=== PATIENT | male | born 1955 | race Caucasian/White ===

== ENCOUNTER → 2016-12-24 | Outpatient (CLI) | payer BC ==
[~2016-12-24] MED LIST: SODIUM CHLORIDE 0.9% 250 ML in EMPTY BAG 1 BAG IV PRN; SODIUM CHLORIDE 0.9% 500 ML in EMPTY BAG 1 BAG IV PRN
[2016-12-24 09:27] VITALS: RESP 16; TEMP 97.6
[2016-12-24 10:46] VITALS: PULSE 66
[2016-12-24 11:06] VITALS: BP 136/81
== END | disposition home or self-care (01) ==
LOC: PROCWHC3 09:15
PROVIDERS: ATTEND Internal Medicine Gastroenterology
DX: K50.012 Crohn's disease of small intestine with intestinal obstruction (principal)
CPT/HCPCS: 96361; 96413; 96415; J1745

== ENCOUNTER 2017-02-04 09:22 | Outpatient (CLI) | payer BC ==
[2017-02-04 09:34] VITALS: RESP 16; TEMP 97.1
[2017-02-04 11:23] VITALS: BP 143/83; PULSE 61
== END 2017-02-04 16:14 | disposition home or self-care (01) ==
LOC: PROCWHC3 09:22
PROVIDERS: ATTEND Internal Medicine Gastroenterology
DX: K50.012 Crohn's disease of small intestine with intestinal obstruction (principal)
CPT/HCPCS: 96361; 96413; 96415; J1745

== ENCOUNTER → 2017-02-14 | Outpatient (CLI) | payer BC ==
[2017-02-14 08:07] LABS: CH 29.5; CHCM 33.8; HCT 38.4 % (39.0-53.0); HDW 3.04; HGB 12.6 gm/dL (13.0-17.5); MCH 28.7 pg (25.0-35.0); MCHC 32.9 g/dL (31.0-37.0); MCV 87.3 fL (80.0-100.0); Mean Platelet Volume 7.8; RDW 13.4 % (11.5-15.5); WBC 7.4 k/uL (3.8-10.6)
[2017-02-14 10:02] LABS: ALT 48 U/L (21-72); AST 37 U/L (17-59); Alkaline Phosphatase 82 U/L (38-126); Anion Gap 13 mmol/L; Blood Urea Nitrogen 10 mg/dL (9-20); Calcium 9.1 mg/dL (8.4-10.2); Carbon Dioxide 24 mmol/L (22-30); Chloride 107 mmol/L (98-107); Cholesterol 121 mg/dL (<200); Glucose 102 mg/dL (74-99); HDL Cholesterol 42 mg/dL (40-60); Non-African American GFR(MDRD) >60 (>60 ml/min/1.73 sqM); Potassium 4.1 mmol/L (3.5-5.1); Sodium 144 mmol/L (137-145); Total Bilirubin 1.9 mg/dL (0.2-1.3); Total Protein 7.5 g/dL (6.3-8.2); Triglycerides 75 mg/dL (<150)
== END | disposition home or self-care (01) ==
LOC: LABWHC1 06:55
PROVIDERS: ATTEND Internal Medicine
DX: E29.1 Testicular hypofunction (principal); E03.9 Hypothyroidism, unspecified; K50.90 Crohn's disease, unspecified, without complications
CPT/HCPCS: 36415; 80053; 80061; 84402; 84403; 84443; 85027

== ENCOUNTER → 2017-03-14 | Outpatient (CLI) | payer BC | END | disposition home or self-care (01) | LOC: PROCWHC3 14:04 | PROVIDERS: ATTEND Internal Medicine Gastroenterology | DX: Z53.9 Procedure and treatment not carried out, unspecified reason (principal) ==

== ENCOUNTER → 2017-03-18 | Outpatient (CLI) | payer BC ==
[2017-03-18 09:39] VITALS: RESP 18; TEMP 98.6
[2017-03-18 11:32] VITALS: BP 143/82; PULSE 59
== END | disposition home or self-care (01) ==
LOC: PROCWHC3 09:14
PROVIDERS: ATTEND Internal Medicine Gastroenterology
DX: K50.012 Crohn's disease of small intestine with intestinal obstruction (principal)
CPT/HCPCS: 96413; 96415; J1745

== ENCOUNTER → 2017-04-25 | Outpatient (CLI) | payer BC ==
[2017-04-25 09:35] VITALS: RESP 18; TEMP 97.9
[2017-04-25 11:05] VITALS: BP 157/81; PULSE 64
== END | disposition home or self-care (01) ==
LOC: PROCWHC3 09:07
PROVIDERS: ATTEND Internal Medicine Gastroenterology
DX: K50.90 Crohn's disease, unspecified, without complications (principal)
CPT/HCPCS: 96413; 96415; J1745

== ENCOUNTER → 2017-05-17 | Outpatient (CLI) | payer BC ==
[2017-05-17 07:26] LABS: CH 31.6; CHCM 35.5; HCT 35.3 % (39.0-53.0); HDW 2.97; HGB 12.3 gm/dL (13.0-17.5); MCH 31.1 pg (25.0-35.0); MCHC 34.8 g/dL (31.0-37.0); MCV 89.3 fL (80.0-100.0); Mean Platelet Volume 7.5; RBC 3.95 m/uL (4.30-5.90); WBC 5.3 k/uL (3.8-10.6)
[2017-05-17 11:11] LABS: ALT 41 U/L (21-72); AST 29 U/L (17-59); Alkaline Phosphatase 84 U/L (38-126); Anion Gap 11 mmol/L; Blood Urea Nitrogen 14 mg/dL (9-20); Carbon Dioxide 22 mmol/L (22-30); Chloride 110 mmol/L (98-107); Cholesterol 103 mg/dL (<200); Glucose 108 mg/dL (74-99); HDL Cholesterol 31 mg/dL (40-60); Non-African American GFR(MDRD) >60 (>60 ml/min/1.73 sqM); Sodium 143 mmol/L (137-145); Total Bilirubin 1.4 mg/dL (0.2-1.3); Total Protein 7.1 g/dL (6.3-8.2); Triglycerides 195 mg/dL (<150)
== END | disposition home or self-care (01) ==
LOC: LABWHC1 07:06
PROVIDERS: ATTEND Internal Medicine
DX: K50.90 Crohn's disease, unspecified, without complications (principal); I10 Essential (primary) hypertension; E29.1 Testicular hypofunction
CPT/HCPCS: 36415; 80053; 80061; 84402; 84403; 84443; 85027

== ENCOUNTER → 2017-06-06 | Outpatient (CLI) | payer BC ==
[~2017-06-06] MED LIST changes: +ACETAMINOPHEN TAB 500 MG TAB PO ONE; +LORATADINE 10 MG TAB PO ONE
[2017-06-06 09:45] VITALS: RESP 18; TEMP 98.3
[2017-06-06 11:12] VITALS: BP 156/87; PULSE 69
== END | disposition home or self-care (01) ==
LOC: PROCWHC3 09:16
PROVIDERS: ATTEND Internal Medicine Gastroenterology
DX: K50.012 Crohn's disease of small intestine with intestinal obstruction (principal)
CPT/HCPCS: 96413; 96415; J1745

== ENCOUNTER → 2017-07-18 | Outpatient (CLI) | payer BC ==
[~2017-07-18] MED LIST changes: -SODIUM CHLORIDE 0.9% 250 ML in EMPTY BAG 1 BAG IV PRN
[2017-07-18 09:49] VITALS: TEMP 98.2
[2017-07-18 11:19] VITALS: BP 158/84; PULSE 56; RESP 18
== END | disposition home or self-care (01) ==
LOC: PROCWHC3 09:21
PROVIDERS: ATTEND Internal Medicine Gastroenterology
DX: K50.012 Crohn's disease of small intestine with intestinal obstruction (principal)
CPT/HCPCS: 96413; 96415; J1745

== ENCOUNTER 2017-08-04 19:36 | Inpatient (IN) | payer BC ==
[2017-08-04] MEDS ORDERED: SODIUM CHLORIDE 0.9% 1,000 ML IV STA ×2 (20:04)
[2017-08-04] MEDS ORDERED: ONDANSETRON 4 MG/2 ML VIAL IVP STA (20:04)
[2017-08-04] MEDS ORDERED: PANTOPRAZOLE 40 MG/10 ML VIAL IVP STA (20:04)
[2017-08-04] MEDS ORDERED: HYDROmorphone 1 MG/ML 1 ML SYRINGE IVP STA (20:04)
--- NOTE | 2017-08-04 20:10 | ED ---
General Adult HPI - General Chief complaint: Nausea/Vomiting/Diarrhea Stated complaint: chron's flare up Time Seen by Provider: 08/04/17 19:51 Source: patient, RN notes reviewed, old records reviewed Mode of arrival: ambulatory Limitations: no limitations - History of Present Illness Initial comments: Complaint history of present illness 61-year-old male here with a history of Crohn's. He's having abdominal cramping and pain for one week. His stools have been somewhat formed and they float. Not noticed any blood. - Related Data Home Medications Medication Instructions Recorded Confirmed ALPRAZolam [Xanax] 0.25 mg PO BID 05/06/14 08/04/17 Famotidine [Pepcid] 20 mg PO BID 05/06/14 08/04/17 Gemfibrozil 600 mg PO HS 05/06/14 08/04/17 Mesalamine [Pentasa] 1,000 mg PO QID 05/06/14 08/04/17 Multivitamin [Men's Multi-Vitamin] 1 tab PO DAILY 05/06/14 08/04/17 Pantoprazole Sodium [Protonix] 40 mg PO DAILY 05/06/14 08/04/17 inFLIXimab [Remicade] 800 mg IVPB Q42D 06/08/14 08/04/17 Levothyroxine Sodium [Synthroid] 25 mcg PO HS 06/01/15 08/04/17 Testosterone Cypionate 100 mg IM Q28D 12/12/15 08/04/17 [Depo-Testosterone] Cholecalciferol (Vitamin D3) 50,000 unit PO SA 03/05/16 08/04/17 [Vitamin D3] Phenyleph/Pramoxin/Glycr/W.pet 1 applic RECTAL DAILY PRN 03/06/16 08/04/17 [Preparation H Cream] Allergies Allergy/AdvReac Type Severity Reaction Status Date / Time codeine AdvReac Nausea Verified 08/04/17 19:45 Review of Systems ROS Statement: Those systems with pertinent positive or pertinent negative responses have been documented in the HPI. You have systems no visual acuity changes no headache no chest pain no shortness of breath. Mild low back pain. Been feeling bloated for one week. Bowel movements have continued even up until today but no gas today. No numbness no tingling. All systems are reviewed. Past medical problems significant for hypothyroidism, hypercholesterolemia, Crohn's disease. Surgeries include cholecystectomy, surgery for Meckel's diverticula, hernia repair prostate surgery total prostatectomy for prostate cancer. The patient's family history father had lung cancer. Patient has ALLERGIES to codeine. He quit smoking 15 years ago. drinks Alcohol socially. ROS Other: All systems not noted in ROS Statement are negative. Past Medical History Past Medical History: Cancer, GERD/Reflux, Hyperlipidemia, Skin Disorder, Thyroid Disorder Additional Past Medical History / Comment(s): chron's firt diagnosed in 2006, prostate cancer with removal, hypothyroidism, hiatal hernia, eczema when youner. History of Any Multi-Drug Resistant Organisms: None Reported Past Surgical History: Cholecystectomy, Hernia Repair, Prostate Surgery Additional Past Surgical History / Comment(s): exploratory lap x 2, umbilcal hernia repair, merkels diverticulum removal, prostatectomy. Past Anesthesia/Blood Transfusion Reactions: No Reported Reaction Past Psychological History: Anxiety Smoking Status: Former smoker Past Alcohol Use History: None Reported Past Drug Use History: None Reported - Past Family History Father Family Medical History: Coronary Artery Disease (CAD), Hyperlipidemia, Myocardial Infarction ([place]), Prostate Disorder Additional Family Medical History / Comment(s): Father is 83 yrs old. Mother Family Medical History: Hyperlipidemia, Myocardial Infarction ([place]) Additional Family Medical History / Comment(s): Mother is 80 yrs old. She has ? CROHNS OR COLITIS, HEART DISEASE General Exam - General Exam Comments Initial Comments: General: The patient is awake and alert, lying of abdominal pain. History of Crohn's. Vital signs temperature 98.2 pulse 79 respiratory rate 18 pulse ox 99% room air blood pressure 154/88 Eye: Pupils are equal, round and reactive to light, extra-ocular movements are intact ; there is normal conjunctiva bilaterally. No signs of icterus. Ears, nose, mouth and throat: There are moist mucous membranes and no oral lesions. Neck: The neck is supple, there is no tenderness. Cardiovascular: There is a regular rate and rhythm. No murmur, rub or gallop is appreciated. Respiratory: Lungs are clear to auscultation, respirations are non-labored, breath sounds are equal. No wheezes, stridor, rales, or rhonchi. Gastrointestinal: Mildly distended. Active bowel sounds. Tender to deep palpation no organomegaly. Back: There is no tenderness to palpation in the midline. Musculoskeletal: Normal ROM, no tenderness, There is no pedal edema. There is no calf tenderness or swelling. Sensation intact. Pulses equal bilaterally 2+. Neurological: No neuro deficits. Skin: Skin is warm and dry and no rashes or lesions are noted. Limitations: no limitations Course Vital Signs 08/04/17 19:42 Temperature 98.2 F Pulse Rate 79 Respiratory 18 Rate Blood Pressure 154/88 O2 Sat by Pulse 99 Oximetry Medical Decision Making - Medical Decision Making Medical decision making; white count 14.4 hemoglobin 13 hematocrit 39, potassium 4.1 with a BUN 17 creatinine 1.1 and GFR greater than 60. Glucose 113. Total bilirubin mildly elevated at 1.9. Amylase lipase within normal limits. Trays of the abdomen were done and reviewed by radiologist his findings are her multiple loops of dilated small bowel with air-fluid levels. These dilated loops measuring up to 4.5 cm. There is also several air-fluid levels noted in the colon which could be normal. There are surgical clips identified in the gallbladder fossa. No definite free intraperitoneal air is identified. There are multiple surgical zeina noted in the pelvis. Impression; multiple dilated loops of small bowel with air-fluid levels. Findings are concerning for partial or early complete small bowel obstruction. As read by Dr. Bush She has had Gen. surgery performed by Dr. Madan Raymond, he will be notified. The patient will have a nasogastric tube placed to low suction. And discussed with Dr. mcgowan, covering for Dr. Leyva. Patient be admitted to Dr. Leyva with a cold consultation from Dr. batista . Dr. Bacon has ordered Solu-Medrol 40 mg, 3 times a day for his Crohns flare. - Lab Data Result diagrams: 08/04/17 20:10 08/04/17 20:10 Lab Results 08/04/17 08/04/17 08/04/17 Range/Units 20:10 20:10 20:10 WBC 14.4 H (3.8-10.6) k/uL RBC 4.44 (4.30-5.90) m/uL Hgb 13.9 (13.0-17.5) gm/dL Hct 39.5 (39.0-53.0) % MCV 88.9 (80.0-100.0) fL MCH 31.2 (25.0-35.0) pg MCHC 35.1 (31.0-37.0) g/dL RDW 14.8 (11.5-15.5) % Plt Count 287 (150-450) k/uL Neutrophils % 84 % Lymphocytes % 9 % Monocytes % 4 % Eosinophils % 1 % Basophils % 1 % Neutrophils # 12.0 H (1.3-7.7) k/uL Lymphocytes # 1.4 (1.0-4.8) k/uL Monocytes # 0.6 (0-1.0) k/uL Eosinophils # 0.2 (0-0.7) k/uL Basophils # 0.1 (0-0.2) k/uL Sodium 143 (137-145) mmol/L Potassium 4.1 (3.5-5.1) mmol/L Chloride 109 H (98-107) mmol/L Carbon Dioxide 20 L (22-30) mmol/L Anion Gap 14 mmol/L BUN 17 (9-20) mg/dL Creatinine 1.10 (0.66-1.25) mg/dL Est GFR (MDRD) Af Amer >60 (>60 ml/min/1.73 sqM) Est GFR (MDRD) Non-Af >60 (>60 ml/min/1.73 sqM) Glucose 113 H (74-99) mg/dL Plasma Lactic Acid Alex 1.2 (0.7-2.0) mmol/L Calcium 9.4 (8.4-10.2) mg/dL Total Bilirubin 1.9 H (0.2-1.3) mg/dL AST 41 (17-59) U/L ALT 47 (21-72) U/L Alkaline Phosphatase 91 (38-126) U/L Total Protein 7.9 (6.3-8.2) g/dL Albumin 4.5 (3.5-5.0) g/dL Amylase 55 (30-110) U/L Lipase 24 (23-300) U/L Urine Color Urine Appearance (Clear) Urine pH (5.0-8.0) Ur Specific [place] (1.001-1.035) Urine Protein (Negative) Urine Glucose (UA) (Negative) Urine Ketones (Negative) Urine Blood (Negative) Urine Nitrite (Negative) Urine Bilirubin (Negative) Urine Urobilinogen (<2.0) mg/dL Ur Leukocyte Esterase (Negative) Urine WBC (0-5) /hpf Urine Mucus (None) /hpf 08/04/17 Range/Units 20:50 WBC (3.8-10.6) k/uL RBC (4.30-5.90) m/uL Hgb (13.0-17.5) gm/dL Hct (39.0-53.0) % MCV (80.0-100.0) fL MCH (25.0-35.0) pg MCHC (31.0-37.0) g/dL RDW (11.5-15.5) % Plt Count (150-450) k/uL Neutrophils % % Lymphocytes % % Monocytes % % Eosinophils % % Basophils % % Neutrophils # (1.3-7.7) k/uL Lymphocytes # (1.0-4.8) k/uL Monocytes # (0-1.0) k/uL Eosinophils # (0-0.7) k/uL Basophils # (0-0.2) k/uL Sodium (137-145) mmol/L Potassium (3.5-5.1) mmol/L Chloride (98-107) mmol/L Carbon Dioxide (22-30) mmol/L Anion Gap mmol/L BUN (9-20) mg/dL Creatinine (0.66-1.25) mg/dL Est GFR (MDRD) Af Amer (>60 ml/min/1.73 sqM) Est GFR (MDRD) Non-Af (>60 ml/min/1.73 sqM) Glucose (74-99) mg/dL Plasma Lactic Acid Alex (0.7-2.0) mmol/L Calcium (8.4-10.2) mg/dL Total Bilirubin (0.2-1.3) mg/dL AST (17-59) U/L ALT (21-72) U/L Alkaline Phosphatase (38-126) U/L Total Protein (6.3-8.2) g/dL Albumin (3.5-5.0) g/dL Amylase (30-110) U/L Lipase (23-300) U/L Urine Color Yellow Urine Appearance Clear (Clear) Urine pH 5.5 (5.0-8.0) Ur Specific [place] 1.019 (1.001-1.035) Urine Protein 1+ H (Negative) Urine Glucose (UA) Negative (Negative) Urine Ketones Negative (Negative) Urine Blood Negative (Negative) Urine Nitrite Negative (Negative) Urine Bilirubin Negative (Negative) Urine Urobilinogen <2.0 (<2.0) mg/dL Ur Leukocyte Esterase Negative (Negative) Urine WBC 1 (0-5) /hpf Urine Mucus Rare H (None) /hpf Disposition Clinical Impression: Partial obstruction of small intestine, History of Crohn's disease Disposition: ADMITTED IP TO THIS HOSP Condition: Serious Referrals: Olman Vance MD [Primary Care Provider] - 1-2 days
[2017-08-04 20:27] LABS: Basophils # (A) 0.1 k/uL (0-0.2); Basophils % (A) 1 %; CH 32.5; CHCM 36.8; Eosinophils # (A) 0.2 k/uL (0-0.7); Eosinophils % (A) 1 %; HCT 39.5 % (39.0-53.0); HDW 3.08; HGB 13.9 gm/dL (13.0-17.5); Luc # (Auto) 0.17; Luc % (Auto) 1; Lymphocytes # (A) 1.4 k/uL (1.0-4.8); Lymphocytes % (A) 9 %; MCH 31.2 pg (25.0-35.0); MCHC 35.1 g/dL (31.0-37.0); MCV 88.9 fL (80.0-100.0); Mean Platelet Volume 8.5; Monocytes # (A) 0.6 k/uL (0-1.0); Monocytes % (A) 4 %; Neutrophils % (A) 84 %; RBC 4.44 m/uL (4.30-5.90); RDW 14.8 % (11.5-15.5); WBC 14.4 k/uL (3.8-10.6); WBC (Perox) 14.19
[2017-08-04 20:36] LABS: ALT 47 U/L (21-72); AST 41 U/L (17-59); Alkaline Phosphatase 91 U/L (38-126); Amylase 55 U/L (30-110); Anion Gap 14 mmol/L; Blood Urea Nitrogen 17 mg/dL (9-20); Calcium 9.4 mg/dL (8.4-10.2); Carbon Dioxide 20 mmol/L (22-30); Chloride 109 mmol/L (98-107); Glucose 113 mg/dL (74-99); Non-African American GFR(MDRD) >60 (>60 ml/min/1.73 sqM); Potassium 4.1 mmol/L (3.5-5.1); Sodium 143 mmol/L (137-145); Total Bilirubin 1.9 mg/dL (0.2-1.3); Total Protein 7.9 g/dL (6.3-8.2)
--- NOTE | 2017-08-04 20:56 | XR ---
Exam: X-ray abdomen 2 view TECHNIQUE: Single upright and 2 supine views of the abdomen were obtained and compared to previous st y from April 02, 2016. HISTORY: Abdominal pain nausea vomiting history of Crohn's disease. FINDINGS: There are multiple loops of dilated small bowel with air-fluid levels. These dilated loops measure up to 4.5 cm. There is also several air-fluid levels noted in the colon which could be normal. There ar e surgical clips identified in the gallbladder fossa. No definite free intraperitoneal air is identif ied. There are multiple surgical zeina noted in the pelvis. IMPRESSION: Multiple dilated loops of small bowel with air-fluid levels. Findings are concerning for partial or e adriana complete small bowel obstruction.
[2017-08-04 21:06] LABS: Appearance,Urine Clear (Clear); Bilirubin,Urine Negative (Negative); Glucose,Urine (UA) Negative (Negative); Ketones,Urine Negative (Negative); Leukocyte Esterase,Urine Negative (Negative); Mucus,Urine Rare /hpf; Nitrite,Urine Negative (Negative); PH, Urine 5.5 (5.0-8.0); Particle Count 2647; Protein,Urine 1+ (Negative); Specific Gravity,Urine 1.019 (1.001-1.035); UA Billing (MACRO vs. MICRO) MICRO; Urobilinogen,Urine <2.0 mg/dL (<2.0); WBC,Urine 1 /hpf (0-5)
[2017-08-04] MEDS ORDERED: methylPREDNISolone SOD SUCCI 125 MG/2 ML VIAL IM STA (21:18)
[2017-08-04] MEDS ORDERED: NALOXONE 0.4 MG/ML 1 ML VIAL IV PRN (21:22)
[2017-08-04] MEDS ORDERED: methylPREDNISolone SOD SUCCI 40 MG/ML 1 ML VIAL IV STA (21:56)
[2017-08-04 23:34] VITALS: BMI 25.7
[2017-08-04] MEDS: HYDROmorphone 1 MG/ML 1 ML SYRINGE IV PRN (23:38)
[2017-08-04] MEDS: SODIUM CHLORIDE 0.9% 1,000 ML IV SCH (23:41)
[2017-08-04] MEDS: methylPREDNISolone SOD SUCCI 40 MG/ML 1 ML VIAL IV SCH (23:42)
[2017-08-05] MEDS: ONDANSETRON 4 MG/2 ML VIAL IVP PRN ×2 (02:30→14:24)
[2017-08-05] MEDS: SODIUM CHLORIDE 0.9% 1,000 ML IV SCH ×3 (07:11→22:05)
[2017-08-05 07:35] LABS: ALT 42 U/L (21-72); AST 35 U/L (17-59); Alkaline Phosphatase 78 U/L (38-126); Anion Gap 11 mmol/L; Blood Urea Nitrogen 16 mg/dL (9-20); Calcium 8.7 mg/dL (8.4-10.2); Carbon Dioxide 20 mmol/L (22-30); Chloride 112 mmol/L (98-107); Glucose 134 mg/dL (74-99); Non-African American GFR(MDRD) >60 (>60 ml/min/1.73 sqM); Potassium 4.3 mmol/L (3.5-5.1); Sodium 143 mmol/L (137-145); Total Bilirubin 1.9 mg/dL (0.2-1.3); Total Protein 7.1 g/dL (6.3-8.2)
[2017-08-05 08:05] LABS: Basophils % (A) 0 %; CH 30.9; CHCM 34.1; Eosinophils % (A) 0 %; HCT 38.1 % (39.0-53.0); HDW 3.01; HGB 13.2 gm/dL (13.0-17.5); Luc # (Auto) 0.06; Luc % (Auto) 1; Lymphocytes % (A) 12 %; MCH 31.6 pg (25.0-35.0); MCHC 34.8 g/dL (31.0-37.0); Mean Platelet Volume 7.7; Monocytes # (A) 0.1 k/uL (0-1.0); Monocytes % (A) 1 %; Neutrophils # (A) 7.5 k/uL (1.3-7.7); Neutrophils % (A) 86 %; RBC 4.18 m/uL (4.30-5.90); RDW 14.2 % (11.5-15.5); WBC 8.7 k/uL (3.8-10.6); WBC (Perox) 8.83
[2017-08-05] MEDS: methylPREDNISolone SOD SUCCI 40 MG/ML 1 ML VIAL IV SCH ×3 (08:27→22:03)
[2017-08-05] MEDS: PANTOPRAZOLE 40 MG/10 ML VIAL IV SCH (08:28)
--- NOTE | 2017-08-05 12:08 | P.GSHP ---
History of Present Illness H&P Date: 08/05/17 Chief Complaint: Small bowel obstruction Patient is well-known to our service. He has a history of Crohn's disease. He is maintained on Pentasa and Remicade. He is known to Dr. Loo. He came to the hospital with a several day progressive abdominal discomfort. Also had abdominal bloating. Bowel habits slightly diminished. Some nausea but no vomiting. No fevers. Small bowel series revealed findings consistent with early SBO. Denies rectal bleeding or melena. He typically responds to steroid therapy for is exacerbation of Crohn's. He had an episode similar to this in March of last year. IV steroids were started on admission. Nasogastric tube was also placed on arrival with bilious output. - Review of Systems Comment: The patient denies any acute changes in vision or hearing, no dysphagia or odynophagia, no chest pain or shortness of breath, no dysuria or hematuria, no headache, no runny nose, no rectal bleeding or melena, no unexplained weight loss Past Medical History Past Medical History: Cancer, GERD/Reflux, Hyperlipidemia, Skin Disorder, Thyroid Disorder Additional Past Medical History / Comment(s): chron's first diagnosed in 2006, prostate cancer with removal, hypothyroidism, hiatal hernia, eczema when younger. History of Any Multi-Drug Resistant Organisms: None Reported Past Surgical History: Cholecystectomy, Hernia Repair, Prostate Surgery, Tonsillectomy Additional Past Surgical History / Comment(s): exploratory lap x 2, umbilcal hernia repair, merkels diverticulum removal, prostatectomy. Past Anesthesia/Blood Transfusion Reactions: No Reported Reaction Past Psychological History: Anxiety Additional Psychological History / Comment(s): Pt lives with spouse and adult grandson. He is independent. He uses no assistive device. He drives. Smoking Status: Former smoker Past Alcohol Use History: None Reported Additional Past Alcohol Use History / Comment(s): Pt states he first smoked at age 12 yrs. He QUIT SMOKING 13 YEARS AGO-2001. Had SMOKED OFF AND ON over the yrs -/2-3/ PPD Past Drug Use History: Cocaine, Marijuana Additional Drug Use History / Comment(s): IN HIS 20'S pt used cocaine and marijuana- none since that time. - Past Family History Father Family Medical History: Cancer, Coronary Artery Disease (CAD), Hyperlipidemia, Myocardial Infarction ([place]), Prostate Disorder Additional Family Medical History / Comment(s): Father is in Hospice with bone cancer Mother Family Medical History: Coronary Artery Disease (CAD), CVA/TIA, Hyperlipidemia, Myocardial Infarction ([place]) Additional Family Medical History / Comment(s): Mother is 80 yrs old. She has ? CROHNS OR COLITIS, HEART DISEASE Medications and Allergies Home Medications Medication Instructions Recorded Confirmed Type ALPRAZolam [Xanax] 0.25 mg PO BID 05/06/14 08/04/17 History Famotidine [Pepcid] 20 mg PO BID 05/06/14 08/04/17 History Gemfibrozil 600 mg PO HS 05/06/14 08/04/17 History Mesalamine [Pentasa] 1,000 mg PO QID 05/06/14 08/04/17 History Multivitamin [Men's Multi-Vitamin] 1 tab PO DAILY 05/06/14 08/04/17 History Pantoprazole Sodium [Protonix] 40 mg PO DAILY 05/06/14 08/04/17 History inFLIXimab [Remicade] 800 mg IVPB Q42D 06/08/14 08/04/17 History Levothyroxine Sodium [Synthroid] 25 mcg PO DAILY 06/01/15 08/04/17 History Ergocalciferol [Vitamin D2] 50,000 unit PO WE 08/04/17 08/04/17 History Allergies Allergy/AdvReac Type Severity Reaction Status Date / Time codeine AdvReac Nausea Verified 08/04/17 21:23 Surgical - Exam Vital Signs Temp Pulse Resp BP Pulse Ox 98.2 F 79 18 154/88 99 08/04/17 19:42 08/04/17 19:42 08/04/17 19:42 08/04/17 19:42 08/04/17 19:42 Physical exam: General: Well-developed, well-nourished HEENT: Normocephalic, sclerae nonicteric Abdomen: Nontender, mild distention Extremities: No edema Neuro: Alert and oriented Results - Labs 08/05/17 06:46 08/05/17 06:46 Abnormal Lab Results - Last 24 Hours (Table) 08/04/17 08/04/17 08/04/17 Range/Units 20:10 20:10 20:50 WBC 14.4 H (3.8-10.6) k/uL RBC (4.30-5.90) m/uL Hct (39.0-53.0) % Neutrophils # 12.0 H (1.3-7.7) k/uL Chloride 109 H (98-107) mmol/L Carbon Dioxide 20 L (22-30) mmol/L Glucose 113 H (74-99) mg/dL Total Bilirubin 1.9 H (0.2-1.3) mg/dL Urine Protein 1+ H (Negative) Urine Mucus Rare H (None) /hpf 08/05/17 08/05/17 Range/Units 06:46 06:46 WBC (3.8-10.6) k/uL RBC 4.18 L (4.30-5.90) m/uL Hct 38.1 L (39.0-53.0) % Neutrophils # (1.3-7.7) k/uL Chloride 112 H (98-107) mmol/L Carbon Dioxide 20 L (22-30) mmol/L Glucose 134 H (74-99) mg/dL Total Bilirubin 1.9 H (0.2-1.3) mg/dL Urine Protein (Negative) Urine Mucus (None) /hpf Diabetes panel 08/04/17 08/05/17 Range/Units 20:10 06:46 Sodium 143 143 (137-145) mmol/L Potassium 4.1 4.3 (3.5-5.1) mmol/L Chloride 109 H 112 H (98-107) mmol/L Carbon Dioxide 20 L 20 L (22-30) mmol/L BUN 17 16 (9-20) mg/dL Creatinine 1.10 0.99 (0.66-1.25) mg/dL Glucose 113 H 134 H (74-99) mg/dL Calcium 9.4 8.7 (8.4-10.2) mg/dL AST 41 35 (17-59) U/L ALT 47 42 (21-72) U/L Alkaline Phosphatase 91 78 (38-126) U/L Total Protein 7.9 7.1 (6.3-8.2) g/dL Albumin 4.5 3.9 (3.5-5.0) g/dL Calcium panel 08/04/17 08/05/17 Range/Units 20:10 06:46 Calcium 9.4 8.7 (8.4-10.2) mg/dL Albumin 4.5 3.9 (3.5-5.0) g/dL Pituitary panel 08/04/17 08/05/17 Range/Units 20:10 06:46 Sodium 143 143 (137-145) mmol/L Potassium 4.1 4.3 (3.5-5.1) mmol/L Chloride 109 H 112 H (98-107) mmol/L Carbon Dioxide 20 L 20 L (22-30) mmol/L BUN 17 16 (9-20) mg/dL Creatinine 1.10 0.99 (0.66-1.25) mg/dL Glucose 113 H 134 H (74-99) mg/dL Calcium 9.4 8.7 (8.4-10.2) mg/dL Adrenal panel 08/04/17 08/05/17 Range/Units 20:10 06:46 Sodium 143 143 (137-145) mmol/L Potassium 4.1 4.3 (3.5-5.1) mmol/L Chloride 109 H 112 H (98-107) mmol/L Carbon Dioxide 20 L 20 L (22-30) mmol/L BUN 17 16 (9-20) mg/dL Creatinine 1.10 0.99 (0.66-1.25) mg/dL Glucose 113 H 134 H (74-99) mg/dL Calcium 9.4 8.7 (8.4-10.2) mg/dL Total Bilirubin 1.9 H 1.9 H (0.2-1.3) mg/dL AST 41 35 (17-59) U/L ALT 47 42 (21-72) U/L Alkaline Phosphatase 91 78 (38-126) U/L Total Protein 7.9 7.1 (6.3-8.2) g/dL Albumin 4.5 3.9 (3.5-5.0) g/dL Assessment and Plan (1) Partial obstruction of small intestine Narrative/Plan: Patient appears to have a small bowel obstruction related to an exacerbation of Crohn's disease. We'll consult GI for evaluation and management. Continue IV steroids for now. Keep nothing by mouth with nasogastric tube to suction. We' ll reevaluate tomorrow. Status: Acute
[2017-08-05] MEDS: HYDROmorphone 1 MG/ML 1 ML SYRINGE IV PRN (14:24)
--- NOTE | 2017-08-05 19:01 | P.HPIM ---
History of Present Illness H&P Date: 08/05/17 Chief Complaint: Abdominal pain and nausea Patient Remigio Phillips is a 61-year-old male with known history of Crohn's disease who presented to [facility] emergency room with a chief complaint of abdominal pain and nausea for about 12 hours prior to presentation. Patient describes abdominal cramping and feeling of abdominal bloating. Patient has nausea that he describes as dry heaves but no vomiting. No fever or chills Small bowel series revealed findings consistent with early small bowel obstruction Denies rectal bleeding or melena. He typically responds to steroid therapy for is exacerbation of Crohn's. He had an episode similar to this in March of last year. IV steroids were started on admission. Nasogastric tube was also placed on arrival with bilious output. Past Medical History Past Medical History: Cancer, GERD/Reflux, Hyperlipidemia, Skin Disorder, Thyroid Disorder Additional Past Medical History / Comment(s): chron's first diagnosed in 2006, prostate cancer with removal, hypothyroidism, hiatal hernia, eczema when younger. History of Any Multi-Drug Resistant Organisms: None Reported Past Surgical History: Cholecystectomy, Hernia Repair, Prostate Surgery, Tonsillectomy Additional Past Surgical History / Comment(s): exploratory lap x 2, umbilcal hernia repair, merkels diverticulum removal, prostatectomy. Past Anesthesia/Blood Transfusion Reactions: No Reported Reaction Past Psychological History: Anxiety Additional Psychological History / Comment(s): Pt lives with spouse and adult grandson. He is independent. He uses no assistive device. He drives. Smoking Status: Former smoker Past Alcohol Use History: None Reported Additional Past Alcohol Use History / Comment(s): Pt states he first smoked at age 12 yrs. He QUIT SMOKING 13 YEARS AGO-2001. Had SMOKED OFF AND ON over the yrs -1/2-3/4 PPD Past Drug Use History: Cocaine, Marijuana Additional Drug Use History / Comment(s): IN HIS 20'S pt used cocaine and marijuana- none since that time. - Past Family History Father Family Medical History: Cancer, Coronary Artery Disease (CAD), Hyperlipidemia, Myocardial Infarction ([place]), Prostate Disorder Additional Family Medical History / Comment(s): Father is in Hospice with bone cancer Mother Family Medical History: Coronary Artery Disease (CAD), CVA/TIA, Hyperlipidemia, Myocardial Infarction ([place]) Additional Family Medical History / Comment(s): Mother is 80 yrs old. She has ? CROHNS OR COLITIS, HEART DISEASE Medications and Allergies Home Medications Medication Instructions Recorded Confirmed Type ALPRAZolam [Xanax] 0.25 mg PO BID 05/06/14 08/04/17 History Famotidine [Pepcid] 20 mg PO BID 05/06/14 08/04/17 History Gemfibrozil 600 mg PO HS 05/06/14 08/04/17 History Mesalamine [Pentasa] 1,000 mg PO QID 05/06/14 08/04/17 History Multivitamin [Men's Multi-Vitamin] 1 tab PO DAILY 05/06/14 08/04/17 History Pantoprazole Sodium [Protonix] 40 mg PO DAILY 05/06/14 08/04/17 History inFLIXimab [Remicade] 800 mg IVPB Q42D 06/08/14 08/04/17 History Levothyroxine Sodium [Synthroid] 25 mcg PO DAILY 06/01/15 08/04/17 History Ergocalciferol [Vitamin D2] 50,000 unit PO WE 08/04/17 08/04/17 History Allergies Allergy/AdvReac Type Severity Reaction Status Date / Time codeine AdvReac Nausea Verified 08/04/17 21:23 Physical Exam Vitals: Vital Signs Temp Pulse Pulse Resp BP BP Pulse Ox 08/05/17 15:00 98.4 F 84 16 128/76 96 08/05/17 08:00 15 08/05/17 07:00 97.2 F L 74 15 154/90 95 08/05/17 01:18 98.5 F 67 18 144/82 96 08/04/17 23:40 16 08/04/17 22:48 98.1 F 65 16 165/88 97 08/04/17 22:06 98.7 F 70 16 165/83 97 08/04/17 19:42 98.2 F 79 18 154/88 99 Intake and Output 08/05/17 08/05/17 08/05/17 06:59 14:59 22:59 Intake Total 1000 Output Total 650 Balance 1000 -650 Intake: Intake, IV Titration 1000 Amount Sodium Chloride 0.9% 1, 1000 000 ml @ 125 mls/hr IV . Q8H [facility] Rx#:[id number] Output: Gastric Drainage 250 Urine 400 Other: Voiding Method Toilet Urinal Urinal # Voids 2 3 In general patient is alert and oriented 3 HEENT head normocephalic and atraumatic, NG tube in Neck is supple no JVD no goiter no lymphadenopathy Chest exam reveals a few scattered crackles no wheezing Cardiac exam reveals regular heart sounds S1 and S2 no gallops no murmurs Abdomen is soft nontender no organomegaly with normal bowel sounds Extremity exam reveals no edema no cyanosis or clubbing Results CBC & Chem 7: 08/05/17 06:46 08/05/17 06:46 Labs: Abnormal Lab Results - Last 24 Hours (Table) 08/04/17 08/04/17 08/04/17 Range/Units 20:10 20:10 20:50 WBC 14.4 H (3.8-10.6) k/uL RBC (4.30-5.90) m/uL Hct (39.0-53.0) % Neutrophils # 12.0 H (1.3-7.7) k/uL Chloride 109 H (98-107) mmol/L Carbon Dioxide 20 L (22-30) mmol/L Glucose 113 H (74-99) mg/dL Total Bilirubin 1.9 H (0.2-1.3) mg/dL Urine Protein 1+ H (Negative) Urine Mucus Rare H (None) /hpf 08/05/17 08/05/17 Range/Units 06:46 06:46 WBC (3.8-10.6) k/uL RBC 4.18 L (4.30-5.90) m/uL Hct 38.1 L (39.0-53.0) % Neutrophils # (1.3-7.7) k/uL Chloride 112 H (98-107) mmol/L Carbon Dioxide 20 L (22-30) mmol/L Glucose 134 H (74-99) mg/dL Total Bilirubin 1.9 H (0.2-1.3) mg/dL Urine Protein (Negative) Urine Mucus (None) /hpf Thrombosis Risk Factor Assmnt - Choose All That Apply Any of the Below Risk Factors Present?: Yes Each Factor Represents 1 point: Obesity (BMI >25) Other Risk Factors: Yes Each Risk Factor Represents 2 Points: Age 61-74 years Each Risk Factor Represents 3 Points: History of DVT/PE Thrombosis Risk Factor Assessment Total Risk Factor Score: 6 Thrombosis Risk Factor Assessment Level: High Risk Assessment and Plan Plan: #1 abdominal pain was nausea, abdomen x-ray reveals evidence of multiple dilated small bowel loops with air-fluid level suggestive of partial bowel obstruction. At this time NG tube is in, patient is kept nothing by mouth, will monitor progress closely. #2 underlying history of Crohn's disease, currently patient is maintained on IV Solu-Medrol will continue, at home patient is maintained on Remicade and Pentasa #3 underlying history of hypothyroidism maintained on Synthroid #4 underlying history of hyperlipidemia, patient is maintained on gemfibrozil will hold at this time #5 underlying history of vitamin D deficiency maintained on vitamin D2 50,000 units once weekly will hold at this time Medication and labs were reviewed continue was current orders will recheck labs and follow in a.m.
[2017-08-06] MEDS: HYDROmorphone 1 MG/ML 1 ML SYRINGE IV PRN ×2 (04:30→18:11)
[2017-08-06] MEDS: ONDANSETRON 4 MG/2 ML VIAL IVP PRN ×2 (04:31→18:11)
[2017-08-06] MEDS: SODIUM CHLORIDE 0.9% 1,000 ML IV SCH ×2 (08:16→18:05)
[2017-08-06] MEDS: methylPREDNISolone SOD SUCCI 40 MG/ML 1 ML VIAL IV SCH (09:55)
[2017-08-06] MEDS: PANTOPRAZOLE 40 MG/10 ML VIAL IV SCH (09:55)
--- NOTE | 2017-08-06 11:57 | P.PN ---
Subjective Principal diagnosis: Small bowel obstruction Patient was complaining of nausea and crampy abdominal pain last night. Some flatus but no bowel movement. Nasogastric tube bilious. No labs from today. Objective - Vital Signs Vital signs: Vital Signs Temp 98 F 08/06/17 04:40 Pulse 60 08/06/17 04:40 Resp 16 08/06/17 04:40 BP 185/77 08/06/17 04:40 Pulse Ox 94 L 08/06/17 04:40 Intake & Output 08/05/17 08/06/17 08/06/17 18:59 06:59 18:59 Intake Total 1875 Output Total 650 600 400 Balance -650 1275 -400 Intake: Intake, IV Titration 1875 Amount Sodium Chloride 0.9% 1, 1875 000 ml @ 125 mls/hr IV . Q8H [facility] Rx#:[id number] Output: Gastric Drainage 250 400 Urine 400 600 Other: Voiding Method Urinal Urinal # Voids 3 1 - Exam Abdomen: Soft, mild distention, nontender - Labs CBC & Chem 7: 08/05/17 06:46 08/05/17 06:46 Assessment and Plan (1) Partial obstruction of small intestine Narrative/Plan: Repeat abdominal x-rays and labs tomorrow morning. Keep nothing by mouth with nasogastric tube to suction. Continue IV steroids. Await GI evaluation. Status: Acute
[2017-08-06] MEDS ORDERED: methylPREDNISolone SOD SUCCI 125 MG/2 ML VIAL IV SCH (16:00)
[2017-08-06] MEDS: methylPREDNISolone SOD SUCCI 125 MG/2 ML VIAL IV SCH (18:06)
--- NOTE | 2017-08-06 19:15 | P.PN ---
Subjective Patient Remigio Phillips is a 61-year-old male with known history of Crohn's disease who presented to [facility] emergency room with a chief complaint of abdominal pain and nausea for about 12 hours prior to presentation. Patient describes abdominal cramping and feeling of abdominal bloating. Patient has nausea that he describes as dry heaves but no vomiting. No fever or chills Small bowel series revealed findings consistent with early small bowel obstruction Denies rectal bleeding or melena. He typically responds to steroid therapy for is exacerbation of Crohn's. He had an episode similar to this in March of last year. IV steroids were started on admission. Nasogastric tube was also placed on arrival with bilious output. Objective - Vital Signs Vital signs: Vital Signs Temp 98.2 F 08/06/17 14:26 Pulse 65 08/06/17 14:26 Resp 16 08/06/17 14:26 BP 165/83 08/06/17 14:26 Pulse Ox 94 L 08/06/17 14:26 Intake & Output 08/06/17 08/06/17 08/07/17 06:59 18:59 06:59 Intake Total 1875 1000 Output Total 600 850 Balance 1275 150 Intake: Intake, IV Titration 1875 1000 Amount Sodium Chloride 0.9% 1, 1875 1000 000 ml @ 125 mls/hr IV . Q8H [facility] Rx#:[id number] Output: Gastric Drainage 400 Urine 600 450 Other: Voiding Method Urinal # Voids 1 - Exam In general patient is alert and oriented 3 HEENT head normocephalic and atraumatic, NG tube in Neck is supple no JVD no goiter no lymphadenopathy Chest exam reveals a few scattered crackles no wheezing Cardiac exam reveals regular heart sounds S1 and S2 no gallops no murmurs Abdomen is soft nontender no organomegaly with normal bowel sounds Extremity exam reveals no edema no cyanosis or clubbing - Labs CBC & Chem 7: 08/05/17 06:46 08/05/17 06:46 Assessment and Plan Plan: #1 abdominal pain was nausea, abdomen x-ray reveals evidence of multiple dilated small bowel loops with air-fluid level suggestive of partial bowel obstruction. At this time NG tube is in, patient is kept nothing by mouth, will monitor progress closely. #2 underlying history of Crohn's disease, currently patient is maintained on IV Solu-Medrol will continue, at home patient is maintained on Remicade and Pentasa #3 underlying history of hypothyroidism maintained on Synthroid #4 underlying history of hyperlipidemia, patient is maintained on gemfibrozil will hold at this time #5 underlying history of vitamin D deficiency maintained on vitamin D2 50,000 units once weekly will hold at this time Medication and labs were reviewed continue was current orders will recheck labs and follow in a.m.
[2017-08-06] MEDS: INSULIN LISPRO (humaLOG) 300 UNIT/3 ML VIAL SQ SCH (21:30)
[2017-08-06 21:39] LABS: Glucose,Whole Blood 120 mg/dL (75-99)
[2017-08-07] MEDS: methylPREDNISolone SOD SUCCI 125 MG/2 ML VIAL IV SCH ×5 (00:07→23:53)
[2017-08-07] MEDS: SODIUM CHLORIDE 0.9% 1,000 ML IV SCH ×4 (02:15→21:22)
[2017-08-07] MEDS: HYDROmorphone 1 MG/ML 1 ML SYRINGE IV PRN ×2 (03:01→23:48)
[2017-08-07 07:10] LABS: Basophils % (A) 0 %; Eosinophils % (A) 0 %; HCT 34.9 % (39.0-53.0); HDW 3.11; HGB 12.3 gm/dL (13.0-17.5); Luc # (Auto) 0.09; Luc % (Auto) 1; Lymphocytes # (A) 0.9 k/uL (1.0-4.8); Lymphocytes % (A) 10 %; MCH 31.5 pg (25.0-35.0); MCHC 35.3 g/dL (31.0-37.0); MCV 89.1 fL (80.0-100.0); Mean Platelet Volume 7.5; Monocytes # (A) 0.3 k/uL (0-1.0); Monocytes % (A) 3 %; Neutrophils # (A) 7.9 k/uL (1.3-7.7); Neutrophils % (A) 87 %; RBC 3.92 m/uL (4.30-5.90); RDW 13.7 % (11.5-15.5); WBC 9.1 k/uL (3.8-10.6); WBC (Perox) 9.52
[2017-08-07 07:33] LABS: ALT 79 U/L (21-72); AST 69 U/L (17-59); Alkaline Phosphatase 66 U/L (38-126); Anion Gap 10 mmol/L; Blood Urea Nitrogen 22 mg/dL (9-20); Calcium 8.4 mg/dL (8.4-10.2); Carbon Dioxide 22 mmol/L (22-30); Chloride 108 mmol/L (98-107); Glucose 126 mg/dL (74-99); Non-African American GFR(MDRD) >60 (>60 ml/min/1.73 sqM); Potassium 4.1 mmol/L (3.5-5.1); Sodium 140 mmol/L (137-145); Total Bilirubin 1.5 mg/dL (0.2-1.3); Total Protein 6.7 g/dL (6.3-8.2)
[2017-08-07 07:34] LABS: Glucose,Whole Blood 125 mg/dL (75-99)
[2017-08-07] MEDS: INSULIN LISPRO (humaLOG) 300 UNIT/3 ML VIAL SQ SCH ×4 (07:37→21:19)
--- NOTE | 2017-08-07 07:43 | XR ---
EXAMINATION TYPE: XR abdomen 2V DATE OF EXAM: 08/07/2017 HISTORY: Pain. Technique: 3 views of the abdomen are submitted. Comparison: 08/04/2017 Findings: There is no convincing evidence of pneumoperitoneum. NG tube is in place. Previously noted dilated loops of small bowel have improved significantly in the interval. There is s een scattered within the colon. Surgical sutures right hemiabdomen. No sizable air-fluid levels are seen. No mass effects are noted. No renal calcifications are identified. IMPRESSION: 1. Previously noted dilated loops of small bowel have improved significantly in the interval.
[2017-08-07] MEDS: ENALAPRILAT 1.25 MG/ML 1 ML VIAL IVP PRN (09:12)
[2017-08-07] MEDS: PANTOPRAZOLE 40 MG/10 ML VIAL IV SCH (09:13)
[2017-08-07 11:36] LABS: Glucose,Whole Blood 124 mg/dL (75-99)
--- NOTE | 2017-08-07 12:12 | P.CONS ---
History of Present Illness - Reason for Consult Consult date: 08/07/17 Crohns disease Requesting physician: Beau Raymond - History of Present Illness 61-year-old gentleman with a history of long-standing Crohn's ileitis 15 years ago maintained on Remicade more than 10 years combined with Pentasa admitted with acute abdominal pain. Patient was experiencing indigestion on Friday with increased abdominal discomfort bloatedness. Consultation requested for Crohn's management. Last bowel movement Friday. Abdominal x-rays suggestive of partial small bowel obstruction. Nasogastric tube inserted. Presently patient is feeling better. Passing small amount of flatus no bowel movements. Last hospitalization for exacerbation 15 months ago. Denies emesis but reports dry heaves, denies fever, chills, hematemesis, hematochezia, or melena. Last colonoscopy screening May 2016 with normal- appearing colon from rectum to cecum with no evidence of colitis. Normal- appearing terminal ileum. Next dose of Remicade is due in 2 weeks. CRP less than 5. morning abdominal x-ray showed improvement of dilation of small bowel loops. White count 9.1. Hemoglobin 12.3. Review of Systems Constitutional: Denies fever, chills, sweats, weight gain, or loss. HEENT: Negative for migraines, blurred vision or loss, earaches, drainage, tinnitus, oral mucosal lesions, dysphagia, or odynophagia. Cardiac: Negative for chest pain, arrhythmias, or palpitation. Respiratory: Negative for shortness of breath, hemoptysis, cough, or sputum production. Gastrointestinal: See HPI for pertinent findings. Genitourinary: Negative for hematuria, urgency, frequency, polyuria, dysuria, or penile discharge. Musculoskeletal: Negative for muscle aches, swelling, arthritis, and arthralgias. Neurologic: Negative for stroke or TIA. Endocrine: Negative for thyroid problems. Skin: Negative for rash or itching. Psychiatric: history of anxiety. All systems: negative (See HPI) Past Medical History Past Medical History: Cancer, GERD/Reflux, Hyperlipidemia, Skin Disorder, Thyroid Disorder Additional Past Medical History / Comment(s): chron's first diagnosed in 2006, prostate cancer with removal, hypothyroidism, hiatal hernia, eczema when younger. History of Any Multi-Drug Resistant Organisms: None Reported Past Surgical History: Cholecystectomy, Hernia Repair, Prostate Surgery, Tonsillectomy Additional Past Surgical History / Comment(s): exploratory lap x 2, umbilcal hernia repair, merkels diverticulum removal, prostatectomy. Past Anesthesia/Blood Transfusion Reactions: No Reported Reaction Past Psychological History: Anxiety Additional Psychological History / Comment(s): Pt lives with spouse and adult grandson. He is independent. He uses no assistive device. He drives. Smoking Status: Former smoker Past Alcohol Use History: None Reported Additional Past Alcohol Use History / Comment(s): Pt states he first smoked at age 12 yrs. He QUIT SMOKING 13 YEARS AGO-2001. Had SMOKED OFF AND ON over the yrs -/2-/4 PPD Past Drug Use History: Cocaine, Marijuana Additional Drug Use History / Comment(s): IN HIS 20'S pt used cocaine and marijuana- none since that time. - Past Family History Father Family Medical History: Cancer, Coronary Artery Disease (CAD), Hyperlipidemia, Myocardial Infarction (ME), Prostate Disorder Additional Family Medical History / Comment(s): Father is in Hospice with bone cancer Mother Family Medical History: Coronary Artery Disease (CAD), CVA/TIA, Hyperlipidemia, Myocardial Infarction (ME) Additional Family Medical History / Comment(s): Mother is 80 yrs old. She has ? CROHNS OR COLITIS, HEART DISEASE Medications and Allergies Home Medications Medication Instructions Recorded Confirmed Type ALPRAZolam [Xanax] 0.25 mg PO BID 05/06/14 08/04/17 History Famotidine [Pepcid] 20 mg PO BID 05/06/14 08/04/17 History Gemfibrozil 600 mg PO HS 05/06/14 08/04/17 History Mesalamine [Pentasa] 1,000 mg PO QID 05/06/14 08/04/17 History Multivitamin [Men's Multi-Vitamin] 1 tab PO DAILY 05/06/14 08/04/17 History Pantoprazole Sodium [Protonix] 40 mg PO DAILY 05/06/14 08/04/17 History inFLIXimab [Remicade] 800 mg IVPB Q42D 06/08/14 08/04/17 History Levothyroxine Sodium [Synthroid] 25 mcg PO DAILY 06/01/15 08/04/17 History Ergocalciferol [Vitamin D2] 50,000 unit PO WE 08/04/17 08/04/17 History Allergies Allergy/AdvReac Type Severity Reaction Status Date / Time codeine AdvReac Nausea Verified 08/04/17 21:23 Physical Exam Vitals: Vital Signs Temp Pulse Pulse Resp BP Pulse Ox 08/07/17 07:00 97.8 F 61 16 195/88 96 08/07/17 02:52 98.3 F 60 16 171/82 95 08/06/17 19:56 98.1 F 60 16 164/79 92 L 08/06/17 14:26 98.2 F 65 16 165/83 94 L Intake and Output 08/06/17 08/07/17 08/07/17 22:59 06:59 14:59 Output Total 450 525 Balance -450 -525 Output: Gastric Drainage 225 Urine 450 300 Other: # Voids 1 2 Weight 86.183 kg Patient Weight 08/08/17 06:59 Weight 86.183 kg General appearance: The patient is alert, oriented, in no acute distress. HET: Head is normocephalic and atraumatic. Pupils are equal and reactive. Oropharynx is clear without lesions. NG tube with pale green bilious fluid. Neck: Supple without lymphadenopathy. Trachea midline. Heart: S1 S2. Regular rate and rhythm. Lungs: No crackles or wheezes are heard. Abdomen: Soft, nontender, nondistended with hypoactive bowel sounds. No peritoneal signs. No palpable organomegaly or masses. Extremities: Normal skin color and turgor. No cyanosis, rash, ulceration, clubbing, or edema. Radial and pedal pulses are 2/4 bilaterally. Neurological: No focal deficits. Strength and sensation are grossly intact. Results CBC & Chem 7: 08/07/17 06:36 08/07/17 06:36 Labs: Abnormal Lab Results - Last 24 Hours (Table) 08/06/17 08/07/17 08/07/17 Range/Units 21:25 06:36 06:36 RBC 3.92 L (4.30-5.90) m/uL Hgb 12.3 L (13.0-17.5) gm/dL Hct 34.9 L (39.0-53.0) % Neutrophils # 7.9 H (1.3-7.7) k/uL Lymphocytes # 0.9 L (1.0-4.8) k/uL Chloride 108 H (98-107) mmol/L BUN 22 H (9-20) mg/dL Glucose 126 H (74-99) mg/dL POC Glucose (mg/dL) 120 H (75-99) mg/dL Total Bilirubin 1.5 H (0.2-1.3) mg/dL AST 69 H (17-59) U/L ALT 79 H (21-72) U/L Albumin 3.4 L (3.5-5.0) g/dL 08/07/17 08/07/17 Range/Units 07:27 11:25 RBC (4.30-5.90) m/uL Hgb (13.0-17.5) gm/dL Hct (39.0-53.0) % Neutrophils # (1.3-7.7) k/uL Lymphocytes # (1.0-4.8) k/uL Chloride (98-107) mmol/L BUN (9-20) mg/dL Glucose (74-99) mg/dL POC Glucose (mg/dL) 125 H 124 H (75-99) mg/dL Total Bilirubin (0.2-1.3) mg/dL AST (17-59) U/L ALT (21-72) U/L Albumin (3.5-5.0) g/dL Abdominal x-ray: report reviewed (Dr. Black) Assessment and Plan (1) Exacerbation of Crohn's disease Status: Acute (2) Partial obstruction of small intestine Status: Acute (3) History of Crohn's disease Narrative/Plan: Crohns ileitis. Status: Chronic Plan: 1. IV Solumedrol decrease to Q12H dosing. 2. Once NGT removed restart Pentasa 1 gram QID. 3. GI prophylaxis. Diet per surgery. Thank you for this kind referral and the opportunity to participate in the care of your patient. This consultation was discussed with Dr. Black. The impression and plan of care have been directed as dictated.
[2017-08-07 16:27] LABS: Glucose,Whole Blood 127 mg/dL (75-99)
--- NOTE | 2017-08-07 16:40 | P.PN ---
Subjective Principal diagnosis: Small bowel obstruction Patient doing better today. Positive flatus. No bowel movement. Today's x- rays are much improved. He has less bloated Objective - Vital Signs Vital signs: Vital Signs Temp 98.1 F 08/07/17 14:30 Pulse 71 08/07/17 14:30 Resp 16 08/07/17 14:30 BP 175/84 08/07/17 14:30 Pulse Ox 96 08/07/17 14:30 Intake & Output 08/06/17 08/07/17 08/07/17 18:59 06:59 18:59 Intake Total 1000 Output Total 850 525 Balance 150 -525 Weight 86.183 kg Intake: Intake, IV Titration 1000 Amount Sodium Chloride 0.9% 1, 1000 000 ml @ 125 mls/hr IV . Q8H [facility] Rx#:[id number] Output: Gastric Drainage 400 225 Urine 450 300 Other: # Voids 2 3 - Exam Abdomen: Soft, nondistended, nontender - Labs CBC & Chem 7: 08/07/17 06:36 08/07/17 06:36 Labs: Abnormal Lab Results - Last 24 Hours (Table) 08/06/17 08/07/17 08/07/17 Range/Units 21:25 06:36 06:36 RBC 3.92 L (4.30-5.90) m/uL Hgb 12.3 L (13.0-17.5) gm/dL Hct 34.9 L (39.0-53.0) % Neutrophils # 7.9 H (1.3-7.7) k/uL Lymphocytes # 0.9 L (1.0-4.8) k/uL Chloride 108 H (98-107) mmol/L BUN 22 H (9-20) mg/dL Glucose 126 H (74-99) mg/dL POC Glucose (mg/dL) 120 H (75-99) mg/dL Total Bilirubin 1.5 H (0.2-1.3) mg/dL AST 69 H (17-59) U/L ALT 79 H (21-72) U/L Albumin 3.4 L (3.5-5.0) g/dL 08/07/17 08/07/17 08/07/17 Range/Units 07:27 11:25 16:19 RBC (4.30-5.90) m/uL Hgb (13.0-17.5) gm/dL Hct (39.0-53.0) % Neutrophils # (1.3-7.7) k/uL Lymphocytes # (1.0-4.8) k/uL Chloride (98-107) mmol/L BUN (9-20) mg/dL Glucose (74-99) mg/dL POC Glucose (mg/dL) 125 H 124 H 127 H (75-99) mg/dL Total Bilirubin (0.2-1.3) mg/dL AST (17-59) U/L ALT (21-72) U/L Albumin (3.5-5.0) g/dL Assessment and Plan (1) Partial obstruction of small intestine Narrative/Plan: Continue IV steroids. Remove nasogastric tube. Begin liquid diet. Status: Acute
--- NOTE | 2017-08-07 17:54 | P.PN ---
Subjective Patient Remigio Phillips is a 61-year-old male with known history of Crohn's disease who presented to [facility] emergency room with a chief complaint of abdominal pain and nausea for about 12 hours prior to presentation. Patient describes abdominal cramping and feeling of abdominal bloating. Patient has nausea that he describes as dry heaves but no vomiting. No fever or chills Small bowel series revealed findings consistent with early small bowel obstruction Denies rectal bleeding or melena. He typically responds to steroid therapy for is exacerbation of Crohn's. He had an episode similar to this in March of last year. IV steroids were started on admission. Nasogastric tube was also placed on arrival with bilious output. Objective - Vital Signs Vital signs: Vital Signs Temp 98.1 F 08/07/17 14:30 Pulse 71 08/07/17 14:30 Resp 16 08/07/17 14:30 BP 175/84 08/07/17 14:30 Pulse Ox 96 08/07/17 14:30 Intake & Output 08/06/17 08/07/17 08/07/17 18:59 06:59 18:59 Intake Total 1000 Output Total 850 525 Balance 150 -525 Weight 86.183 kg Intake: Intake, IV Titration 1000 Amount Sodium Chloride 0.9% 1, 1000 000 ml @ 125 mls/hr IV . Q8H [facility] Rx#:[id number] Output: Gastric Drainage 400 225 Urine 450 300 Other: # Voids 2 3 - Exam In general patient is alert and oriented 3 HEENT head normocephalic and atraumatic, NG tube in Neck is supple no JVD no goiter no lymphadenopathy Chest exam reveals a few scattered crackles no wheezing Cardiac exam reveals regular heart sounds S1 and S2 no gallops no murmurs Abdomen is soft nontender no organomegaly with normal bowel sounds Extremity exam reveals no edema no cyanosis or clubbing - Labs CBC & Chem 7: 08/07/17 06:36 08/07/17 06:36 Labs: Abnormal Lab Results - Last 24 Hours (Table) 08/06/17 08/07/17 08/07/17 Range/Units 21:25 06:36 06:36 RBC 3.92 L (4.30-5.90) m/uL Hgb 12.3 L (13.0-17.5) gm/dL Hct 34.9 L (39.0-53.0) % Neutrophils # 7.9 H (1.3-7.7) k/uL Lymphocytes # 0.9 L (1.0-4.8) k/uL Chloride 108 H (98-107) mmol/L BUN 22 H (9-20) mg/dL Glucose 126 H (74-99) mg/dL POC Glucose (mg/dL) 120 H (75-99) mg/dL Total Bilirubin 1.5 H (0.2-1.3) mg/dL AST 69 H (17-59) U/L ALT 79 H (21-72) U/L Albumin 3.4 L (3.5-5.0) g/dL 08/07/17 08/07/17 08/07/17 Range/Units 07:27 11:25 16:19 RBC (4.30-5.90) m/uL Hgb (13.0-17.5) gm/dL Hct (39.0-53.0) % Neutrophils # (1.3-7.7) k/uL Lymphocytes # (1.0-4.8) k/uL Chloride (98-107) mmol/L BUN (9-20) mg/dL Glucose (74-99) mg/dL POC Glucose (mg/dL) 125 H 124 H 127 H (75-99) mg/dL Total Bilirubin (0.2-1.3) mg/dL AST (17-59) U/L ALT (21-72) U/L Albumin (3.5-5.0) g/dL Assessment and Plan Plan: #1 abdominal pain was nausea, abdomen x-ray reveals evidence of multiple dilated small bowel loops with air-fluid level suggestive of partial bowel obstruction. At this time NG tube is out today, patient is kept nothing by mouth, will monitor progress closely. #2 underlying history of Crohn's disease, currently patient is maintained on IV Solu-Medrol will continue, at home patient is maintained on Remicade and Pentasa #3 underlying history of hypothyroidism maintained on Synthroid #4 underlying history of hyperlipidemia, patient is maintained on gemfibrozil will hold at this time #5 underlying history of vitamin D deficiency maintained on vitamin D2 50,000 units once weekly will hold at this time Medication and labs were reviewed continue was current orders will recheck labs and follow in a.m.
[2017-08-07 20:31] LABS: Glucose,Whole Blood 155 mg/dL (75-99)
[2017-08-08] MEDS: ENALAPRILAT 1.25 MG/ML 1 ML VIAL IVP PRN ×2 (01:12→08:00)
[2017-08-08] MEDS: HYDROmorphone 1 MG/ML 1 ML SYRINGE IV PRN (05:30)
[2017-08-08] MEDS: SODIUM CHLORIDE 0.9% 1,000 ML IV SCH ×3 (05:30→22:54)
[2017-08-08] MEDS: INSULIN LISPRO (humaLOG) 300 UNIT/3 ML VIAL SQ SCH ×4 (07:12→21:08)
[2017-08-08 07:16] LABS: Glucose,Whole Blood 137 mg/dL (75-99)
[2017-08-08] MEDS: PANTOPRAZOLE 40 MG/10 ML VIAL IV SCH (08:00)
--- NOTE | 2017-08-08 09:13 | P.PN ---
Subjective Principal diagnosis: PSBO crohns exacerbation Passing flatus no bowel movement. Denies N/V. Afebrile. NGT removed; tolerating clears. Minimal abdominal pain. Reports back spasms. Ambulating in hallway. Objective - Vital Signs Vital signs: Vital Signs Temp 97.3 F L 08/08/17 07:00 Pulse 66 08/08/17 07:00 Resp 12 08/08/17 07:00 BP 168/85 08/08/17 07:00 Pulse Ox 96 08/08/17 07:00 Intake & Output 08/07/17 08/08/17 08/08/17 18:59 06:59 18:59 Output Total 1375 Balance -1375 Weight 86.183 kg Output: Urine 1375 Other: # Voids 3 2 - Exam General appearance: The patient is alert, oriented, in no acute distress. HET: Head is normocephalic and atraumatic. Pupils are equal and reactive. Oropharynx is clear without lesions. Neck: Supple without lymphadenopathy. Trachea midline. Heart: S1 S2. Regular rate and rhythm. Lungs: No crackles or wheezes are heard. Abdomen: Soft, nontender, nondistended with hypoactive bowel sounds. No peritoneal signs. No palpable organomegaly or masses. Extremities: Normal skin color and turgor. No cyanosis, rash, ulceration, clubbing, or edema. Radial and pedal pulses are 2/4 bilaterally. Neurological: No focal deficits. Strength and sensation are grossly intact. - Labs CBC & Chem 7: 08/07/17 06:36 08/07/17 06:36 Labs: Abnormal Lab Results - Last 24 Hours (Table) 08/07/17 08/07/17 08/07/17 Range/Units 11:25 16:19 20:29 POC Glucose (mg/dL) 124 H 127 H 155 H (75-99) mg/dL 08/08/17 Range/Units 07:08 POC Glucose (mg/dL) 137 H (75-99) mg/dL Assessment and Plan (1) Exacerbation of Crohn's disease Status: Acute (2) Partial obstruction of small intestine Status: Acute (3) History of Crohn's disease Narrative/Plan: Crohns ileitis. Status: Chronic Plan: 1. Continue IV Solumedrol Q12 hour dosing today wean to prednisone 40 mg oral tomorrow. Start Pentasa. Prescription provided for prednisone taper on discharge. Diet per surgery. RTO 2 weeks. Assessment and plan of care discussed with Dr. Long
[2017-08-08 11:36] LABS: Glucose,Whole Blood 106 mg/dL (75-99)
[2017-08-08] MEDS: methylPREDNISolone SOD SUCCI 125 MG/2 ML VIAL IV SCH (12:25)
--- NOTE | 2017-08-08 14:42 | P.PN ---
Subjective Patient Remigio Phillips is a 61-year-old male with known history of Crohn's disease who presented to [facility] emergency room with a chief complaint of abdominal pain and nausea for about 12 hours prior to presentation. Patient describes abdominal cramping and feeling of abdominal bloating. Patient has nausea that he describes as dry heaves but no vomiting. No fever or chills Small bowel series revealed findings consistent with early small bowel obstruction Denies rectal bleeding or melena. He typically responds to steroid therapy for is exacerbation of Crohn's. He had an episode similar to this in March of last year. IV steroids were started on admission. Nasogastric tube was also placed on arrival with bilious output. Today patient is alert and oriented NG tube is out since yesterday he is receiving clear liquid diet that he is tolerating well he is passing some gas but no bowel movement yet. Abdominal pain has improved there is no vomiting, there is no fever or chills. Objective - Vital Signs Vital signs: Vital Signs Temp 97.3 F L 08/08/17 07:00 Pulse 66 08/08/17 07:00 Resp 12 08/08/17 07:00 BP 168/85 08/08/17 07:00 Pulse Ox 96 08/08/17 07:00 Intake & Output 08/07/17 08/08/17 08/08/17 18:59 06:59 18:59 Output Total 1375 Balance -1375 Weight 86.183 kg Output: Urine 1375 Other: # Voids 3 2 3 - Exam In general patient is alert and oriented 3 HEENT head normocephalic and atraumatic, NG tube in Neck is supple no JVD no goiter no lymphadenopathy Chest exam reveals a few scattered crackles no wheezing Cardiac exam reveals regular heart sounds S1 and S2 no gallops no murmurs Abdomen is soft nontender no organomegaly with normal bowel sounds Extremity exam reveals no edema no cyanosis or clubbing - Labs CBC & Chem 7: 08/07/17 06:36 08/07/17 06:36 Labs: Abnormal Lab Results - Last 24 Hours (Table) 08/07/17 08/07/17 08/08/17 Range/Units 16:19 20:29 07:08 POC Glucose (mg/dL) 127 H 155 H 137 H (75-99) mg/dL 08/08/17 Range/Units 11:27 POC Glucose (mg/dL) 106 H (75-99) mg/dL Assessment and Plan Plan: #1 abdominal pain was nausea, abdomen x-ray reveals evidence of multiple dilated small bowel loops with air-fluid level suggestive of partial bowel obstruction. At this time NG tube is out yesterday, patient receiving clear liquid diet , no bowel movements yet . will monitor progress closely. #2 underlying history of Crohn's disease, currently patient is maintained on IV Solu-Medrol will continue, at home patient is maintained on Remicade and Pentasa #3 underlying history of hypothyroidism maintained on Synthroid #4 underlying history of hyperlipidemia, patient is maintained on gemfibrozil will hold at this time #5 underlying history of vitamin D deficiency maintained on vitamin D2 50,000 units once weekly will hold at this time Medication and labs were reviewed continue was current orders will recheck labs and follow in a.m.
[2017-08-08] MEDS: BALSALAZIDE DISODIUM 750 MG CAPSULE PO SCH ×2 (15:34→21:09)
[2017-08-08 16:41] LABS: Glucose,Whole Blood 120 mg/dL (75-99)
--- NOTE | 2017-08-08 18:59 | P.PN ---
Subjective Principal diagnosis: Small bowel obstruction Patient says he feels well. Passing flatus. No bowel movement. Tolerating clear liquids. Asking for more to eat. Objective - Vital Signs Vital signs: Vital Signs Temp 98.2 F 08/08/17 14:55 Pulse 72 08/08/17 14:55 Resp 17 08/08/17 14:55 BP 177/87 08/08/17 14:55 Pulse Ox 96 08/08/17 14:55 Intake & Output 08/07/17 08/08/17 08/08/17 18:59 06:59 18:59 Output Total 1375 Balance -1375 Weight 86.183 kg Output: Urine 1375 Other: # Voids 3 2 3 - Exam Abdomen: Soft, nontender, nondistended - Labs CBC & Chem 7: 08/07/17 06:36 08/07/17 06:36 Labs: Abnormal Lab Results - Last 24 Hours (Table) 08/07/17 08/08/17 08/08/17 Range/Units 20:29 07:08 11:27 POC Glucose (mg/dL) 155 H 137 H 106 H (75-99) mg/dL 08/08/17 Range/Units 16:37 POC Glucose (mg/dL) 120 H (75-99) mg/dL Assessment and Plan (1) Partial obstruction of small intestine Narrative/Plan: Advance diet to soft. Continue IV steroids. Possible discharge tomorrow. Status: Acute
[2017-08-08 21:17] LABS: Glucose,Whole Blood 139 mg/dL (75-99)
[2017-08-09] MEDS: ENALAPRILAT 1.25 MG/ML 1 ML VIAL IVP PRN ×2 (00:53→09:42)
[2017-08-09] MEDS: SODIUM CHLORIDE 0.9% 1,000 ML IV SCH ×3 (05:44→21:33)
[2017-08-09 07:22] LABS: Glucose,Whole Blood 95 mg/dL (75-99)
[2017-08-09] MEDS: INSULIN LISPRO (humaLOG) 300 UNIT/3 ML VIAL SQ SCH ×4 (07:45→21:33)
[2017-08-09] MEDS: PANTOPRAZOLE 40 MG/10 ML VIAL IV SCH (08:52)
[2017-08-09] MEDS: BALSALAZIDE DISODIUM 750 MG CAPSULE PO SCH ×3 (08:52→21:32)
[2017-08-09] MEDS: predniSONE 20 MG TAB PO SCH (08:53)
[2017-08-09 11:55] LABS: Glucose,Whole Blood 101 mg/dL (75-99)
--- NOTE | 2017-08-09 13:47 | P.PN ---
Subjective Patient Remigio Phillips is a 61-year-old male with known history of Crohn's disease who presented to [facility] emergency room with a chief complaint of abdominal pain and nausea for about 12 hours prior to presentation. Patient describes abdominal cramping and feeling of abdominal bloating. Patient has nausea that he describes as dry heaves but no vomiting. No fever or chills Small bowel series revealed findings consistent with early small bowel obstruction Denies rectal bleeding or melena. He typically responds to steroid therapy for is exacerbation of Crohn's. He had an episode similar to this in March of last year. IV steroids were started on admission. Nasogastric tube was also placed on arrival with bilious output. Today patient is alert and oriented NG tube is out since yesterday he is receiving clear liquid diet that he is tolerating well he is passing some gas but no bowel movement yet. Abdominal pain has improved there is no vomiting, there is no fever or chills. Objective - Vital Signs Vital signs: Vital Signs Temp 98.0 F 08/09/17 08:00 Pulse 66 08/09/17 10:56 Resp 18 08/09/17 08:00 BP 160/90 08/09/17 10:56 Pulse Ox 95 08/09/17 08:00 Intake & Output 08/08/17 08/09/17 08/09/17 18:59 06:59 18:59 Intake Total 490 Balance 490 Intake: Intake, IV Titration 250 Amount Sodium Chloride 0.9% 1, 250 000 ml @ 125 mls/hr IV . Q8H [facility] Rx#:[id number] Oral 240 Other: Voiding Method Urinal Urinal # Voids 3 - Exam In general patient is alert and oriented 3 HEENT head normocephalic and atraumatic, NG tube in Neck is supple no JVD no goiter no lymphadenopathy Chest exam reveals a few scattered crackles no wheezing Cardiac exam reveals regular heart sounds S1 and S2 no gallops no murmurs Abdomen is soft nontender no organomegaly with normal bowel sounds Extremity exam reveals no edema no cyanosis or clubbing - Labs CBC & Chem 7: 08/07/17 06:36 08/07/17 06:36 Labs: Abnormal Lab Results - Last 24 Hours (Table) 08/08/17 08/08/17 08/09/17 Range/Units 16:37 21:04 11:52 POC Glucose (mg/dL) 120 H 139 H 101 H (75-99) mg/dL Assessment and Plan Plan: #1 abdominal pain was nausea, abdomen x-ray reveals evidence of multiple dilated small bowel loops with air-fluid level suggestive of partial bowel obstruction. At this time NG tube is out yesterday, patient receiving clear liquid diet asking for more diet, no bowel movements yet . will monitor progress closely. If stable possible discharge to home tomorrow #2 underlying history of Crohn's disease, currently patient is maintained on IV Solu-Medrol will continue, at home patient is maintained on Remicade and Pentasa #3 underlying history of hypothyroidism maintained on Synthroid #4 underlying history of hyperlipidemia, patient is maintained on gemfibrozil will hold at this time #5 underlying history of vitamin D deficiency maintained on vitamin D2 50,000 units once weekly will hold at this time #6 blood pressure is consistently elevated at this time will add lisinopril 10 mg by mouth daily continue to cover with enalapril when necessary Medication and labs were reviewed continue was current orders will recheck labs and follow in a.m.
--- NOTE | 2017-08-09 14:25 | P.PN ---
Progress Note - Text The patient states he has had some limited flatus. He has had some crampy abdominal pain. He has had not had a bowel movement. On exam his vital signs are stable. His abdomen soft. Patient will be observed. Hopefully be discharged home in the morning. His diet will be advanced.
[2017-08-09] MEDS: LISINOPRIL 10 MG TAB PO SCH (14:40)
--- NOTE | 2017-08-09 14:51 | P.PN ---
Subjective The patient is a 61-year-old male with history of Crohn's disease maintained on Remicade, who presented to the emergency room with complaints of abdominal pains and nausea of several days' duration, worst for the prior 12 hours. He was evaluated and was found to have partial small bowel obstruction on x-ray and was admitted for further management. He had a similar episode in March of last year and he has been averaging 1 such episode a year. The patient was diagnosed with Crohn's disease in 2006 at the time of exploratory laparotomy part of the investigation of unexplained abdominal pains. Prior to that, he had surgery for Meckel's diverticulum but did not have evidence of inflammatory bowel disease. Other GI history includes history of gastroesophageal reflux disease. Otherwise, he feels in good health, denied any constitutional symptoms or any specific extraintestinal manifestations of inflammatory bowel disease or any history of bleeding. Has been on Remicade every 6 weeks with fair control of his disease. His last MRI enterography was in July 2015 and it did not show any evidence of obstruction or active inflammation at that time. The patient had an NG tube placed for intermittent suction and was started on IV steroids and his abdominal symptoms improved. He started to pass flatus but no bowel movements yet. His diet has been advanced to soft last night and he has tolerated breakfast and lunch today. Objective - Vital Signs Vital signs: Vital Signs Temp 98.0 F 08/09/17 08:00 Pulse 66 08/09/17 10:56 Resp 18 08/09/17 08:00 BP 160/90 08/09/17 10:56 Pulse Ox 95 08/09/17 08:00 Intake & Output 08/08/17 08/09/17 08/09/17 18:59 06:59 18:59 Intake Total 490 Balance 490 Intake: Intake, IV Titration 250 Amount Sodium Chloride 0.9% 1, 250 000 ml @ 125 mls/hr IV . Q8H [facility] Rx#:[id number] Oral 240 Other: Voiding Method Urinal Urinal # Voids 3 - Exam General appearance: The patient is alert, oriented, in no acute distress. HET: Head is normocephalic and atraumatic. Pupils are equal and reactive. Oropharynx is clear without lesions. Neck: Supple without lymphadenopathy. Trachea midline. Heart: S1 S2. Regular rate and rhythm. Lungs: No crackles or wheezes are heard. Abdomen: Soft, nontender, nondistended with hypoactive bowel sounds. No peritoneal signs. No palpable organomegaly or masses. Extremities: Normal skin color and turgor. No cyanosis, rash, ulceration, clubbing, or edema. Radial and pedal pulses are 2/4 bilaterally. Neurological: No focal deficits. Strength and sensation are grossly intact. - Labs CBC & Chem 7: 08/07/17 06:36 08/07/17 06:36 Labs: Abnormal Lab Results - Last 24 Hours (Table) 08/08/17 08/08/17 08/09/17 Range/Units 16:37 21:04 11:52 POC Glucose (mg/dL) 120 H 139 H 101 H (75-99) mg/dL Assessment and Plan Plan: This 61-year-old male with history of Crohn's disease presenting with a picture of exacerbation likely the cause of partial intestinal obstruction. He appears to be responding to IV steroids and would be changed to oral prednisone which can then be tapered on the outpatient basis. I agree with the current plan. Will continue to follow with you closely while in the hospital and further management as outpatient.
[2017-08-09 16:53] LABS: Glucose,Whole Blood 128 mg/dL (75-99)
[2017-08-09 20:44] LABS: Glucose,Whole Blood 130 mg/dL (75-99)
[2017-08-10] MEDS: SODIUM CHLORIDE 0.9% 1,000 ML IV SCH (04:50)
[2017-08-10 07:19] LABS: Glucose,Whole Blood 97 mg/dL (75-99)
[2017-08-10] MEDS ORDERED: PANTOPRAZOLE 40 MG TABLET PO SCH (07:30)
[2017-08-10 07:36] LABS: Basophils % (A) 0 %; CH 31.1; CHCM 35.6; Eosinophils # (A) 0.2 k/uL (0-0.7); Eosinophils % (A) 2 %; HCT 41.3 % (39.0-53.0); HGB 14.5 gm/dL (13.0-17.5); Luc # (Auto) 0.24; Luc % (Auto) 2; Lymphocytes # (A) 4.2 k/uL (1.0-4.8); Lymphocytes % (A) 41 %; MCH 30.9 pg (25.0-35.0); MCHC 35.1 g/dL (31.0-37.0); MCV 87.9 fL (80.0-100.0); Monocytes # (A) 0.8 k/uL (0-1.0); Monocytes % (A) 8 %; Neutrophils # (A) 4.7 k/uL (1.3-7.7); Neutrophils % (A) 47 %; RDW 13.5 % (11.5-15.5); WBC 10.1 k/uL (3.8-10.6); WBC (Perox) 10.01
[2017-08-10 07:37] LABS: ALT 112 U/L (21-72); AST 69 U/L (17-59); Alkaline Phosphatase 80 U/L (38-126); Anion Gap 9 mmol/L; Blood Urea Nitrogen 17 mg/dL (9-20); Calcium 8.9 mg/dL (8.4-10.2); Carbon Dioxide 28 mmol/L (22-30); Chloride 103 mmol/L (98-107); Glucose 96 mg/dL (74-99); Non-African American GFR(MDRD) >60 (>60 ml/min/1.73 sqM); Potassium 3.7 mmol/L (3.5-5.1); Sodium 140 mmol/L (137-145); Total Bilirubin 2.1 mg/dL (0.2-1.3); Total Protein 7.1 g/dL (6.3-8.2)
[2017-08-10] MEDS: INSULIN LISPRO (humaLOG) 300 UNIT/3 ML VIAL SQ SCH ×2 (08:51→13:26)
[2017-08-10 08:53] VITALS: BP 155/82; RESP 18; TEMP 97.2
[2017-08-10] MEDS: predniSONE 20 MG TAB PO SCH (08:55)
[2017-08-10] MEDS: LISINOPRIL 10 MG TAB PO SCH (08:55)
[2017-08-10] MEDS: BALSALAZIDE DISODIUM 750 MG CAPSULE PO SCH (08:55)
--- NOTE | 2017-08-10 09:14 | P.PN ---
Progress Note - Text The patient is feeling better. He's had several bowel movement. On exam his vital signs are stable. His evidence soft. Patient discharged home. He'll follow Dr. Raymond next week.
[2017-08-10 10:34] VITALS: PULSE 62
--- NOTE | 2017-08-10 12:33 | P.PN ---
Subjective Patient Remigio Phillips is a 61-year-old male with known history of Crohn's disease who presented to [facility] emergency room with a chief complaint of abdominal pain and nausea for about 12 hours prior to presentation. Patient describes abdominal cramping and feeling of abdominal bloating. Patient has nausea that he describes as dry heaves but no vomiting. No fever or chills Small bowel series revealed findings consistent with early small bowel obstruction Denies rectal bleeding or melena. He typically responds to steroid therapy for is exacerbation of Crohn's. He had an episode similar to this in March of last year. IV steroids were started on admission. Nasogastric tube was also placed on arrival with bilious output. Today patient is alert and oriented NG tube is out patient tolerating diet well , he had bowel movements this morning Abdominal pain has improved there is no vomiting, there is no fever or chills. Objective - Vital Signs Vital signs: Vital Signs Temp 97.2 F L 08/10/17 08:51 Pulse 64 08/10/17 08:51 Resp 18 08/10/17 08:51 BP 155/82 08/10/17 08:51 Pulse Ox 98 08/10/17 08:51 Intake & Output 08/09/17 08/10/17 08/10/17 18:59 06:59 18:59 Intake Total 550 1350 Output Total 1200 Balance -650 1350 Weight 86.183 kg Intake: Oral 550 1350 Output: Urine 1200 Other: Voiding Method Urinal Urinal # Voids 3 2 # Bowel Movements 1 - Exam In general patient is alert and oriented 3 HEENT head normocephalic and atraumatic, NG tube in Neck is supple no JVD no goiter no lymphadenopathy Chest exam reveals a few scattered crackles no wheezing Cardiac exam reveals regular heart sounds S1 and S2 no gallops no murmurs Abdomen is soft nontender no organomegaly with normal bowel sounds Extremity exam reveals no edema no cyanosis or clubbing - Labs CBC & Chem 7: 08/10/17 06:24 08/10/17 06:24 Labs: Abnormal Lab Results - Last 24 Hours (Table) 08/09/17 08/09/17 08/10/17 Range/Units 16:46 20:34 06:24 POC Glucose (mg/dL) 128 H 130 H (75-99) mg/dL Total Bilirubin 2.1 H (0.2-1.3) mg/dL AST 69 H (17-59) U/L ALT 112 H (21-72) U/L Assessment and Plan Plan: #1 abdominal pain was nausea, abdomen x-ray reveals evidence of multiple dilated small bowel loops with air-fluid level suggestive of partial bowel obstruction. At this time NG tube is out , patient tolerating diet well he had a bowel movement this morning he will be discharged home today #2 underlying history of Crohn's disease, currently patient is maintained on IV Solu-Medrol will continue, at home patient is maintained on Remicade and Pentasa #3 underlying history of hypothyroidism maintained on Synthroid #4 underlying history of hyperlipidemia, patient is maintained on gemfibrozil will hold at this time #5 underlying history of vitamin D deficiency maintained on vitamin D2 50,000 units once weekly will hold at this time #6 blood pressure is consistently elevated at this time will add lisinopril 10 mg by mouth daily continue to cover with enalapril when necessary Medication and labs were reviewed continue was current orders will recheck labs and follow in a.m.
== END 2017-08-10 13:28 | disposition home or self-care (01) | DRG 389 ==
LOC: EC 19:36 → 3SUR 21:23
PROVIDERS: ADMIT Surgery; ATTEND Surgery
DX: K56.60 Unspecified intestinal obstruction (principal); K50.00 Crohn's disease of small intestine without complications; E03.9 Hypothyroidism, unspecified; E78.5 Hyperlipidemia, unspecified; F41.9 Anxiety disorder, unspecified; K21.9 Gastro-esophageal reflux disease without esophagitis; Q43.0 Meckel's diverticulum (displaced) (hypertrophic); Z80.8 Family history of malignant neoplasm of other organs or systems; Z82.49 Family history of ischemic heart disease and other diseases of the circulatory system; Z85.46 Personal history of malignant neoplasm of prostate; Z87.891 Personal history of nicotine dependence; E55.9 Vitamin D deficiency, unspecified; Z79.899 Other long term (current) drug therapy
CPT/HCPCS: 36415; 74020; 80053; 81001; 82150; 83605; 83690; 85025; 86140; 96361; 96374; 96375; 99285

== ENCOUNTER → 2017-08-19 | Outpatient (CLI) | payer BC ==
[2017-08-19 07:48] LABS: CHCM 34.3; HCT 37.2 % (39.0-53.0); HDW 3.14; HGB 12.9 gm/dL (13.0-17.5); MCH 30.5 pg (25.0-35.0); MCHC 34.7 g/dL (31.0-37.0); Mean Platelet Volume 7.5; RBC 4.22 m/uL (4.30-5.90); WBC 11.8 k/uL (3.8-10.6)
[2017-08-19 10:38] LABS: ALT 39 U/L (21-72); AST 14 U/L (17-59); Alkaline Phosphatase 78 U/L (38-126); Anion Gap 10 mmol/L; Blood Urea Nitrogen 19 mg/dL (9-20); Calcium 8.7 mg/dL (8.4-10.2); Carbon Dioxide 19 mmol/L (22-30); Chloride 110 mmol/L (98-107); Cholesterol 127 mg/dL (<200); Glucose 101 mg/dL (74-99); HDL Cholesterol 60 mg/dL (40-60); Non-African American GFR(MDRD) >60 (>60 ml/min/1.73 sqM); Potassium 3.8 mmol/L (3.5-5.1); Sodium 139 mmol/L (137-145); Total Bilirubin 1.2 mg/dL (0.2-1.3); Total Protein 6.4 g/dL (6.3-8.2)
== END | disposition home or self-care (01) ==
LOC: LABWHC1 07:06
PROVIDERS: ATTEND Internal Medicine
DX: K50.90 Crohn's disease, unspecified, without complications (principal); E03.9 Hypothyroidism, unspecified; E29.1 Testicular hypofunction
CPT/HCPCS: 80061; 80053; 84443; 85027; 84402; 84403; 36415; G0103

== ENCOUNTER → 2017-08-29 | Outpatient (CLI) | payer BC ==
[2017-08-29 09:36] VITALS: TEMP 98
[2017-08-29 10:51] VITALS: BP 153/84; PULSE 63; RESP 16
== END | disposition home or self-care (01) ==
LOC: PROCWHC3 09:14
PROVIDERS: ATTEND Internal Medicine Gastroenterology
DX: K50.012 Crohn's disease of small intestine with intestinal obstruction (principal)
CPT/HCPCS: 96413; 96415; J1745

== ENCOUNTER → 2017-09-17 | Outpatient (CLI) | payer BC | END | disposition home or self-care (01) | LOC: LABWHC1 10:12 | PROVIDERS: ATTEND Internal Medicine Gastroenterology | DX: K50.90 Crohn's disease, unspecified, without complications (principal) | CPT/HCPCS: 36415; 86480 ==

== ENCOUNTER → 2017-10-18 | Outpatient (CLI) | payer BC ==
[2017-10-18 07:44] LABS: Basophils # (A) 0.1 k/uL (0-0.2); Basophils % (A) 1 %; CH 29.9; CHCM 33.4; Eosinophils # (A) 0.3 k/uL (0-0.7); Eosinophils % (A) 5 %; HDW 2.68; HGB 12.8 gm/dL (13.0-17.5); Luc # (Auto) 0.17; Luc % (Auto) 3; Lymphocytes # (A) 2.1 k/uL (1.0-4.8); Lymphocytes % (A) 40 %; MCH 29.5 pg (25.0-35.0); MCHC 32.8 g/dL (31.0-37.0); Mean Platelet Volume 8.4; Monocytes # (A) 0.4 k/uL (0-1.0); Monocytes % (A) 8 %; Neutrophils # (A) 2.3 k/uL (1.3-7.7); Neutrophils % (A) 43 %; RBC 4.34 m/uL (4.30-5.90); RDW 14.9 % (11.5-15.5); WBC 5.3 k/uL (3.8-10.6); WBC (Perox) 5.78
[2017-10-18 08:09] LABS: ALT 47 U/L (21-72); AST 36 U/L (17-59); Alkaline Phosphatase 89 U/L (38-126); Anion Gap 11 mmol/L; Blood Urea Nitrogen 19 mg/dL (9-20); Calcium 9.3 mg/dL (8.4-10.2); Carbon Dioxide 22 mmol/L (22-30); Chloride 106 mmol/L (98-107); Cholesterol 130 mg/dL (<200); Glucose 105 mg/dL (74-99); HDL Cholesterol 38 mg/dL (40-60); Non-African American GFR(MDRD) >60 (>60 ml/min/1.73 sqM); Potassium 4.2 mmol/L (3.5-5.1); Sodium 139 mmol/L (137-145); Total Bilirubin 1.4 mg/dL (0.2-1.3); Total Protein 7.1 g/dL (6.3-8.2)
[2017-10-18 08:40] LABS: Prostate Specific Antigen <0.10 ng/mL (0.00-4.00)
== END | disposition home or self-care (01) ==
LOC: LABWHC1 07:06
PROVIDERS: ATTEND Internal Medicine
DX: E55.9 Vitamin D deficiency, unspecified (principal); F12.19 Cannabis abuse with unspecified cannabis-induced disorder; E03.9 Hypothyroidism, unspecified; K21.9 Gastro-esophageal reflux disease without esophagitis; Z13.6 Encounter for screening for cardiovascular disorders; Z12.5 Encounter for screening for malignant neoplasm of prostate
CPT/HCPCS: 36415; 80053; 80061; 82306; 84153; 84402; 84403; 84443; 85025

== ENCOUNTER → 2018-01-28 | Outpatient (CLI) | payer BC ==
[2018-01-28 07:42] LABS: HCT 34.3 % (39.0-53.0); HGB 11.6 gm/dL (13.0-17.5); MCH 29.5 pg (25.0-35.0); MCHC 33.9 g/dL (31.0-37.0); MCV 86.9 fL (80.0-100.0); Mean Platelet Volume 7.9; Platelet Count 306 k/uL (150-450); RBC 3.95 m/uL (4.30-5.90); RDW 13.5 % (11.5-15.5); WBC 5.4 k/uL (3.8-10.6)
[2018-01-28 11:17] LABS: ALT 34 U/L (21-72); AST 33 U/L (17-59); Albumin 3.8 g/dL (3.5-5.0); Alkaline Phosphatase 75 U/L (38-126); Anion Gap 12 mmol/L; Blood Urea Nitrogen 16 mg/dL (9-20); Carbon Dioxide 25 mmol/L (22-30); Chloride 107 mmol/L (98-107); Cholesterol 127 mg/dL (<200); Glucose 107 mg/dL (74-99); HDL Cholesterol 37 mg/dL (40-60); LDL Cholesterol,Calculated 71 mg/dL (0-99); Sodium 144 mmol/L (137-145); Total Bilirubin 1.7 mg/dL (0.2-1.3); Total Protein 6.9 g/dL (6.3-8.2); Triglycerides 95 mg/dL (<150)
[2018-01-28 11:50] LABS: Prostate Specific Antigen <0.10 ng/mL (0.00-4.00)
== END | disposition home or self-care (01) ==
LOC: LABWHC1 06:57
PROVIDERS: ATTEND Internal Medicine
DX: K50.90 Crohn's disease, unspecified, without complications (principal); E03.9 Hypothyroidism, unspecified; Z85.46 Personal history of malignant neoplasm of prostate
CPT/HCPCS: 36415; 80053; 80061; 84153; 84443; 85027

== ENCOUNTER → 2018-05-04 | Outpatient (CLI) | payer BC ==
[2018-05-04 07:30] LABS: HCT 36.2 % (39.0-53.0); HGB 12.2 gm/dL (13.0-17.5); MCH 28.9 pg (25.0-35.0); MCHC 33.8 g/dL (31.0-37.0); MCV 85.3 fL (80.0-100.0); Mean Platelet Volume 7.7; Platelet Count 314 k/uL (150-450); RBC 4.24 m/uL (4.30-5.90); RDW 13.8 % (11.5-15.5); WBC 5.5 k/uL (3.8-10.6)
[2018-05-04 07:46] LABS: Albumin 4.2 g/dL (3.5-5.0); Calcium 9.2 mg/dL (8.4-10.2); Potassium 4.4 mmol/L (3.5-5.1); Total Bilirubin 1.8 mg/dL (0.2-1.3); Total Protein 7.2 g/dL (6.3-8.2)
== END | disposition home or self-care (01) ==
LOC: LABWHC1 06:44
PROVIDERS: ATTEND Internal Medicine
DX: E03.9 Hypothyroidism, unspecified (principal); E55.9 Vitamin D deficiency, unspecified; K50.90 Crohn's disease, unspecified, without complications
CPT/HCPCS: 36415; 80053; 80061; 82306; 84443; 85027

== ENCOUNTER 2018-06-25 01:29 | Emergency (ER) | payer BC | END 2018-06-25 02:48 | disposition home or self-care (01) | LOC: EC 01:29 | DX: R21 Rash and other nonspecific skin eruption (principal); K50.90 Crohn's disease, unspecified, without complications; Z88.5 Allergy status to narcotic agent; Z79.899 Other long term (current) drug therapy | CPT/HCPCS: 96372; 99282 ==

== ENCOUNTER → 2018-08-14 | Outpatient (CLI) | payer BC ==
[2018-08-14 07:09] LABS: HCT 36.7 % (39.0-53.0); HGB 12.2 gm/dL (13.0-17.5); MCHC 33.3 g/dL (31.0-37.0); Mean Platelet Volume 7.7; Platelet Count 273 k/uL (150-450); RBC 4.07 m/uL (4.30-5.90); RDW 14.3 % (11.5-15.5); WBC 5.6 k/uL (3.8-10.6)
[2018-08-14 07:21] LABS: Albumin 4.1 g/dL (3.5-5.0); Calcium 8.8 mg/dL (8.4-10.2); Potassium 3.9 mmol/L (3.5-5.1); Total Bilirubin 2.1 mg/dL (0.2-1.3); Total Protein 7.4 g/dL (6.3-8.2)
== END | disposition home or self-care (01) ==
LOC: LABWHC1 06:46
PROVIDERS: ATTEND Internal Medicine
DX: E03.9 Hypothyroidism, unspecified (principal); K50.90 Crohn's disease, unspecified, without complications; E29.1 Testicular hypofunction
CPT/HCPCS: 36415; 80053; 80061; 84402; 84403; 84443; 85027

== ENCOUNTER → 2018-12-07 | Outpatient (CLI) | payer BC ==
[2018-12-07 08:45] LABS: HCT 38.5 % (39.0-53.0); HGB 12.9 gm/dL (13.0-17.5); MCHC 33.6 g/dL (31.0-37.0); MCV 89.2 fL (80.0-100.0); Mean Platelet Volume 7.3; Platelet Count 334 k/uL (150-450); RBC 4.32 m/uL (4.30-5.90); RDW 13.1 % (11.5-15.5)
[2018-12-07 18:10] LABS: Albumin 4.3 g/dL (3.80-4.90); Albumin/Globulin Ratio 1.87 (1.20-2.10); Anion Gap 9.5 mmol/L (4.00-12.00); Calcium 8.9 mg/dL (8.7-10.3); Carbon Dioxide 23.5 mmol/L (21.6-31.8); Globulin 2.3 g/dL (1.6-3.3); LDL Cholesterol,Calculated 75.2 mg/dL (0.0-131.0); Potassium 4.2 mmol/L (3.5-5.5); Total Bilirubin 1.9 mg/dL (0.3-1.2); Total Protein 6.6 g/dL (6.2-8.2); VLDL Calculation 18.8 mg/dL (5.00-40.00)
== END ==
LOC: LABWHC1 07:46
PROVIDERS: ATTEND Internal Medicine
DX: K50.90 Crohn's disease, unspecified, without complications (principal); E78.5 Hyperlipidemia, unspecified; E29.1 Testicular hypofunction
CPT/HCPCS: 36415; 80053; 80061; 84402; 84403; 84443; 85027

== ENCOUNTER → 2019-03-15 | Outpatient (CLI) | payer BC ==
[2019-03-15 08:07] LABS: HCT 38.8 % (39.0-53.0); HGB 13.4 gm/dL (13.0-17.5); MCH 30.9 pg (25.0-35.0); MCHC 34.4 g/dL (31.0-37.0); MCV 89.8 fL (80.0-100.0); Mean Platelet Volume 7.4; Platelet Count 301 k/uL (150-450); RBC 4.32 m/uL (4.30-5.90); WBC 5.8 k/uL (3.8-10.6)
[2019-03-15 17:12] LABS: Albumin 4.5 g/dL (3.80-4.90); Albumin/Globulin Ratio 1.8 (1.60-3.17); Anion Gap 7.3 mmol/L (4.00-12.00); Calcium 9.1 mg/dL (8.7-10.3); Carbon Dioxide 22.7 mmol/L (21.6-31.8); Globulin 2.5 g/dL (1.6-3.3); LDL Cholesterol,Calculated 49.4 mg/dL (0.0-131.0); Potassium 4.1 mmol/L (3.5-5.5); Total Bilirubin 1.6 mg/dL (0.2-1.2); VLDL Calculation 24.6 mg/dL (5.00-40.00)
== END ==
LOC: LABWHC1 06:58
PROVIDERS: ATTEND Internal Medicine
DX: E03.9 Hypothyroidism, unspecified (principal); K50.90 Crohn's disease, unspecified, without complications; C61 Malignant neoplasm of prostate; E29.1 Testicular hypofunction
CPT/HCPCS: 80061; 80053; 84443; 85027; 84402; 84403; 36415; G0103

== ENCOUNTER → 2019-06-17 | Outpatient (CLI) | payer BC ==
[2019-06-17 07:25] LABS: HCT 36.6 % (39.0-53.0); HGB 12.6 gm/dL (13.0-17.5); MCH 30.4 pg (25.0-35.0); MCHC 34.5 g/dL (31.0-37.0); Mean Platelet Volume 7.7; Platelet Count 349 k/uL (150-450); RBC 4.15 m/uL (4.30-5.90); RDW 13.4 % (11.5-15.5); WBC 5.5 k/uL (3.8-10.6)
[2019-06-17 07:35] LABS: MCV 88.2 fL (80.0-100.0)
[2019-06-17 11:25] LABS: African American GFR (CKD) 66.4 (60.0-200.0); Albumin 4.3 g/dL (3.80-4.90); Albumin/Globulin Ratio 1.72 (1.60-3.17); Anion Gap 9.5 mmol/L (4.00-12.00); BUN/Creat Ratio 14.62 Ratio (12.00-20.00); Carbon Dioxide 23.5 mmol/L (21.6-31.8); Globulin 2.5 g/dL (1.6-3.3); LDL Cholesterol,Calculated 56.6 mg/dL (0.0-131.0); Total Bilirubin 1.2 mg/dL (0.2-1.2); Total Protein 6.8 g/dL (6.2-8.2); VLDL Calculation 35.4 mg/dL (5.00-40.00)
== END | disposition home or self-care (01) ==
LOC: LABWHC1 06:58
PROVIDERS: ATTEND Internal Medicine
DX: E03.9 Hypothyroidism, unspecified (principal); K50.90 Crohn's disease, unspecified, without complications
CPT/HCPCS: 36415; 80053; 80061; 84402; 84403; 84443; 85027

== ENCOUNTER → 2019-09-24 | Outpatient (CLI) | payer BC ==
[2019-09-24 10:38] LABS: HCT 35.5 % (39.0-53.0); HGB 12.5 gm/dL (13.0-17.5); MCH 31.8 pg (25.0-35.0); MCHC 35.1 g/dL (31.0-37.0); MCV 90.7 fL (80.0-100.0); Mean Platelet Volume 7.4; Platelet Count 293 k/uL (150-450); RBC 3.91 m/uL (4.30-5.90); RDW 13.2 % (11.5-15.5); WBC 5.4 k/uL (3.8-10.6)
[2019-09-24 16:46] LABS: African American GFR (CKD) 66.4 (60.0-200.0); Albumin 4.5 g/dL (3.80-4.90); Albumin/Globulin Ratio 1.8 (1.60-3.17); Anion Gap 6.6 mmol/L (4.00-12.00); BUN/Creat Ratio 15.38 Ratio (12.00-20.00); Calcium 9.1 mg/dL (8.7-10.3); Carbon Dioxide 24.4 mmol/L (21.6-31.8); Chol/HDL Ratio 3.76; Globulin 2.5 g/dL (1.6-3.3); LDL Cholesterol,Calculated 58.8 mg/dL (0.0-131.0); Potassium 4.6 mmol/L (3.5-5.5); Total Bilirubin 1.6 mg/dL (0.3-1.2); VLDL Calculation 32.2 mg/dL (5.00-40.00)
== END | disposition home or self-care (01) ==
LOC: LABWHC1 09:51
PROVIDERS: ATTEND Internal Medicine
DX: K50.90 Crohn's disease, unspecified, without complications (principal); E03.9 Hypothyroidism, unspecified; E29.1 Testicular hypofunction
CPT/HCPCS: 36415; 80053; 80061; 84403; 84443; 85027

== ENCOUNTER 2019-11-16 02:14 | Inpatient (IN) | payer BC, MEDICARE ==
[2019-11-16] MEDS ORDERED: ONDANSETRON 4 MG/2 ML VIAL IVP STA (02:40)
[2019-11-16] MEDS ORDERED: SODIUM CHLORIDE 0.9% 500 ML 500 ML IV STA ×2 (02:40→03:23)
[2019-11-16] MEDS ORDERED: KETOROLAC 30 MG/ML 1 ML VIAL IVP STA (02:40)
[2019-11-16] MEDS ORDERED: methylPREDNISolone SOD SUCCI 125 MG/2 ML VIAL IV STA (02:40)
--- NOTE | 2019-11-16 02:43 | ED ---
General Adult HPI - General Chief complaint: Abdominal Pain Stated complaint: Crohns Flare Up Time Seen by Provider: 11/16/19 02:30 Source: patient, RN notes reviewed Mode of arrival: ambulatory Limitations: no limitations - History of Present Illness Initial comments: 63-year-old male with a past medical history of GERD, hyperlipidemia, hypertension, hypothyroidism, prostate cancer, hiatal hernia Crohn's disease presents to the emergency department for a chief complaint of abdominal pain. Patient states this started about 9 hours ago. States it is in his upper abdomen and radiates down to his lower abdomen. States this feels consistent with previous exacerbation of Crohn's. Patient states he is nauseous and vomited several times. Denies diarrhea. States he did pass gas a few hours ago. He feels as though his abdomen is distended. Patient has not had any fevers or chills. Patient states he has had multiple abdominal surgeries by Dr. Raymond. - Related Data Home Medications Medication Instructions Recorded Confirmed ALPRAZolam [Xanax] 0.25 mg PO BID 05/06/14 08/29/17 Famotidine [Pepcid] 20 mg PO BID 05/06/14 08/29/17 Gemfibrozil 600 mg PO HS 05/06/14 08/29/17 Mesalamine [Pentasa] 1,000 mg PO QID 05/06/14 08/29/17 Multivitamin [Men's Multi-Vitamin] 1 tab PO DAILY 05/06/14 08/29/17 Pantoprazole Sodium [Protonix] 40 mg PO DAILY 05/06/14 08/29/17 inFLIXimab [Remicade] 800 mg IVPB Q42D 06/08/14 08/29/17 Levothyroxine Sodium [Synthroid] 25 mcg PO DAILY 06/01/15 08/29/17 Ergocalciferol [Vitamin D2] 50,000 unit PO WE 08/04/17 08/29/17 predniSONE 30 mg PO DIRECTED 08/29/17 08/29/17 Allergies Allergy/AdvReac Type Severity Reaction Status Date / Time codeine AdvReac Nausea Verified 11/16/19 02:26 Review of Systems ROS Statement: Those systems with pertinent positive or pertinent negative responses have been documented in the HPI. ROS Other: All systems not noted in ROS Statement are negative. Past Medical History Past Medical History: Cancer, GERD/Reflux, Hyperlipidemia, Hypertension, Skin Disorder, Thyroid Disorder Additional Past Medical History / Comment(s): chron's first diagnosed in 2006, p rostate cancer with removal, hypothyroidism, hiatal hernia, eczema when younger. History of Any Multi-Drug Resistant Organisms: None Reported Past Surgical History: Cholecystectomy, Hernia Repair, Prostate Surgery, Tonsillectomy Additional Past Surgical History / Comment(s): exploratory lap x 2, umbilcal hernia repair, merkels diverticulum removal, prostatectomy. Past Anesthesia/Blood Transfusion Reactions: No Reported Reaction Past Psychological History: Anxiety Smoking Status: Former smoker Past Alcohol Use History: Occasional Past Drug Use History: None Reported - Past Family History Father Family Medical History: Cancer, Coronary Artery Disease (CAD), Hyperlipidemia, Myocardial Infarction (NH), Prostate Disorder Additional Family Medical History / Comment(s): Father is in Hospice with bone cancer Mother Family Medical History: Coronary Artery Disease (CAD), CVA/TIA, Hyperlipidemia, Myocardial Infarction (NH) Additional Family Medical History / Comment(s): Mother is 80 yrs old. She has ?CROHNS OR COLITIS, HEART DISEASE General Exam Limitations: no limitations General appearance: alert, in no apparent distress Head exam: Present: atraumatic, normocephalic, normal inspection Eye exam: Present: normal appearance, PERRL, EOMI. Absent: scleral icterus, conjunctival injection, periorbital swelling ENT exam: Present: normal exam, mucous membranes moist Neck exam: Present: normal inspection, full ROM. Absent: tenderness, meningismus, lymphadenopathy Respiratory exam: Present: normal lung sounds bilaterally. Absent: respiratory distress, wheezes, rales, rhonchi, stridor Cardiovascular Exam: Present: regular rate, normal rhythm, normal heart sounds. Absent: systolic murmur, diastolic murmur, rubs, gallop, clicks GI/Abdominal exam: Present: soft, distended (distended abdomen noted), tenderness (minimal generalized abdominal discomfort to palpation however no significant tenderness. No guarding or rebound.), normal bowel sounds. Absent: guarding, rebound, rigid Neurological exam: Present: alert Course Vital Signs 11/16/19 02:24 Temperature 98.6 F Pulse Rate 82 Respiratory 20 Rate Blood Pressure 124/79 O2 Sat by Pulse 99 Oximetry Medical Decision Making - Medical Decision Making CBC does show white blood cell count of 15.3. Could be related to Crohns exacerbation or secondary to vomiting. Patient was given Flagyl and Rocephin as well as Solu-Medrol. CMP does show some evidence of dehydration. Creatinine is 1.36. Total bilirubin 2.0 appears chronic. X-ray of the abdomen shows a mildly dilated small bowel with fluid bubbles consistent with mechanical obstruction or significant small bowel ileus. Therefore CT was obtained. CT abdomen and pelvis without contrast shows a dilated mid and proximal small bowel consistent with mechanical small bowel obstruction. There is a transition point in the distal jejunum or proximal ileum. This appears similar to old exam and could relate to stricture. Dilation is similar to old exam. Postsurgical changes with dilated distal ileum seen in the right mid abdomen also unchanged. Patient has seen Dr. Almaguer for multiple surgeries in the past. - Lab Data Result diagrams: 11/16/19 02:55 11/16/19 02:55 Lab Results 11/16/19 11/16/19 11/16/19 Range/Units 02:55 02:55 02:55 WBC 15.3 H (3.8-10.6) k/uL RBC 4.24 L (4.30-5.90) m/uL Hgb 13.8 (13.0-17.5) gm/dL Hct 38.3 L (39.0-53.0) % MCV 90.3 (80.0-100.0) fL MCH 32.6 (25.0-35.0) pg MCHC 36.1 (31.0-37.0) g/dL RDW 14.4 (11.5-15.5) % Plt Count 343 (150-450) k/uL Neutrophils % 81 % Lymphocytes % 10 % Monocytes % 6 % Eosinophils % 2 % Basophils % 0 % Neutrophils # 12.4 H (1.3-7.7) k/uL Lymphocytes # 1.5 (1.0-4.8) k/uL Monocytes # 0.9 (0-1.0) k/uL Eosinophils # 0.3 (0-0.7) k/uL Basophils # 0.0 (0-0.2) k/uL Sodium 142 (137-145) mmol/L Potassium 3.8 (3.5-5.1) mmol/L Chloride 109 H (98-107) mmol/L Carbon Dioxide 20 L (22-30) mmol/L Anion Gap 13 mmol/L BUN 21 H (9-20) mg/dL Creatinine 1.36 H (0.66-1.25) mg/dL Est GFR (CKD-EPI)AfAm 63 (>60 ml/min/1.73 sqM) Est GFR (CKD-EPI)NonAf 54 (>60 ml/min/1.73 sqM) Glucose 148 H (74-99) mg/dL Plasma Lactic Acid Alex 1.7 (0.7-2.0) mmol/L Calcium 9.5 (8.4-10.2) mg/dL Total Bilirubin 2.0 H (0.2-1.3) mg/dL AST 34 (17-59) U/L ALT 30 (4-49) U/L Alkaline Phosphatase 86 (38-126) U/L Total Protein 8.3 H (6.3-8.2) g/dL Albumin 4.7 (3.5-5.0) g/dL Amylase 63 (30-110) U/L Lipase 21 L (23-300) U/L Urine Color Urine Appearance (Clear) Urine pH (5.0-8.0) Ur Specific [place] (1.001-1.035) Urine Protein (Negative) Urine Glucose (UA) (Negative) Urine Ketones (Negative) Urine Blood (Negative) Urine Nitrite (Negative) Urine Bilirubin (Negative) Urine Urobilinogen (<2.0) mg/dL Ur Leukocyte Esterase (Negative) Urine RBC (0-5) /hpf Urine WBC (0-5) /hpf Hyaline Casts (0-2) /lpf Granular Casts (0) /lpf Urine Mucus (None) /hpf 11/16/19 Range/Units 03:03 WBC (3.8-10.6) k/uL RBC (4.30-5.90) m/uL Hgb (13.0-17.5) gm/dL Hct (39.0-53.0) % MCV (80.0-100.0) fL MCH (25.0-35.0) pg MCHC (31.0-37.0) g/dL RDW (11.5-15.5) % Plt Count (150-450) k/uL Neutrophils % % Lymphocytes % % Monocytes % % Eosinophils % % Basophils % % Neutrophils # (1.3-7.7) k/uL Lymphocytes # (1.0-4.8) k/uL Monocytes # (0-1.0) k/uL Eosinophils # (0-0.7) k/uL Basophils # (0-0.2) k/uL Sodium (137-145) mmol/L Potassium (3.5-5.1) mmol/L Chloride (98-107) mmol/L Carbon Dioxide (22-30) mmol/L Anion Gap mmol/L BUN (9-20) mg/dL Creatinine (0.66-1.25) mg/dL Est GFR (CKD-EPI)AfAm (>60 ml/min/1.73 sqM) Est GFR (CKD-EPI)NonAf (>60 ml/min/1.73 sqM) Glucose (74-99) mg/dL Plasma Lactic Acid Alex (0.7-2.0) mmol/L Calcium (8.4-10.2) mg/dL Total Bilirubin (0.2-1.3) mg/dL AST (17-59) U/L ALT (4-49) U/L Alkaline Phosphatase (38-126) U/L Total Protein (6.3-8.2) g/dL Albumin (3.5-5.0) g/dL Amylase (30-110) U/L Lipase (23-300) U/L Urine Color Yellow Urine Appearance Clear (Clear) Urine pH 5.5 (5.0-8.0) Ur Specific [place] 1.034 (1.001-1.035) Urine Protein 2+ H (Negative) Urine Glucose (UA) Negative (Negative) Urine Ketones Trace H (Negative) Urine Blood Negative (Negative) Urine Nitrite Negative (Negative) Urine Bilirubin Negative (Negative) Urine Urobilinogen 3.0 (<2.0) mg/dL Ur Leukocyte Esterase Negative (Negative) Urine RBC 1 (0-5) /hpf Urine WBC 3 (0-5) /hpf Hyaline Casts 112 H (0-2) /lpf Granular Casts 1 (0) /lpf Urine Mucus Many H (None) /hpf Disposition Clinical Impression: SBO (small bowel obstruction), Exacerbation of Crohn's disease, Abdominal pain, Dehydration Disposition: ADMITTED IP TO THIS [facility] Condition: Fair Is patient prescribed a controlled substance at d/c from ED?: No Referrals: Olman Vance MD [Primary Care Provider] - 1-2 days Time of Disposition: 04:07
--- NOTE | 2019-11-16 03:07 | XR ---
EXAMINATION TYPE: XR abdomen 2V DATE OF EXAM: 11/16/2019 COMPARISON: 08/07/2017 HISTORY: Abdominal pain TECHNIQUE: 3 views FINDINGS: There are some distended fluid and gas-filled loops of small bowel in the mid abdomen. Ther e are small bowel multiple air-fluid levels. Lung bases are clear of infiltrate. There are clips from cholecystectomy. There are numerous surgical clips in the pelvis. IMPRESSION: Mildly dilated small bowel with fluid levels consistent with mechanical obstruction or si gnificant small bowel ileus. No free air.
[2019-11-16 03:11] LABS: Basophils % (A) 0 %; Eosinophils # (A) 0.3 k/uL (0-0.7); Eosinophils % (A) 2 %; HCT 38.3 % (39.0-53.0); HGB 13.8 gm/dL (13.0-17.5); Lymphocytes # (A) 1.5 k/uL (1.0-4.8); Lymphocytes % (A) 10 %; MCH 32.6 pg (25.0-35.0); MCHC 36.1 g/dL (31.0-37.0); MCV 90.3 fL (80.0-100.0); Mean Platelet Volume 7.9; Monocytes # (A) 0.9 k/uL (0-1.0); Monocytes % (A) 6 %; Neutrophils # (A) 12.4 k/uL (1.3-7.7); Neutrophils % (A) 81 %; Platelet Count 343 k/uL (150-450); RBC 4.24 m/uL (4.30-5.90); RDW 14.4 % (11.5-15.5); WBC 15.3 k/uL (3.8-10.6)
[2019-11-16 03:21] LABS: Albumin 4.7 g/dL (3.5-5.0); Calcium 9.5 mg/dL (8.4-10.2); Potassium 3.8 mmol/L (3.5-5.1); Total Protein 8.3 g/dL (6.3-8.2)
[2019-11-16 03:24] LABS: Appearance,Urine Clear (Clear); Bilirubin,Urine Negative (Negative); Blood,Urine Negative (Negative); Color,Urine Yellow; Glucose,Urine (UA) Negative (Negative); Granular Casts,Urine 1 /lpf (0); Hyaline Casts,Urine 112 /lpf (0-2); Ketones,Urine Trace (Negative); Leukocyte Esterase,Urine Negative (Negative); Mucus,Urine Many /hpf; Nitrite,Urine Negative (Negative); PH, Urine 5.5 (5.0-8.0); Protein,Urine 2+ (Negative); RBC,Urine 1 /hpf (0-5); Specific Gravity,Urine 1.034 (1.001-1.035); WBC,Urine 3 /hpf (0-5)
[2019-11-16] MEDS ORDERED: metroNIDAZOLE-NS PMX 500 MG in SALINE 1 100ML.BAG IVPB STA (03:24)
--- NOTE | 2019-11-16 03:48 | CT ---
EXAMINATION TYPE: CT abdomen pelvis wo con DATE OF EXAM: 11/16/2019 COMPARISON: 03/30/2016 HISTORY: Abd pain, obstruction CT DLP: 697.40 mGycm Automated exposure control for dose reduction was used. Lung bases are clear. There is no pleural effusion. Heart size is normal. Liver shows no focal defect . There are clips from cholecystectomy. Spleen is intact. There is no pancreatic mass. Bile ducts are not dilated. There is no adrenal mass. Kidneys have normal size. There is no hydronephrosis. Ureters are not dilat ed. There is no retroperitoneal adenopathy. Bladder is almost empty. There is no inguinal hernia. The re are clips in the pelvis. There is no free fluid in the pelvis. There is surgery at the right colon . There are some dilated fluid-filled loops of small bowel in the mid abdomen. Large bowel is mostly collapsed. Small bowel is dilated up to 5.1 cm. There is no free air. There is no ascites. Lumbar vertebra have normal alignment. Disc spaces are fairly normal. There is no compression fractur e. Bony pelvis is intact. IMPRESSION: Dilated mid and proximal small bowel consistent with mechanical small bowel obstruction. There is a t ransition point in the distal jejunum or proximal ileum seen on axial image 121. This appears similar to old exam. This could relate to stricture. Dilation is similar to old exam.. Postsurgical changes with dilated distal ileum seen in the right mid abdomen also unchanged.
[2019-11-16] MEDS ORDERED: NALOXONE 0.4 MG/ML 1 ML VIAL IV PRN (03:54)
[2019-11-16] MEDS ORDERED: HYDROmorphone 1 MG/ML 1 ML SYRINGE IVP PRN (03:54)
[2019-11-16] MEDS ORDERED: ACETAMINOPHEN TAB 325 MG TAB PO PRN (03:54)
[2019-11-16] MEDS ORDERED: ONDANSETRON 4 MG/2 ML VIAL IVP PRN (03:54)
[2019-11-16] MEDS ORDERED: HYDROmorphone 0.5 MG/0.5 ML SYRINGE IVP PRN (03:54)
[2019-11-16] MEDS: SODIUM CHLORIDE 0.9% 1,000 ML IV SCH ×3 (04:18→20:25)
--- NOTE | 2019-11-16 10:25 | P.HPIM ---
History of Present Illness H&P Date: 11/16/19 Chief Complaint: abdominal pain this is a 63-year-old patient who presented with complaints of abdominal pain. patient reports that pain has been occurring since yesterday in a similar to previous exacerbations of his Crohn's. Patient is having nausea and vomiting. Patient denies any diarrhea. Patient denies any fever or chills. Patient has past medical history of Crohn's and has had multiple abdominal surgeries with Dr. Estrada.additional medical history includes GERD, hyperlipidemia, hypertension, hypothyroidism, prostate cancer and hiatal hernia. x-ray of abdomen completed showing mildly dilated small bowel with levels consistent with mechanical obstruction or significant small bowel ileus. No free air.abdominal pelvis CT completed showing dilated mid and proximal small bowel consistent with mechanical small obstruction. There is a transition point in the distal jejunum or proximal ileum seen on axial image 121. This appears similar to old exam. This could relate to stricture. Dilation is similar to old exam. Postsurgical changes with dilated distal ileum seen in the right mid abdomen also unchanged. WBC 15.3. Creatinine slightly elevated 1.36 and bun 21. patient has been started on Flagyl and Rocephin. IV steroids. GI and surgical services have been consulted. Continue fluids at 100. Patient is resting comfortably bed. Patient reports improvement with abdominal pain and discomfort. Denies any bowel movement. Patient denies chest pain or shortness breath. Patient denies nausea vomiting or diarrhea. Patient denies any urinary burning or frequency Review of Systems please refer to HPI otherwise unremarkable Past Medical History Past Medical History: Cancer, GERD/Reflux, Hyperlipidemia, Hypertension, Skin Disorder, Thyroid Disorder Additional Past Medical History / Comment(s): chron's first diagnosed in 2006, prostate cancer with removal, hypothyroidism, hiatal hernia, eczema when younger. History of Any Multi-Drug Resistant Organisms: None Reported Past Surgical History: Cholecystectomy, Hernia Repair, Prostate Surgery, Tonsillectomy Additional Past Surgical History / Comment(s): exploratory lap x 2, umbilcal hernia repair, merkels diverticulum removal, prostatectomy. Past Anesthesia/Blood Transfusion Reactions: No Reported Reaction Past Psychological History: Anxiety Additional Psychological History / Comment(s): Pt lives with spouse and adult grandson. He is independent. He uses no assistive device. He drives. Smoking Status: Former smoker Past Alcohol Use History: Occasional Additional Past Alcohol Use History / Comment(s): Pt states he first smoked at age 12 yrs. He QUIT SMOKING 13 YEARS AGO-2001. Had SMOKED OFF AND ON over the yrs -1/2-3/4 PPD Past Drug Use History: None Reported Additional Drug Use History / Comment(s): IN HIS 20'S pt used cocaine and marijuana- none since that time. - Past Family History Father Family Medical History: Cancer, Coronary Artery Disease (CAD), Hyperlipidemia, Myocardial Infarction ([place]), Prostate Disorder Additional Family Medical History / Comment(s): Father is in Hospice with bone cancer Mother Family Medical History: Coronary Artery Disease (CAD), CVA/TIA, Hyperlipidemia, Myocardial Infarction ([place]) Additional Family Medical History / Comment(s): Mother is 80 yrs old. She has ?CROHNS OR COLITIS, HEART DISEASE Medications and Allergies Home Medications Medication Instructions Recorded Confirmed Type Famotidine [Pepcid] 20 mg PO BID 05/06/14 11/16/19 History Gemfibrozil 600 mg PO HS 05/06/14 11/16/19 History Mesalamine [Pentasa] 1,000 mg PO QID 05/06/14 11/16/19 History Multivitamin [Men's Multi-Vitamin] 1 tab PO DAILY 05/06/14 11/16/19 History Pantoprazole Sodium [Protonix] 40 mg PO DAILY 05/06/14 11/16/19 History inFLIXimab [Remicade] 800 mg IVPB Q42D 06/08/14 11/16/19 History Levothyroxine Sodium [Synthroid] 25 mcg PO HS 06/01/15 11/16/19 History Ergocalciferol [Vitamin D2] 50,000 unit PO SA 08/04/17 11/16/19 History Losartan [Cozaar] 50 mg PO HS 11/16/19 11/16/19 History amLODIPine [Norvasc] 5 mg PO HS 11/16/19 11/16/19 History Allergies Allergy/AdvReac Type Severity Reaction Status Date / Time codeine AdvReac Nausea Verified 11/16/19 08:22 Physical Exam Vitals: Vital Signs Temp Pulse Pulse Resp BP BP Pulse Ox 11/16/19 07:00 98.6 F 67 17 118/71 97 11/16/19 04:23 70 16 128/64 100 11/16/19 02:24 98.6 F 82 20 124/79 99 Intake and Output 11/15/19 11/16/19 11/16/19 22:59 06:59 14:59 Intake Total 20 Balance 20 Intake: Intake, IV Titration 20 Amount Sodium Chloride 0.9% 1, 20 000 ml @ 100 mls/hr IV . Q10H [facility] Rx#:[id number] Other: Weight 89.811 kg Head normocephalic Neck supple Lungs clear to auscultation bilaterally no wheezing or crackles Heart regular rate and rhythm S1-S2, no rub or gallop Abdomen mild distention noted, hypoactive bowel sounds Extremities no edema Neuro alert and orientated to 3 Results CBC & Chem 7: 11/16/19 02:55 11/16/19 02:55 Labs: Abnormal Lab Results - Last 24 Hours (Table) 11/16/19 11/16/19 11/16/19 Range/Units 02:55 02:55 03:03 WBC 15.3 H (3.8-10.6) k/uL RBC 4.24 L (4.30-5.90) m/uL Hct 38.3 L (39.0-53.0) % Neutrophils # 12.4 H (1.3-7.7) k/uL Chloride 109 H (98-107) mmol/L Carbon Dioxide 20 L (22-30) mmol/L BUN 21 H (9-20) mg/dL Creatinine 1.36 H (0.66-1.25) mg/dL Glucose 148 H (74-99) mg/dL Total Bilirubin 2.0 H (0.2-1.3) mg/dL Total Protein 8.3 H (6.3-8.2) g/dL Lipase 21 L (23-300) U/L Urine Protein 2+ H (Negative) Urine Ketones Trace H (Negative) Hyaline Casts 112 H (0-2) /lpf Urine Mucus Many H (None) /hpf Thrombosis Risk Factor Assmnt - Choose All That Apply Any of the Below Risk Factors Present?: No Other Risk Factors: Yes Each Risk Factor Represents 2 Points: Age 61-74 years Other congenital or acquired thrombophilia - If yes, enter type in comment: No Thrombosis Risk Factor Assessment Total Risk Factor Score: 2 Thrombosis Risk Factor Assessment Level: Low Risk Assessment and Plan Assessment: 1. Increased abdominal pain related to Crohn's exacerbation and small bowel obstruction.abdominal x-ray completed showing mildly dilated small bowel with fluid levels consistent with mechanical obstruction or significant small bowel ileus. No free air.GI and surgical services have been consulted. Patient started on Rocephin and Flagyl for IV antibiotics and IV steroids. patient currently nothing by mouth 2. Acute kidney injury.creatinine 1.36 bun 21. patient's home medication of Cozaar currently on hold continue normal saline at 100. 3. History of Crohn's previous abdominal surgeries with Dr. estrada 4. History of hypothyroidism. Synthroid resumed 5. History of essential hypertension. Cozaar currently on hold due to acute kidney injury. Norvasc resumed 6. History of prostate cancer 7. History of GERD DVT prophylaxis SCDs until cleared by surgery. GI prophylaxis Protonix Continue Rocephin and Flagy and IV Solu-Medrol surgical and GI services consulted normal saline at 100 Time with Patient: Greater than 30 (Greater than 60% of the total time spent in counseling and coordination of care. I performed an examination of the patient and discussed their management with the Nurse Practitioner. I have reviewed the Nurse Practitioner's notes and agree with the documented findings and plan of care)
--- NOTE | 2019-11-16 11:19 | P.GSCN ---
<Kimberlee Leal - Last Filed: 11/16/19 11:14> History of Present Illness Consult date: 11/16/19 Reason for Consult: Crohn's exacerbation Requesting physician: Tim Oviedo History of present illness: CHIEF COMPLAINT: Crohn's exacerbation, small bowel obstruction HISTORY OF PRESENT ILLNESS: 63-year-old male who presented to the emergency room with a chief complaint of abdominal pain, nausea, and vomiting. Patient reports he has a history of Crohn's disease-first diagnosed in 2006. His symptoms began yesterday morning and he decided to come to the emergency room for further evaluation. Patient reports he sees Dr. Black outpatient for his Crohn's disease. He has been maintained on medications for his Crohn's disease. He states these were recently changed in August due to his insurance. He reports his last hospitalization secondary to a Crohn's exacerbation was in 2017. Gifty ent reports having a small formed bowel movement yesterday. He reports passing flatus overnight but denies passing flatus this morning. He reports that his abdomen feels distended. He denies nausea or vomiting today. He denies abdominal pain at the time of my examination. PAST MEDICAL HISTORY: See list. PAST SURGICAL HISTORY: See list. SOCIAL HISTORY: No illicit drug use. REVIEW OF SYSTEMS: CONSTITUTIONAL: Denies fever or chills. HEENT: Denies blurred vision, vision changes, or eye pain. Denies hemoptysis CARDIOVASCULAR: Denies chest pain or pressure. RESPIRATORY: No shortness of breath. GASTROINTESTINAL: Refer to HPI for pertinent findings HEMATOLOGIC: Denies bleeding disorders. GENITOURINARY: Denies any blood in urine. SKIN: Denies pruitis. Denies rash. PHYSICAL EXAM: VITAL SIGNS: Reviewed. GENERAL: Well-developed in no acute distress. HEENT: No sclera icterus. Extraocular movements grossly intact. Moist buccal mucosa. Head is atraumatic, normocephalic. ABDOMEN: Soft. Distended. Nontender. NEUROLOGIC: Alert and oriented. Cranial nerves II through XII grossly intact. LABORATORY DATA: W BC 15.3. Hemoglobin 13.8. Platelet count 343. Lactic acid 1.7. IMAGING: CT abdomen and pelvis: Dilated mid and proximal small bowel consistent with mechanical small bowel obstruction. There is a transition point in the distal jejunum or proximal ileum. This appears similar to old exam. This could relate to stricture. Dilation a similar to old exam. Post surgical changes with dilated distal ileum seen in the right mid abdomen also unchanged. Small bowel dilated to 5.1 cm ASSESSMENT: 1. Abdominal pain, nausea, vomiting 2. Acute exacerbation of Crohn's disease 3. Small bowel obstruction, possibly related to stricture secondary to Crohn's disease PLAN: NPO. Continue IV fluids Continue antibiotics Small bowel dilated to 5.1cm on CT report, however patient currently denying nausea, vomiting, or abdominal pain. Will hold off on NG tube at this time unless patient becomes symptomatic GI on consult. Await recommendations and input Patient will be evaluated by Dr. Raymond this afternoon Nurse practitioner note has been reviewed by physician. Signing provider agrees with the documented findings, assessment, and plan of care. Past Medical History Past Medical History: Cancer, GERD/Reflux, Hyperlipidemia, Hypertension, Skin Disorder, Thyroid Disorder Additional Past Medical History / Comment(s): chron's first diagnosed in 2006, p rostate cancer with removal, hypothyroidism, hiatal hernia, eczema when younger. History of Any Multi-Drug Resistant Organisms: None Reported Past Surgical History: Cholecystectomy, Hernia Repair, Prostate Surgery, Tonsillectomy Additional Past Surgical History / Comment(s): exploratory lap x 2, umbilcal hernia repair, merkels diverticulum removal, prostatectomy. Past Anesthesia/Blood Transfusion Reactions: No Reported Reaction Past Psychological History: Anxiety Additional Psychological History / Comment(s): Pt lives with spouse and adult grandson. He is independent. He uses no assistive device. He drives. Smoking Status: Former smoker Past Alcohol Use History: Occasional Additional Past Alcohol Use History / Comment(s): Pt states he first smoked at age 12 yrs. He QUIT SMOKING 13 YEARS AGO-2001. Had SMOKED OFF AND ON over the yrs -1/2-3/4 PPD Past Drug Use History: None Reported Additional Drug Use History / Comment(s): IN HIS 20'S pt used cocaine and marijuana- none since that time. - Past Family History Father Family Medical History: Cancer, Coronary Artery Disease (CAD), Hyperlipidemia, Myocardial Infarction ([place]), Prostate Disorder Additional Family Medical History / Comment(s): Father is in Hospice with bone cancer Mother Family Medical History: Coronary Artery Disease (CAD), CVA/TIA, Hyperlipidemia, Myocardial Infarction ([place]) Additional Family Medical History / Comment(s): Mother is 80 yrs old. She has ?CROHNS OR COLITIS, HEART DISEASE Medications and Allergies Home Medications Medication Instructions Recorded Confirmed Type Famotidine [Pepcid] 20 mg PO BID 05/06/14 11/16/19 History Gemfibrozil 600 mg PO HS 05/06/14 11/16/19 History Mesalamine [Pentasa] 1,000 mg PO QID 05/06/14 11/16/19 History Multivitamin [Men's Multi-Vitamin] 1 tab PO DAILY 05/06/14 11/16/19 History Pantoprazole Sodium [Protonix] 40 mg PO DAILY 05/06/14 11/16/19 History inFLIXimab [Remicade] 800 mg IVPB Q42D 06/08/14 11/16/19 History Levothyroxine Sodium [Synthroid] 25 mcg PO HS 06/01/15 11/16/19 History Ergocalciferol [Vitamin D2] 50,000 unit PO SA 08/04/17 11/16/19 History Losartan [Cozaar] 50 mg PO HS 11/16/19 11/16/19 History amLODIPine [Norvasc] 5 mg PO HS 11/16/19 11/16/19 History Allergies Allergy/AdvReac Type Severity Reaction Status Date / Time codeine AdvReac Nausea Verified 11/16/19 08:22 Surgical - Exam Vital Signs Temp Pulse Resp BP Pulse Ox 98.6 F 82 20 124/79 99 11/16/19 02:24 11/16/19 02:24 11/16/19 02:24 11/16/19 02:24 11/16/19 02:24 Results - Labs 11/16/19 02:55 11/16/19 02:55 Abnormal Lab Results - Last 24 Hours (Table) 11/16/19 11/16/19 11/16/19 Range/Units 02:55 02:55 03:03 WBC 15.3 H (3.8-10.6) k/uL RBC 4.24 L (4.30-5.90) m/uL Hct 38.3 L (39.0-53.0) % Neutrophils # 12.4 H (1.3-7.7) k/uL Chloride 109 H (98-107) mmol/L Carbon Dioxide 20 L (22-30) mmol/L BUN 21 H (9-20) mg/dL Creatinine 1.36 H (0.66-1.25) mg/dL Glucose 148 H (74-99) mg/dL Total Bilirubin 2.0 H (0.2-1.3) mg/dL Total Protein 8.3 H (6.3-8.2) g/dL Lipase 21 L (23-300) U/L Urine Protein 2+ H (Negative) Urine Ketones Trace H (Negative) Hyaline Casts 112 H (0-2) /lpf Urine Mucus Many H (None) /hpf Diabetes panel 11/16/19 Range/Units 02:55 Sodium 142 (137-145) mmol/L Potassium 3.8 (3.5-5.1) mmol/L Chloride 109 H (98-107) mmol/L Carbon Dioxide 20 L (22-30) mmol/L BUN 21 H (9-20) mg/dL Creatinine 1.36 H (0.66-1.25) mg/dL Glucose 148 H (74-99) mg/dL Calcium 9.5 (8.4-10.2) mg/dL AST 34 (17-59) U/L ALT 30 (4-49) U/L Alkaline Phosphatase 86 (38-126) U/L Total Protein 8.3 H (6.3-8.2) g/dL Albumin 4.7 (3.5-5.0) g/dL Calcium panel 11/16/19 Range/Units 02:55 Calcium 9.5 (8.4-10.2) mg/dL Albumin 4.7 (3.5-5.0) g/dL Pituitary panel 11/16/19 Range/Units 02:55 Sodium 142 (137-145) mmol/L Potassium 3.8 (3.5-5.1) mmol/L Chloride 109 H (98-107) mmol/L Carbon Dioxide 20 L (22-30) mmol/L BUN 21 H (9-20) mg/dL Creatinine 1.36 H (0.66-1.25) mg/dL Glucose 148 H (74-99) mg/dL Calcium 9.5 (8.4-10.2) mg/dL Adrenal panel 11/16/19 Range/Units 02:55 Sodium 142 (137-145) mmol/L Potassium 3.8 (3.5-5.1) mmol/L Chloride 109 H (98-107) mmol/L Carbon Dioxide 20 L (22-30) mmol/L BUN 21 H (9-20) mg/dL Creatinine 1.36 H (0.66-1.25) mg/dL Glucose 148 H (74-99) mg/dL Calcium 9.5 (8.4-10.2) mg/dL Total Bilirubin 2.0 H (0.2-1.3) mg/dL AST 34 (17-59) U/L ALT 30 (4-49) U/L Alkaline Phosphatase 86 (38-126) U/L Total Protein 8.3 H (6.3-8.2) g/dL Albumin 4.7 (3.5-5.0) g/dL <Beau Raymond - Last Filed: 11/16/19 20:44> History of Present Illness History of present illness: As above. Patient is known to our service. Small bowel movement yesterday. No significant bowel function today however. Last episode of vomiting at 1 AM. Continue optimization of Crohn's treatment per GI. Keep nothing by mouth for now. We'll follow closely with you. Serial abdominal x-rays depending on bowel function. Surgical - Exam Vital Signs Temp Pulse Resp BP Pulse Ox 98.6 F 82 20 124/79 99 11/16/19 02:24 11/16/19 02:24 11/16/19 02:24 11/16/19 02:24 11/16/19 02:24 Results - Labs 11/16/19 02:55 11/16/19 02:55 Abnormal Lab Results - Last 24 Hours (Table) 11/16/19 11/16/19 11/16/19 Range/Units 02:55 02:55 03:03 WBC 15.3 H (3.8-10.6) k/uL RBC 4.24 L (4.30-5.90) m/uL Hct 38.3 L (39.0-53.0) % Neutrophils # 12.4 H (1.3-7.7) k/uL Chloride 109 H (98-107) mmol/L Carbon Dioxide 20 L (22-30) mmol/L BUN 21 H (9-20) mg/dL Creatinine 1.36 H (0.66-1.25) mg/dL Glucose 148 H (74-99) mg/dL POC Glucose (mg/dL) (75-99) mg/dL Total Bilirubin 2.0 H (0.2-1.3) mg/dL Total Protein 8.3 H (6.3-8.2) g/dL Lipase 21 L (23-300) U/L Urine Protein 2+ H (Negative) Urine Ketones Trace H (Negative) Hyaline Casts 112 H (0-2) /lpf Urine Mucus Many H (None) /hpf 11/16/19 Range/Units 19:53 WBC (3.8-10.6) k/uL RBC (4.30-5.90) m/uL Hct (39.0-53.0) % Neutrophils # (1.3-7.7) k/uL Chloride (98-107) mmol/L Carbon Dioxide (22-30) mmol/L BUN (9-20) mg/dL Creatinine (0.66-1.25) mg/dL Glucose (74-99) mg/dL POC Glucose (mg/dL) 144 H (75-99) mg/dL Total Bilirubin (0.2-1.3) mg/dL Total Protein (6.3-8.2) g/dL Lipase (23-300) U/L Urine Protein (Negative) Urine Ketones (Negative) Hyaline Casts (0-2) /lpf Urine Mucus (None) /hpf Diabetes panel 11/16/19 Range/Units 02:55 Sodium 142 (137-145) mmol/L Potassium 3.8 (3.5-5.1) mmol/L Chloride 109 H (98-107) mmol/L Carbon Dioxide 20 L (22-30) mmol/L BUN 21 H (9-20) mg/dL Creatinine 1.36 H (0.66-1.25) mg/dL Glucose 148 H (74-99) mg/dL Calcium 9.5 (8.4-10.2) mg/dL AST 34 (17-59) U/L ALT 30 (4-49) U/L Alkaline Phosphatase 86 (38-126) U/L Total Protein 8.3 H (6.3-8.2) g/dL Albumin 4.7 (3.5-5.0) g/dL Calcium panel 11/16/19 Range/Units 02:55 Calcium 9.5 (8.4-10.2) mg/dL Albumin 4.7 (3.5-5.0) g/dL Pituitary panel 11/16/19 Range/Units 02:55 Sodium 142 (137-145) mmol/L Potassium 3.8 (3.5-5.1) mmol/L Chloride 109 H (98-107) mmol/L Carbon Dioxide 20 L (22-30) mmol/L BUN 21 H (9-20) mg/dL Creatinine 1.36 H (0.66-1.25) mg/dL Glucose 148 H (74-99) mg/dL Calcium 9.5 (8.4-10.2) mg/dL Adrenal panel 11/16/19 Range/Units 02:55 Sodium 142 (137-145) mmol/L Potassium 3.8 (3.5-5.1) mmol/L Chloride 109 H (98-107) mmol/L Carbon Dioxide 20 L (22-30) mmol/L BUN 21 H (9-20) mg/dL Creatinine 1.36 H (0.66-1.25) mg/dL Glucose 148 H (74-99) mg/dL Calcium 9.5 (8.4-10.2) mg/dL Total Bilirubin 2.0 H (0.2-1.3) mg/dL AST 34 (17-59) U/L ALT 30 (4-49) U/L Alkaline Phosphatase 86 (38-126) U/L Total Protein 8.3 H (6.3-8.2) g/dL Albumin 4.7 (3.5-5.0) g/dL
[2019-11-16] MEDS: BALSALAZIDE DISODIUM 750 MG CAPSULE PO SCH ×2 (17:06→20:25)
[2019-11-16] MEDS: methylPREDNISolone SOD SUCCI 40 MG/ML 1 ML VIAL IV SCH ×2 (17:06→23:14)
[2019-11-16] MEDS: metroNIDAZOLE-NS PMX 500 MG in SALINE 1 100ML.BAG IVPB SCH ×2 (17:06→23:14)
[2019-11-16 20:01] LABS: Glucose,Whole Blood 144 mg/dL (75-99)
[2019-11-16] MEDS: INSULIN ASPART (NovoLOG) 100 UNIT/ML VIAL SQ SCH (20:24)
[2019-11-16] MEDS: LEVOTHYROXINE 25 MCG TAB PO SCH (20:25)
[2019-11-16] MEDS: amLODIPine 5 MG TAB PO SCH (20:25)
--- NOTE | 2019-11-16 20:31 | CONS ---
CONSULTATION DATE OF SERVICE: 11/16/2019 REASON FOR CONSULTATION: Small bowel obstruction and history of Crohn's disease. HISTORY OF PRESENT ILLNESS: The patient is a 63 -year-old pleasant white male with history of Crohn's ileitis diagnosed 30 years ago, was known to me from office visits maintained on Remicade infusions every 6 weeks for almost 12 years duration. His last Remicade infusion was 2 weeks ago. The patient presents to the hospital with acute onset of severe lower abdominal pain followed by multiple episodes of nausea, vomiting. He came to the emergency room and subsequently had a CT of the abdomen and pelvis done that showed dilated mid and proximal small bowel loops consistent with small-bowel obstruction. Patient admitted to the hospital for further management. He has been n.p.o., was started on IV Solu-Medrol 40 mg q.8 hours and this morning he is feeling much better. He had 2 bowel movements. Started to pass air and abdominal distention is improved. No further episodes of nausea, vomiting. Patient was diagnosed with Crohn's ileitis many years ago. He underwent exploratory laparotomy by Dr. Raymond approximately 12 or 13 years ago and was noted to have extensive Crohn's involving the small bowel and hence no resection was performed at that time. His last colonoscopy was about 1 year ago that was completely normal. PAST MEDICAL HISTORY: Significant for Crohn's ileitis, maintained on Remicade infusions, hypertension, hyperlipidemia, hypothyroidism. PAST SURGICAL HISTORY: Cholecystectomy, tonsillectomy, hernia repair, prostate surgery, exploratory laparotomy twice. MEDICATIONS: At home include Pepcid, Gemfibrozil, Pentasa, multivitamin, Protonix, Remicade, Synthroid, vitamin D2, Cozaar, and Norvasc. ALLERGIES: TO CODEINE. SOCIAL HISTORY: Smoking in the past. No alcohol use. FAMILY HISTORY: Father with coronary artery disease. Mother had coronary artery disease and hyperlipidemia. REVIEW OF SYSTEMS: CARDIOPULMONARY: No chest pain, shortness of breath. no dysuria or hematuria. MUSCULOSKELETAL unremarkable. SKIN unremarkable. ENDOCRINE unremarkable. PSYCHIATRIC unremarkable. NEUROLOGY unremarkable. ENT/vision unremarkable. CONSTITUTIONAL: No recent weight loss. No fever, chills, night sweats. PHYSICAL EXAMINATION: Appears comfortable in no apparent distress. Vital signs stable. Blood pressure 125/70, pulse 81, temperature 98.7. HEENT examination unremarkable. Conjunctivae pink. Sclerae anicteric. Oral cavity no lesions. Neck: No JVD or lymph node enlargement. Chest was clear to auscultation. HEART: Regular rate and rhythm. ABDOMEN: Soft, nontender, nondistended. The abdomen was very tympanic. Bowel sounds are positive. EXTREMITIES: No pedal edema. Skin no rashes. NEUROLOGIC: Alert and oriented x3. No focal deficits. LAB: WBC 15.3, hemoglobin 13.1, platelets normal. Basic metabolic panel is within normal limits. BUN 21, creatinine 1.36. ALT, AST, T-bilirubin and alkaline phosphatase are normal. CT of the abdomen showed dilated small bowel loops involving the proximal and mid small bowel with transition point in the mid jejunum consistent with mechanical small bowel obstruction, most likely related to active Crohn's ileitis. RECOMMENDATIONS: 1. Continue with IV Solu-Medrol 40 mg q.8 hours. 2. If he is feeling better, he can be started on a clear liquid diet today and advance as tolerated. 3. Once his symptoms improve, IV steroids will be changed to Prednisone p.o. 40 mg daily. He was advised to taper it by 10 mg every week. 4. Continue with Remicade infusion on an outpatient basis. 5. I agree with surgical consultation. 6. Obtain CRP and sedimentation rate as well as CBC tomorrow. 7. We will follow with you closely during his hospital stay. Thank you for this consultation. MMDEEPL / LOVEN: [id number] /
[2019-11-17 07:12] LABS: Glucose,Whole Blood 152 mg/dL (75-99)
[2019-11-17 07:44] LABS: Basophils % (A) 0 %; Eosinophils % (A) 0 %; HCT 35.2 % (39.0-53.0); HGB 11.6 gm/dL (13.0-17.5); Lymphocytes # (A) 1.2 k/uL (1.0-4.8); Lymphocytes % (A) 9 %; MCH 30.8 pg (25.0-35.0); MCHC 32.9 g/dL (31.0-37.0); MCV 93.6 fL (80.0-100.0); Monocytes # (A) 0.5 k/uL (0-1.0); Monocytes % (A) 4 %; Neutrophils # (A) 11.8 k/uL (1.3-7.7); Neutrophils % (A) 86 %; Platelet Count 303 k/uL (150-450); RBC 3.76 m/uL (4.30-5.90); RDW 14.3 % (11.5-15.5); WBC 13.7 k/uL (3.8-10.6)
[2019-11-17] MEDS: INSULIN ASPART (NovoLOG) 100 UNIT/ML VIAL SQ SCH ×4 (07:44→21:34)
[2019-11-17 07:54] LABS: Albumin 3.6 g/dL (3.5-5.0); Calcium 8.4 mg/dL (8.4-10.2); Potassium 4.4 mmol/L (3.5-5.1); Total Bilirubin 1.4 mg/dL (0.2-1.3); Total Protein 6.9 g/dL (6.3-8.2)
[2019-11-17] MEDS: BALSALAZIDE DISODIUM 750 MG CAPSULE PO SCH ×3 (08:04→21:34)
[2019-11-17] MEDS: metroNIDAZOLE-NS PMX 500 MG in SALINE 1 100ML.BAG IVPB SCH ×2 (08:05→17:40)
[2019-11-17] MEDS: methylPREDNISolone SOD SUCCI 40 MG/ML 1 ML VIAL IV SCH ×2 (08:05→17:40)
[2019-11-17] MEDS: PANTOPRAZOLE 40 MG/10 ML VIAL IVP SCH (08:08)
[2019-11-17 09:53] LABS: Erythrocyte Sedimentation Rate 8 mm/hr (0-15)
--- NOTE | 2019-11-17 10:21 | P.PN ---
<Kimberlee Leal David - Last Filed: 11/17/19 10:17> Subjective Progress Note Date: 11/17/19 CHIEF COMPLAINT: Crohn's exacerbation, small bowel obstruction HISTORY OF PRESENT ILLNESS: Patient examined this morning the bedside. Patient denies abdominal discomfort. He reports his abdominal distention feels slightly improved today. Denies nausea or vomiting. He denies passing flatus. No bowel movement. WBC 13.7. vital signs stable. He is afebrile. PHYSICAL EXAM: VITAL SIGNS: Reviewed. GENERAL: Well-developed in no acute distress. HEENT: No sclera icterus. Extraocular movements grossly intact. Moist buccal mucosa. Head is atraumatic, normocephalic. ABDOMEN: Soft. Distended. Nontender with palpation. NEUROLOGIC: Alert and oriented. Cranial nerves II through XII grossly intact. ASSESSMENT: 1. Abdominal pain, nausea, vomiting 2. Acute exacerbation of Crohn's disease 3. Small bowel obstruction, possibly related to stricture secondary to Crohn's disease PLAN: NPO. Continue IV fluids Continue antibiotics Continue treatment of Crohns per GI service Obtain 2V abdominal xray Nurse practitioner note has been reviewed by physician. Signing provider agrees with the documented findings, assessment, and plan of care. Objective - Vital Signs Vital signs: Vital Signs Temp 98.4 F 11/17/19 07:00 Pulse 67 11/17/19 07:00 Resp 16 11/17/19 07:00 BP 128/74 11/17/19 07:00 Pulse Ox 96 11/17/19 07:00 Intake & Output 11/16/19 11/17/19 11/17/19 18:59 06:59 18:59 Other: # Voids 3 1 - Labs CBC & Chem 7: 11/17/19 07:02 11/17/19 07:02 Labs: Abnormal Lab Results - Last 24 Hours (Table) 11/16/19 11/17/19 11/17/19 Range/Units 19:53 07:02 07:02 WBC 13.7 H (3.8-10.6) k/uL RBC 3.76 L (4.30-5.90) m/uL Hgb 11.6 L (13.0-17.5) gm/dL Hct 35.2 L (39.0-53.0) % Neutrophils # 11.8 H (1.3-7.7) k/uL Chloride 113 H (98-107) mmol/L Carbon Dioxide 21 L (22-30) mmol/L BUN 24 H (9-20) mg/dL Glucose 147 H (74-99) mg/dL POC Glucose (mg/dL) 144 H (75-99) mg/dL Total Bilirubin 1.4 H (0.2-1.3) mg/dL 11/17/19 Range/Units 07:11 WBC (3.8-10.6) k/uL RBC (4.30-5.90) m/uL Hgb (13.0-17.5) gm/dL Hct (39.0-53.0) % Neutrophils # (1.3-7.7) k/uL Chloride (98-107) mmol/L Carbon Dioxide (22-30) mmol/L BUN (9-20) mg/dL Glucose (74-99) mg/dL POC Glucose (mg/dL) 152 H (75-99) mg/dL Total Bilirubin (0.2-1.3) mg/dL Microbiology - Last 24 Hours (Table) 11/16/19 03:45 Blood Culture - Preliminary Blood No Growth after 24 hours <Beau Raymond - Last Filed: 11/17/19 18:57> Subjective As above. Patient doing better today. Passing flatus. Denies pain. No nausea or vomiting. Will begin clear liquids. Objective - Vital Signs Vital signs: Vital Signs Temp 98.4 F 11/17/19 14:31 Pulse 72 11/17/19 14:31 Resp 16 11/17/19 14:31 BP 121/66 11/17/19 14:31 Pulse Ox 98 11/17/19 14:31 Intake & Output 11/16/19 11/17/19 11/17/19 18:59 06:59 18:59 Other: # Voids 3 1 2 - Labs CBC & Chem 7: 11/17/19 07:02 11/17/19 07:02 Labs: Abnormal Lab Results - Last 24 Hours (Table) 11/16/19 11/17/19 11/17/19 Range/Units 19:53 07:02 07:02 WBC 13.7 H (3.8-10.6) k/uL RBC 3.76 L (4.30-5.90) m/uL Hgb 11.6 L (13.0-17.5) gm/dL Hct 35.2 L (39.0-53.0) % Neutrophils # 11.8 H (1.3-7.7) k/uL Chloride 113 H (98-107) mmol/L Carbon Dioxide 21 L (22-30) mmol/L BUN 24 H (9-20) mg/dL Glucose 147 H (74-99) mg/dL POC Glucose (mg/dL) 144 H (75-99) mg/dL Total Bilirubin 1.4 H (0.2-1.3) mg/dL 11/17/19 11/17/19 11/17/19 Range/Units 07:11 11:10 16:49 WBC (3.8-10.6) k/uL RBC (4.30-5.90) m/uL Hgb (13.0-17.5) gm/dL Hct (39.0-53.0) % Neutrophils # (1.3-7.7) k/uL Chloride (98-107) mmol/L Carbon Dioxide (22-30) mmol/L BUN (9-20) mg/dL Glucose (74-99) mg/dL POC Glucose (mg/dL) 152 H 146 H 132 H (75-99) mg/dL Total Bilirubin (0.2-1.3) mg/dL Microbiology - Last 24 Hours (Table) 11/16/19 03:45 Blood Culture - Preliminary Blood No Growth after 24 hours
--- NOTE | 2019-11-17 10:33 | P.PN ---
Subjective Progress Note Date: 11/17/19 this is a 63-year-old patient who presented with complaints of abdominal pain. patient reports that pain has been occurring since yesterday in a similar to previous exacerbations of his Crohn's. Patient is having nausea and vomiting. Patient denies any diarrhea. Patient denies any fever or chills. Patient has past medical history of Crohn's and has had multiple abdominal surgeries with Dr. Estrada.additional medical history includes GERD, hyperlipidemia, hypertension, hypothyroidism, prostate cancer and hiatal hernia. x-ray of abdomen completed showing mildly dilated small bowel with levels consistent with mechanical obstruction or significant small bowel ileus. No free air.abdominal pelvis CT completed showing dilated mid and proximal small bowel consistent with mechanical small obstruction. There is a transition point in the distal jejunum or proximal ileum seen on axial image 121. This appears similar to old exam. This could relate to stricture. Dilation is similar to old exam. Postsurgical changes with dilated distal ileum seen in the right mid abdomen also unchanged. WBC 15.3. Creatinine slightly elevated 1.36 and bun 21. patient has been started on Flagyl and Rocephin. IV steroids. GI and surgical services have been consulted. Continue fluids at 100. Patient is resting comfortably bed. Patient reports improvement with abdominal pain and discomfort. Denies any mayo l movement. Patient denies chest pain or shortness breath. Patient denies nausea vomiting or diarrhea. Patient denies any urinary burning or frequency on 11/17/2019 patient is alert and oriented 3. Patient reports improvement with abdominal pain. Patient denies nausea vomiting. Abdomen remains distended. Patient has not had bowel movement. Remains nothing by mouth. Surgical and GI services are following. patient remains on Flagyl, Rocephin and IV Solu-Medrol Objective - Vital Signs Vital signs: Vital Signs Temp 98.4 F 11/17/19 07:00 Pulse 67 11/17/19 07:00 Resp 16 11/17/19 07:00 BP 128/74 11/17/19 07:00 Pulse Ox 96 11/17/19 07:00 Intake & Output 11/16/19 11/17/19 11/17/19 18:59 06:59 18:59 Other: # Voids 3 1 - Exam Head normocephalic Neck supple Lungs clear to auscultation bilaterally no wheezing or crackles Heart regular rate and rhythm S1-S2, no rub or gallop Abdomen distention noted, hypoactive bowel sounds Extremities no edema Neuro alert and orientated to 3 - Labs CBC & Chem 7: 11/17/19 07:02 11/17/19 07:02 Labs: Abnormal Lab Results - Last 24 Hours (Table) 11/16/19 11/17/19 11/17/19 Range/Units 19:53 07:02 07:02 WBC 13.7 H (3.8-10.6) k/uL RBC 3.76 L (4.30-5.90) m/uL Hgb 11.6 L (13.0-17.5) gm/dL Hct 35.2 L (39.0-53.0) % Neutrophils # 11.8 H (1.3-7.7) k/uL Chloride 113 H (98-107) mmol/L Carbon Dioxide 21 L (22-30) mmol/L BUN 24 H (9-20) mg/dL Glucose 147 H (74-99) mg/dL POC Glucose (mg/dL) 144 H (75-99) mg/dL Total Bilirubin 1.4 H (0.2-1.3) mg/dL 11/17/19 Range/Units 07:11 WBC (3.8-10.6) k/uL RBC (4.30-5.90) m/uL Hgb (13.0-17.5) gm/dL Hct (39.0-53.0) % Neutrophils # (1.3-7.7) k/uL Chloride (98-107) mmol/L Carbon Dioxide (22-30) mmol/L BUN (9-20) mg/dL Glucose (74-99) mg/dL POC Glucose (mg/dL) 152 H (75-99) mg/dL Total Bilirubin (0.2-1.3) mg/dL Microbiology - Last 24 Hours (Table) 11/16/19 03:45 Blood Culture - Preliminary Blood No Growth after 24 hours Assessment and Plan Assessment: 1. Increased abdominal pain related to Crohn's exacerbation and small bowel obstruction.abdominal x-ray completed showing mildly dilated small bowel with fluid levels consistent with mechanical obstruction or significant small bowel ileus. No free air.GI and surgical services have been consulted. Patient started on Rocephin and Flagyl for IV antibiotics and IV steroids. patient currently nothing by mouth 2. Acute kidney injury.creatinine 1.36 bun 21. patient's home medication of Cozaar currently on hold continue normal saline at 100.creatinine improving to 1.06 and bun 24 3. History of Crohn's previous abdominal surgeries with Dr. estrada 4. History of hypothyroidism. Synthroid resumed 5. History of essential hypertension. Cozaar currently on hold due to acute kidney injury. Norvasc resumed 6. History of prostate cancer 7. History of GERD DVT prophylaxis SCDs until cleared by surgery. GI prophylaxis Protonix Continue Rocephin and Flagy and IV Solu-Medrol surgical and GI services consulted normal saline at 100 I performed an examination of the patient and discussed their management with the Nurse Practitioner. I have reviewed the Nurse Practitioner's notes and agree with the documented findings and plan of care
[2019-11-17 11:11] LABS: Glucose,Whole Blood 146 mg/dL (75-99)
[2019-11-17] MEDS: SODIUM CHLORIDE 0.9% 1,000 ML IV SCH ×2 (11:51→21:59)
--- NOTE | 2019-11-17 14:26 | XR ---
EXAMINATION TYPE: XR abdomen 2V DATE OF EXAM: 11/17/2019 COMPARISON: 11/16/2019 INDICATION: History of bowel obstruction TECHNIQUE: Upright and supine views of the abdomen FINDINGS: There is prominent air within the region of the ascending colon. Small amount of air is through the t ransverse colon and descending colon. Psoas margins are normal. No organomegaly is present. No free air is evident. Differential air-fluid are not evident. Multiple surgical clips within the pe lvis can be compatible with prostatectomy. COMPARISON: Previous multiple air-fluid levels within small bowel loops have resolved. IMPRESSION: 1. Resolving obstruction. Nonspecific bowel gas remains present.
[2019-11-17 16:50] LABS: Glucose,Whole Blood 132 mg/dL (75-99)
[2019-11-17 20:21] LABS: Glucose,Whole Blood 188 mg/dL (75-99)
[2019-11-17] MEDS: amLODIPine 5 MG TAB PO SCH (21:33)
[2019-11-17] MEDS: LEVOTHYROXINE 25 MCG TAB PO SCH (21:34)
[2019-11-18] MEDS: methylPREDNISolone SOD SUCCI 40 MG/ML 1 ML VIAL IV SCH ×3 (00:06→17:28)
[2019-11-18] MEDS: metroNIDAZOLE-NS PMX 500 MG in SALINE 1 100ML.BAG IVPB SCH ×2 (00:06→07:41)
[2019-11-18 06:45] LABS: Glucose,Whole Blood 154 mg/dL (75-99)
[2019-11-18] MEDS: SODIUM CHLORIDE 0.9% 1,000 ML IV SCH ×2 (07:23→17:29)
--- NOTE | 2019-11-18 07:28 | P.PN ---
Subjective Progress Note Date: 11/17/19 Principal diagnosis: Crohn's disease/ileitis, small bowel obstruction patient is seen lying in bed reporting improvement in abdominal pain. No nausea or vomiting. The patient is passing flatus. No bowel movement reported. Objective - Vital Signs Vital signs: Vital Signs Temp 98.4 F 11/17/19 07:00 Pulse 67 11/17/19 07:00 Resp 16 11/17/19 07:00 BP 128/74 11/17/19 07:00 Pulse Ox 96 11/17/19 07:00 Intake & Output 11/16/19 11/17/19 11/17/19 18:59 06:59 18:59 Other: # Voids 3 1 - Exam On physical examination, patient appears comfortable in no apparent distress. HEAD: Normocephalic, atraumatic. EYES: No scleral icterus. No conjunctival injection. MOUTH: No lesions, tongue midline. NECK: Trachea midline, no gross abnormalities. CHEST: Clear to auscultation with no wheezing or rhonchi appreciated. ABDOMEN: Soft, obese, nontender. Bowel sounds are positive. No organomegaly. No guarding or rigidity. EXTREMITIES: No pedal edema. SKIN: No rashes, no jaundice. NEUROLOGIC: Alert and oriented x3. No focal deficits. - Labs CBC & Chem 7: 11/17/19 07:02 11/17/19 07:02 Labs: Abnormal Lab Results - Last 24 Hours (Table) 11/16/19 11/17/19 11/17/19 Range/Units 19:53 07:02 07:02 WBC 13.7 H (3.8-10.6) k/uL RBC 3.76 L (4.30-5.90) m/uL Hgb 11.6 L (13.0-17.5) gm/dL Hct 35.2 L (39.0-53.0) % Neutrophils # 11.8 H (1.3-7.7) k/uL Chloride 113 H (98-107) mmol/L Carbon Dioxide 21 L (22-30) mmol/L BUN 24 H (9-20) mg/dL Glucose 147 H (74-99) mg/dL POC Glucose (mg/dL) 144 H (75-99) mg/dL Total Bilirubin 1.4 H (0.2-1.3) mg/dL 11/17/19 11/17/19 Range/Units 07:11 11:10 WBC (3.8-10.6) k/uL RBC (4.30-5.90) m/uL Hgb (13.0-17.5) gm/dL Hct (39.0-53.0) % Neutrophils # (1.3-7.7) k/uL Chloride (98-107) mmol/L Carbon Dioxide (22-30) mmol/L BUN (9-20) mg/dL Glucose (74-99) mg/dL POC Glucose (mg/dL) 152 H 146 H (75-99) mg/dL Total Bilirubin (0.2-1.3) mg/dL Microbiology - Last 24 Hours (Table) 11/16/19 03:45 Blood Culture - Preliminary Blood No Growth after 24 hours Assessment and Plan (1) Exacerbation of Crohn's disease Narrative/Plan: 63-year-old female with a known history of Crohn's ileitis diagnosed 30 years ago currently on treatment with the Remicade therapy for the past 12 years who presented to the hospital with complaints of severe lower abdominal pain with associated nausea and vomiting. Computed tomography scan of the abdomen was significant for findings of dilated mid and proximal small bowel loops consistent with a small bowel obstruction. The patient was started on IV Solu- Medrol therapy for suspected obstruction secondary to exacerbation of his Crohn's disease. He has been passing some flatus at this time and overall is feeling better. History of the abdomen today showed resolving obstruction. Current Visit: Yes Status: Acute Code(s): K50.90 - CROHN'S DISEASE, UNSPECIFIED, WITHOUT COMPLICATIONS SNOMED Code(s): 53505301 (2) Abdominal pain Current Visit: Yes Status: Acute Code(s): R10.9 - UNSPECIFIED ABDOMINAL PAIN SNOMED Code(s): 00986732 (3) Small bowel obstruction Current Visit: Yes Status: Acute Code(s): K56.69 - OTHER INTESTINAL OBSTRUCTION * DO NOT USE * SNOMED Code(s): 580612087 Plan: supportive care Okay for liquid diet per surgical service Appreciate recommendations from surgical service X-ray abdomen reviewed Continue IV Solu-Medrol, if patient is improved tomorrow considered to transitioning to oral therapy with plan for patient to be tapered outpatient setting continue Remicade infusions in the outpatient setting Thank you for allowing us to participate in the care of this patient we will continue to follow
[2019-11-18 07:30] LABS: Basophils % (A) 0 %; Eosinophils % (A) 0 %; HGB 11.7 gm/dL (13.0-17.5); Lymphocytes # (A) 0.7 k/uL (1.0-4.8); Lymphocytes % (A) 7 %; MCH 31.1 pg (25.0-35.0); MCHC 33.5 g/dL (31.0-37.0); Mean Platelet Volume 8.4; Monocytes # (A) 0.3 k/uL (0-1.0); Monocytes % (A) 3 %; Neutrophils # (A) 8.8 k/uL (1.3-7.7); Neutrophils % (A) 89 %; Platelet Count 297 k/uL (150-450); RBC 3.76 m/uL (4.30-5.90); RDW 14.2 % (11.5-15.5); WBC 9.9 k/uL (3.8-10.6)
[2019-11-18 07:40] LABS: ALT 32 U/L (4-49); AST 45 U/L (17-59); African American GFR (CKD) >90 (>60 ml/min/1.73 sqM); Albumin 3.6 g/dL (3.5-5.0); Alkaline Phosphatase 56 U/L (38-126); Anion Gap 9 mmol/L; Blood Urea Nitrogen 22 mg/dL (9-20); Calcium 8.1 mg/dL (8.4-10.2); Carbon Dioxide 22 mmol/L (22-30); Chloride 112 mmol/L (98-107); Glucose 149 mg/dL (74-99); Non-African American GFR(CKD) 83 (>60 ml/min/1.73 sqM); Potassium 3.9 mmol/L (3.5-5.1); Sodium 143 mmol/L (137-145); Total Bilirubin 1.2 mg/dL (0.2-1.3); Total Protein 6.9 g/dL (6.3-8.2)
[2019-11-18] MEDS: BALSALAZIDE DISODIUM 750 MG CAPSULE PO SCH ×3 (07:42→21:18)
[2019-11-18] MEDS: INSULIN ASPART (NovoLOG) 100 UNIT/ML VIAL SQ SCH ×4 (07:42→21:19)
[2019-11-18] MEDS: PANTOPRAZOLE 40 MG/10 ML VIAL IVP SCH (07:42)
--- NOTE | 2019-11-18 10:09 | P.PN ---
Subjective Progress Note Date: 11/18/19 this is a 63-year-old patient who presented with complaints of abdominal pain. patient reports that pain has been occurring since yesterday in a similar to previous exacerbations of his Crohn's. Patient is having nausea and vomiting. Patient denies any diarrhea. Patient denies any fever or chills. Patient has past medical history of Crohn's and has had multiple abdominal surgeries with Dr. Estrada.additional medical history includes GERD, hyperlipidemia, hypertension, hypothyroidism, prostate cancer and hiatal hernia. x-ray of abdomen completed showing mildly dilated small bowel with levels consistent with mechanical obstruction or significant small bowel ileus. No free air.abdominal pelvis CT completed showing dilated mid and proximal small bowel consistent with mechanical small obstruction. There is a transition point in the distal jejunum or proximal ileum seen on axial image 121. This appears similar to old exam. This could relate to stricture. Dilation is similar to old exam. Postsurgical changes with dilated distal ileum seen in the right mid abdomen also unchanged. WBC 15.3. Creatinine slightly elevated 1.36 and bun 21. patient has been started on Flagyl and Rocephin. IV steroids. GI and surgical services have been consulted. Continue fluids at 100. Patient is resting comfortably bed. Patient reports improvement with abdominal pain and discomfort. Denies any mayo l movement. Patient denies chest pain or shortness breath. Patient denies nausea vomiting or diarrhea. Patient denies any urinary burning or frequency on 11/17/2019 patient is alert and oriented 3. Patient reports improvement with abdominal pain. Patient denies nausea vomiting. Abdomen remains distended. Patient has not had bowel movement. Remains nothing by mouth. Surgical and GI services are following. patient remains on Flagyl, Rocephin and IV Solu-Medrol on 11/18/2019 patient is alert and oriented 3 patient did have 2 bowel movement this a.m. Repeat abdominal x-ray completed yesterday showing resolving obstruction nonspecific bowel gas remains present. Patient denies any chest pain or shortness breath. Patient denies nausea vomiting or diarrhea. Patient denies any urinary burning or frequency. Diet will be advanced to full liquid patient remains on IV steroids and IV antibiotics. GI and surgical services are following Objective - Vital Signs Vital signs: Vital Signs Temp 97.8 F 11/18/19 07:00 Pulse 61 11/18/19 07:00 Resp 16 11/18/19 07:00 BP 138/69 11/18/19 07:00 Pulse Ox 95 11/18/19 07:00 Intake & Output 11/17/19 11/18/19 11/18/19 18:59 06:59 18:59 Other: Voiding Method Toilet # Voids 2 2 - Exam Head normocephalic Neck supple Lungs clear to auscultation bilaterally no wheezing or crackles Heart regular rate and rhythm S1-S2, no rub or gallop Abdomen distention noted, hypoactive bowel sounds Extremities no edema Neuro alert and orientated to 3 - Labs CBC & Chem 7: 11/18/19 07:05 11/18/19 07:05 Labs: Abnormal Lab Results - Last 24 Hours (Table) 11/17/19 11/17/19 11/17/19 Range/Units 11:10 16:49 20:17 RBC (4.30-5.90) m/uL Hgb (13.0-17.5) gm/dL Hct (39.0-53.0) % Neutrophils # (1.3-7.7) k/uL Lymphocytes # (1.0-4.8) k/uL Chloride (98-107) mmol/L BUN (9-20) mg/dL Glucose (74-99) mg/dL POC Glucose (mg/dL) 146 H 132 H 188 H (75-99) mg/dL Calcium (8.4-10.2) mg/dL 11/18/19 11/18/19 11/18/19 Range/Units 06:43 07:05 07:05 RBC 3.76 L (4.30-5.90) m/uL Hgb 11.7 L (13.0-17.5) gm/dL Hct 35.0 L (39.0-53.0) % Neutrophils # 8.8 H (1.3-7.7) k/uL Lymphocytes # 0.7 L (1.0-4.8) k/uL Chloride 112 H (98-107) mmol/L BUN 22 H (9-20) mg/dL Glucose 149 H (74-99) mg/dL POC Glucose (mg/dL) 154 H (75-99) mg/dL Calcium 8.1 L (8.4-10.2) mg/dL Microbiology - Last 24 Hours (Table) 11/16/19 03:45 Blood Culture - Preliminary Blood No Growth after 48 hours Assessment and Plan Assessment: 1. Increased abdominal pain related to Crohn's exacerbation and small bowel obstruction.abdominal x-ray completed showing mildly dilated small bowel with fluid levels consistent with mechanical obstruction or significant small bowel ileus. No free air.GI and surgical services have been consulted. Patient started on Rocephin and Flagyl for IV antibiotics and IV steroids. patient currently nothing by mouth. Repeat abdominal x-ray completed showing resolving obstruction. Nonspecific bowel gas pattern remains present. Patient's diet has been increased to full liquid diet patient did have bowel movement this a.m. 2. Acute kidney injury.creatinine 1.36 bun 21. patient's home medication of Cozaar currently on hold continue normal saline at 100.creatinine improving to 1.06 and bun 24 3. History of Crohn's previous abdominal surgeries with Dr. estrada 4. History of hypothyroidism. Synthroid resumed 5. History of essential hypertension. Cozaar currently on hold due to acute kidney injury. Norvasc resumed 6. History of prostate cancer 7. History of GERD DVT prophylaxis SCDs until cleared by surgery. GI prophylaxis Protonix Continue Rocephin and Flagy and IV Solu-Medrol surgical and GI services following I performed an examination of the patient and discussed their management with the Nurse Practitioner. I have reviewed the Nurse Practitioner's notes and agree with the documented findings and plan of care
[2019-11-18 12:03] LABS: Glucose,Whole Blood 144 mg/dL (75-99)
--- NOTE | 2019-11-18 12:13 | P.PN ---
<Kimberlee Leal David - Last Filed: 11/18/19 12:11> Subjective Progress Note Date: 11/18/19 CHIEF COMPLAINT: Crohn's exacerbation, small bowel obstruction HISTORY OF PRESENT ILLNESS: Patient examined this morning the bedside. Patient denies abdominal discomfort. tolerating clear liquid diet. Denies nausea or vomiting. he is passing flatus. Reports to formed bowel movements today. WBC 9.9. Hemoglobin 11.7. vital signs stable. He is afebrile. PHYSICAL EXAM: VITAL SIGNS: Reviewed. GENERAL: Well-developed in no acute distress. HEENT: No sclera icterus. Extraocular movements grossly intact. Moist buccal mucosa. Head is atraumatic, normocephalic. ABDOMEN: Soft. Nondistended. Nontender with palpation. NEUROLOGIC: Alert and oriented. Cranial nerves II through XII grossly intact. ASSESSMENT: 1. Abdominal pain, nausea, vomiting 2. Acute exacerbation of Crohn's disease 3. Small bowel obstruction, possibly related to stricture secondary to Crohn's disease PLAN: Advance diet to full liquids Continue treatment of Crohns per GI service No surgical intervention recommended Possible discharge home tomorrow Nurse practitioner note has been reviewed by physician. Signing provider agrees with the documented findings, assessment, and plan of care. Objective - Vital Signs Vital signs: Vital Signs Temp 97.8 F 11/18/19 07:00 Pulse 61 11/18/19 07:00 Resp 16 11/18/19 07:00 BP 138/69 11/18/19 07:00 Pulse Ox 95 11/18/19 07:00 Intake & Output 11/17/19 11/18/19 11/18/19 18:59 06:59 18:59 Other: Voiding Method Toilet Toilet # Voids 2 2 - Labs CBC & Chem 7: 11/18/19 07:05 11/18/19 07:05 Labs: Abnormal Lab Results - Last 24 Hours (Table) 11/17/19 11/17/19 11/18/19 Range/Units 16:49 20:17 06:43 RBC (4.30-5.90) m/uL Hgb (13.0-17.5) gm/dL Hct (39.0-53.0) % Neutrophils # (1.3-7.7) k/uL Lymphocytes # (1.0-4.8) k/uL Chloride (98-107) mmol/L BUN (9-20) mg/dL Glucose (74-99) mg/dL POC Glucose (mg/dL) 132 H 188 H 154 H (75-99) mg/dL Calcium (8.4-10.2) mg/dL 11/18/19 11/18/19 11/18/19 Range/Units 07:05 07:05 11:50 RBC 3.76 L (4.30-5.90) m/uL Hgb 11.7 L (13.0-17.5) gm/dL Hct 35.0 L (39.0-53.0) % Neutrophils # 8.8 H (1.3-7.7) k/uL Lymphocytes # 0.7 L (1.0-4.8) k/uL Chloride 112 H (98-107) mmol/L BUN 22 H (9-20) mg/dL Glucose 149 H (74-99) mg/dL POC Glucose (mg/dL) 144 H (75-99) mg/dL Calcium 8.1 L (8.4-10.2) mg/dL Microbiology - Last 24 Hours (Table) 11/16/19 03:45 Blood Culture - Preliminary Blood No Growth after 48 hours <Beau Raymond - Last Filed: 11/18/19 16:04> Subjective As above. Patient doing well. Had 2 bowel movements today. Tolerating full liquids currently. Possible discharge tomorrow. Objective - Vital Signs Vital signs: Vital Signs Temp 97.9 F 11/18/19 14:34 Pulse 60 11/18/19 14:34 Resp 16 11/18/19 14:34 BP 136/68 11/18/19 14:34 Pulse Ox 95 11/18/19 14:34 Intake & Output 11/17/19 11/18/19 11/18/19 18:59 06:59 18:59 Other: Voiding Method Toilet Toilet # Voids 2 2 2 # Bowel Movements 1 - Labs CBC & Chem 7: 11/18/19 07:05 11/18/19 07:05 Labs: Abnormal Lab Results - Last 24 Hours (Table) 11/17/19 11/17/19 11/18/19 Range/Units 16:49 20:17 06:43 RBC (4.30-5.90) m/uL Hgb (13.0-17.5) gm/dL Hct (39.0-53.0) % Neutrophils # (1.3-7.7) k/uL Lymphocytes # (1.0-4.8) k/uL Chloride (98-107) mmol/L BUN (9-20) mg/dL Glucose (74-99) mg/dL POC Glucose (mg/dL) 132 H 188 H 154 H (75-99) mg/dL Calcium (8.4-10.2) mg/dL 11/18/19 11/18/19 11/18/19 Range/Units 07:05 07:05 11:50 RBC 3.76 L (4.30-5.90) m/uL Hgb 11.7 L (13.0-17.5) gm/dL Hct 35.0 L (39.0-53.0) % Neutrophils # 8.8 H (1.3-7.7) k/uL Lymphocytes # 0.7 L (1.0-4.8) k/uL Chloride 112 H (98-107) mmol/L BUN 22 H (9-20) mg/dL Glucose 149 H (74-99) mg/dL POC Glucose (mg/dL) 144 H (75-99) mg/dL Calcium 8.1 L (8.4-10.2) mg/dL Microbiology - Last 24 Hours (Table) 11/16/19 03:45 Blood Culture - Preliminary Blood No Growth after 48 hours
[2019-11-18 17:01] LABS: Glucose,Whole Blood 136 mg/dL (75-99)
[2019-11-18] MEDS: metroNIDAZOLE 500 MG TAB PO SCH ×2 (17:28→23:22)
[2019-11-18 20:34] LABS: Glucose,Whole Blood 143 mg/dL (75-99)
[2019-11-18] MEDS: LEVOTHYROXINE 25 MCG TAB PO SCH (21:18)
[2019-11-18] MEDS: amLODIPine 5 MG TAB PO SCH (21:18)
--- NOTE | 2019-11-18 22:17 | P.PN ---
Subjective Progress Note Date: 11/18/19 Principal diagnosis: Crohn's disease/ileitis, small bowel obstruction Patient is seen lying in bed. He reports 3 bowel movements today. No blood per rectum. He has tolerated full liquid diet. Objective - Vital Signs Vital signs: Vital Signs Temp 97.9 F 11/18/19 14:34 Pulse 60 11/18/19 14:34 Resp 16 11/18/19 14:34 BP 136/68 11/18/19 14:34 Pulse Ox 95 11/18/19 14:34 Intake & Output 11/17/19 11/18/19 11/18/19 18:59 06:59 18:59 Other: Voiding Method Toilet Toilet # Voids 2 2 2 # Bowel Movements 1 - Exam On physical examination, patient appears comfortable in no apparent distress. HEAD: Normocephalic, atraumatic. EYES: No scleral icterus. No conjunctival injection. MOUTH: No lesions, tongue midline. NECK: Trachea midline, no gross abnormalities. CHEST: Clear to auscultation with no wheezing or rhonchi appreciated. ABDOMEN: Soft, obese, nontender. Bowel sounds are positive. No organomegaly. No guarding or rigidity. EXTREMITIES: No pedal edema. SKIN: No rashes, no jaundice. NEUROLOGIC: Alert and oriented x3. No focal deficits. - Labs CBC & Chem 7: 11/18/19 07:05 11/18/19 07:05 Labs: Abnormal Lab Results - Last 24 Hours (Table) 11/17/19 11/17/19 11/18/19 Range/Units 16:49 20:17 06:43 RBC (4.30-5.90) m/uL Hgb (13.0-17.5) gm/dL Hct (39.0-53.0) % Neutrophils # (1.3-7.7) k/uL Lymphocytes # (1.0-4.8) k/uL Chloride (98-107) mmol/L BUN (9-20) mg/dL Glucose (74-99) mg/dL POC Glucose (mg/dL) 132 H 188 H 154 H (75-99) mg/dL Calcium (8.4-10.2) mg/dL 11/18/19 11/18/19 11/18/19 Range/Units 07:05 07:05 11:50 RBC 3.76 L (4.30-5.90) m/uL Hgb 11.7 L (13.0-17.5) gm/dL Hct 35.0 L (39.0-53.0) % Neutrophils # 8.8 H (1.3-7.7) k/uL Lymphocytes # 0.7 L (1.0-4.8) k/uL Chloride 112 H (98-107) mmol/L BUN 22 H (9-20) mg/dL Glucose 149 H (74-99) mg/dL POC Glucose (mg/dL) 144 H (75-99) mg/dL Calcium 8.1 L (8.4-10.2) mg/dL Microbiology - Last 24 Hours (Table) 11/16/19 03:45 Blood Culture - Preliminary Blood No Growth after 48 hours Assessment and Plan (1) Exacerbation of Crohn's disease Narrative/Plan: 63-year-old female with a known history of Crohn's ileitis diagnosed 30 years ago currently on treatment with the Remicade therapy for the past 12 years who presented to the hospital with complaints of severe lower abdominal pain with associated nausea and vomiting. Computed tomography scan of the abdomen was significant for findings of dilated mid and proximal small bowel loops consis tent with a small bowel obstruction. The patient was started on IV Solu-Medrol therapy for suspected obstruction secondary to exacerbation of his Crohn's disease. He has been passing some flatus at this time and overall is feeling better with patient tolerating diet reporting 3 bowel movements today. Current Visit: Yes Status: Acute Code(s): K50.90 - CROHN'S DISEASE, UNSPECIFIED, WITHOUT COMPLICATIONS SNOMED Code(s): 36657934 (2) Abdominal pain Current Visit: Yes Status: Acute Code(s): R10.9 - UNSPECIFIED ABDOMINAL PAIN SNOMED Code(s): 10570417 (3) Small bowel obstruction Current Visit: Yes Status: Acute Code(s): K56.69 - OTHER INTESTINAL OBSTRUCTION * DO NOT USE * SNOMED Code(s): 513140574 Plan: supportive care Okay for full liquid diet per surgical service, okay for low fiber/low residual. If patient continues to do well Appreciate recommendations from surgical service IV Solu-Medrol switched to prednisone 40 mg by mouth daily, with plan for patient to be sent on a taper of 10 mg every 7 days until completion continue Remicade infusions in the outpatient setting Thank you for allowing us to participate in the care of this patient, the gastroenterology service will stand by, please call us back with any questions or concerns
[2019-11-19] MEDS: SODIUM CHLORIDE 0.9% 1,000 ML IV SCH ×3 (05:41→23:02)
[2019-11-19 06:50] LABS: Glucose,Whole Blood 133 mg/dL (75-99)
[2019-11-19] MEDS: INSULIN ASPART (NovoLOG) 100 UNIT/ML VIAL SQ SCH ×2 (07:14→12:09)
[2019-11-19] MEDS: PANTOPRAZOLE 40 MG TABLET PO SCH (08:18)
[2019-11-19] MEDS: BALSALAZIDE DISODIUM 750 MG CAPSULE PO SCH ×3 (08:18→23:03)
[2019-11-19] MEDS: predniSONE 20 MG TAB PO SCH (08:18)
[2019-11-19] MEDS: metroNIDAZOLE 500 MG TAB PO SCH ×3 (08:18→23:03)
[2019-11-19 08:22] LABS: Basophils % (A) 0 %; Eosinophils % (A) 0 %; HCT 33.8 % (39.0-53.0); HGB 11.8 gm/dL (13.0-17.5); Lymphocytes # (A) 1.4 k/uL (1.0-4.8); Lymphocytes % (A) 14 %; MCH 32.2 pg (25.0-35.0); Monocytes # (A) 0.6 k/uL (0-1.0); Monocytes % (A) 6 %; Neutrophils # (A) 7.8 k/uL (1.3-7.7); Neutrophils % (A) 78 %; Platelet Count 297 k/uL (150-450); RBC 3.67 m/uL (4.30-5.90); RDW 14.3 % (11.5-15.5); WBC 9.9 k/uL (3.8-10.6)
[2019-11-19 08:29] LABS: ALT 31 U/L (4-49); AST 39 U/L (17-59); African American GFR (CKD) >90 (>60 ml/min/1.73 sqM); Albumin 3.4 g/dL (3.5-5.0); Alkaline Phosphatase 50 U/L (38-126); Anion Gap 8 mmol/L; Blood Urea Nitrogen 17 mg/dL (9-20); Calcium 7.9 mg/dL (8.4-10.2); Carbon Dioxide 24 mmol/L (22-30); Chloride 109 mmol/L (98-107); Glucose 158 mg/dL (74-99); Non-African American GFR(CKD) 83 (>60 ml/min/1.73 sqM); Potassium 3.5 mmol/L (3.5-5.1); Sodium 141 mmol/L (137-145); Total Bilirubin 1.2 mg/dL (0.2-1.3); Total Protein 6.7 g/dL (6.3-8.2)
--- NOTE | 2019-11-19 09:39 | P.PN ---
<Kimberlee Leal - Last Filed: 11/19/19 09:36> Subjective Progress Note Date: 11/19/19 CHIEF COMPLAINT: Crohn's exacerbation, small bowel obstruction HISTORY OF PRESENT ILLNESS: Patient examined this morning at the bedside. patient is tolerating full liquid diet. He denies nausea or vomiting. He reports having diarrhea overnight. He reports slightly increased abdominal blo ating and firmness. He also reports some lower quadrant abdominal cramping. However, patient states he is hoping to be discharged home this afternoon. PHYSICAL EXAM: VITAL SIGNS: Reviewed. GENERAL: Well-developed in no acute distress. HEENT: No sclera icterus. Extraocular movements grossly intact. Moist buccal mucosa. Head is atraumatic, normocephalic. ABDOMEN: mildly distended. Slightly more firm in comparison to yesterday. Nontender. Positive bowel sounds. NEUROLOGIC: Alert and oriented. Cranial nerves II through XII grossly intact. ASSESSMENT: 1. Abdominal pain, nausea, vomiting 2. Acute exacerbation of Crohn's disease 3. Small bowel obstruction, possibly related to stricture secondary to Crohn's disease PLAN: Continue full liquid diet Continue treatment of Crohns per GI service Obtain 2V abdominal XR Nurse practitioner note has been reviewed by physician. Signing provider agrees with the documented findings, assessment, and plan of care. Objective - Vital Signs Vital signs: Vital Signs Temp 98.8 F 11/19/19 07:00 Pulse 61 11/19/19 07:00 Resp 12 11/19/19 07:00 BP 160/79 11/19/19 07:00 Pulse Ox 99 11/19/19 07:00 Intake & Output 11/18/19 11/19/19 11/19/19 18:59 06:59 18:59 Intake Total 300 Balance 300 Intake: Intake, IV Titration 300 Amount Sodium Chloride 0.9% 1, 300 000 ml @ 100 mls/hr IV . Q10H [facility] Rx#:[id number] Other: Voiding Method Toilet Toilet Toilet # Voids 2 2 # Bowel Movements 1 - Labs CBC & Chem 7: 11/19/19 07:50 11/19/19 07:50 Labs: Abnormal Lab Results - Last 24 Hours (Table) 11/18/19 11/18/19 11/18/19 Range/Units 11:50 16:56 20:23 RBC (4.30-5.90) m/uL Hgb (13.0-17.5) gm/dL Hct (39.0-53.0) % Neutrophils # (1.3-7.7) k/uL Chloride (98-107) mmol/L Glucose (74-99) mg/dL POC Glucose (mg/dL) 144 H 136 H 143 H (75-99) mg/dL Calcium (8.4-10.2) mg/dL Albumin (3.5-5.0) g/dL 11/19/19 11/19/19 11/19/19 Range/Units 06:49 07:50 07:50 RBC 3.67 L (4.30-5.90) m/uL Hgb 11.8 L (13.0-17.5) gm/dL Hct 33.8 L (39.0-53.0) % Neutrophils # 7.8 H (1.3-7.7) k/uL Chloride 109 H (98-107) mmol/L Glucose 158 H (74-99) mg/dL POC Glucose (mg/dL) 133 H (75-99) mg/dL Calcium 7.9 L (8.4-10.2) mg/dL Albumin 3.4 L (3.5-5.0) g/dL Microbiology - Last 24 Hours (Table) 11/16/19 03:45 Blood Culture - Preliminary Blood No Growth after 72 hours <Beau Raymond - Last Filed: 11/19/19 19:40> Subjective Patient doing better today. X-rays improved. Tolerating full liquid diet. He is having stools. We'll sign off. Please call if needed. Objective - Vital Signs Vital signs: Vital Signs Temp 98.1 F 11/19/19 15:00 Pulse 63 11/19/19 15:00 Resp 12 11/19/19 15:00 BP 160/78 11/19/19 15:00 Pulse Ox 96 11/19/19 15:00 Intake & Output 11/19/19 11/19/19 11/20/19 06:59 18:59 06:59 Intake Total 300 Balance 300 Intake: Intake, IV Titration 300 Amount Sodium Chloride 0.9% 1, 300 000 ml @ 100 mls/hr IV . Q10H [facility] Rx#:[id number] Other: Voiding Method Toilet Toilet # Voids 2 3 - Labs CBC & Chem 7: 11/19/19 07:50 11/19/19 07:50 Labs: Abnormal Lab Results - Last 24 Hours (Table) 11/18/19 11/19/19 11/19/19 Range/Units 20:23 06:49 07:50 RBC 3.67 L (4.30-5.90) m/uL Hgb 11.8 L (13.0-17.5) gm/dL Hct 33.8 L (39.0-53.0) % Neutrophils # 7.8 H (1.3-7.7) k/uL Chloride (98-107) mmol/L Glucose (74-99) mg/dL POC Glucose (mg/dL) 143 H 133 H (75-99) mg/dL Calcium (8.4-10.2) mg/dL Albumin (3.5-5.0) g/dL 11/19/19 11/19/19 11/19/19 Range/Units 07:50 12:07 17:04 RBC (4.30-5.90) m/uL Hgb (13.0-17.5) gm/dL Hct (39.0-53.0) % Neutrophils # (1.3-7.7) k/uL Chloride 109 H (98-107) mmol/L Glucose 158 H (74-99) mg/dL POC Glucose (mg/dL) 122 H 134 H (75-99) mg/dL Calcium 7.9 L (8.4-10.2) mg/dL Albumin 3.4 L (3.5-5.0) g/dL Microbiology - Last 24 Hours (Table) 11/16/19 03:45 Blood Culture - Preliminary Blood No Growth after 72 hours
[2019-11-19 12:09] LABS: Glucose,Whole Blood 122 mg/dL (75-99)
--- NOTE | 2019-11-19 13:53 | XR ---
EXAMINATION TYPE: XR abdomen 2V DATE OF EXAM: 11/19/2019 COMPARISON: 11/17/2019 INDICATION: Small bowel obstruction TECHNIQUE: Single view abdomen upright view FINDINGS: There are scattered air-fluid levels within the colon. Volume of bowel gas has diminished over the in terval. Cholecystectomy clips are in the right upper quadrant. Post prostatectomy surgical clips are within the pelvis. Psoas margins are normal. Organomegaly is not evident. The osseous structures appear normal. No organomegaly is present. IMPRESSION: 1. Nonspecific abdomen. Resolving small bowel obstruction likely present. Some underlying gastroenter itis could be considered
--- NOTE | 2019-11-19 13:59 | P.PN ---
Subjective Progress Note Date: 11/19/19 this is a 63-year-old patient who presented with complaints of abdominal pain. patient reports that pain has been occurring since yesterday in a similar to previous exacerbations of his Crohn's. Patient is having nausea and vomiting. Patient denies any diarrhea. Patient denies any fever or chills. Patient has past medical history of Crohn's and has had multiple abdominal surgeries with Dr. Estrada.additional medical history includes GERD, hyperlipidemia, hypertension, hypothyroidism, prostate cancer and hiatal hernia. x-ray of abdomen completed showing mildly dilated small bowel with levels consistent with mechanical obstruction or significant small bowel ileus. No free air.abdominal pelvis CT completed showing dilated mid and proximal small bowel consistent with mechanical small obstruction. There is a transition point in the distal jejunum or proximal ileum seen on axial image 121. This appears similar to old exam. This could relate to stricture. Dilation is similar to old exam. Postsurgical changes with dilated distal ileum seen in the right mid abdomen also unchanged. WBC 15.3. Creatinine slightly elevated 1.36 and bun 21. patient has been started on Flagyl and Rocephin. IV steroids. GI and surgical services have been consulted. Continue fluids at 100. Patient is resting comfortably bed. Patient reports improvement with abdominal pain and discomfort. Denies any mayo l movement. Patient denies chest pain or shortness breath. Patient denies nausea vomiting or diarrhea. Patient denies any urinary burning or frequency on 11/17/2019 patient is alert and oriented 3. Patient reports improvement with abdominal pain. Patient denies nausea vomiting. Abdomen remains distended. Patient has not had bowel movement. Remains nothing by mouth. Surgical and GI services are following. patient remains on Flagyl, Rocephin and IV Solu-Medrol on 11/18/2019 patient is alert and oriented 3 patient did have 2 bowel movement this a.m. Repeat abdominal x-ray completed yesterday showing resolving obstruction nonspecific bowel gas remains present. Patient denies any chest pain or shortness breath. Patient denies nausea vomiting or diarrhea. Patient denies any urinary burning or frequency. Diet will be advanced to full liquid patient remains on IV steroids and IV antibiotics. GI and surgical services are following On 11/19/2019 patient alert and oriented 3. Patient reports that he is having multiple loose stools. Approximately 7 since this morning. Per surgical services concerns over increased distention abdominal x-ray has been ordered. We'll continue to monitor patient for the next 24 hours and assess for possible discharge. Patient still having mild lower abdomen cramping. Patient denies chest pain or shortness breath. Patient denies any urinary burning or frequency. Objective - Vital Signs Vital signs: Vital Signs Temp 98.8 F 11/19/19 07:00 Pulse 61 11/19/19 07:00 Resp 12 11/19/19 07:00 BP 160/79 11/19/19 07:00 Pulse Ox 99 11/19/19 07:00 Intake & Output 11/18/19 11/19/19 11/19/19 18:59 06:59 18:59 Intake Total 300 Balance 300 Intake: Intake, IV Titration 300 Amount Sodium Chloride 0.9% 1, 300 000 ml @ 100 mls/hr IV . Q10H [facility] Rx#:[id number] Other: Voiding Method Toilet Toilet Toilet # Voids 2 2 # Bowel Movements 1 - Exam Head normocephalic Neck supple Lungs clear to auscultation bilaterally no wheezing or crackles Heart regular rate and rhythm S1-S2, no rub or gallop Abdomen distention noted, hypoactive bowel sounds Extremities no edema Neuro alert and orientated to 3 - Labs CBC & Chem 7: 11/19/19 07:50 11/19/19 07:50 Labs: Abnormal Lab Results - Last 24 Hours (Table) 11/18/19 11/18/19 11/19/19 Range/Units 16:56 20:23 06:49 RBC (4.30-5.90) m/uL Hgb (13.0-17.5) gm/dL Hct (39.0-53.0) % Neutrophils # (1.3-7.7) k/uL Chloride (98-107) mmol/L Glucose (74-99) mg/dL POC Glucose (mg/dL) 136 H 143 H 133 H (75-99) mg/dL Calcium (8.4-10.2) mg/dL Albumin (3.5-5.0) g/dL 11/19/19 11/19/19 11/19/19 Range/Units 07:50 07:50 12:07 RBC 3.67 L (4.30-5.90) m/uL Hgb 11.8 L (13.0-17.5) gm/dL Hct 33.8 L (39.0-53.0) % Neutrophils # 7.8 H (1.3-7.7) k/uL Chloride 109 H (98-107) mmol/L Glucose 158 H (74-99) mg/dL POC Glucose (mg/dL) 122 H (75-99) mg/dL Calcium 7.9 L (8.4-10.2) mg/dL Albumin 3.4 L (3.5-5.0) g/dL Microbiology - Last 24 Hours (Table) 11/16/19 03:45 Blood Culture - Preliminary Blood No Growth after 72 hours Assessment and Plan Assessment: 1. Increased abdominal pain related to Crohn's exacerbation and small bowel obstruction.abdominal x-ray completed showing mildly dilated small bowel with fluid levels consistent with mechanical obstruction or significant small bowel ileus. No free air.GI and surgical services have been consulted. Patient started on Rocephin and Flagyl for IV antibiotics and IV steroids. patient currently nothing by mouth. Repeat abdominal x-ray completed showing resolving obstruction. Nonspecific bowel gas pattern remains present. Patient has been transitioned to oral prednisone. Patient contains on full liquid diet. Having multiple loose stools. Repeat x-ray has been ordered per surgical services 2. Acute kidney injury.creatinine 1.36 bun 21. patient's home medication of Cozaar currently on hold continue normal saline at 100.creatinine improving to 1.06 and bun 24. Resolved 3. History of Crohn's previous abdominal surgeries with Dr. estrada 4. History of hypothyroidism. Synthroid resumed 5. History of essential hypertension. Cozaar currently on hold due to acute kidney injury. Norvasc resumed. 6. History of prostate cancer 7. History of GERD DVT prophylaxis SCDs until cleared by surgery. GI prophylaxis Protonix Continue Rocephin and Flagy and prednisone surgical and GI services following Repeat abdominal x-ray has been ordered I performed an examination of the patient and discussed their management with the Nurse Practitioner. I have reviewed the Nurse Practitioner's notes and agree with the documented findings and plan of care
[2019-11-19 17:16] LABS: Glucose,Whole Blood 134 mg/dL (75-99)
[2019-11-19] MEDS ORDERED: LOSARTAN 50 MG TAB PO SCH (21:00)
[2019-11-19] MEDS: LEVOTHYROXINE 25 MCG TAB PO SCH (21:16)
[2019-11-19] MEDS: amLODIPine 5 MG TAB PO SCH (21:17)
[2019-11-20 08:15] VITALS: BP 135/77; PULSE 55; RESP 16; TEMP 97.7
[2019-11-20 08:27] LABS: Basophils % (A) 0 %; Eosinophils # (A) 0.1 k/uL (0-0.7); Eosinophils % (A) 1 %; HCT 35.9 % (39.0-53.0); HGB 12.4 gm/dL (13.0-17.5); Lymphocytes # (A) 2.7 k/uL (1.0-4.8); Lymphocytes % (A) 29 %; MCH 31.6 pg (25.0-35.0); MCHC 34.5 g/dL (31.0-37.0); MCV 91.5 fL (80.0-100.0); Mean Platelet Volume 8.2; Monocytes # (A) 0.8 k/uL (0-1.0); Monocytes % (A) 8 %; Neutrophils # (A) 5.5 k/uL (1.3-7.7); Neutrophils % (A) 60 %; Platelet Count 314 k/uL (150-450); RBC 3.92 m/uL (4.30-5.90); RDW 14.3 % (11.5-15.5); WBC 9.3 k/uL (3.8-10.6)
[2019-11-20] MEDS: metroNIDAZOLE 500 MG TAB PO SCH (08:27)
[2019-11-20] MEDS: predniSONE 20 MG TAB PO SCH (08:27)
[2019-11-20] MEDS: PANTOPRAZOLE 40 MG TABLET PO SCH (08:27)
[2019-11-20] MEDS: BALSALAZIDE DISODIUM 750 MG CAPSULE PO SCH (08:28)
[2019-11-20 08:30] LABS: ALT 33 U/L (4-49); AST 39 U/L (17-59); African American GFR (CKD) >90 (>60 ml/min/1.73 sqM); Albumin 3.6 g/dL (3.5-5.0); Alkaline Phosphatase 52 U/L (38-126); Anion Gap 7 mmol/L; Blood Urea Nitrogen 14 mg/dL (9-20); Calcium 8.2 mg/dL (8.4-10.2); Carbon Dioxide 25 mmol/L (22-30); Chloride 109 mmol/L (98-107); Glucose 122 mg/dL (74-99); Non-African American GFR(CKD) 88 (>60 ml/min/1.73 sqM); Potassium 3.5 mmol/L (3.5-5.1); Sodium 141 mmol/L (137-145); Total Bilirubin 1.5 mg/dL (0.2-1.3); Total Protein 6.8 g/dL (6.3-8.2)
[2019-11-20] MEDS: SODIUM CHLORIDE 0.9% 1,000 ML IV SCH (08:33)
--- NOTE | 2019-11-20 14:31 | P.DS ---
Providers Date of admission: 11/16/19 03:53 Expected date of discharge: 11/20/19 Attending physician: Olman Vance Consults: 11/16/19 03:54 Consult Physician Routine Consulting Provider: Beau Raymond Reason/Comments: Crohn's exacerbation, small bowel obstruction Do you want consulting provider notified?: Yes Primary care physician: Olman [facility]iv [facility] Course: Diagnosis on discharge: 1. Increased abdominal pain related to Crohn's exacerbation and small bowel obstruction.abdominal x-ray completed showing mildly dilated small bowel with fluid levels consistent with mechanical obstruction or significant small bowel ileus. No free air.GI and surgical services have been consulted. Patient started on Rocephin and Flagyl for IV antibiotics and IV steroids. patient currently nothing by mouth. Repeat abdominal x-ray completed showing resolving obstruction. Nonspecific bowel gas pattern remains present. Patient has been transitioned to oral prednisone. Patient contains on full liquid diet. Having multiple loose stools. Repeat x-ray has been ordered per surgical services 2. Acute kidney injury.creatinine 1.36 bun 21. patient's home medication of Cozaar currently on hold continue normal saline at 100.creatinine improving to 1.06 and bun 24. Resolved 3. History of Crohn's previous abdominal surgeries with Dr. estrada 4. History of hypothyroidism. Synthroid resumed 5. History of essential hypertension. Cozaar currently on hold due to acute kidney injury. Norvasc resumed. 6. History of prostate cancer 7. History of GERD Hospital course: this is a 63-year-old patient who presented with complaints of abdominal pain. patient reports that pain has been occurring since yesterday in a similar to previous exacerbations of his Crohn's. Patient is having nausea and vomiting. Patient denies any diarrhea. Patient denies any fever or chills. Patient has past medical history of Crohn's and has had multiple abdominal surgeries with Dr. Estrada.additional medical history includes GERD, hyperlipidemia, hypertension, hypothyroidism, prostate cancer and hiatal hernia. x-ray of abdomen completed showing mildly dilated small bowel with levels consistent with mechanical obstruction or significant small bowel ileus. No free air.abdominal pelvis CT completed showing dilated mid and proximal small bowel consistent with mechanical small obstruction. There is a transition point in the distal jejunum or proximal ileum seen on axial image 121. This appears similar to old exam. This could relate to stricture. Dilation is similar to old exam. Postsurgical changes with dilated distal ileum seen in the right mid abdomen also unchanged. WBC 15.3. Creatinine slightly elevated 1.36 and bun 21. patient has been started on Flagyl and Rocephin. IV steroids. GI and surgical services have been consulted. Continue fluids at 100. Patient is resting comfortably bed. Patient reports improvement with abdominal pain and discomfort. Denies any bowel movement. Patient denies chest pain or shortness breath. Patient denies nausea vomiting or diarrhea. Patient denies any urinary burning or frequency on 11/17/2019 patient is alert and oriented 3. Patient reports improvement with abdominal pain. Patient denies nausea vomiting. Abdomen remains distended. Patient has not had bowel movement. Remains nothing by mouth. Surgical and GI services are following. patient remains on Flagyl, Rocephin and IV Solu-Medrol on 11/18/2019 patient is alert and oriented 3 patient did have 2 bowel movement this a.m. Repeat abdominal x-ray completed yesterday showing resolving obstruction nonspecific bowel gas remains present. Patient denies any chest pain or shortness breath. Patient denies nausea vomiting or diarrhea. Patient denies any urinary burning or frequency. Diet will be advanced to full liquid patient remains on IV steroids and IV antibiotics. GI and surgical services are following On 11/19/2019 patient alert and oriented 3. Patient reports that he is having multiple loose stools. Approximately 7 since this morning. Per surgical services concerns over increased distention abdominal x-ray has been ordered. We'll continue to monitor patient for the next 24 hours and assess for possible discharge. Patient still having mild lower abdomen cramping. Patient denies chest pain or shortness breath. Patient denies any urinary burning or frequency. On 11/20/2019 patient is alert and oriented 3 in no apparent distress, there is no abdominal pain, patient is still having loose stools, he is tolerating diet well, there is no nausea or vomiting no fever or chills. At this time patient is ready to go home, he was told to advance his diet very gradually, he was given a prescription for Flagyl and prednisone he will be followed in our office on Friday in 2 days he was told to return to the hospital if having any symptoms of nausea vomiting abdominal pain or constipation Patient Condition at Discharge: Fair Plan - Discharge Summary Discharge Rx Participant: Yes New Discharge Prescriptions: New metroNIDAZOLE [Flagyl] 500 mg PO Q8HR tab predniSONE 40 mg PO DAILY tab Acetaminophen Tab [Tylenol] 650 mg PO Q6HR PRN tab PRN Reason: Mild Pain Or Fever > 100.5 Continue Mesalamine [Pentasa] 1,000 mg PO QID Pantoprazole Sodium [Protonix] 40 mg PO DAILY Multivitamin [Men's Multi-Vitamin] 1 tab PO DAILY Gemfibrozil 600 mg PO HS Famotidine [Pepcid] 20 mg PO BID inFLIXimab [Remicade] 800 mg IVPB Q42D Levothyroxine Sodium [Synthroid] 25 mcg PO HS Ergocalciferol [Vitamin D2 (DRISDOL)] 50,000 unit PO SA Losartan [Cozaar] 50 mg PO HS amLODIPine [Norvasc] 5 mg PO HS Discharge Medication List Famotidine [Pepcid] 20 mg PO BID 05/06/14 [History] Gemfibrozil 600 mg PO HS 05/06/14 [History] Mesalamine [Pentasa] 1,000 mg PO QID 05/06/14 [History] Multivitamin [Men's Multi-Vitamin] 1 tab PO DAILY 05/06/14 [History] Pantoprazole Sodium [Protonix] 40 mg PO DAILY 05/06/14 [History] inFLIXimab [Remicade] 800 mg IVPB Q42D 06/08/14 [History] Levothyroxine Sodium [Synthroid] 25 mcg PO HS 06/01/15 [History] Ergocalciferol [Vitamin D2 (DRISDOL)] 50,000 unit PO SA 08/04/17 [History] Losartan [Cozaar] 50 mg PO HS 11/16/19 [History] amLODIPine [Norvasc] 5 mg PO HS 11/16/19 [History] Acetaminophen Tab [Tylenol] 650 mg PO Q6HR PRN tab 11/20/19 [Rx] metroNIDAZOLE [Flagyl] 500 mg PO Q8HR tab 11/20/19 [Rx] predniSONE 40 mg PO DAILY tab 11/20/19 [Rx] Follow up Appointment(s)/Referral(s): Olman Vance MD [Primary Care Provider] - 1-2 days Patient Instructions/Handouts: Crohn Disease (DC), Bowel Obstruction (DC)
== END 2019-11-20 14:10 | disposition home or self-care (01) | DRG 386 ==
LOC: EC 02:14 → 4SSUR 03:53
PROVIDERS: ADMIT Internal Medicine; ATTEND Internal Medicine
DX: K50.012 Crohn's disease of small intestine with intestinal obstruction (principal); N17.9 Acute kidney failure, unspecified; E03.9 Hypothyroidism, unspecified; E78.5 Hyperlipidemia, unspecified; E86.0 Dehydration; K21.9 Gastro-esophageal reflux disease without esophagitis; F41.9 Anxiety disorder, unspecified; I10 Essential (primary) hypertension; Z79.890 Hormone replacement therapy; Z79.899 Other long term (current) drug therapy; Z82.49 Family history of ischemic heart disease and other diseases of the circulatory system; Z85.46 Personal history of malignant neoplasm of prostate; Z87.891 Personal history of nicotine dependence; Z90.49 Acquired absence of other specified parts of digestive tract; Z98.890 Other specified postprocedural states; Z90.79 Acquired absence of other genital organ(s); Z82.3 Family history of stroke; Z88.5 Allergy status to narcotic agent
CPT/HCPCS: 36415; 74019; 74176; 80053; 81001; 82150; 83605; 83690; 85025; 85652; 86140; 87040; 96361; 96365; 96367; 96375; 99285

== ENCOUNTER → 2019-12-24 | Outpatient (CLI) | payer BC, MEDICARE ==
[2019-12-24 07:53] LABS: HCT 39.8 % (39.0-53.0); HGB 13.8 gm/dL (13.0-17.5); MCH 31.9 pg (25.0-35.0); MCHC 34.7 g/dL (31.0-37.0); MCV 92.1 fL (80.0-100.0); Platelet Count 326 k/uL (150-450); RBC 4.32 m/uL (4.30-5.90); RDW 12.8 % (11.5-15.5); WBC 6.1 k/uL (3.8-10.6)
[2019-12-24 18:10] LABS: African American GFR (CKD) 65.9 (60.0-200.0); Albumin 4.4 g/dL (3.80-4.90); Albumin/Globulin Ratio 1.83 (1.60-3.17); BUN/Creat Ratio 15.38 Ratio (12.00-20.00); Calcium 9.4 mg/dL (8.7-10.3); Chol/HDL Ratio 4.39; Globulin 2.4 g/dL (1.6-3.3); LDL Cholesterol,Calculated 88.2 mg/dL (0.0-131.0); Non-African American GFR(CKD) 56.9 (60.0-200.0); Potassium 4.7 mmol/L (3.5-5.5); Total Bilirubin 1.6 mg/dL (0.2-1.2); Total Protein 6.8 g/dL (6.2-8.2); Uric Acid 7.7 mg/dL (3.7-8.7); VLDL Calculation 33.8 mg/dL (5.00-40.00)
== END | disposition home or self-care (01) ==
LOC: LABWHC1 07:03
PROVIDERS: ATTEND Internal Medicine
DX: E78.5 Hyperlipidemia, unspecified (principal); K50.90 Crohn's disease, unspecified, without complications
CPT/HCPCS: 36415; 80053; 80061; 84403; 84443; 84550; 85027

== ENCOUNTER 2021-01-12 19:13 | Emergency (ER) | payer MEDICARE, OTHER ==
[2021-01-12 19:19] VITALS: BP 150/70; PULSE 77; RESP 18; TEMP 98.4
[2021-01-12] MEDS ORDERED: dexAMETHasone 4 MG TAB PO STA (19:52)
[2021-01-12] MEDS ORDERED: hydrOXYzine HCL 25 MG TAB PO STA (19:52)
--- NOTE | 2021-01-12 19:54 | ED ---
General Adult HPI - General Chief complaint: Skin/Abscess/Foreign Body Stated complaint: Skin rash Time Seen by Provider: 01/12/21 19:20 Source: patient Mode of arrival: ambulatory Limitations: no limitations - History of Present Illness Initial comments: Dictation was produced using [employer] dictation software. please excuse any grammatical, word or spelling errors. This patient was cared for during a federal and state declared state of emergency secondary to Covid 19 Chief Complaint: 65-year-old male presents with acute rash. History of Present Illness: Patient 65-year-old male presents with acute rash. Patient has a pruritic rash throughout his whole body. He states most of his symptoms are localized to his upper and lower extremities. Denies any significant rash symptoms to his back as abdomen or chest. 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 Denies any recent changes in his soap or skin products. Denies any constitutional symptoms. Denies any symptoms to his hands. No trouble breathing. No abdominal pain. Tried taking some Benadryl with slight improvement of symptoms. Denies any recent changes in medications. The ROS documented in this emergency department record has been reviewed and confirmed by me. Those systems with pertinent positive or negative responses have been documented in the HPI. All other systems are other negative and/or noncontributory. PHYSICAL EXAM: General Impression: Alert and oriented x3, not in acute distress HEENT: Normocephalic atraumatic, extra-ocular movements intact, pupils equal and reactive to light bilaterally, mucous membranes moist. Cardiovascular: Heart regular rate and rhythm Chest: Able to complete full sentences, no retractions, no tachypnea Abdomen: abdomen soft, non-tender, non-distended, no organomegaly Musculoskeletal: Pulses present and equal in all extremities, no peripheral edema Motor: no focal deficits noted Neurological: CN II-XII grossly intact, no focal motor or sensory deficits noted Skin: Nonbilious erythematous nonraised rash. More concentrated lesions to his bilateral upper extremities, proximal thigh and posterior belt line. There is no rashes noted on his hands and palms. No intraoral or conjunctival abnormalities. Psych: Normal affect and mood ED course: 65-year-old male presents with nonspecific rash. Signs upon arrival are within acceptable limits. Rashes benign-appearing likely a contact dermatitis. Patient given Decadron and Atarax. Patient prescription for Atarax and told to follow up with primary care physician. He still to be mindful of exposures that may be causing his rash. - Related Data Home Medications Medication Instructions Recorded Confirmed Famotidine [Pepcid] 20 mg PO BID 05/06/14 11/16/19 Mesalamine [Pentasa] 1,000 mg PO QID 05/06/14 11/16/19 Multivitamin [Men's Multi-Vitamin] 1 tab PO DAILY 05/06/14 11/16/19 Pantoprazole Sodium [Protonix] 40 mg PO DAILY 05/06/14 11/16/19 gemfibroziL [Gemfibrozil] 600 mg PO HS 05/06/14 11/16/19 inFLIXimab [Remicade] 800 mg IVPB Q42D 06/08/14 11/16/19 Levothyroxine Sodium [Synthroid] 25 mcg PO HS 06/01/15 11/16/19 Ergocalciferol [Vitamin D2 50,000 unit PO SA 08/04/17 11/16/19 (DRISDOL)] Losartan [Cozaar] 50 mg PO HS 11/16/19 11/16/19 amLODIPine [Norvasc] 5 mg PO HS 11/16/19 11/16/19 Previous Rx's Medication Instructions Recorded Acetaminophen Tab [Tylenol] 650 mg PO Q6HR PRN tab 11/20/19 metroNIDAZOLE [Flagyl] 500 mg PO Q8HR tab 11/20/19 predniSONE [Deltasone] 40 mg PO DAILY tab 11/20/19 hydrOXYzine HCL [Atarax] 25 mg PO QID PRN #24 tab 01/12/21 Allergies Allergy/AdvReac Type Severity Reaction Status Date / Time codeine AdvReac Nausea Verified 01/12/21 19:19 Review of Systems ROS Statement: Those systems with pertinent positive or pertinent negative responses have been documented in the HPI. ROS Other: All systems not noted in ROS Statement are negative. Past Medical History Past Medical History: Cancer, GERD/Reflux, Hyperlipidemia, Hypertension, Skin Disorder, Thyroid Disorder Additional Past Medical History / Comment(s): chron's first diagnosed in 2006, prostate cancer with removal, hypothyroidism, hiatal hernia, eczema when younger. History of Any Multi-Drug Resistant Organisms: None Reported Past Surgical History: Cholecystectomy, Hernia Repair, Prostate Surgery, Tonsillectomy Additional Past Surgical History / Comment(s): exploratory lap x 2, umbilcal hernia repair, merkels diverticulum removal, prostatectomy. Past Anesthesia/Blood Transfusion Reactions: No Reported Reaction Past Psychological History: Anxiety Smoking Status: Never smoker Past Alcohol Use History: Occasional Past Drug Use History: Marijuana - Past Family History Father Family Medical History: Cancer, Coronary Artery Disease (CAD), Hyperlipidemia, Myocardial Infarction ([place]), Prostate Disorder Additional Family Medical History / Comment(s): Father is in Hospice with bone cancer Mother Family Medical History: Coronary Artery Disease (CAD), CVA/TIA, Hyperlipidemia, Myocardial Infarction ([place]) Additional Family Medical History / Comment(s): Mother is 80 yrs old. She has ?CROHNS OR COLITIS, HEART DISEASE General Exam Limitations: no limitations Course Vital Signs 01/12/21 19:15 Temperature 98.4 F Pulse Rate 77 Respiratory 18 Rate Blood Pressure 150/70 O2 Sat by Pulse 99 Oximetry Disposition Clinical Impression: Rash Disposition: HOME SELF-CARE Condition: Good Instructions (If sedation given, give patient instructions): Acute Rash (ED) Prescriptions: hydrOXYzine HCL [Atarax] 25 mg PO QID PRN #24 tab PRN Reason: skin itching Is patient prescribed a controlled substance at d/c from ED?: No Referrals: Olman Vance MD [Primary Care Provider] - 1-2 days Time of Disposition: 19:54
== END 2021-01-12 20:05 | disposition home or self-care (01) ==
LOC: EC 19:13
DX: R21 Rash and other nonspecific skin eruption (principal); F41.9 Anxiety disorder, unspecified; K21.9 Gastro-esophageal reflux disease without esophagitis; E78.5 Hyperlipidemia, unspecified; I10 Essential (primary) hypertension; E03.9 Hypothyroidism, unspecified; Z79.890 Hormone replacement therapy; Z79.899 Other long term (current) drug therapy; Z88.5 Allergy status to narcotic agent; Z90.49 Acquired absence of other specified parts of digestive tract; Z85.46 Personal history of malignant neoplasm of prostate
CPT/HCPCS: 99282; J8540

== ENCOUNTER 2021-03-10 16:12 | Emergency (ER) | payer MEDICARE, OTHER ==
[2021-03-10 16:20] VITALS: RESP 20
--- NOTE | 2021-03-10 16:23 | ED ---
General Adult HPI <Jameel Morales - Last Filed: 03/10/21 16:28> <Terry Soliz - Last Filed: 03/10/21 17:36> - General Stated complaint: SOB, Dizziness, post vaccine - History of Present Illness Initial comments: Patient was seen as medical screening for advanced triage: 65-year-old male presents to the emergency room for not feeling well x 1 day. Patient reports yesterday after work he started to get a headache. He feels lightheaded and cold. States he is having aching all over. He has congestion as well. No significant shortness of breath. Patient has chronic cough. Patient reported he got his second Covid vaccine on Friday. States he felt a little off Friday but then started to feel better until last night. Patient does have a fever of 102.5 on presentation. 99 percent on room air. (Jameel Morales) Dictation was produced using [employer] dictation software. please excuse any grammatical, word or spelling errors. This patient was cared for during a federal and state declared state of emergency secondary to Covid 19 Chief Complaint: 65-year-old male presents to the emergency department for Covid symptoms History of Present Illness: 65-year-old [employer] past medical history of hypertension dyslipidemia and thyroid disease. He presents today with Covid symptoms. The last 4 days he's been having symptoms of headache, dizziness [place] myalgias. States he does have some mild dyspnea. Patient completed his to [facility] for his Covid 19 vaccinations. He completed 5 days ago. Today after he began having symptoms. Is unclear at that time if he was expressing symptoms from the actual vaccine. Came to the emergency department because he has been having persistent symptoms. Patient denies any abdominal pain. No urinary symptoms. No rash. The ROS documented in this emergency department record has been reviewed and confirmed by me. Those systems with pertinent positive or negative responses have been documented in the HPI. All other systems are other negative and/or noncontributory. PHYSICAL EXAM: General Impression: Alert and oriented x3, not in acute distress HEENT: Normocephalic atraumatic, extra-ocular movements intact, pupils equal and reactive to light bilaterally, mucous membranes moist. Cardiovascular: Heart regular rate and rhythm Chest: Able to complete full sentences, no retractions, no tachypnea, clear to auscultation bilaterally Abdomen: abdomen soft, non-tender, non-distended, no organomegaly Musculoskeletal: Pulses present and equal in all extremities, no peripheral edema Motor: no focal deficits noted Neurological: CN II-XII grossly intact, no focal motor or sensory deficits noted Skin: Intact with no visualized rashes Psych: Normal affect and mood ED course: 65-year-old male presents with Covid 19-type symptoms. He did complete his vaccine series 5 days ago. Vital signs upon arrival shows tachycardia 12.5, rest of vital signs within acceptable limits. Chest x-ray is nonacute. Coronavirus test is positive. Clinical presentation consistent with Covid 19. He is completely vaccinated not a candidate for monoclonal antibodies. Patient is not hypoxic. He is well-appearing at bedside. Patient discharged. Still to follow-up with his primary care physician. Encouraged to get a pulse oximeter monitor his oxygen levels at home. Return premises discussed. Patient discharged. EKG interpretation: Ventricular rate [default value]. No MA prolongation, no QTC prolongation, no ST or T-wave changes noted. EKG compared to [default value] showing no changes. Overall, this EKG is unremarkable (Terry Soliz) - Related Data Home Medications Medication Instructions Recorded Confirmed Famotidine [Pepcid] 20 mg PO BID 05/06/14 11/16/19 Mesalamine [Pentasa] 1,000 mg PO QID 05/06/14 11/16/19 Multivitamin [Men's Multi-Vitamin] 1 tab PO DAILY 05/06/14 11/16/19 Pantoprazole Sodium [Protonix] 40 mg PO DAILY 05/06/14 11/16/19 gemfibroziL [Gemfibrozil] 600 mg PO HS 05/06/14 11/16/19 inFLIXimab [Remicade] 800 mg IVPB Q42D 06/08/14 11/16/19 Levothyroxine Sodium [Synthroid] 25 mcg PO HS 06/01/15 11/16/19 Ergocalciferol [Vitamin D2 50,000 unit PO SA 08/04/17 11/16/19 (DRISDOL)] Losartan [Cozaar] 50 mg PO HS 11/16/19 11/16/19 amLODIPine [Norvasc] 5 mg PO HS 11/16/19 11/16/19 Previous Rx's Medication Instructions Recorded Acetaminophen Tab [Tylenol] 650 mg PO Q6HR PRN tab 11/20/19 metroNIDAZOLE [Flagyl] 500 mg PO Q8HR tab 11/20/19 predniSONE [Deltasone] 40 mg PO DAILY tab 11/20/19 hydrOXYzine HCL [Atarax] 25 mg PO QID PRN #24 tab 01/12/21 Allergies Allergy/AdvReac Type Severity Reaction Status Date / Time codeine AdvReac Nausea Verified 03/10/21 16:20 Review of Systems ROS Other: All systems not noted in ROS Statement are negative. <Jameel Morales P - Last Filed: 03/10/21 16:28> ROS Other: All systems not noted in ROS Statement are negative. <Terry Soliz D - Last Filed: 03/10/21 17:36> ROS Statement: Those systems with pertinent positive or pertinent negative responses have been documented in the HPI. Past Medical History Past Medical History: Cancer, GERD/Reflux, Hyperlipidemia, Hypertension, Skin Disorder, Thyroid Disorder Additional Past Medical History / Comment(s): chron's first diagnosed in 2006, prostate cancer with removal, hypothyroidism, hiatal hernia, eczema when younger. History of Any Multi-Drug Resistant Organisms: None Reported Past Surgical History: Cholecystectomy, Hernia Repair, Prostate Surgery, Tonsillectomy Additional Past Surgical History / Comment(s): exploratory lap x 2, umbilcal hernia repair, merkels diverticulum removal, prostatectomy. Past Anesthesia/Blood Transfusion Reactions: No Reported Reaction Past Psychological History: Anxiety Smoking Status: Never smoker Past Alcohol Use History: Occasional Past Drug Use History: Marijuana - Past Family History Father Family Medical History: Cancer, Coronary Artery Disease (CAD), Hyperlipidemia, Myocardial Infarction ([place]), Prostate Disorder Additional Family Medical History / Comment(s): Father is in Hospice with bone cancer Mother Family Medical History: Coronary Artery Disease (CAD), CVA/TIA, Hyperlipidemia, Myocardial Infarction ([place]) Additional Family Medical History / Comment(s): Mother is 80 yrs old. She has ?CROHNS OR COLITIS, HEART DISEASE <Jameel Morales P - Last Filed: 03/10/21 16:28> General Exam Cardiovascular Exam: Absent: clicks <Jameel Morales P - Last Filed: 03/10/21 16:28> Course Vital Signs 03/10/21 03/10/21 16:14 17:16 Temperature 102.5 F H Pulse Rate 111 H 99 Respiratory 20 20 Rate Blood Pressure 129/73 130/84 O2 Sat by Pulse 100 98 Oximetry Medical Decision Making - Lab Data Lab Results 03/10/21 Range/Units 16:26 Coronavirus (PCR) Detected A (Not Detectd) Disposition <Jameel Morales P - Last Filed: 03/10/21 16:28> Is patient prescribed a controlled substance at d/c from ED?: No Time of Disposition: 17:36 <Terry Soliz - Last Filed: 03/10/21 17:36> Clinical Impression: COVID-19 Disposition: HOME SELF-CARE Condition: Fair Instructions (If sedation given, give patient instructions): Coronavirus Disease 2019 (COVID-19) Additional Instructions: Today you were evaluated for symptoms consistent with upper respiratory infection. Today you tested positive for Covid 19. Your are stable for discharge, however it is instructed to to seek immediate medical attention especially if you develop worsening symptoms especially respiratory distress. If possible, try to obtain a pulse oximeter and monitor your oxygen at home. In the meantime please remain in quarantine for 14 days. For any other questions please contact [facility] for here in emergency department or [facility] at [phone] Referrals: Olman Vance MD [Primary Care Provider] - 1-2 days
[2021-03-10] MEDS: IBUPROFEN 600 MG TAB PO STA (17:13)
[2021-03-10] MEDS: ACETAMINOPHEN TAB 500 MG TAB PO STA (17:13)
[2021-03-10 17:17] VITALS: BP 130/84; PULSE 99
[2021-03-10 17:55] VITALS: TEMP 100.9
--- NOTE | 2021-03-10 18:09 | XR ---
EXAMINATION TYPE: XR chest 1V portable DATE OF EXAM: 03/10/2021 COMPARISON: NONE HISTORY: Cough. TECHNIQUE: Single frontal view of the chest is obtained. FINDINGS: There is no focal air space opacity, pleural effusion, or pneumothorax seen. The cardiac silhouette size is within normal limits. The osseous structures are intact. IMPRESSION: No acute process.
== END 2021-03-10 17:50 | disposition home or self-care (01) ==
LOC: EC 16:12
DX: U07.1 COVID-19 (principal); K21.9 Gastro-esophageal reflux disease without esophagitis; I10 Essential (primary) hypertension; E03.9 Hypothyroidism, unspecified; F41.9 Anxiety disorder, unspecified; F12.90 Cannabis use, unspecified, uncomplicated; E78.5 Hyperlipidemia, unspecified; Z79.890 Hormone replacement therapy; Z79.899 Other long term (current) drug therapy
CPT/HCPCS: 71045; 87635; 99284

== ENCOUNTER → 2021-04-05 | Outpatient (CLI) | payer MEDICARE, OTHER ==
[2021-04-05 14:56] LABS: HCT 39.1 % (39.6-50.0); HGB 12.5 g/dL (13.0-17.0); MCH 29.9 pg (27.0-32.0); MCV 93.5 fL (80.0-97.0); Mean Platelet Volume 10.6 fL (9.5-12.2); Platelet Count 301 X 10*3/uL (140-440); RBC 4.18 X 10*6/uL (4.40-5.60); RDW 13.8 % (11.5-14.5); WBC 11.97 X 10*3/uL (4.50-10.00)
[2021-04-06 00:06] LABS: African American GFR (CKD) 72.1 (60.0-200.0); Albumin 4.3 g/dL (3.80-4.90); Albumin/Globulin Ratio 1.65 (1.60-3.17); Calcium 8.5 mg/dL (8.7-10.3); Chol/HDL Ratio 3.26; Globulin 2.6 g/dL (1.6-3.3); LDL Cholesterol,Calculated 60.4 mg/dL (0.0-131.0); Non-African American GFR(CKD) 62.2 (60.0-200.0); Potassium 4.3 mmol/L (3.5-5.5); Total Bilirubin 1.2 mg/dL (0.3-1.2); Total Protein 6.9 g/dL (6.2-8.2); VLDL Calculation 43.6 mg/dL (5.00-40.00)
== END | disposition home or self-care (01) ==
LOC: LABWHC1 08:44
PROVIDERS: ATTEND Internal Medicine
DX: E03.9 Hypothyroidism, unspecified (principal); E29.1 Testicular hypofunction; K74.60 Unspecified cirrhosis of liver
CPT/HCPCS: 36415; 80053; 80061; 84403; 84443; 85027

== ENCOUNTER 2021-05-20 | Inpatient (IN) | payer MEDICARE, OTHER | END 2021-05-22 23:41 | disposition home or self-care (01) | DRG 389 | PROVIDERS: ADMIT Internal Medicine | PROC: 0D9770Z Drainage of Stomach, Pylorus with Drainage Device, Via Natural or Artificial Opening (ICD-10-PCS; principal; 2021-05-20) | DX: K56.50 Intestinal adhesions [bands], unspecified as to partial versus complete obstruction (principal); K50.90 Crohn's disease, unspecified, without complications; E86.0 Dehydration; D72.829 Elevated white blood cell count, unspecified; E80.4 Gilbert syndrome; E29.1 Testicular hypofunction; E55.9 Vitamin D deficiency, unspecified; E78.5 Hyperlipidemia, unspecified; K21.9 Gastro-esophageal reflux disease without esophagitis; L30.9 Dermatitis, unspecified; E03.9 Hypothyroidism, unspecified; I10 Essential (primary) hypertension; M19.90 Unspecified osteoarthritis, unspecified site; F41.9 Anxiety disorder, unspecified; Z20.822 Contact with and (suspected) exposure to COVID-19; Z79.890 Hormone replacement therapy; Z90.49 Acquired absence of other specified parts of digestive tract; Z90.79 Acquired absence of other genital organ(s); K44.9 Diaphragmatic hernia without obstruction or gangrene; Z79.899 Other long term (current) drug therapy; Z85.46 Personal history of malignant neoplasm of prostate; Z87.891 Personal history of nicotine dependence; Z92.3 Personal history of irradiation; Z87.19 Personal history of other diseases of the digestive system; Z88.5 Allergy status to narcotic agent; Z98.890 Other specified postprocedural states | CPT/HCPCS: 36415; 71045; 74019; 74177; 80053; 81001; 82150; 83605; 83690; 85025; 87635; 96361; 96374; 96375; 96376; 99285 ==

== ENCOUNTER 2021-06-13 08:06 | Day surgery (SDC) | payer MEDICARE, OTHER ==
[2021-06-11 12:52] VITALS: BMI 27.2
[~2021-06-13 08:06] MED LIST changes: -ACETAMINOPHEN TAB 500 MG TAB PO ONE; +LACTATED RINGERS 1,000 ML IV SCH; +LIDOCAINE 1% (10MG/ML) FOR IV START INTRADERMA PRN; -LORATADINE 10 MG TAB PO ONE; -SODIUM CHLORIDE 0.9% 500 ML in EMPTY BAG 1 BAG IV PRN
[2021-06-13 08:44] VITALS: RESP 16; TEMP 97.2
[2021-06-13] MEDS ORDERED: LIDOCAINE 1% INJ 10MG/ML (20 ML MDV) ONE (08:58)
[2021-06-13] MEDS ORDERED: PROPOFOL 10 MG/ML 20 ML VIAL IV ONE (08:58)
--- NOTE | 2021-06-13 09:14 | P.PCN ---
Date of Procedure: 06/13/21 Procedure(s) Performed: BRIEF HISTORY: Patient is a 65-year-old pleasant white male scheduled for an elective colonoscopy as a part of evaluation of history of Crohn's disease diagnosed several years ago. He is presently maintained on and Infusions Every 8 Weeks and Remains in Clinical Remission. Last Colonoscopy Was 5 Years Ago. PROCEDURE PERFORMED: Colonoscopy. PREOPERATIVE DIAGNOSIS: History of Crohn's disease. IV sedation per Anesthesia. PROCEDURE: After informed consent was obtained, the patient, was brought into the endoscopy unit. IV sedation was administered by Anesthesia under continuous monitoring. Digital rectal examination was normal. Initially the Olympus CF-160 flexible video colonoscope was then inserted in the rectum, gradually advanced into the cecum without any difficulty. Careful examination was performed as the scope was gradually being withdrawn. Terminal ileum was intubated and appeared normal. Ileocecal valve and the appendiceal orifice were visualized and appeared normal. Prep was excellent. Mucosa of the cecum, ascending colon, transverse colon, descending colon, sigmoid colon, and rectum appeared normal. Retroflexion was performed in the rectum and no lesions were seen. The patient tolerated the procedure well. IMPRESSION: Normal-appearing colon from rectum to cecum with no evidence of colitis or colorectal neoplasia . RECOMMENDATIONS: Findings of this examination were discussed with the patient as well as his family. He was advised to have a repeat screening colonoscopy in 5 years..
[2021-06-13 09:18] VITALS: BP 115/78; PULSE 74
== END 2021-06-13 09:45 | disposition home or self-care (01) ==
LOC: ORWHC2ENDO 08:06
PROVIDERS: ATTEND Internal Medicine Gastroenterology
DX: K50.90 Crohn's disease, unspecified, without complications (principal); I10 Essential (primary) hypertension; E78.5 Hyperlipidemia, unspecified; Z87.891 Personal history of nicotine dependence; E07.9 Disorder of thyroid, unspecified; F41.9 Anxiety disorder, unspecified; K21.9 Gastro-esophageal reflux disease without esophagitis; Z79.1 Long term (current) use of non-steroidal anti-inflammatories (NSAID); Z79.890 Hormone replacement therapy; Z79.899 Other long term (current) drug therapy
CPT/HCPCS: 45378; J2001; J2704

== ENCOUNTER → 2022-02-19 | Outpatient (CLI) | payer MEDICARE, OTHER ==
--- NOTE | 2022-02-19 12:40 | XR ---
EXAMINATION TYPE: XR chest 2V DATE OF EXAM: 02/19/2022 COMPARISON: Chest x-ray May 20, 2021 HISTORY: Cough and shortness of breath. TECHNIQUE: Frontal and lateral views of the chest are obtained. FINDINGS: Somewhat low lung volumes redemonstrated. There is mild chronic parenchymal change without suspicious new focal air space opacity, pleural effusion, or pneumothorax seen. The cardiac silhoue tte size remains within normal limits. Multilevel spurring in the spine again seen. Cholecystectomy c lips are redemonstrated. IMPRESSION: No new acute pulmonary process.
== END | disposition home or self-care (01) ==
LOC: RADXRMAIN 12:15
PROVIDERS: ATTEND Internal Medicine
DX: R06.02 Shortness of breath (principal); R05.9 Cough, unspecified
CPT/HCPCS: 71046

== ENCOUNTER → 2022-06-26 | Outpatient (CLI) | payer MEDICARE, OTHER ==
--- NOTE | 2022-06-26 20:10 | XR ---
EXAMINATION TYPE: XR lumbosacral spine min 4V DATE OF EXAM: 06/26/2022 COMPARISON: None HISTORY: Low back pain TECHNIQUE: 5 view lumbar spine FINDINGS: There are 5 lumbar-type vertebral bodies. The pedicles are intact. No spondylolytic defects are evident. Mild facet degenerative changes present. There is loss of disc height L5-S1. Remaining disc heights are preserved. Vertebral body heights are preserved. Alignment is preserved. IMPRESSION: 1. Degenerative disc changes L5-S1. MRI could be performed as clinically indicated.
== END | disposition home or self-care (01) ==
LOC: RADXRMAIN 11:29
PROVIDERS: ATTEND Internal Medicine
DX: M54.50 Low back pain, unspecified (principal)
CPT/HCPCS: 72110

== ENCOUNTER 2022-09-03 22:11 | Inpatient (IN) | payer MEDICARE, OTHER ==
[2022-09-03] MEDS ORDERED: MORPHINE SULFATE 4 MG/ML SYRINGE IV STA (22:29)
[2022-09-03] MEDS ORDERED: SODIUM CHLORIDE 0.9% 1,000 ML IV STA (22:29)
[2022-09-03] MEDS ORDERED: ONDANSETRON 4 MG/2 ML VIAL IVP STA (22:29)
[2022-09-03 23:20] LABS: Basophils % (A) 0 %; Eosinophils # (A) 0.2 k/uL (0-0.7); Eosinophils % (A) 1 %; HCT 33.7 % (39.0-53.0); HGB 11.8 gm/dL (13.0-17.5); Lymphocytes # (A) 1.4 k/uL (1.0-4.8); Lymphocytes % (A) 12 %; MCH 31.4 pg (25.0-35.0); MCHC 35.1 g/dL (31.0-37.0); MCV 89.5 fL (80.0-100.0); Mean Platelet Volume 8.6; Monocytes # (A) 0.7 k/uL (0-1.0); Monocytes % (A) 6 %; Neutrophils # (A) 9.1 k/uL (1.3-7.7); Neutrophils % (A) 79 %; Platelet Count 258 k/uL (150-450); RBC 3.76 m/uL (4.30-5.90); RDW 12.8 % (11.5-15.5); WBC 11.6 k/uL (3.8-10.6)
--- NOTE | 2022-09-03 23:21 | CT ---
EXAMINATION TYPE: CT abdomen pelvis wo con DATE OF EXAM: 09/03/2022 COMPARISON: 05/20/2021 HISTORY: abd pain, acute, non-localized CT DLP: 929 mGycm Automated exposure control for dose reduction was used. Images obtained from the diaphragm to the floor the pelvis with no contrast. The lung bases are clear. No pleural effusion. Heart size is normal. No pericardial effusion. Liver and spleen appear intact. Stomach is intact. The bile ducts are not dilated. There are clips fr om cholecystectomy. There is small hiatal hernia. No pancreatic mass. There is no adrenal mass. Kidneys have normal size and contour. No hydronephrosis. Ureters are not di lated. No retroperitoneal adenopathy. Bladder distends smoothly. No inguinal hernia. No free fluid in the pelvis. No pelvic mass. There is no mesenteric edema. No ascites or free air. No sign of a bowel obstruction. There is previo us surgery at the right colon. There are some mildly dilated small bowel loops in the mid abdomen. Sm all bowel dilated up to 3.6 cm. There is apparent right hemicolectomy. Small bowel appears dilated up to the anastomosis. Proximal small bowel is not dilated. There is no ascites or free air. No mesenteric edema. The lumbar vertebrae have normal alignment. No compression fracture. Posterior elements are intact. Bony pelvis is intact. The hip joints are intact . Sacroiliac joints appear normal. IMPRESSION: Dilated distal small bowel with apparent transition at the ileocolic colic anastomosis. This is consi stent with partial mechanical obstruction and dilation similar to old exam.
[2022-09-03 23:31] LABS: INR 1.1 (<1.2); Partial Thromboplastin Time 23.6 sec (22.0-30.0); Prothrombin Time 11.5 sec (9.0-12.0)
--- NOTE | 2022-09-03 23:32 | ED ---
Abdominal Pain HPI - General Chief Complaint: Abdominal Pain Stated Complaint: Abd pain Time Seen by Provider: 09/03/22 22:25 Source: patient Mode of arrival: ambulatory Limitations: no limitations - History of Present Illness Initial Comments: Patient is a 66-year-old male with history of Crohn's and bowel obstructions presenting with chief complaint of abdominal pain. Patient states that the pain started this afternoon. Patient has been experiencing nausea, denies vomiting. Patient states that he has not had much to eat today. He admits to sensation of bloating and distention. States that the pain is diffuse. States he had one episode of diarrhea today. Denies any hematochezia or melena. No chest pain or difficulty breathing. No fever or chills. - Related Data Home Medications Medication Instructions Recorded Confirmed Famotidine [Pepcid] 20 mg PO BID 05/06/14 09/04/22 Mesalamine [Pentasa] 1,000 mg PO QID 05/06/14 09/04/22 Pantoprazole Sodium [Protonix] 40 mg PO DAILY 05/06/14 09/04/22 gemfibroziL [Gemfibrozil] 600 mg PO HS 05/06/14 09/04/22 Losartan [Cozaar] 50 mg PO HS 11/16/19 09/04/22 amLODIPine [Norvasc] 5 mg PO HS 11/16/19 09/04/22 Ergocalciferol [Vitamin D2 (1250 1,250 mcg PO SA 09/04/22 09/04/22 Mcg = 70593 Iu)] Levothyroxine Sodium [Synthroid] 75 mcg PO HS 09/04/22 09/04/22 Allergies Allergy/AdvReac Type Severity Reaction Status Date / Time codeine AdvReac Nausea Verified 09/04/22 08:09 Review of Systems ROS Statement: Those systems with pertinent positive or pertinent negative responses have been documented in the HPI. ROS Other: All systems not noted in ROS Statement are negative. Past Medical History Past Medical History: Cancer, GERD/Reflux, Hyperlipidemia, Hypertension, Osteoarthritis (OA), Skin Disorder, Thyroid Disorder Additional Past Medical History / Comment(s): chron's first diagnosed in 2006, prostate cancer with removal, hypothyroidism, hiatal hernia, eczema when yo radames. History of Any Multi-Drug Resistant Organisms: None Reported Past Surgical History: Cholecystectomy, Hernia Repair, Prostate Surgery, Tonsillectomy Additional Past Surgical History / Comment(s): exploratory lap x 2, umbilcal hernia repair, merkels diverticulum removal, prostatectomy. Past Anesthesia/Blood Transfusion Reactions: No Reported Reaction Past Psychological History: Anxiety Smoking Status: Former smoker Past Alcohol Use History: Occasional Past Drug Use History: None Reported - Past Family History Father Family Medical History: Cancer, Coronary Artery Disease (CAD), Hyperlipidemia, Myocardial Infarction ([place]), Prostate Disorder Additional Family Medical History / Comment(s): Father is in Hospice with bone cancer Mother Family Medical History: Coronary Artery Disease (CAD), CVA/TIA, Hyperlipidemia, Myocardial Infarction ([place]) Additional Family Medical History / Comment(s): Mother is 80 yrs old. She has ?CROHNS OR COLITIS, HEART DISEASE General Exam Limitations: no limitations General appearance: alert, in no apparent distress Head exam: Present: atraumatic, normocephalic, normal inspection Eye exam: Present: normal appearance, PERRL, EOMI. Absent: scleral icterus, conjunctival injection, periorbital swelling Neck exam: Present: normal inspection Respiratory exam: Present: normal lung sounds bilaterally. Absent: respiratory distress, wheezes, rales, rhonchi, stridor Cardiovascular Exam: Present: regular rate, normal rhythm, normal heart sounds. Absent: systolic murmur, diastolic murmur, rubs, gallop, clicks GI/Abdominal exam: Present: distended, tenderness. Absent: guarding, rebound, rigid Neurological exam: Present: alert, oriented X3, CN II-XII intact Psychiatric exam: Present: normal affect, normal mood Skin exam: Present: warm, dry, intact, normal color. Absent: rash Course Vital Signs 09/03/22 22:12 Temperature 98.2 F Pulse Rate 71 Respiratory 18 Rate Blood Pressure 174/99 O2 Sat by Pulse 99 Oximetry Medical Decision Making - Medical Decision Making Patient is a 66-year-old male history of Crohn's presenting with chief complaint of diffuse abdominal pain and distention. Symptoms started this afternoon. Admits to nausea with no vomiting. On examination abdomen is distended, there is diffuse tenderness. CBC shows WBC 11.6. CT of the abdomen and pelvis shows evidence of small bowel obstruction. Patient will be admitted, discussed the case with Dr. Vance who agreed to admit the patient. Surgery is consulted, patient is placed nothing by mouth an NG tube is placed. Patient was agreeable with the plan. I discussed this case with my attending Dr. Soliz - Lab Data Result diagrams: 09/04/22 10:08 09/03/22 23:08 Lab Results 09/03/22 09/03/22 09/03/22 Range/Units 23:08 23:08 23:08 WBC 11.6 H (3.8-10.6) k/uL RBC 3.76 L (4.30-5.90) m/uL Hgb 11.8 L (13.0-17.5) gm/dL Hct 33.7 L (39.0-53.0) % MCV 89.5 (80.0-100.0) fL MCH 31.4 (25.0-35.0) pg MCHC 35.1 (31.0-37.0) g/dL RDW 12.8 (11.5-15.5) % Plt Count 258 (150-450) k/uL MPV 8.6 Neutrophils % 79 % Lymphocytes % 12 % Monocytes % 6 % Eosinophils % 1 % Basophils % 0 % Neutrophils # 9.1 H (1.3-7.7) k/uL Lymphocytes # 1.4 (1.0-4.8) k/uL Monocytes # 0.7 (0-1.0) k/uL Eosinophils # 0.2 (0-0.7) k/uL Basophils # 0.0 (0-0.2) k/uL ESR 8 (0-15) mm/hr PT 11.5 (9.0-12.0) sec INR 1.1 (<1.2) APTT 23.6 (22.0-30.0) sec Sodium 141 (137-145) mmol/L Potassium 4.1 (3.5-5.1) mmol/L Chloride 110 H (98-107) mmol/L Carbon Dioxide 17 L (22-30) mmol/L Anion Gap 14 mmol/L BUN 22 H (9-20) mg/dL Creatinine 1.38 H (0.66-1.25) mg/dL Est GFR (CKD-EPI)AfAm 60 (>60 ml/min/1.73 sqM) Est GFR (CKD-EPI)NonAf 52 (>60 ml/min/1.73 sqM) Glucose 147 H (74-99) mg/dL Plasma Lactic Acid Alex (0.7-2.0) mmol/L Calcium 8.9 (8.4-10.2) mg/dL Total Bilirubin 1.1 (0.2-1.3) mg/dL AST 45 (17-59) U/L ALT 44 (4-49) U/L Alkaline Phosphatase 76 (38-126) U/L C-Reactive Protein <0.5 (<1.0) mg/dL Total Protein 7.4 (6.3-8.2) g/dL Albumin 4.2 (3.5-5.0) g/dL Amylase 76 (30-110) U/L Lipase 36 (23-300) U/L 09/03/22 Range/Units 23:08 WBC (3.8-10.6) k/uL RBC (4.30-5.90) m/uL Hgb (13.0-17.5) gm/dL Hct (39.0-53.0) % MCV (80.0-100.0) fL MCH (25.0-35.0) pg MCHC (31.0-37.0) g/dL RDW (11.5-15.5) % Plt Count (150-450) k/uL MPV Neutrophils % % Lymphocytes % % Monocytes % % Eosinophils % % Basophils % % Neutrophils # (1.3-7.7) k/uL Lymphocytes # (1.0-4.8) k/uL Monocytes # (0-1.0) k/uL Eosinophils # (0-0.7) k/uL Basophils # (0-0.2) k/uL ESR (0-15) mm/hr PT (9.0-12.0) sec INR (<1.2) APTT (22.0-30.0) sec Sodium (137-145) mmol/L Potassium (3.5-5.1) mmol/L Chloride (98-107) mmol/L Carbon Dioxide (22-30) mmol/L Anion Gap mmol/L BUN (9-20) mg/dL Creatinine (0.66-1.25) mg/dL Est GFR (CKD-EPI)AfAm (>60 ml/min/1.73 sqM) Est GFR (CKD-EPI)NonAf (>60 ml/min/1.73 sqM) Glucose (74-99) mg/dL Plasma Lactic Acid Alex 1.4 (0.7-2.0) mmol/L Calcium (8.4-10.2) mg/dL Total Bilirubin (0.2-1.3) mg/dL AST (17-59) U/L ALT (4-49) U/L Alkaline Phosphatase (38-126) U/L C-Reactive Protein (<1.0) mg/dL Total Protein (6.3-8.2) g/dL Albumin (3.5-5.0) g/dL Amylase (30-110) U/L Lipase (23-300) U/L Disposition Clinical Impression: Bowel obstruction Disposition: ADMITTED IP TO THIS HOSP Condition: Fair Time of Disposition: 23:32
[2022-09-03 23:34] LABS: ALT 44 U/L (4-49); AST 45 U/L (17-59); African American GFR (CKD) 60 (>60 ml/min/1.73 sqM); Albumin 4.2 g/dL (3.5-5.0); Alkaline Phosphatase 76 U/L (38-126); Amylase 76 U/L (30-110); Anion Gap 14 mmol/L; Blood Urea Nitrogen 22 mg/dL (9-20); C Reactive Protein <0.5 mg/dL (<1.0); Calcium 8.9 mg/dL (8.4-10.2); Carbon Dioxide 17 mmol/L (22-30); Chloride 110 mmol/L (98-107); Glucose 147 mg/dL (74-99); Lipase 36 U/L (23-300); Non-African American GFR(CKD) 52 (>60 ml/min/1.73 sqM); Potassium 4.1 mmol/L (3.5-5.1); Sodium 141 mmol/L (137-145); Total Bilirubin 1.1 mg/dL (0.2-1.3); Total Protein 7.4 g/dL (6.3-8.2)
[2022-09-03] MEDS ORDERED: ONDANSETRON 4 MG/2 ML VIAL IVP PRN (23:54)
[2022-09-03] MEDS ORDERED: NALOXONE 0.4 MG/ML 1 ML VIAL IV PRN (23:54)
[2022-09-04] MEDS: HYDROmorphone 1 MG/ML 1 ML SYRINGE IVP PRN ×2 (00:15→08:10)
[2022-09-04 00:16] LABS: Erythrocyte Sedimentation Rate 8 mm/hr (0-15)
--- NOTE | 2022-09-04 00:30 | XR ---
EXAMINATION TYPE: XR chest 1V DATE OF EXAM: 09/04/2022 COMPARISON: 02/19/2022 HISTORY: Chest pain TECHNIQUE: FINDINGS: There is no heart failure or confluent pneumonic infiltrate. Costophrenic angles are clear. Heart size is fairly normal. Bony thorax is intact. There is nasogastric tube in the stomach. IMPRESSION: No active cardiopulmonary disease. No change.
[2022-09-04 03:02] LABS: Appearance,Urine Clear (Clear); Bilirubin,Urine Negative (Negative); Blood,Urine Negative (Negative); Color,Urine Yellow; Glucose,Urine (UA) Negative (Negative); Ketones,Urine Negative (Negative); Leukocyte Esterase,Urine Negative (Negative); Mucus,Urine Rare /hpf; Nitrite,Urine Negative (Negative); PH, Urine 5.5 (5.0-8.0); Protein,Urine 1+ (Negative); RBC,Urine 1 /hpf (0-5); Specific Gravity,Urine 1.025 (1.001-1.035); Urobilinogen,Urine <2.0 mg/dL (<2.0); WBC,Urine 1 /hpf (0-5)
[2022-09-04] MEDS: SODIUM CHLORIDE 0.9% 1,000 ML IV SCH ×3 (07:11→21:51)
--- NOTE | 2022-09-04 10:13 | P.HPIM ---
History of Present Illness H&P Date: 09/04/22 Chief Complaint: Bowel Obstruction This is a 66-year-old male patient who presents with complaints of nausea and abdominal pain. Patient has a known past medical history of Crohn's disease with previous bowel obstructions reports the symptoms were very similar. Patient denies any major change to diet. Is concerned that he might of eaten a seed that caused this issue. Additional medical history includes prostate cancer, GERD, hyperlipidemia, hypertension, osteoporosis, thyroid disorder and anxiety. CT of abdomen completed showing dilated distal small bowel with shahzad arent transition of the ileocolic colic anastomosis. There is consistent with partial mechanical obstruction dilation similar to old exam. Chest xray completed showing no active cardiopulmonary disease no change. WBC slightly elevated at 11.6, creatinine 1.3 and bun 22 at this time patient has been admitted surgical service is consulted for G-tube Lasix. Patient is currently resting comfortably in bed. Patient reports improvement with abdominal pain and nausea. Abdomen does appear distended. Awaiting surgical input. At this time patient denies chest pain or shortness of breath. Patient denies nausea or vomiting. Patient denies any urinary burning or frequency Review of Systems Please refer to HPI otherwise unremarkable Past Medical History Past Medical History: Cancer, GERD/Reflux, Hyperlipidemia, Hypertension, Osteoarthritis (OA), Skin Disorder, Thyroid Disorder Additional Past Medical History / Comment(s): chron's first diagnosed in 2006, prostate cancer with removal, hypothyroidism, hiatal hernia, eczema when younger. History of Any Multi-Drug Resistant Organisms: None Reported Past Surgical History: Cholecystectomy, Hernia Repair, Prostate Surgery, Tonsillectomy Additional Past Surgical History / Comment(s): exploratory lap x 2, umbilcal hernia repair, merkels diverticulum removal, prostatectomy. Past Anesthesia/Blood Transfusion Reactions: No Reported Reaction Past Psychological History: Anxiety Additional Psychological History / Comment(s): Pt lives alone. He is independent. He uses no assistive device. He drives. Smoking Status: Former smoker Past Alcohol Use History: Occasional Additional Past Alcohol Use History / Comment(s): Pt states he first smoked at age 12 yrs. He QUIT SMOKING YEAR 2001. Past Drug Use History: None Reported Additional Drug Use History / Comment(s): IN HIS 20'S pt used cocaine, marijuana use 6 months ago. - Past Family History Father Family Medical History: Cancer, Coronary Artery Disease (CAD), Hyperlipidemia, Myocardial Infarction ([place]), Prostate Disorder Additional Family Medical History / Comment(s): Father is in Hospice with bone cancer Mother Family Medical History: Coronary Artery Disease (CAD), CVA/TIA, Hyperlipidemia, Myocardial Infarction ([place]) Additional Family Medical History / Comment(s): Mother is 80 yrs old. She has ?CROHNS OR COLITIS, HEART DISEASE Medications and Allergies Home Medications Medication Instructions Recorded Confirmed Type Famotidine [Pepcid] 20 mg PO BID 05/06/14 09/04/22 History Mesalamine [Pentasa] 1,000 mg PO QID 05/06/14 09/04/22 History Pantoprazole Sodium [Protonix] 40 mg PO DAILY 05/06/14 09/04/22 History gemfibroziL [Gemfibrozil] 600 mg PO HS 05/06/14 09/04/22 History Losartan [Cozaar] 50 mg PO HS 11/16/19 09/04/22 History amLODIPine [Norvasc] 5 mg PO HS 11/16/19 09/04/22 History Ergocalciferol [Vitamin D2 (1250 1,250 mcg PO SA 09/04/22 09/04/22 History Mcg = 40022 Iu)] Levothyroxine Sodium [Synthroid] 75 mcg PO HS 09/04/22 09/04/22 History Allergies Allergy/AdvReac Type Severity Reaction Status Date / Time codeine AdvReac Nausea Verified 09/04/22 08:09 Physical Exam Vitals: Vital Signs Temp Pulse Pulse Resp BP BP Pulse Ox 09/04/22 08:53 97.8 F 68 17 124/74 95 09/04/22 08:00 97.8 F 09/04/22 02:20 97.9 F 66 17 127/69 96 09/04/22 02:04 18 09/03/22 22:12 98.2 F 71 18 174/99 99 Intake and Output 09/03/22 09/04/22 09/04/22 22:59 06:59 14:59 Output Total 450 Balance -450 Output: Urine 450 Other: Voiding Method Urinal Weight 93.894 kg 93.894 kg Head normocephalic Neck supple Lungs clear to auscultation bilaterally no wheezing or crackles Heart regular rate and rhythm S1-S2, no rub or gallop Abdomen is slightly distended with hypoactive bowel sounds Extremities no edema Neuro alert and orientated to 3 Results CBC & Chem 7: 09/03/22 23:08 09/03/22 23:08 Labs: Abnormal Lab Results - Last 24 Hours (Table) 09/03/22 09/03/22 09/04/22 Range/Units 23:08 23:08 02:20 WBC 11.6 H (3.8-10.6) k/uL RBC 3.76 L (4.30-5.90) m/uL Hgb 11.8 L (13.0-17.5) gm/dL Hct 33.7 L (39.0-53.0) % Neutrophils # 9.1 H (1.3-7.7) k/uL Chloride 110 H (98-107) mmol/L Carbon Dioxide 17 L (22-30) mmol/L BUN 22 H (9-20) mg/dL Creatinine 1.38 H (0.66-1.25) mg/dL Glucose 147 H (74-99) mg/dL Urine Protein 1+ H (Negative) Urine Mucus Rare H (None) /hpf Thrombosis Risk Factor Assmnt - Choose All That Apply Any of the Below Risk Factors Present?: Yes Each Factor Represents 1 point: Obesity (BMI >25) Other Risk Factors: Yes Each Risk Factor Represents 2 Points: Age 61-74 years Thrombosis Risk Factor Assessment Total Risk Factor Score: 3 Thrombosis Risk Factor Assessment Level: Moderate Risk Assessment and Plan Assessment: 1. Bowel Obstruction secondary to Crohn's disease. 2. Previous episodes of bowel obstructions 3. History of Crohn's disease diagnosed in [address] Black 4. Dehydration evident by slightly elevated creatinine 5. History of hypothyroidism 6. History of essential hypertension 7. History of hyperlipidemia 8. History of hypogonadism 9. History of vitamin D deficiency 10. History of GERD 11. History of prostate DVT prophylaxis Lovenox. GI prophylaxis Protonix Surgical service is consulted NG tube placed Labs ordered Time with Patient: Greater than 30 (Greater than 60% of the total time spent in counseling and coordination of care)
[2022-09-04 11:02] LABS: Basophils % (A) 0 %; Eosinophils # (A) 0.1 k/uL (0-0.7); Eosinophils % (A) 1 %; HCT 32.6 % (39.0-53.0); HGB 11.2 gm/dL (13.0-17.5); Lymphocytes # (A) 1.4 k/uL (1.0-4.8); Lymphocytes % (A) 19 %; MCH 31.5 pg (25.0-35.0); MCHC 34.4 g/dL (31.0-37.0); MCV 91.7 fL (80.0-100.0); Mean Platelet Volume 8.9; Monocytes # (A) 0.8 k/uL (0-1.0); Monocytes % (A) 11 %; Neutrophils # (A) 4.9 k/uL (1.3-7.7); Neutrophils % (A) 66 %; Platelet Count 252 k/uL (150-450); RBC 3.56 m/uL (4.30-5.90); RDW 12.8 % (11.5-15.5); WBC 7.3 k/uL (3.8-10.6)
[2022-09-04] MEDS ORDERED: hydrALAZINE HCL 20 MG/ML 1 ML VIAL IVP PRN (11:21)
--- NOTE | 2022-09-04 12:41 | P.GSCN ---
History of Present Illness Consult date: 09/04/22 History of present illness: CHIEF COMPLAINT: Abdominal pain HISTORY OF PRESENT ILLNESS: This is a 66-year-old male with a known history of Crohn's disease and bowel obstructions. Patient's past surgical history includes bowel resection for Meckel's diverticulum, umbilical hernia repair, cholecystectomy and 2 exploratory laparotomies. Patient reports that yesterday he started having increase in abdominal pain and abdominal distention. He did have some diarrhea yesterday before coming in. However he had increasing pain and also having dry heaves with nausea. Him in for further evaluation and was found to have a small bowel obstruction. NG tube was placed. Minimal output has been through the NG tube. Since NG tube placement patient has had flatus and bowel movement. He reports improvement in his abdominal pain. And decrease in his abdominal distention. He denies any fever chills or sweats. Patient does take medication for his Crohn's. Patient seen and examined with Dr. Roblero PAST MEDICAL HISTORY: See list. PAST SURGICAL HISTORY: See list. MEDICATIONS: See list. ALLERGIES: See list. SOCIAL HISTORY: No illicit drug use. REVIEW OF SYSTEMS: CONSTITUTIONAL: Denies fever or chills. HEENT: Denies blurred vision, vision changes, or eye pain. Denies hemoptysis CARDIOVASCULAR: Denies chest pain or pressure. RESPIRATORY: No shortness of breath. GASTROINTESTINAL: See HPI for pertinent findings HEMATOLOGIC: Denies bleeding disorders. GENITOURINARY: Denies any blood in urine or increased urinary frequency. SKIN: Denies pruitis. Denies rash. PHYSICAL EXAM: VITAL SIGNS: Reviewed GENERAL: Well-developed in no acute distress. HEENT: No sclera icterus. Extraocular movements grossly intact. Moist buccal mucosa. Head is atraumatic, normocephalic. No nasal drainage. ABDOMEN: Soft. Distended but close to his normal abdomen per patient. Minimal tenderness with palpation on the right lower abdomen NEUROLOGIC: Alert and oriented. Cranial nerves II through XII grossly intact. LABORATORY DATA: WBC 11.6 down to 7.3 Hgb 11.2 platelets 252 INR 1.1 sodium 141 potassium 4.1 creatinine 1.38 Lactic acid 1.4 LFTs normal lipase normal urinalysis no evidence of infection IMAGING: computed tomography scan abdomen and pelvis showing dilated distal small bowel with apparent transition at the ileocolic anastomosis. This is consistent with a partial mechanical obstruction and dilation similar to old exam. ASSESSMENT: 1. Small bowel obstruction likely secondary to scar tissue at the anastomosis site PLAN: -Discontinue NG tube. Patient having bowel function. -Start sips of clear liquids -Continue to monitor -Continue IV fluids -Encourage patient to ambulate -Continue supportive care Thank you for this consultation Physician Distribution Tech note has been reviewed by physician. Signing provider agrees with the documented findings, assessment, and plan of care. Past Medical History Past Medical History: Cancer, GERD/Reflux, Hyperlipidemia, Hypertension, Osteoar thritis (OA), Skin Disorder, Thyroid Disorder Additional Past Medical History / Comment(s): chron's first diagnosed in 2006, prostate cancer with removal, hypothyroidism, hiatal hernia, eczema when younger. History of Any Multi-Drug Resistant Organisms: None Reported Past Surgical History: Cholecystectomy, Hernia Repair, Prostate Surgery, Tonsillectomy Additional Past Surgical History / Comment(s): exploratory lap x 2, umbilcal hernia repair, merkels diverticulum removal, prostatectomy. Past Anesthesia/Blood Transfusion Reactions: No Reported Reaction Past Psychological History: Anxiety Additional Psychological History / Comment(s): Pt lives alone. He is independent. He uses no assistive device. He drives. Smoking Status: Former smoker Past Alcohol Use History: Occasional Additional Past Alcohol Use History / Comment(s): Pt states he first smoked at age 12 yrs. He QUIT SMOKING YEAR 2001. Past Drug Use History: None Reported Additional Drug Use History / Comment(s): IN HIS 20'S pt used cocaine, marijuana use 6 months ago. - Past Family History Father Family Medical History: Cancer, Coronary Artery Disease (CAD), Hyperlipidemia, Myocardial Infarction ([place]), Prostate Disorder Additional Family Medical History / Comment(s): Father is in Hospice with bone cancer Mother Family Medical History: Coronary Artery Disease (CAD), CVA/TIA, Hyperlipidemia, Myocardial Infarction ([place]) Additional Family Medical History / Comment(s): Mother is 80 yrs old. She has ?CROHNS OR COLITIS, HEART DISEASE Medications and Allergies Home Medications Medication Instructions Recorded Confirmed Type Famotidine [Pepcid] 20 mg PO BID 05/06/14 09/04/22 History Mesalamine [Pentasa] 1,000 mg PO QID 05/06/14 09/04/22 History Pantoprazole Sodium [Protonix] 40 mg PO DAILY 05/06/14 09/04/22 History gemfibroziL [Gemfibrozil] 600 mg PO HS 05/06/14 09/04/22 History Losartan [Cozaar] 50 mg PO HS 11/16/19 09/04/22 History amLODIPine [Norvasc] 5 mg PO HS 11/16/19 09/04/22 History Ergocalciferol [Vitamin D2 (1250 1,250 mcg PO SA 09/04/22 09/04/22 History Mcg = 17869 Iu)] Levothyroxine Sodium [Synthroid] 75 mcg PO HS 09/04/22 09/04/22 History Allergies Allergy/AdvReac Type Severity Reaction Status Date / Time codeine AdvReac Nausea Verified 09/04/22 08:09 Surgical - Exam Vital Signs Temp Pulse Resp BP Pulse Ox 98.2 F 71 18 174/99 99 09/03/22 22:12 09/03/22 22:12 09/03/22 22:12 09/03/22 22:12 09/03/22 22:12 Results - Labs 09/04/22 10:08 09/03/22 23:08 Abnormal Lab Results - Last 24 Hours (Table) 09/03/22 09/03/22 09/04/22 Range/Units 23:08 23:08 02:20 WBC 11.6 H (3.8-10.6) k/uL RBC 3.76 L (4.30-5.90) m/uL Hgb 11.8 L (13.0-17.5) gm/dL Hct 33.7 L (39.0-53.0) % Neutrophils # 9.1 H (1.3-7.7) k/uL Chloride 110 H (98-107) mmol/L Carbon Dioxide 17 L (22-30) mmol/L BUN 22 H (9-20) mg/dL Creatinine 1.38 H (0.66-1.25) mg/dL Glucose 147 H (74-99) mg/dL Urine Protein 1+ H (Negative) Urine Mucus Rare H (None) /hpf 09/04/22 Range/Units 10:08 WBC (3.8-10.6) k/uL RBC 3.56 L (4.30-5.90) m/uL Hgb 11.2 L (13.0-17.5) gm/dL Hct 32.6 L (39.0-53.0) % Neutrophils # (1.3-7.7) k/uL Chloride (98-107) mmol/L Carbon Dioxide (22-30) mmol/L BUN (9-20) mg/dL Creatinine (0.66-1.25) mg/dL Glucose (74-99) mg/dL Urine Protein (Negative) Urine Mucus (None) /hpf Diabetes panel 09/03/22 Range/Units 23:08 Sodium 141 (137-145) mmol/L Potassium 4.1 (3.5-5.1) mmol/L Chloride 110 H (98-107) mmol/L Carbon Dioxide 17 L (22-30) mmol/L BUN 22 H (9-20) mg/dL Creatinine 1.38 H (0.66-1.25) mg/dL Glucose 147 H (74-99) mg/dL Calcium 8.9 (8.4-10.2) mg/dL AST 45 (17-59) U/L ALT 44 (4-49) U/L Alkaline Phosphatase 76 (38-126) U/L Total Protein 7.4 (6.3-8.2) g/dL Albumin 4.2 (3.5-5.0) g/dL Calcium panel 09/03/22 Range/Units 23:08 Calcium 8.9 (8.4-10.2) mg/dL Albumin 4.2 (3.5-5.0) g/dL Pituitary panel 09/03/22 Range/Units 23:08 Sodium 141 (137-145) mmol/L Potassium 4.1 (3.5-5.1) mmol/L Chloride 110 H (98-107) mmol/L Carbon Dioxide 17 L (22-30) mmol/L BUN 22 H (9-20) mg/dL Creatinine 1.38 H (0.66-1.25) mg/dL Glucose 147 H (74-99) mg/dL Calcium 8.9 (8.4-10.2) mg/dL Adrenal panel 09/03/22 Range/Units 23:08 Sodium 141 (137-145) mmol/L Potassium 4.1 (3.5-5.1) mmol/L Chloride 110 H (98-107) mmol/L Carbon Dioxide 17 L (22-30) mmol/L BUN 22 H (9-20) mg/dL Creatinine 1.38 H (0.66-1.25) mg/dL Glucose 147 H (74-99) mg/dL Calcium 8.9 (8.4-10.2) mg/dL Total Bilirubin 1.1 (0.2-1.3) mg/dL AST 45 (17-59) U/L ALT 44 (4-49) U/L Alkaline Phosphatase 76 (38-126) U/L Total Protein 7.4 (6.3-8.2) g/dL Albumin 4.2 (3.5-5.0) g/dL
[2022-09-05] MEDS: SODIUM CHLORIDE 0.9% 1,000 ML IV SCH ×2 (06:28→08:05)
[2022-09-05] MEDS: ENOXAPARIN 40 MG/0.4 ML SYRINGE SQ SCH (08:09)
[2022-09-05] MEDS: PANTOPRAZOLE 40 MG/10 ML VIAL IVP SCH (08:10)
[2022-09-05] MEDS: LEVOTHYROXINE IVP 100 MCG/5 ML VIAL IV SCH (08:11)
[2022-09-05 10:38] LABS: Basophils # (A) 0.01 X 10*3/uL (0.00-0.10); Basophils % (A) 0.2 %; Eosinophils # (A) 0.12 X 10*3/uL (0.04-0.35); Eosinophils % (A) 1.9 %; HCT 33.1 % (39.6-50.0); HGB 10.6 g/dL (13.0-17.0); Immature Grans, Automated 0.2 %; Lymphocytes # (A) 1.82 X 10*3/uL (0.90-5.00); Lymphocytes % (A) 29.3 %; MCH 30.1 pg (27.0-32.0); Mean Platelet Volume 10.8 fL (9.5-12.2); Monocytes # (A) 0.75 X 10*3/uL (0.20-1.00); Monocytes % (A) 12.1 %; NRBC Per 100 WBC 0 /100 WBCS (0.0-0.0); Neutrophils # (A) 3.51 X 10*3/uL (1.80-7.70); Neutrophils % (A) 56.3 %; Platelet Count 251 X 10*3/uL (140-440); RBC 3.52 X 10*6/uL (4.40-5.60); RDW 12.6 % (11.5-14.5); WBC 6.22 X 10*3/uL (4.50-10.00)
[2022-09-05 10:55] LABS: African American GFR (CKD) 69.5 (60.0-200.0); Albumin 3.9 g/dL (3.8-4.9); Albumin/Globulin Ratio 1.5 (1.60-3.17); Anion Gap 9.7 mmol/L (10.00-18.00); BUN/Creat Ratio 12.68 Ratio (12.00-20.00); Blood Urea Nitrogen 15.6 mg/dL (9.0-27.0); Calcium 8.1 mg/dL (8.7-10.3); Carbon Dioxide 20.5 mmol/L (20.0-27.5); Globulin 2.6 g/dL (1.6-3.3); Non-African American GFR(CKD) 59.9 (60.0-200.0); Potassium 3.7 mmol/L (3.5-5.5); Total Bilirubin 1.2 mg/dL (0.30-1.20); Total Protein 6.5 g/dL (6.2-8.2)
--- NOTE | 2022-09-05 12:07 | XR ---
EXAMINATION TYPE: XR abdomen 2V DATE OF EXAM: 09/05/2022 COMPARISON: CT abdomen pelvis 09/03/2022, abdominal radiograph 05/22/2021. HISTORY: Abdominal pain, SBO follow-up. TECHNIQUE: Upright and supine views of the abdomen are obtained with 3 radiographs. FINDINGS: Gas and fecal material demonstrated within the nondistended colon. A few air-fluid levels demonstrate d in the right upper quadrant. Dilated small bowel in the right mid abdomen measuring up to 4 cm. Cho lecystectomy clips in the right upper quadrant. Anastomotic sutures are seen in the right mid abdomen . Additional surgical clips in the pelvis. No peritoneum. No acute osseous and amounted. IMPRESSION: Few air-fluid levels and dilated small bowel in the right mid abdomen related to partial small bowel obstruction seen on recent CT.
--- NOTE | 2022-09-05 14:37 | P.CONS ---
History of Present Illness - Reason for Consult Consult date: 09/05/22 History of Crohn's disease Requesting physician: Brandon Roblero - Chief Complaint Abdominal pain - History of Present Illness This a pleasant 66-year-old male with a history of coronary artery disease, hyperlipidemia, Crohn's disease and previous bowel obstructions who follows with Dr. Black in the outpatient setting. He presented to the emergency department 2 days ago with complaints of abdominal pain with nausea and vomiting. He felt very bloated and distended similar to previous episodes of obstruction. He had a CT of the abdomen and pelvis with 3 ports of mechanical obstruction. General surgery is following and consulted gastroenterology for history of Crohn's disease. Patient currently states abdominal pain is improving, as well as abdominal distention. He has no nausea or vomiting. He is passing gas today. He is on and Inflectra for his Crohn's disease. He had an x-ray this morning showed a few air-fluid levels and dilated small bowel and right mid abdomen related to partial small bowel obstruction seen on recent CT. General surgery has patient tentatively scheduled for exploratory laparotomy with possible small bowel resection scheduled for Friday. Review of Systems REVIEW OF SYSTEMS: CARDIOPULMONARY: No chest pain or shortness of breath. Gastrointestinal: Burning some bloating and abdominal pain, improving. No nausea or vomiting. No hematemesis, coffee-ground emesis. No rectal bleeding, or melena. GENITOURINARY: No dysuria or hematuria. MUSCULOSKELETAL: Reports normal range of motion. SKIN: No rashes. No jaundice. ENDOCRINE: No chills, fevers. No excessive weight gain or loss. No polydipsia or polyuria. PSYCHIATRIC: Unremarkable. NEUROLOGY: No change in mental status. Denies dizziness, headache. ENT: Vision unremarkable. CONSTITUTIONAL: No recent weight loss. No fever, chills, night sweats. Excuse me Past Medical History Past Medical History: Cancer, GERD/Reflux, Hyperlipidemia, Hypertension, Osteoarthritis (OA), Skin Disorder, Thyroid Disorder Additional Past Medical History / Comment(s): chron's first diagnosed in 2006, prostate cancer with removal, hypothyroidism, hiatal hernia, eczema when younger. History of Any Multi-Drug Resistant Organisms: None Reported Past Surgical History: Cholecystectomy, Hernia Repair, Prostate Surgery, Tonsillectomy Additional Past Surgical History / Comment(s): exploratory lap x 2, umbilcal hernia repair, merkels diverticulum removal, prostatectomy. Past Anesthesia/Blood Transfusion Reactions: No Reported Reaction Past Psychological History: Anxiety Smoking Status: Former smoker Past Alcohol Use History: Occasional Past Drug Use History: None Reported - Past Family History Father Family Medical History: Cancer, Coronary Artery Disease (CAD), Hyperlipidemia, Myocardial Infarction (RI), Prostate Disorder Additional Family Medical History / Comment(s): Father is in Hospice with bone cancer Mother Family Medical History: Coronary Artery Disease (CAD), CVA/TIA, Hyperlipidemia, Myocardial Infarction (RI) Additional Family Medical History / Comment(s): Mother is 80 yrs old. She has ?CROHNS OR COLITIS, HEART DISEASE Medications and Allergies Home Medications Medication Instructions Recorded Confirmed Type Famotidine [Pepcid] 20 mg PO BID 05/06/14 09/04/22 History Mesalamine [Pentasa] 1,000 mg PO QID 05/06/14 09/04/22 History Pantoprazole Sodium [Protonix] 40 mg PO DAILY 05/06/14 09/04/22 History gemfibroziL [Gemfibrozil] 600 mg PO HS 05/06/14 09/04/22 History Losartan [Cozaar] 50 mg PO HS 11/16/19 09/04/22 History amLODIPine [Norvasc] 5 mg PO HS 11/16/19 09/04/22 History Ergocalciferol [Vitamin D2 (1250 1,250 mcg PO SA 09/04/22 09/04/22 History Mcg = [id number] Iu)] Levothyroxine Sodium [Synthroid] 75 mcg PO HS 09/04/22 09/04/22 History Allergies Allergy/AdvReac Type Severity Reaction Status Date / Time codeine AdvReac Nausea Verified 09/04/22 08:09 Physical Exam Vitals: Vital Signs Temp Pulse Resp BP Pulse Ox 09/05/22 08:15 18 09/05/22 07:55 97.3 F L 68 17 132/84 97 09/05/22 02:00 98.4 F 63 16 126/75 98 09/04/22 20:00 98.5 F 61 17 131/76 96 Intake and Output 09/04/22 09/05/22 09/05/22 22:59 06:59 14:59 Intake Total 1540 200 Balance 1540 200 Intake: Intake, IV Titration 1200 Amount Sodium Chloride 0.9% 1, 1200 000 ml @ 100 mls/hr IV . Q10H [facility] Rx#:[id number] Oral 340 200 Other: Voiding Method Toilet # Voids 2 3 General appearance: The patient is alert, oriented, appears in no acute distress. HET: Head is normocephalic and atraumatic. Conjunctiva pink. Sclera anicteric. Neck: Supple without lymphadenopathy. Trachea midline. Heart: S1 S2. Regular rate and rhythm. Lungs: Clear to auscultation. Abdomen: Soft, nontender, minimal distention with bowel sounds. No guarding or rigidity. Skin: No rashes. No jaundice. Extremities: Normal skin color and turgor. No pedal edema. Neurological: No focal deficits. Alert and oriented x3. Results CBC & Chem 7: 09/05/22 07:03 09/05/22 07:03 Labs: Abnormal Lab Results - Last 24 Hours (Table) 09/05/22 09/05/22 Range/Units 07:03 07:03 RBC 3.52 L (4.40-5.60) X 10*6/uL Hgb 10.6 L (13.0-17.0) g/dL Hct 33.1 L (39.6-50.0) % Chloride 112 H (96-109) mmol/L Anion Gap 9.70 L (10.00-18.00) mmol/L Est GFR (CKD-EPI)NonAf 59.9 L (60.0-200.0) Calcium 8.1 L (8.7-10.3) mg/dL AST 48 H (14-35) U/L Albumin/Globulin Ratio 1.50 L (1.60-3.17) g/dL Abdominal x-ray: report reviewed CT scan - abdomen: report reviewed Assessment and Plan (1) Crohn disease Narrative/Plan: 66-year-old male with long-standing history of Crohn's disease treated with Inflectra presented to the emergency department with abdominal pain, bloating, nausea and vomiting. CT abdomen and pelvis reported dilated distal small bowel with apparent transition at the ileocolic anastomosis consistent with partial mechanical obstruction and dilation similar to the old exam. However patient's symptoms are improving, is now passing flatus and tolerating clear liquid diet. Recommend IV Solu-Medrol 20 mg every 8 hours. Gastroenterology is recommending no surgical intervention at this time. This was discussed with Dr. Roblero. Current Visit: No Status: Chronic Code(s): K50.90 - CROHN'S DISEASE, UNSPECIFIED, WITHOUT COMPLICATIONS SNOMED Code(s): 97404798 (2) Bowel obstruction Narrative/Plan: Gen. surgery following, it was discussed with Dr. Roblero recommend no surgical intervention at this time. Will treat with steroids Current Visit: Yes Status: Acute Code(s): K56.609 - UNSP INTESTNL OBST, UNSP TO PARTIAL VERSUS COMPLETE OBST SNOMED Code(s): 44672309 Plan: 1. Continue symptomatic and supportive care 2. Continue clear liquid diet 3. Will start IV Solu-Medrol 20 mg every 8 hours 4. Antiemetics as needed 5. Recommend no surgical interventionat this time, this was discussed with Dr. Roblero Thank you for this consultation, we will continue to follow. Dr. Mary Black I agree with the dictator's note, documented as a scribe by Alexandra Dai.
--- NOTE | 2022-09-05 14:47 | P.PN ---
Subjective Progress Note Date: 09/05/22 CHIEF COMPLAINT: Small bowel obstruction HISTORY OF PRESENT ILLNESS: Patient reports that he has pain on both sides of the abdomen after eating. He is having flatus and diarrhea. Does have abdominal distention. Denies any nausea or vomiting. Afebrile. Abdominal x- ray showing few air fluid levels and dilated small bowel in the right mid abdomen related to partial small bowel obstruction seen on recent CT. Patient seen by GI services recommending IV steroids for patient's Crohn's disease. They also recommended no surgical intervention. Afebrile. WBC is 6.22 Patient seen and examined with Dr. torres PHYSICAL EXAM: VITAL SIGNS: Reviewed. GENERAL: Well-developed in no acute distress. HEENT: No sclera icterus. Extraocular movements grossly intact. Moist buccal mucosa. Head is atraumatic, normocephalic. ABDOMEN: Distended. Tenderness on the right side of the abdomen NEUROLOGIC: Alert and oriented. Cranial nerves II through XII grossly intact. ASSESSMENT: 1. Small bowel obstruction likely secondary to scar tissue at the anastomosis site and possibly due to Crohn's disease 2. Crohn's exacerbation PLAN: -GI evaluation appreciated. Patient has been placed on IV steroids for his Crohn's disease -Continue clear liquid diet -Continue to monitor -Encouraged patient to ambulate -Continue IV fluids -Continue supportive care Physician [employer] note has been reviewed by physician. Signing provider agrees with the documented findings, assessment, and plan of care. Objective - Vital Signs Vital signs: Vital Signs Temp 97.3 F L 09/05/22 07:55 Pulse 68 09/05/22 07:55 Resp 18 09/05/22 08:15 BP 132/84 09/05/22 07:55 Pulse Ox 97 09/05/22 07:55 FiO2 Intake & Output 09/04/22 09/05/22 09/05/22 18:59 06:59 18:59 Intake Total 1540 Balance 1540 Intake: Intake, IV Titration 1200 Amount Sodium Chloride 0.9% 1, 1200 000 ml @ 100 mls/hr IV . Q10H [facility] Rx#:[id number] Oral 340 Other: Voiding Method Toilet Toilet # Voids 2 3 - Labs CBC & Chem 7: 09/05/22 07:03 09/05/22 07:03 Labs: Abnormal Lab Results - Last 24 Hours (Table) 09/05/22 09/05/22 Range/Units 07:03 07:03 RBC 3.52 L (4.40-5.60) X 10*6/uL Hgb 10.6 L (13.0-17.0) g/dL Hct 33.1 L (39.6-50.0) % Chloride 112 H (96-109) mmol/L Anion Gap 9.70 L (10.00-18.00) mmol/L Est GFR (CKD-EPI)NonAf 59.9 L (60.0-200.0) Calcium 8.1 L (8.7-10.3) mg/dL AST 48 H (14-35) U/L Albumin/Globulin Ratio 1.50 L (1.60-3.17) g/dL
[2022-09-05] MEDS: methylPREDNISolone SOD SUCCI 40 MG/ML 1 ML VIAL IV SCH ×2 (16:58→23:38)
--- NOTE | 2022-09-05 17:33 | P.PN ---
Subjective Progress Note Date: 09/05/22 This is a 66-year-old male patient who presents with complaints of nausea and abdominal pain. Patient has a known past medical history of Crohn's disease with previous bowel obstructions reports the symptoms were very similar. Patient denies any major change to diet. Is concerned that he might of eaten a seed that caused this issue. Additional medical history includes prostate cancer, GERD, hyperlipidemia, hypertension, osteoporosis, thyroid disorder and anxiety. CT of abdomen completed showing dilated distal small bowel with apparent transition of the ileocolic colic anastomosis. There is consistent with partial mechanical obstruction dilation similar to old exam. Chest xray completed showing no active cardiopulmonary disease no change. WBC slightly elevated at 11.6, creatinine 1.3 and bun 22 at this time patient has been admitted surgical service is consulted for G-tube Lasix. Patient is currently resting comfortably in bed. Patient reports improvement with abdominal pain and nausea. Abdomen does appear distended. Awaiting surgical input. At this time patient denies chest pain or shortness of breath. Patient denies nausea or vomiting. Patient denies any urinary burning or frequency On 09/05/2022 patient was seen and examined on the medical floor he is alert and oriented 3 in no apparent distress, abdominal pain has improved, at this time patient is passing gas, and had episodes of diarrhea, there is no fever or chills no headache or dizziness no chest pain no shortness of breath no cough no nausea or vomiting and no urinary symptoms Objective - Vital Signs Vital signs: Vital Signs Temp 97.3 F L 09/05/22 07:55 Pulse 68 09/05/22 07:55 Resp 18 09/05/22 08:15 BP 132/84 09/05/22 07:55 Pulse Ox 97 09/05/22 07:55 FiO2 Intake & Output 09/04/22 09/05/22 09/05/22 18:59 06:59 18:59 Intake Total 1540 Balance 1540 Intake: Intake, IV Titration 1200 Amount Sodium Chloride 0.9% 1, 1200 000 ml @ 100 mls/hr IV . Q10H [facility] Rx#:[id number] Oral 340 Other: Voiding Method Toilet Toilet # Voids 2 3 - Exam In general patient is alert and oriented ?-3 in no distress HEENT head normocephalic and atraumatic Neck is supple no JVD no goiter no lymphadenopathy no carotid bruit Chest examination is clear to auscultation no crackles no wheezing Cardiac exam reveals regular heart sounds S1 and S2 no gallops no murmurs Abdomen is soft slightly distended with mild tenderness no organomegaly no palpable masses bowel sounds are audible in all 4 quadrants Extremity exam reveals no edema no cyanosis or clubbing Neurological examination reveals no gross focal deficits - Labs CBC & Chem 7: 09/05/22 07:03 09/05/22 07:03 Labs: Abnormal Lab Results - Last 24 Hours (Table) 09/05/22 09/05/22 Range/Units 07:03 07:03 RBC 3.52 L (4.40-5.60) X 10*6/uL Hgb 10.6 L (13.0-17.0) g/dL Hct 33.1 L (39.6-50.0) % Chloride 112 H (96-109) mmol/L Anion Gap 9.70 L (10.00-18.00) mmol/L Est GFR (CKD-EPI)NonAf 59.9 L (60.0-200.0) Calcium 8.1 L (8.7-10.3) mg/dL AST 48 H (14-35) U/L Albumin/Globulin Ratio 1.50 L (1.60-3.17) g/dL Assessment and Plan Assessment: 1. Bowel Obstruction secondary to Crohn's disease. 2. Previous episodes of bowel obstructions 3. History of Crohn's disease diagnosed in [address] Black 4. Dehydration evident by slightly elevated creatinine 5. History of hypothyroidism 6. History of essential hypertension 7. History of hyperlipidemia 8. History of hypogonadism 9. History of vitamin D deficiency 10. History of GERD 11. History of prostate DVT prophylaxis Lovenox. GI prophylaxis Protonix Surgical service is consulted NG tube placed Labs ordered
[2022-09-05] MEDS: amLODIPine 5 MG TAB PO SCH (20:11)
[2022-09-05] MEDS: LOSARTAN 50 MG TAB PO SCH (20:11)
[2022-09-06] MEDS: SODIUM CHLORIDE 0.9% 1,000 ML IV SCH ×4 (02:37→23:17)
[2022-09-06] MEDS: methylPREDNISolone SOD SUCCI 40 MG/ML 1 ML VIAL IV SCH ×3 (07:28→23:18)
[2022-09-06] MEDS: PANTOPRAZOLE 40 MG/10 ML VIAL IVP SCH (07:28)
[2022-09-06] MEDS: LEVOTHYROXINE IVP 100 MCG/5 ML VIAL IV SCH (07:29)
[2022-09-06] MEDS: ENOXAPARIN 40 MG/0.4 ML SYRINGE SQ SCH (07:29)
[2022-09-06 08:56] LABS: Basophils # (A) 0.01 X 10*3/uL (0.00-0.10); Basophils % (A) 0.1 %; Eosinophils # (A) 0.03 X 10*3/uL (0.04-0.35); Eosinophils % (A) 0.4 %; HCT 31.4 % (39.6-50.0); HGB 10.9 g/dL (13.0-17.0); Immature Grans, Automated 0.5 %; Lymphocytes # (A) 1.04 X 10*3/uL (0.90-5.00); Lymphocytes % (A) 13.3 %; MCH 31.1 pg (27.0-32.0); MCHC 34.7 g/dL (32.0-37.0); MCV 89.5 fL (80.0-97.0); Mean Platelet Volume 10.5 fL (9.5-12.2); Monocytes # (A) 0.12 X 10*3/uL (0.20-1.00); Monocytes % (A) 1.5 %; NRBC Per 100 WBC 0 /100 WBCS (0.0-0.0); Neutrophils # (A) 6.56 X 10*3/uL (1.80-7.70); Neutrophils % (A) 84.2 %; Platelet Count 273 X 10*3/uL (140-440); RBC 3.51 X 10*6/uL (4.40-5.60); RDW 12.1 % (11.5-14.5)
[2022-09-06 09:20] LABS: African American GFR (CKD) 79.5 (60.0-200.0); Albumin/Globulin Ratio 1.48 (1.60-3.17); Anion Gap 10.8 mmol/L (10.00-18.00); BUN/Creat Ratio 10.45 Ratio (12.00-20.00); Blood Urea Nitrogen 11.5 mg/dL (9.0-27.0); Calcium 8.5 mg/dL (8.7-10.3); Carbon Dioxide 18.2 mmol/L (20.0-27.5); Globulin 2.7 g/dL (1.6-3.3); Non-African American GFR(CKD) 68.6 (60.0-200.0); Potassium 4.1 mmol/L (3.5-5.5); Total Bilirubin 0.8 mg/dL (0.30-1.20); Total Protein 6.7 g/dL (6.2-8.2)
--- NOTE | 2022-09-06 09:41 | P.PN ---
Subjective Progress Note Date: 09/06/22 This is a 66-year-old male patient who presents with complaints of nausea and abdominal pain. Patient has a known past medical history of Crohn's disease with previous bowel obstructions reports the symptoms were very similar. Patient denies any major change to diet. Is concerned that he might of eaten a seed that caused this issue. Additional medical history includes prostate cancer, GERD, hyperlipidemia, hypertension, osteoporosis, thyroid disorder and anxiety. CT of abdomen completed showing dilated distal small bowel with apparent transition of the ileocolic colic anastomosis. There is consistent with partial mechanical obstruction dilation similar to old exam. Chest xray completed showing no active cardiopulmonary disease no change. WBC slightly elevated at 11.6, creatinine 1.3 and bun 22 at this time patient has been admitted surgical service is consulted for G-tube Lasix. Patient is currently resting comfortably in bed. Patient reports improvement with abdominal pain and nausea. Abdomen does appear distended. Awaiting surgical input. At this time patient denies chest pain or shortness of breath. Patient denies nausea or vomiting. Patient denies any urinary burning or frequency On 09/05/2022 patient was seen and examined on the medical floor he is alert and oriented 3 in no apparent distress, abdominal pain has improved, at this time patient is passing gas, and had episodes of diarrhea, there is no fever or chills no headache or dizziness no chest pain no shortness of breath no cough no nausea or vomiting and no urinary symptoms On 09/06/2022 patient is alert and oriented 3. Patient reports improvement with abdominal pain and nausea. Patient reports that he is passing gas and loose stools. NG tube has been removed patient denies any further episodes of nausea. Patient remains on IV steroids. Patient denies chest pain or shortness breath. Patient denies any urinary burning or frequency Objective - Vital Signs Vital signs: Vital Signs Temp 97.5 F L 09/06/22 08:00 Pulse 66 09/06/22 08:00 Resp 16 09/06/22 08:00 BP 149/78 09/06/22 08:00 Pulse Ox 96 09/06/22 08:00 FiO2 Intake & Output 09/05/22 09/06/22 09/06/22 18:59 06:59 18:59 Intake Total 500 1680 Balance 500 1680 Intake: Intake, IV Titration 1200 Amount Sodium Chloride 0.9% 1, 1200 000 ml @ 100 mls/hr IV . Q10H [facility] Rx#:[id number] Oral 500 480 Other: Voiding Method Toilet # Voids 2 2 - Exam In general patient is alert and oriented ?-3 in no distress HEENT head normocephalic and atraumatic Neck is supple no JVD no goiter no lymphadenopathy no carotid bruit Chest examination is clear to auscultation no crackles no wheezing Cardiac exam reveals regular heart sounds S1 and S2 no gallops no murmurs Abdomen is soft slightly distended with mild tenderness no organomegaly no palpable masses bowel sounds are audible in all 4 quadrants Extremity exam reveals no edema no cyanosis or clubbing Neurological examination reveals no gross focal deficits - Labs CBC & Chem 7: 09/06/22 06:13 09/06/22 06:13 Labs: Abnormal Lab Results - Last 24 Hours (Table) 09/05/22 09/05/22 09/06/22 Range/Units 07:03 07:03 06:13 RBC 3.52 L 3.51 L (4.40-5.60) X 10*6/uL Hgb 10.6 L 10.9 L (13.0-17.0) g/dL Hct 33.1 L 31.4 L (39.6-50.0) % Monocytes # 0.12 L (0.20-1.00) X 10*3/uL Eosinophils # 0.03 L (0.04-0.35) X 10*3/uL Chloride 112 H (96-109) mmol/L Carbon Dioxide (20.0-27.5) mmol/L Anion Gap 9.70 L (10.00-18.00) mmol/L Est GFR (CKD-EPI)NonAf 59.9 L (60.0-200.0) BUN/Creatinine Ratio (12.00-20.00) Ratio Glucose (70-110) mg/dL Calcium 8.1 L (8.7-10.3) mg/dL AST 48 H (14-35) U/L ALT (10-49) U/L Albumin/Globulin Ratio 1.50 L (1.60-3.17) g/dL 09/06/22 Range/Units 06:13 RBC (4.40-5.60) X 10*6/uL Hgb (13.0-17.0) g/dL Hct (39.6-50.0) % Monocytes # (0.20-1.00) X 10*3/uL Eosinophils # (0.04-0.35) X 10*3/uL Chloride 112 H (96-109) mmol/L Carbon Dioxide 18.2 L (20.0-27.5) mmol/L Anion Gap (10.00-18.00) mmol/L Est GFR (CKD-EPI)NonAf (60.0-200.0) BUN/Creatinine Ratio 10.45 L (12.00-20.00) Ratio Glucose 147 H (70-110) mg/dL Calcium 8.5 L (8.7-10.3) mg/dL AST 52 H (14-35) U/L ALT 50 H (10-49) U/L Albumin/Globulin Ratio 1.48 L (1.60-3.17) g/dL Assessment and Plan Assessment: 1. Bowel Obstruction secondary to Crohn's disease. 2. Previous episodes of bowel obstructions 3. History of Crohn's disease diagnosed in [address] Black 4. Dehydration evident by slightly elevated creatinine 5. History of hypothyroidism 6. History of essential hypertension 7. History of hyperlipidemia 8. History of hypogonadism 9. History of vitamin D deficiency 10. History of GERD 11. History of prostate DVT prophylaxis Lovenox. GI prophylaxis Protonix Surgical service is consulted GI services following Patient remains on IV steroids per GI recommendation Labs ordered
--- NOTE | 2022-09-06 13:32 | P.PN ---
Subjective Progress Note Date: 09/06/22 Principal diagnosis: Abdominal pain, Crohn's disease This a pleasant 66-year-old male with a history of coronary artery disease, hyperlipidemia, Crohn's disease and previous bowel obstructions who follows with Dr. Black in the outpatient setting. He presented to the emergency department 2 days ago with complaints of abdominal pain with nausea and vomiting. He felt very bloated and distended similar to previous episodes of obstruction. He had a CT of the abdomen and pelvis with 3 ports of mechanical obstruction. General surgery is following and consulted gastroenterology for history of Crohn's disease. Patient currently states abdominal pain is improving, as well as abdominal distention. He has no nausea or vomiting. He is passing gas today. He is on and Inflectra for his Crohn's disease. He had an x-ray this morning showed a few air-fluid levels and dilated small bowel and right mid abdomen related to partial small bowel obstruction seen on recent CT. General surgery has patient tentatively scheduled for exploratory laparotomy with possible small bowel resection scheduled for Friday. 09/06/2022: Patient seen and examined and his follow-up. Today he states he is feeling better. He has been ambulating in the hallway. He is having diarrhea and passing gas. Denies any nausea or vomiting. Abdominal pain improved. Objective - Vital Signs Vital signs: Vital Signs Temp 97.5 F L 09/06/22 08:00 Pulse 66 09/06/22 08:00 Resp 16 09/06/22 08:00 BP 149/78 09/06/22 08:00 Pulse Ox 96 09/06/22 08:00 FiO2 Intake & Output 09/05/22 09/06/22 09/06/22 18:59 06:59 18:59 Intake Total 500 1680 Balance 500 1680 Intake: Intake, IV Titration 1200 Amount Sodium Chloride 0.9% 1, 1200 000 ml @ 100 mls/hr IV . Q10H [facility] Rx#:[id number] Oral 500 480 Other: Voiding Method Toilet # Voids 2 2 - Exam General appearance: The patient is alert, oriented, appears in no acute distress. HET: Head is normocephalic and atraumatic. Conjunctiva pink. Sclera anicteric. Neck: Supple without lymphadenopathy. Abdomen: Soft, nontender, mild bloating with bowel sounds. No guarding or rigidity. Extremities: Normal skin color and turgor. No pedal edema Skin: No rashes, no jaundice Neurological: No focal deficits. Alert and oriented. - Labs CBC & Chem 7: 09/06/22 06:13 09/06/22 06:13 Labs: Abnormal Lab Results - Last 24 Hours (Table) 09/05/22 09/05/22 09/06/22 Range/Units 07:03 07:03 06:13 RBC 3.52 L 3.51 L (4.40-5.60) X 10*6/uL Hgb 10.6 L 10.9 L (13.0-17.0) g/dL Hct 33.1 L 31.4 L (39.6-50.0) % Monocytes # 0.12 L (0.20-1.00) X 10*3/uL Eosinophils # 0.03 L (0.04-0.35) X 10*3/uL Chloride 112 H (96-109) mmol/L Carbon Dioxide (20.0-27.5) mmol/L Anion Gap 9.70 L (10.00-18.00) mmol/L Est GFR (CKD-EPI)NonAf 59.9 L (60.0-200.0) BUN/Creatinine Ratio (12.00-20.00) Ratio Glucose (70-110) mg/dL Calcium 8.1 L (8.7-10.3) mg/dL AST 48 H (14-35) U/L ALT (10-49) U/L Albumin/Globulin Ratio 1.50 L (1.60-3.17) g/dL 09/06/22 Range/Units 06:13 RBC (4.40-5.60) X 10*6/uL Hgb (13.0-17.0) g/dL Hct (39.6-50.0) % Monocytes # (0.20-1.00) X 10*3/uL Eosinophils # (0.04-0.35) X 10*3/uL Chloride 112 H (96-109) mmol/L Carbon Dioxide 18.2 L (20.0-27.5) mmol/L Anion Gap (10.00-18.00) mmol/L Est GFR (CKD-EPI)NonAf (60.0-200.0) BUN/Creatinine Ratio 10.45 L (12.00-20.00) Ratio Glucose 147 H (70-110) mg/dL Calcium 8.5 L (8.7-10.3) mg/dL AST 52 H (14-35) U/L ALT 50 H (10-49) U/L Albumin/Globulin Ratio 1.48 L (1.60-3.17) g/dL Assessment and Plan (1) Crohn disease Narrative/Plan: 66-year-old male with long-standing history of Crohn's disease treated with Inflectra presented to the emergency department with abdominal pain, bloating, nausea and vomiting. CT abdomen and pelvis reported dilated distal small bowel with apparent transition at the ileocolic anastomosis consistent with partial mechanical obstruction and dilation similar to the old exam. However patient's symptoms are improving, is now passing flatus and tolerating clear liquid diet. Recommend IV Solu-Medrol 20 mg every 8 hours. Gastroenterology is recommending no surgical intervention at this time. This was discussed with Dr. Roblero. Current Visit: No Status: Chronic Code(s): K50.90 - CROHN'S DISEASE, UNSPECIFIED, WITHOUT COMPLICATIONS SNOMED Code(s): 89645798 (2) Bowel obstruction Narrative/Plan: Gen. surgery following, it was discussed with Dr. Roblero recommend no surgical intervention at this time. Will treat with steroids Current Visit: Yes Status: Acute Code(s): K56.609 - UNSP INTESTNL OBST, UNSP TO PARTIAL VERSUS COMPLETE OBST SNOMED Code(s): 13119621 Plan: 1. Continue symptomatic and supportive care 2. Continue clear liquid diet 3. Will start IV Solu-Medrol 20 mg every 8 hours for 1-2 more days then changed to prednisone 40 mg by mouth daily 4. Antiemetics as needed 5. Recommend no surgical interventionat this time, this was discussed with Dr. Roblero 6. Will send prednisone taper dose for discharge 7. Patient to follow-up with Dr. Black in the next 1-2 weeks duration. Thank you for allowing us to participate in the care of the patient, the GI se rvice will sign off, gastroenterology will not be available at the hospital this weekend and through next week. If further evaluation by gastroenterology is required the patient will need transfer as per the primary team's discretion. Dr. K Tumma I agree with the dictator's note, documented as a scribe by Alexandra Dai.
--- NOTE | 2022-09-06 14:49 | P.PN ---
Subjective Progress Note Date: 09/06/22 CHIEF COMPLAINT: Small bowel obstruction HISTORY OF PRESENT ILLNESS: Patient reports feeling better today. GI service did start him on IV steroids yesterday. Patient denies any abdominal pain. Was able to tolerate the clear liquids. Denies any nausea or vomiting. He is still having diarrhea. Abdomen is softer today. Denies any blood in his stools. WBC is 7.80 Hgb 10.9 platelets 273 sodium is 141 potassium is 4.1 creatinine 1.1 Patient seen and examined with Dr. torres PHYSICAL EXAM: VITAL SIGNS: Reviewed. GENERAL: Well-developed in no acute distress. HEENT: No sclera icterus. Extraocular movements grossly intact. Moist buccal mucosa. Head is atraumatic, normocephalic. ABDOMEN: Distended but softer than yesterday. Nontender NEUROLOGIC: Alert and oriented. Cranial nerves II through XII grossly intact. ASSESSMENT: 1. Small bowel obstruction likely secondary to scar tissue at the anastomosis site and possibly due to Crohn's disease 2. Crohn's exacerbation PLAN: -Steroids per GI service for Crohn's exacerbation -Advance diet to full liquids -No surgical intervention planned -Continue to monitor -Encouraged patient to ambulate -Continue IV fluids -Continue supportive care Physician Color Straining Bag Washer note has been reviewed by physician. Signing provider agrees with the documented findings, assessment, and plan of care. Objective - Vital Signs Vital signs: Vital Signs Temp 97.5 F L 09/06/22 08:00 Pulse 66 09/06/22 08:00 Resp 16 09/06/22 08:00 BP 149/78 09/06/22 08:00 Pulse Ox 96 09/06/22 08:00 FiO2 Intake & Output 09/05/22 09/06/22 09/06/22 18:59 06:59 18:59 Intake Total 500 1680 Balance 500 1680 Intake: Intake, IV Titration 1200 Amount Sodium Chloride 0.9% 1, 1200 000 ml @ 100 mls/hr IV . Q10H VASILIY Rx#:[id number] Oral 500 480 Other: Voiding Method Toilet # Voids 2 2 - Labs CBC & Chem 7: 09/06/22 06:13 09/06/22 06:13 Labs: Abnormal Lab Results - Last 24 Hours (Table) 09/06/22 09/06/22 Range/Units 06:13 06:13 RBC 3.51 L (4.40-5.60) X 10*6/uL Hgb 10.9 L (13.0-17.0) g/dL Hct 31.4 L (39.6-50.0) % Monocytes # 0.12 L (0.20-1.00) X 10*3/uL Eosinophils # 0.03 L (0.04-0.35) X 10*3/uL Chloride 112 H (96-109) mmol/L Carbon Dioxide 18.2 L (20.0-27.5) mmol/L BUN/Creatinine Ratio 10.45 L (12.00-20.00) Ratio Glucose 147 H (70-110) mg/dL Calcium 8.5 L (8.7-10.3) mg/dL AST 52 H (14-35) U/L ALT 50 H (10-49) U/L Albumin/Globulin Ratio 1.48 L (1.60-3.17) g/dL
[2022-09-06] MEDS: LOSARTAN 50 MG TAB PO SCH (20:06)
[2022-09-06] MEDS: amLODIPine 5 MG TAB PO SCH (20:06)
[2022-09-07] MEDS: ENOXAPARIN 40 MG/0.4 ML SYRINGE SQ SCH (07:41)
[2022-09-07] MEDS: methylPREDNISolone SOD SUCCI 40 MG/ML 1 ML VIAL IV SCH ×2 (07:41→16:10)
[2022-09-07] MEDS: PANTOPRAZOLE 40 MG/10 ML VIAL IVP SCH (07:43)
--- NOTE | 2022-09-07 10:46 | P.PN ---
Progress Note - Text Progress Note Date: 09/07/22 Patient states he feels better today. He is passing some gas. On exam vital signs are stable. Abdomen soft. Partial bowel obstruction related to stricture of ileocolonic anastomosis. Patient has improved. We may repeat CAT scan to evaluate if this obstruction has improved.
[2022-09-07 11:50] LABS: Basophils # (A) 0.01 X 10*3/uL (0.00-0.10); Basophils % (A) 0.1 %; Eosinophils # (A) 0.01 X 10*3/uL (0.04-0.35); Eosinophils % (A) 0.1 %; HCT 29.3 % (39.6-50.0); HGB 10.1 g/dL (13.0-17.0); Immature Grans, Automated 0.3 %; Lymphocytes # (A) 1.41 X 10*3/uL (0.90-5.00); Lymphocytes % (A) 12.5 %; MCH 30.9 pg (27.0-32.0); MCHC 34.5 g/dL (32.0-37.0); MCV 89.6 fL (80.0-97.0); Mean Platelet Volume 10.5 fL (9.5-12.2); Monocytes # (A) 0.43 X 10*3/uL (0.20-1.00); Monocytes % (A) 3.8 %; NRBC Per 100 WBC 0 /100 WBCS (0.0-0.0); Neutrophils # (A) 9.41 X 10*3/uL (1.80-7.70); Neutrophils % (A) 83.2 %; Platelet Count 288 X 10*3/uL (140-440); RBC 3.27 X 10*6/uL (4.40-5.60); RDW 12.1 % (11.5-14.5)
[2022-09-07 12:02] LABS: African American GFR (CKD) 78.7 (60.0-200.0); Albumin/Globulin Ratio 1.51 (1.60-3.17); Anion Gap 10.4 mmol/L (10.00-18.00); BUN/Creat Ratio 12.7 Ratio (12.00-20.00); Blood Urea Nitrogen 14.1 mg/dL (9.0-27.0); Calcium 8.6 mg/dL (8.7-10.3); Carbon Dioxide 19.2 mmol/L (20.0-27.5); Globulin 2.6 g/dL (1.6-3.3); Non-African American GFR(CKD) 67.9 (60.0-200.0); Potassium 4.2 mmol/L (3.5-5.5); Total Bilirubin 0.6 mg/dL (0.30-1.20); Total Protein 6.6 g/dL (6.2-8.2)
--- NOTE | 2022-09-07 14:44 | P.PN ---
Subjective Progress Note Date: 09/07/22 This is a 66-year-old male patient who presents with complaints of nausea and abdominal pain. Patient has a known past medical history of Crohn's disease with previous bowel obstructions reports the symptoms were very similar. Patient denies any major change to diet. Is concerned that he might of eaten a seed that caused this issue. Additional medical history includes prostate cancer, GERD, hyperlipidemia, hypertension, osteoporosis, thyroid disorder and anxiety. CT of abdomen completed showing dilated distal small bowel with apparent transition of the ileocolic colic anastomosis. There is consistent with partial mechanical obstruction dilation similar to old exam. Chest xray completed showing no active cardiopulmonary disease no change. WBC slightly elevated at 11.6, creatinine 1.3 and bun 22 at this time patient has been admitted surgical service is consulted for G-tube Lasix. Patient is currently resting comfortably in bed. Patient reports improvement with abdominal pain and nausea. Abdomen does appear distended. Awaiting surgical input. At this time patient denies chest pain or shortness of breath. Patient denies nausea or vomiting. Patient denies any urinary burning or frequency On 09/05/2022 patient was seen and examined on the medical floor he is alert and oriented 3 in no apparent distress, abdominal pain has improved, at this time patient is passing gas, and had episodes of diarrhea, there is no fever or chills no headache or dizziness no chest pain no shortness of breath no cough no nausea or vomiting and no urinary symptoms On 09/06/2022 patient is alert and oriented 3. Patient reports improvement with abdominal pain and nausea. Patient reports that he is passing gas and loose stools. NG tube has been removed patient denies any further episodes of nausea. Patient remains on IV steroids. Patient denies chest pain or shortness breath. Patient denies any urinary burning or frequency. On 09/07/2022 patient was seen and examined on the medical floor he is alert and oriented 3 in no apparent distress there is no fever or chills no headache or dizziness no chest pain no shortness of breath no cough, abdominal pain is improving there is no nausea or vomiting he is having multiple loose bowel movements no blood in the stools no burning with urination no frequency or urgency and no hematuria. Patient remains on IV steroids at this time. Objective - Vital Signs Vital signs: Vital Signs Temp 97.8 F 09/07/22 07:38 Pulse 64 09/07/22 07:38 Resp 18 09/07/22 08:00 BP 135/71 09/07/22 07:38 Pulse Ox 96 09/07/22 07:38 FiO2 Intake & Output 09/06/22 09/07/22 09/07/22 18:59 06:59 18:59 Intake Total 1680 Balance 1680 Intake: Intake, IV Titration 1200 Amount Sodium Chloride 0.9% 1, 1200 000 ml @ 100 mls/hr IV . Q10H VASILIY Rx#:[id number] Oral 480 Other: Voiding Method Toilet # Voids 4 3 - Exam In general patient is alert and oriented ?-3 in no distress HEENT head normocephalic and atraumatic Neck is supple no JVD no goiter no lymphadenopathy no carotid bruit Chest examination is clear to auscultation no crackles no wheezing Cardiac exam reveals regular heart sounds S1 and S2 no gallops no murmurs Abdomen is soft slightly distended with mild tenderness no organomegaly no palpable masses bowel sounds are audible in all 4 quadrants Extremity exam reveals no edema no cyanosis or clubbing Neurological examination reveals no gross focal deficits - Labs CBC & Chem 7: 09/07/22 06:49 09/07/22 06:49 Labs: Abnormal Lab Results - Last 24 Hours (Table) 09/07/22 09/07/22 Range/Units 06:49 06:49 WBC 11.30 H (4.50-10.00) X 10*3/uL RBC 3.27 L (4.40-5.60) X 10*6/uL Hgb 10.1 L (13.0-17.0) g/dL Hct 29.3 L (39.6-50.0) % Neutrophils # 9.41 H (1.80-7.70) X 10*3/uL Eosinophils # 0.01 L (0.04-0.35) X 10*3/uL Chloride 111 H (96-109) mmol/L Carbon Dioxide 19.2 L (20.0-27.5) mmol/L Glucose 149 H (70-110) mg/dL Calcium 8.6 L (8.7-10.3) mg/dL AST 52 H (14-35) U/L ALT 57 H (10-49) U/L Albumin/Globulin Ratio 1.51 L (1.60-3.17) g/dL Assessment and Plan Assessment: 1. Bowel Obstruction secondary to Crohn's disease. 2. Previous episodes of bowel obstructions 3. History of Crohn's disease diagnosed in [address] Black 4. Dehydration evident by slightly elevated creatinine 5. History of hypothyroidism 6. History of essential hypertension 7. History of hyperlipidemia 8. History of hypogonadism 9. History of vitamin D deficiency 10. History of GERD 11. History of prostate DVT prophylaxis Lovenox. GI prophylaxis Protonix Surgical service is consulted GI services following Patient remains on IV steroids per GI recommendation Labs ordered
[2022-09-07] MEDS: SODIUM CHLORIDE 0.9% 1,000 ML IV SCH (16:10)
[2022-09-07] MEDS ORDERED: LEVOTHYROXINE 75 MCG TAB PO SCH (21:00)
[2022-09-07] MEDS: amLODIPine 5 MG TAB PO SCH (21:32)
[2022-09-07] MEDS: LOSARTAN 50 MG TAB PO SCH (21:32)
[2022-09-08] MEDS: methylPREDNISolone SOD SUCCI 40 MG/ML 1 ML VIAL IV SCH ×2 (01:32→08:22)
[2022-09-08] MEDS: SODIUM CHLORIDE 0.9% 1,000 ML IV SCH (07:13)
[2022-09-08] MEDS: ENOXAPARIN 40 MG/0.4 ML SYRINGE SQ SCH (08:22)
[2022-09-08] MEDS: PANTOPRAZOLE 40 MG/10 ML VIAL IVP SCH (08:22)
[2022-09-08 09:42] VITALS: BP 160/76; PULSE 62; RESP 18; TEMP 97.8
--- NOTE | 2022-09-08 10:54 | P.DS ---
Providers Date of admission: 09/04/22 00:31 Expected date of discharge: 09/08/22 Attending physician: Olman Vance Consults: 09/03/22 23:54 Consult Physician Urgent Consulting Provider: Brandon Roblero Consult Reason/Comments: Bowel obstruction Do you want consulting provider notified?: Yes 09/05/22 11:17 Consult Physician Routine Consulting Provider: Sidra Black Consult Reason/Comments: history of crohns Do you want consulting provider notified?: Yes Primary care physician: [facility] Hospital Course: Diagnoses on discharge: 1. Bowel Obstruction secondary to Crohn's disease. 2. Previous episodes of bowel obstructions 3. History of Crohn's disease diagnosed in [address] Black 4. Dehydration evident by slightly elevated creatinine 5. History of hypothyroidism 6. History of essential hypertension 7. History of hyperlipidemia 8. History of hypogonadism 9. History of vitamin D deficiency 10. History of GERD 11. History of prostate Hospital course: This is a 66-year-old male patient who presents with complaints of nausea and abdominal pain. Patient has a known past medical history of Crohn's disease with previous bowel obstructions reports the symptoms were very similar. Patient denies any major change to diet. Is concerned that he might of eaten a seed that caused this issue. Additional medical history includes prostate cancer, GERD, hyperlipidemia, hypertension, osteoporosis, thyroid disorder and anxiety. CT of abdomen completed showing dilated distal small bowel with apparent transition of the ileocolic colic anastomosis. There is consistent with partial mechanical obstruction dilation similar to old exam. Chest xray completed showing no active cardiopulmonary disease no change. WBC slightly elevated at 11.6, creatinine 1.3 and bun 22 at this time patient has been admitted surgical service is consulted for G-tube Lasix. Patient is currently resting comfortably in bed. Patient reports improvement with abdominal pain and nausea. Abdomen does appear distended. Awaiting surgical input. At this time patient denies chest pain or shortness of breath. Patient denies nausea or vomiting. Patient denies any urinary burning or frequency On 09/05/2022 patient was seen and examined on the medical floor he is alert and oriented 3 in no apparent distress, abdominal pain has improved, at this time patient is passing gas, and had episodes of diarrhea, there is no fever or chills no headache or dizziness no chest pain no shortness of breath no cough no nausea or vomiting and no urinary symptoms On 09/06/2022 patient is alert and oriented 3. Patient reports improvement with abdominal pain and nausea. Patient reports that he is passing gas and loose stools. NG tube has been removed patient denies any further episodes of nausea. Patient remains on IV steroids. Patient denies chest pain or shortness breath. Patient denies any urinary burning or frequency. On 09/07/2022 patient was seen and examined on the medical floor he is alert and oriented 3 in no apparent distress there is no fever or chills no headache or dizziness no chest pain no shortness of breath no cough, abdominal pain is improving there is no nausea or vomiting he is having multiple loose bowel movements no blood in the stools no burning with urination no frequency or urgency and no hematuria. Patient remains on IV steroids at this time. On 09/08/2022 patient was seen and examined on the medical floor he is alert and oriented 3 in no apparent distress there is no fever or chills no headache or dizziness no chest pain no shortness of breath no cough, abdominal pain is improving there is no nausea or vomiting he is having multiple loose bowel movements no blood in the stools no burning with urination no frequency or urgency and no hematuria. Patient will be switched to oral steroids at this time. he will be discharged to home, follow up in the office within 1 week. Patient Condition at Discharge: Fair Plan - Discharge Summary Discharge Rx Participant: Yes New Discharge Prescriptions: New predniSONE 10 mg PO DAILY #74 tab Continue Mesalamine [Pentasa] 1,000 mg PO QID Pantoprazole Sodium [Protonix] 40 mg PO DAILY gemfibroziL [Gemfibrozil] 600 mg PO HS Famotidine [Pepcid] 20 mg PO BID Losartan [Cozaar] 50 mg PO HS amLODIPine [Norvasc] 5 mg PO HS Ergocalciferol [Vitamin D2 (1250 Mcg = 66730 Iu)] 1,250 mcg PO SA Levothyroxine Sodium [Synthroid] 75 mcg PO HS Discharge Medication List Famotidine [Pepcid] 20 mg PO BID 05/06/14 [History] Mesalamine [Pentasa] 1,000 mg PO QID 05/06/14 [History] Pantoprazole Sodium [Protonix] 40 mg PO DAILY 05/06/14 [History] gemfibroziL [Gemfibrozil] 600 mg PO HS 05/06/14 [History] Losartan [Cozaar] 50 mg PO HS 11/16/19 [History] amLODIPine [Norvasc] 5 mg PO HS 11/16/19 [History] Ergocalciferol [Vitamin D2 (1250 Mcg = 91670 Iu)] 1,250 mcg PO SA 09/04/22 [History] Levothyroxine Sodium [Synthroid] 75 mcg PO HS 09/04/22 [History] predniSONE 10 mg PO DAILY #74 tab 09/06/22 [Rx] Follow up Appointment(s)/Referral(s): Sidra Black MD [STAFF PHYSICIAN] - 2 Weeks Olman Vance MD [Primary Care Provider] - 1-2 days
== END 2022-09-08 11:50 | disposition home or self-care (01) | DRG 387 ==
LOC: EC 22:11 → 4SSUR 09-04 00:31
PROVIDERS: ADMIT Internal Medicine; ATTEND Internal Medicine
PROC: 0D9670Z Drainage of Stomach with Drainage Device, Via Natural or Artificial Opening (ICD-10-PCS; principal; 2022-09-03)
DX: K50.912 Crohn's disease, unspecified, with intestinal obstruction (principal); F14.11 Cocaine abuse, in remission; E03.9 Hypothyroidism, unspecified; F12.11 Cannabis abuse, in remission; K44.9 Diaphragmatic hernia without obstruction or gangrene; E78.5 Hyperlipidemia, unspecified; K21.9 Gastro-esophageal reflux disease without esophagitis; I10 Essential (primary) hypertension; E86.0 Dehydration; I25.10 Atherosclerotic heart disease of native coronary artery without angina pectoris; M81.0 Age-related osteoporosis without current pathological fracture; E29.1 Testicular hypofunction; M19.90 Unspecified osteoarthritis, unspecified site; Z79.890 Hormone replacement therapy; Z79.899 Other long term (current) drug therapy; Z87.891 Personal history of nicotine dependence; Z85.46 Personal history of malignant neoplasm of prostate; Z88.5 Allergy status to narcotic agent
CPT/HCPCS: 36415; 71045; 74019; 74176; 80053; 81001; 82150; 83605; 83690; 85025; 85610; 85652; 85730; 86140; 96361; 96374; 96375; 99285

== ENCOUNTER 2023-10-29 19:17 | Inpatient (IN) | payer MEDICARE, OTHER ==
[2023-10-29 19:57] LABS: Basophils # (A) 0.1 k/uL (0-0.2); Basophils % (A) 0 %; Eosinophils # (A) 0.4 k/uL (0-0.7); Eosinophils % (A) 3 %; HGB 14.1 gm/dL (13.0-17.5); Lymphocytes # (A) 2.4 k/uL (1.0-4.8); Lymphocytes % (A) 16 %; MCHC 34.3 g/dL (31.0-37.0); MCV 90.2 fL (80.0-100.0); Mean Platelet Volume 8.3; Monocytes # (A) 0.9 k/uL (0-1.0); Monocytes % (A) 6 %; Neutrophils # (A) 10.6 k/uL (1.3-7.7); Neutrophils % (A) 72 %; Platelet Count 358 k/uL (150-450); RBC 4.54 m/uL (4.30-5.90); RDW 13.3 % (11.5-15.5); WBC 14.8 k/uL (3.8-10.6)
[2023-10-29 20:13] LABS: ALT 44 U/L (4-49); AST 41 U/L (17-59); African American GFR (CKD) 52 (>60 ml/min/1.73 sqM); Albumin 4.5 g/dL (3.5-5.0); Alkaline Phosphatase 78 U/L (38-126); Anion Gap 15 mmol/L; Blood Urea Nitrogen 34 mg/dL (9-20); Calcium 9.6 mg/dL (8.4-10.2); Carbon Dioxide 18 mmol/L (22-30); Chloride 107 mmol/L (98-107); Glucose 133 mg/dL (74-99); Non-African American GFR(CKD) 45 (>60 ml/min/1.73 sqM); Potassium 4.5 mmol/L (3.5-5.1); Sodium 140 mmol/L (137-145); Total Bilirubin 1.5 mg/dL (0.2-1.3); Total Protein 8.3 g/dL (6.3-8.2)
--- NOTE | 2023-10-29 21:27 | CT ---
EXAMINATION TYPE: CT abdomen pelvis w con CT DLP: 1408.2 mGycm, Automated exposure control for dose reduction was used. DATE OF EXAM: 10/29/2023 8:43 PM COMPARISON: 09/03/2022 CLINICAL INDICATION:Male, 67 years old with history of abdominal pain; abdominal cramping, hx of Croh n's TECHNIQUE: Axial CT of the ;CT abdomen pelvis w con;Sagittal and coronal reformats were created on a separate workstation. Contrast used:75ml mL of Isovue 300 with IV Contrast, (none if empty) Oral contrast used: without Oral Contrast (none if empty) FINDINGS: LOWER CHEST: Unremarkable ABDOMEN LIVER: Diffusely hypoattenuating parenchyma. GALLBLADDER AND BILE DUCTS: The gallbladder is surgically absent. PANCREAS: Atrophic appearance of the pancreas. SPLEEN: Unremarkable. ADRENAL GLANDS: Unremarkable. KIDNEYS AND URETERS: No evidence of hydronephrosis or renal calculus. The ureters are unremarkable. PELVIS BLADDER: Unremarkable REPRODUCTIVE: The prostate gland is surgically absent. ABDOMEN & PELVIS STOMACH AND BOWEL: There is focal narrowing of a loop of small bowel bowel in the mid abdomen series 201 image 67 with wall thickening downstream and upstream small bowel feces and dilation. Dilation up to 4.4 cm of small bowel upstream is present. Additionally postsurgical changes with small bowel feces within a loop of small bowel in the right ab domen with dilation up to 5.6 cm. A possible linear radiopaque foreign body is present within this di lated loop of bowel near the anastomotic site of the prior surgery. Findings suggest stasis of ingest ed contents and/or partial obstruction. Findings not significantly changed from 09/03/2022. PERITONEUM/RETROPERITONEUM: No evidence of pneumoperitoneum or free fluid. VASCULATURE: No evidence of aortic aneurysm. MUSCULOSKELETAL: No acute osseous abnormalities LYMPH NODES: No gross evidence for lymphadenopathy. SOFT TISSUE/ABDOMINAL WALL: Bilateral fat-containing inguinal hernias. IMPRESSION: Findings again compatible with sequela of chronic Crohn's disease with focal narrowing of the small b owel in the mid abdomen with upstream dilation likely representing partial obstruction which is not c learly seen on prior. Additionally, there is postsurgical change with dilation of small bowel in the right abdomen a tubular structure present near suture likely representing radiopaque foreign body whi ch is similar prior 09/03/2022 and the right abdomen.
[2023-10-29] MEDS ORDERED: SODIUM CHLORIDE 0.9% 1,000 ML IV ONE (22:06)
[2023-10-29] MEDS ORDERED: PIPERACILLIN-TAZOBACTAM 3.375 GM in SODIUM CHLORIDE 0.9% 100 ML IVPB STA (22:09)
--- NOTE | 2023-10-29 22:18 | ED ---
General Adult HPI - General Chief complaint: Abdominal Pain Stated complaint: chrons Time Seen by Provider: 10/29/23 22:06 Source: patient, RN notes reviewed Mode of arrival: ambulatory Limitations: no limitations - History of Present Illness Initial comments: 67-year-old male with past medical history significant for Crohn's presents the emergency department with a chief complaint of abdominal pain. He reports generalized abdominal pain, nausea that started approximately 3 PM. He has felt like he has had a fever on and off. He denies any vomiting. He did have have a bowel movement earlier this afternoon however he reports it was sma ller than normal. He denies any vomiting, melena, hematochezia, hematemesis. - Related Data Home Medications Medication Instructions Recorded Confirmed Famotidine [Pepcid] 20 mg PO BID 05/06/14 09/04/22 Mesalamine [Pentasa] 1,000 mg PO QID 05/06/14 09/04/22 Pantoprazole Sodium [Protonix] 40 mg PO DAILY 05/06/14 09/04/22 gemfibroziL [Gemfibrozil] 600 mg PO HS 05/06/14 09/04/22 Losartan [Cozaar] 50 mg PO HS 11/16/19 09/04/22 amLODIPine [Norvasc] 5 mg PO HS 11/16/19 09/04/22 Ergocalciferol [Vitamin D2 (1250 1,250 mcg PO SA 09/04/22 09/04/22 Mcg = 98672 Iu)] Levothyroxine Sodium [Synthroid] 75 mcg PO HS 09/04/22 09/04/22 Previous Rx's Medication Instructions Recorded predniSONE 10 mg PO DAILY #74 tab 09/06/22 Allergies Allergy/AdvReac Type Severity Reaction Status Date / Time codeine AdvReac Nausea Verified 09/04/22 08:09 Review of Systems ROS Statement: Those systems with pertinent positive or pertinent negative responses have been documented in the HPI. ROS Other: All systems not noted in ROS Statement are negative. Past Medical History Past Medical History: Cancer, GERD/Reflux, Hyperlipidemia, Hypertension, Osteoarthritis (OA), Skin Disorder, Thyroid Disorder Additional Past Medical History / Comment(s): chron's first diagnosed in 2006, prostate cancer with removal, hypothyroidism, hiatal hernia, eczema when younger. History of Any Multi-Drug Resistant Organisms: None Reported Past Surgical History: Cholecystectomy, Hernia Repair, Prostate Surgery, Tonsillectomy Additional Past Surgical History / Comment(s): exploratory lap x 2, umbilcal h ernia repair, merkels diverticulum removal, prostatectomy. Past Anesthesia/Blood Transfusion Reactions: No Reported Reaction Past Psychological History: Anxiety Smoking Status: Former smoker Past Alcohol Use History: Occasional Past Drug Use History: None Reported - Past Family History Father Family Medical History: Cancer, Coronary Artery Disease (CAD), Hyperlipidemia, Myocardial Infarction ([place]), Prostate Disorder Additional Family Medical History / Comment(s): Father is in Hospice with bone cancer Mother Family Medical History: Coronary Artery Disease (CAD), CVA/TIA, Hyperlipidemia, Myocardial Infarction ([place]) Additional Family Medical History / Comment(s): Mother is 80 yrs old. She has ?CROHNS OR COLITIS, HEART DISEASE General Exam - General Exam Comments Initial Comments: General: Alert, in no acute distress Head: atraumatic normocephalic. Eyes PERRL, EOMI intact, mucous membranes moist Respiratory: Lungs clear to auscultation bilaterally Cardiovascular: Heart rate regular rate and rhythm Abdominal: Mildly distended. Generalized tenderness Extremities: Normal inspection with full range of motion and normal capillary refill Neuroogic: alert and oriented 3, CN II-XII intact, able to ambulate with steady gait Skin: warm dry and intact with normal color Limitations: no limitations Course Vital Signs 10/29/23 19:32 Temperature 97.4 F L Pulse Rate 85 Respiratory 18 Rate Blood Pressure 104/70 O2 Sat by Pulse 99 Oximetry - Reevaluation(s) Reevaluation #1: 10/29/23 22:35 Case is discussed with Dr. Vance who agrees and accepts the patient for admission. Medical Decision Making - Medical Decision Making Was pt. sent in by a medical professional or institution (, PA, HEEL L[facility]ER, urgent care, hospital, or [place] health care facility...) When possible be specific @ -[No] Did you speak to anyone other than the patient for history (EMS, parent, family, police, friend...)? What history was obtained from this source @ -[No] Did you review nursing and triage notes (agree or disagree)? Why? @ -[I reviewed and agree with nursing and triage notes] Were old charts reviewed (outside hosp., previous admission, EMS record, old EKG, old radiological studies, urgent care reports/EKG's, [place] health care facility records)? Report findings @ -[No old charts were reviewed] Differential Diagnosis (chest pain, altered mental status, abdominal pain women, abdominal pain men, vaginal bleeding, weakness, fever, dyspnea, syncope, headache, dizziness, GI bleed, back pain, seizure, CVA, palpatations, mental health, musculoskeletal)? @ -[not applicable] EKG interpreted by me (3pts min.). @ -[As above] X-rays interpreted by me (1pt min.). @ -[None done] CT interpreted by me (1pt min.). @ -Yes U/S interpreted by me (1pt. min.). @ -[None done] What testing was considered but not performed or refused? (CT, X-rays, U/S, labs)? Why? @ -[None] What meds were considered but not given or refused? Why? @ -[None] Did you discuss the management of the patient with other professionals (professionals i.e. , PA, HEEL L[facility]ER, lab, RT, psych nurse, social service technician, contracts law professor, teacher, commissioned defence force officer, rn case manager)? Give summary @ -Dr. vance who accepts the patient Was smoking cessation discussed for >3mins.? @ -[No] Was critical care preformed (if so, how long)? @ -[No] Were there social determinants of health that impacted care today? How? (Homelessness, low income, unemployed, alcoholism, drug addiction, transportation, low edu. Level, literacy, decrease access to med. care, correction, rehab)? @ -[No] Was there de-escalation of care discussed even if they declined (Discuss DNR or withdrawal of care, Hospice)? DNR status @ -[No] What co-morbidities impacted this encounter? (DM, HTN, Smoking, COPD, CAD, Cancer, CVA, ARF, Chemo, Hep., AIDS, mental health diagnosis, sleep apnea, morbid obesity)? @ -[None] Was patient admitted / discharged? Hospital course, mention meds given and route, prescriptions, significant lab abnormalities, going to OR and other pertinent info. @ -Admission. This is a 67-year-old male who presents the emergency department with abdominal pain. Patient had a thorough history and physical exam performed on the ED. Physical exam reveals vital signs are stable. Patient afebrile. Abdomen is mildly distended with generalized tenderness. Heart rate regular rate and rhythm, lungs clear to auscultation. Patient laboratory studies which reveal WBC 14.8, hemoglobin 14.1 sodium 140, potassium 4.5 and 34, creatinine 1.54, lactic acid 1.3 I interpreted the following: CT abdomen reveals all of chronic Crohn's disease with a coronary range of the small bowel in the mid abdomen with a history of dilation likely representing a partial obstruction just not seen on prior. I discussed the results in detail with the patient verbalized understanding all questions were addressed. He is agreeable with the plan for admission. Case is discussed with Dr. Vance, who agrees and accepts the patient for admission with consult to Dr. Holland and doctor tomorrow. Patient will be kept nothing by mouth. Started on Zosyn. maintenance fluid to be hung. NG tube placed. Case is discussed with Dr. Nolan, [facility] who agrees with plan of care Undiagnosed new problem with uncertain prognosis? @ -[No] Drug Therapy requiring intensive monitoring for toxicity (Heparin, Nitro, Insulin, Cardizem)? @ -[No] Were any procedures done? @ -[No] Diagnosis/symptom? @ -SBO - Abdominal Pain - Hx of Crohns Acute, or Chronic, or Acute on Chronic? @ -Acute Uncomplicated (without systemic symptoms) or Complicated (systemic symptoms)? @ -Uncomplicated Side effects of treatment? @ -[No] Exacerbation, Progression, or Severe Exacerbation? @ -[No] Poses a threat to life or bodily function? How? (Chest pain, [place], [place], pneumonia, PE, COPD, DKA, ARF, appy, cholecystitis, CVA, Diverticulitis, Homicidal, Suicidal, threat to staff... and all critical care pts) @ -Yes, SBO - Lab Data Result diagrams: 10/29/23 19:48 10/29/23 19:48 Lab Results 10/29/23 10/29/23 10/29/23 Range/Units 19:48 19:48 19:48 WBC 14.8 H (3.8-10.6) k/uL RBC 4.54 (4.30-5.90) m/uL Hgb 14.1 (13.0-17.5) gm/dL Hct 41.0 (39.0-53.0) % MCV 90.2 (80.0-100.0) fL MCH 31.0 (25.0-35.0) pg MCHC 34.3 (31.0-37.0) g/dL RDW 13.3 (11.5-15.5) % Plt Count 358 (150-450) k/uL MPV 8.3 Neutrophils % 72 % Lymphocytes % 16 % Monocytes % 6 % Eosinophils % 3 % Basophils % 0 % Neutrophils # 10.6 H (1.3-7.7) k/uL Lymphocytes # 2.4 (1.0-4.8) k/uL Monocytes # 0.9 (0-1.0) k/uL Eosinophils # 0.4 (0-0.7) k/uL Basophils # 0.1 (0-0.2) k/uL Sodium 140 (137-145) mmol/L Potassium 4.5 (3.5-5.1) mmol/L Chloride 107 (98-107) mmol/L Carbon Dioxide 18 L (22-30) mmol/L Anion Gap 15 mmol/L BUN 34 H (9-20) mg/dL Creatinine 1.54 H (0.66-1.25) mg/dL Est GFR (CKD-EPI)AfAm 52 (>60 ml/min/1.73 sqM) Est GFR (CKD-EPI)NonAf 45 (>60 ml/min/1.73 sqM) Glucose 133 H (74-99) mg/dL Plasma Lactic Acid Alex 1.3 (0.7-2.0) mmol/L Calcium 9.6 (8.4-10.2) mg/dL Total Bilirubin 1.5 H (0.2-1.3) mg/dL AST 41 (17-59) U/L ALT 44 (4-49) U/L Alkaline Phosphatase 78 (38-126) U/L Total Protein 8.3 H (6.3-8.2) g/dL Albumin 4.5 (3.5-5.0) g/dL Disposition Clinical Impression: Abdominal pain, Partial obstruction of small intestine, Crohn's disease Disposition: ADMITTED IP TO THIS [facility] Condition: Fair Referrals: Olman Vance MD [Primary Care Provider] - 1-2 days Time of Disposition: 22:18
[2023-10-29] MEDS ORDERED: NALOXONE 0.4 MG/ML 1 ML VIAL IV PRN (22:37)
[2023-10-30] MEDS: SODIUM CHLORIDE 0.9% 1,000 ML IV SCH ×3 (00:06→23:48)
--- NOTE | 2023-10-30 01:54 | XR ---
EXAM: XR Chest, 1 View CLINICAL HISTORY: NG tube placement TECHNIQUE: Frontal view of the chest. COMPARISON: Chest single view dated 09/04/2022 FINDINGS: Lungs: Unremarkable. No consolidation. The pulmonary vasculature demonstrates no significant radiographic abnormality. Pleural space: Unremarkable. No pneumothorax. No large pleural effusion. Heart: Unremarkable. No cardiomegaly. Mediastinum: Mediastinal contours are stable. No tracheal deviation. Bones/joints: Unremarkable. No acute fracture. Tubes, lines and devices: The nasogastric tube traverses the mediastinum and terminates in the left upper quadrant. IMPRESSION: The nasogastric tube traverses the mediastinum and terminates in the left upper quadrant, presumed in the proximal to mid stomach.
[2023-10-30] MEDS: HYDROmorphone 0.5 MG/0.5 ML SYRINGE IVP PRN ×2 (03:31→07:17)
[2023-10-30 07:44] LABS: Basophils % (A) 0 %; Eosinophils # (A) 0.3 k/uL (0-0.7); Eosinophils % (A) 3 %; HCT 39.5 % (39.0-53.0); Lymphocytes # (A) 2.3 k/uL (1.0-4.8); Lymphocytes % (A) 17 %; MCH 30.1 pg (25.0-35.0); MCV 91.3 fL (80.0-100.0); Mean Platelet Volume 8.5; Monocytes # (A) 0.9 k/uL (0-1.0); Monocytes % (A) 7 %; Neutrophils # (A) 9.6 k/uL (1.3-7.7); Neutrophils % (A) 70 %; Platelet Count 339 k/uL (150-450); RBC 4.32 m/uL (4.30-5.90); RDW 13.5 % (11.5-15.5); WBC 13.6 k/uL (3.8-10.6)
[2023-10-30 08:03] LABS: African American GFR (CKD) 62 (>60 ml/min/1.73 sqM); Anion Gap 12 mmol/L; Blood Urea Nitrogen 32 mg/dL (9-20); Calcium 9.2 mg/dL (8.4-10.2); Carbon Dioxide 20 mmol/L (22-30); Chloride 106 mmol/L (98-107); Glucose 149 mg/dL (74-99); Non-African American GFR(CKD) 54 (>60 ml/min/1.73 sqM); Potassium 4.6 mmol/L (3.5-5.1); Sodium 138 mmol/L (137-145)
[2023-10-30] MEDS: methylPREDNISolone SOD SUCCI 40 MG/ML 1 ML VIAL IV SCH ×3 (10:57→23:40)
--- NOTE | 2023-10-30 13:10 | P.GSCN ---
History of Present Illness Consult date: 10/30/23 History of present illness: CHIEF COMPLAINT: Abdominal pain HISTORY OF PRESENT ILLNESS: This is a 67-year-old male with a known past medical history of Crohn's and prior bowel obstructions that were managed conservatively. Patient reports his abdominal pain started yesterday around 3 PM. He was having vomiting. He did have a small bowel movement yesterday evening. But since then has had no bowel movements or flatus. Patient has NG tube in place. He had a computed tomography scan abdomen and pelvis on the reported findings again compatible with sequelae of chronic Crohn's disease with focal narrowing of the small bowel in the mid abdomen with upstream dilation likely representing a partial obstruction. There is a postsurgical change with dilation of small bowel in the right abdomen tubular structure present near suture likely representing radiopaque foreign body which is similar prior to 09/03/2022 in the right abdomen. Patient has had previous bowel obstructions that were noted secondary to scar tissue at the anastomotic site. Patient's past surgical history does include a resection for Meckel's diverticulum, umbilical hernia repair, cholecystectomy, 2 exploratory laparotomies and prostatectomy. PAST MEDICAL HISTORY: See list. PAST SURGICAL HISTORY: See list. MEDICATIONS: See list. ALLERGIES: See list. SOCIAL HISTORY: No illicit drug use. REVIEW OF SYSTEMS: CONSTITUTIONAL: Denies fever or chills. HEENT: Denies blurred vision, vision changes, or eye pain. Denies hemoptysis ENDOCRINE: Denies heat or cold intolerance. CARDIOVASCULAR: Denies chest pain or pressure. RESPIRATORY: No shortness of breath. GASTROINTESTINAL: Please refer to HPI NEURO: Denies history of seizures. PSYCH: No depression or suicidal ideation HEMATOLOGIC: Denies bleeding disorders. LYMPHATIC: The patient denies any lumps and bumps around the neck. GENITOURINARY: Denies any blood in urine or increased urinary frequency. MUSCULOSKELETAL: Denies myalgias. Denies joint swelling. Denies decreased range of motion beyond patients baseline. SKIN: Denies pruitis. Denies rash. PHYSICAL EXAM: VITAL SIGNS: Reviewed GENERAL: Well-developed in no acute distress. HEENT: No sclera icterus. Extraocular movements grossly intact. Moist buccal mucosa. Head is atraumatic, normocephalic. Hears conversational speech. No nasal drainage. NECK: Supple without lymphadenopathy. CHEST: Non-labored respirations and equal bilateral excursions. CARDIOVASCULAR: Palpable 2+ radial pulses. ABDOMEN: distended. diffuse tenderness MUSCULOSKELETAL: No clubbing or cyanosis. NEUROLOGIC: No focal or lateralizing signs. Cranial nerves II through XII g rossly intact. PSYCH: Appropriate affect. Alert and oriented to person, place and time. SKIN: Well perfused. Good skin turgor. LABORATORY DATA: WBC 14.8 to 13.6 HGb 13 plt 339 Na 138 K 4.6 Cr 1.34 IMAGING: computed tomography scan abdomen and pelvis on the reported findings again compatible with sequelae of chronic Crohn's disease with focal narrowing of the small bowel in the mid abdomen with upstream dilation likely representing a partial obstruction. There is a postsurgical change with dilation of small bowel in the right abdomen tubular structure present near suture likely represe nting radiopaque foreign body which is similar prior to 09/03/2022 in the right abdomen. ASSESSMENT: 1. Partial small bowel obstruction likely secondary to his Crohn's 2. History of Crohn's with likely a Crohn's exacerbation 3. History of multiple abdominal surgeries 4. History of prostate cancer status post prostatectomy and radiation treatment 5. Acute kidney injury 6. Hypertension 7. Hyperlipidemia 8. Leukocytosis PLAN: -Continue NG tube for decompression -Keep patient nothing by mouth -Patient seen by GI service and they have started IV steroids -Continue IV antibiotics -Continue IV fluids -Continue to monitor Thank you for this consultation Physician Trimmer Sorter note has been reviewed by physician. Signing provider agrees with the documented findings, assessment, and plan of care. Past Medical History Past Medical History: Cancer, GERD/Reflux, Hyperlipidemia, Hypertension, Osteoarthritis (OA), Skin Disorder, Thyroid Disorder Additional Past Medical History / Comment(s): chron's first diagnosed in 2006, prostate cancer with removal, hypothyroidism, hiatal hernia, eczema when younger. History of Any Multi-Drug Resistant Organisms: None Reported Past Surgical History: Cholecystectomy, Hernia Repair, Prostate Surgery, Tonsillectomy Additional Past Surgical History / Comment(s): exploratory lap x 2, umbilcal hernia repair, merkels diverticulum removal, prostatectomy. Past Anesthesia/Blood Transfusion Reactions: No Reported Reaction Past Psychological History: Anxiety Smoking Status: Former smoker Past Alcohol Use History: Occasional Past Drug Use History: None Reported - Past Family History Father Family Medical History: Cancer, Coronary Artery Disease (CAD), Hyperlipidemia, Myocardial Infarction ([place]), Prostate Disorder Additional Family Medical History / Comment(s): Father is in Hospice with bone cancer Mother Family Medical History: Coronary Artery Disease (CAD), CVA/TIA, Hyperlipidemia, Myocardial Infarction ([place]) Additional Family Medical History / Comment(s): Mother is 80 yrs old. She has ?CROHNS OR COLITIS, HEART DISEASE Medications and Allergies Home Medications Medication Instructions Recorded Confirmed Type Famotidine [Pepcid] 20 mg PO BID 05/06/14 10/29/23 History Mesalamine [Pentasa] 1,000 mg PO QID 05/06/14 10/29/23 History Pantoprazole Sodium [Protonix] 40 mg PO DAILY 05/06/14 10/29/23 History gemfibroziL [Gemfibrozil] 600 mg PO DAILY 05/06/14 10/29/23 History Losartan [Cozaar] 50 mg PO DAILY 11/16/19 10/29/23 History amLODIPine [Norvasc] 5 mg PO DAILY 11/16/19 10/29/23 History Ergocalciferol [Vitamin D2 (1250 1,250 mcg PO SA 09/04/22 10/29/23 History Mcg = 51227 Iu)] Levothyroxine Sodium [Synthroid] 75 mcg PO DAILY 09/04/22 10/29/23 History Albuterol Inhaler [Ventolin Hfa 1 - 2 puff INHALATION RT-Q6H PRN 10/29/23 10/29/23 History Inhaler] Infliximab-Dyyb [Inflectra] 1 dose IV Q42D 10/29/23 10/29/23 History Multivitamins, Thera [Multivitamin 1 tab PO DAILY 10/29/23 10/29/23 History (formulary)] Allergies Allergy/AdvReac Type Severity Reaction Status Date / Time codeine AdvReac Nausea Verified 10/29/23 23:15 Surgical - Exam Vital Signs Temp Pulse Resp BP Pulse Ox 97.4 F L 85 18 104/70 99 10/29/23 19:32 10/29/23 19:32 10/29/23 19:32 10/29/23 19:32 10/29/23 19:32 Results - Labs 10/30/23 07:30 10/30/23 07:30 Abnormal Lab Results - Last 24 Hours (Table) 10/29/23 10/29/2310/30/23 Range/Units 19:48 19:48 07:30 WBC 14.8 H 13.6 H (3.8-10.6) k/uL Neutrophils # 10.6 H 9.6 H (1.3-7.7) k/uL Carbon Dioxide 18 L (22-30) mmol/L BUN 34 H (9-20) mg/dL Creatinine 1.54 H (0.66-1.25) mg/dL Glucose 133 H (74-99) mg/dL Total Bilirubin 1.5 H (0.2-1.3) mg/dL Total Protein 8.3 H (6.3-8.2) g/dL 10/30/23 Range/Units 07:30 WBC (3.8-10.6) k/uL Neutrophils # (1.3-7.7) k/uL Carbon Dioxide 20 L (22-30) mmol/L BUN 32 H (9-20) mg/dL Creatinine 1.34 H (0.66-1.25) mg/dL Glucose 149 H (74-99) mg/dL Total Bilirubin (0.2-1.3) mg/dL Total Protein (6.3-8.2) g/dL Diabetes panel 10/29/23 10/30/23 Range/Units 19:48 07:30 Sodium 140 138 (137-145) mmol/L Potassium 4.5 4.6 (3.5-5.1) mmol/L Chloride 107 106 (98-107) mmol/L Carbon Dioxide 18 L 20 L (22-30) mmol/L BUN 34 H 32 H (9-20) mg/dL Creatinine 1.54 H 1.34 H (0.66-1.25) mg/dL Glucose 133 H 149 H (74-99) mg/dL Calcium 9.6 9.2 (8.4-10.2) mg/dL AST 41 (17-59) U/L ALT 44 (4-49) U/L Alkaline Phosphatase 78 (38-126) U/L Total Protein 8.3 H (6.3-8.2) g/dL Albumin 4.5 (3.5-5.0) g/dL Calcium panel 10/29/23 10/30/23 Range/Units 19:48 07:30 Calcium 9.6 9.2 (8.4-10.2) mg/dL Albumin 4.5 (3.5-5.0) g/dL Pituitary panel 10/29/23 10/30/23 Range/Units 19:48 07:30 Sodium 140 138 (137-145) mmol/L Potassium 4.5 4.6 (3.5-5.1) mmol/L Chloride 107 106 (98-107) mmol/L Carbon Dioxide 18 L 20 L (22-30) mmol/L BUN 34 H 32 H (9-20) mg/dL Creatinine 1.54 H 1.34 H (0.66-1.25) mg/dL Glucose 133 H 149 H (74-99) mg/dL Calcium 9.6 9.2 (8.4-10.2) mg/dL Adrenal panel 10/29/23 10/30/23 Range/Units 19:48 07:30 Sodium 140 138 (137-145) mmol/L Potassium 4.5 4.6 (3.5-5.1) mmol/L Chloride 107 106 (98-107) mmol/L Carbon Dioxide 18 L 20 L (22-30) mmol/L BUN 34 H 32 H (9-20) mg/dL Creatinine 1.54 H 1.34 H (0.66-1.25) mg/dL Glucose 133 H 149 H (74-99) mg/dL Calcium 9.6 9.2 (8.4-10.2) mg/dL Total Bilirubin 1.5 H (0.2-1.3) mg/dL AST 41 (17-59) U/L ALT 44 (4-49) U/L Alkaline Phosphatase 78 (38-126) U/L Total Protein 8.3 H (6.3-8.2) g/dL Albumin 4.5 (3.5-5.0) g/dL
[2023-10-30] MEDS ORDERED: MORPHINE SULFATE 4 MG/ML SYRINGE IVP PRN (14:44)
[2023-10-30] MEDS ORDERED: ONDANSETRON 4 MG/2 ML VIAL IVP PRN (14:44)
--- NOTE | 2023-10-30 14:45 | P.HPIM ---
History of Present Illness H&P Date: 10/30/23 Remigio Phillips, is a 67-year-old male who presented to [facility] emergency room with a chief complaint of abdominal pain and vomiting. Patient has a known history of Crohn's disease, he had previous episodes of bowel obstructions. He was evaluated in the emergency room vital examination on presentation revealed a temperature of 97.4 pulse 85 respiration 18 pressure 104/70 pulse ox 99% on room air Laboratory data revealed a white blood count of 14.8 hemoglobin 14.1 platelet count 358 BUN 34 creatinine 1.54 total bilirubin 1.5 with normal AST and ALT and alkaline phosphatase. Testing in the emergency room revealed computed tomography scan of the abdomen and pelvis revealed focal narrowing of the small bowel in the mid abdomen with upstream dilated Tatian likely representing partial obstruction and possible right ear ache foreign-body in the right abdomen. Patient was admitted to medical floor for further evaluation and treatment, surgical consultation was requested Past Medical History Past Medical History: Cancer, GERD/Reflux, Hyperlipidemia, Hypertension, Osteoarthritis (OA), Skin Disorder, Thyroid Disorder Additional Past Medical History / Comment(s): chron's first diagnosed in 2006, prostate cancer with removal, hypothyroidism, hiatal hernia, eczema when younger. History of Any Multi-Drug Resistant Organisms: None Reported Past Surgical History: Cholecystectomy, Hernia Repair, Prostate Surgery, Tonsillectomy Additional Past Surgical History / Comment(s): exploratory lap x 2, umbilcal hernia repair, merkels diverticulum removal, prostatectomy. Past Anesthesia/Blood Transfusion Reactions: No Reported Reaction Past Psychological History: Anxiety Smoking Status: Former smoker Past Alcohol Use History: Occasional Past Drug Use History: None Reported - Past Family History Father Family Medical History: Cancer, Coronary Artery Disease (CAD), Hyperlipidemia, Myocardial Infarction ([place]), Prostate Disorder Additional Family Medical History / Comment(s): Father is in Hospice with bone cancer Mother Family Medical History: Coronary Artery Disease (CAD), CVA/TIA, Hyperlipidemia, Myocardial Infarction ([place]) Additional Family Medical History / Comment(s): Mother is 80 yrs old. She has ?CROHNS OR COLITIS, HEART DISEASE Medications and Allergies Home Medications Medication Instructions Recorded Confirmed Type Famotidine [Pepcid] 20 mg PO BID 05/06/14 10/29/23 History Mesalamine [Pentasa] 1,000 mg PO QID 05/06/14 10/29/23 History Pantoprazole Sodium [Protonix] 40 mg PO DAILY 05/06/14 10/29/23 History gemfibroziL [Gemfibrozil] 600 mg PO DAILY 05/06/14 10/29/23 History Losartan [Cozaar] 50 mg PO DAILY 11/16/19 10/29/23 History amLODIPine [Norvasc] 5 mg PO DAILY 11/16/19 10/29/23 History Ergocalciferol [Vitamin D2 (1250 1,250 mcg PO SA 09/04/22 10/29/23 History Mcg = 60231 Iu)] Levothyroxine Sodium [Synthroid] 75 mcg PO DAILY 09/04/22 10/29/23 History Albuterol Inhaler [Ventolin Hfa 1 - 2 puff INHALATION RT-Q6H PRN 10/29/23 10/29/23 History Inhaler] Infliximab-Dyyb [Inflectra] 1 dose IV Q42D 10/29/23 10/29/23 History Multivitamins, Thera [Multivitamin 1 tab PO DAILY 10/29/23 10/29/23 History (formulary)] Allergies Allergy/AdvReac Type Severity Reaction Status Date / Time codeine AdvReac Nausea Verified 10/29/23 23:15 Physical Exam Vitals: Vital Signs Temp Pulse Resp BP Pulse Ox 10/30/23 11:20 98.9 F 79 18 150/96 95 10/30/23 03:00 99 22 165/89 94 L 10/29/23 19:32 97.4 F L 85 18 104/70 99 Intake and Output 10/29/23 10/30/23 10/30/23 22:59 06:59 14:59 Other: Weight 92.986 kg In general patient is alert and oriented x 3 in no distress HEENT head normocephalic and atraumatic Neck is supple no JVD no goiter no lymphadenopathy no carotid bruit Chest examination is clear to auscultation no crackles no wheezing Cardiac exam reveals regular heart sounds S1 and S2 no gallops no murmurs Abdomen is soft nontender no organomegaly with normal bowel sounds Extremity exam reveals no edema no cyanosis or clubbing Neurological examination reveals no gross focal deficits Results CBC & Chem 7: 10/30/23 07:30 10/30/23 07:30 Labs: Abnormal Lab Results - Last 24 Hours (Table) 10/29/23 10/29/23 10/30/23 Range/Units 19:48 19:48 07:30 WBC 14.8 H 13.6 H (3.8-10.6) k/uL Neutrophils # 10.6 H 9.6 H (1.3-7.7) k/uL Carbon Dioxide 18 L (22-30) mmol/L BUN 34 H (9-20) mg/dL Creatinine 1.54 H (0.66-1.25) mg/dL Glucose 133 H (74-99) mg/dL Total Bilirubin 1.5 H (0.2-1.3) mg/dL Total Protein 8.3 H (6.3-8.2) g/dL 10/30/23 Range/Units 07:30 WBC (3.8-10.6) k/uL Neutrophils # (1.3-7.7) k/uL Carbon Dioxide 20 L (22-30) mmol/L BUN 32 H (9-20) mg/dL Creatinine 1.34 H (0.66-1.25) mg/dL Glucose 149 H (74-99) mg/dL Total Bilirubin (0.2-1.3) mg/dL Total Protein (6.3-8.2) g/dL Assessment and Plan Plan: Partial small bowel obstruction Underlying history of Crohn's disease Dehydration with acute kidney injury Leukocytosis on presentation Underlying history of hypertension Underlying history of hyperlipidemia Previous history of prostate cancer with history of prostatectomy and radiation therapy History of Gilbert's syndrome with elevated bilirubin Previous history of abdominal surgery for small bowel obstruction and Sheryl diverticulum Underlying history of hypothyroidism At this time patient is admitted to medical floor He is nothing by mouth he has NG tube in He is maintained on IV fluids Surgical consultation requested, gastroenterology consult requested He was started on IV antibiotic Zosyn, and IV steroid Solu-Medrol in the emergency room For DVT prophylaxis subcu Lovenox For GI prophylaxis IV Protonix Will follow closely
[2023-10-30] MEDS: ENOXAPARIN 30 MG/0.3 ML SYRINGE SQ SCH (15:19)
[2023-10-30] MEDS: PIPERACILLIN-TAZOBACTAM 3.375 GM in SODIUM CHLORIDE 0.9% 100 ML IVPB SCH ×2 (15:19→23:40)
--- NOTE | 2023-10-30 15:19 | P.CONS ---
History of Present Illness - Reason for Consult Consult date: 10/30/23 Crohn's disease, small bowel obstruction Requesting physician: Rachel Peraza - Chief Complaint Abdominal pain - History of Present Illness This is a 67-year-old white male with long-standing history of Crohn's disease who presented to the emergency department with abdominal pain and concerns for small bowel obstruction. He has a history of Crohn's disease diagnosed in 2026, had surgery many years ago. Currently maintained on mesalamine and Inflectra and follows with Dr. Black. States yesterday morning he got up he started having abdominal pain, was only able to have a very small bowel movement the last couple of days. They have been solid. Denies any rectal bleeding or blood in his stool. He states he was concerned that had a small bowel obstruction and symptoms were similar in the past. His last colonoscopy done on 06/13/[address] Black was found to be a normal colonoscopy. He had a CT of the abdomen and pelvis that reported sequela of chronic Crohn's disease with focal narrowing of the small bowel in the midabdomen with upstream dilation likely representing partial obstruction. Patient submitted for small bowel obstruction. Currently has NG tube in place with suction with approximately 100 mL of bile-like fluid. States abdominal pain slightly better as well as bloating. He also states that he felt like he had a fever and chills at home. Patient had leukocytosis on admission. WBC 14.8 hemoglobin 14, hematocrit 41 platelet count 358,000 sodium 140 potassium 4.5 BUN 34 creatinine 1.5 total bilirubin 1.5 AST 41 ALT 44 alkaline phosphatase 78. Review of Systems REVIEW OF SYSTEMS: CARDIOPULMONARY: No chest pain or shortness of breath. Gastrointestinal: Abdominal pain and bloating. No nausea or vomiting. No hematemesis, coffee-ground emesis. No rectal bleeding, or melena. Very small hard bowel movement. GENITOURINARY: No dysuria or hematuria. MUSCULOSKELETAL: Reports normal range of motion. SKIN: No rashes. No jaundice. ENDOCRINE: No chills, fevers. No excessive weight gain or loss. No polydipsia or polyuria. PSYCHIATRIC: Unremarkable. NEUROLOGY: No change in mental status. Denies dizziness, headache. ENT: Vision unremarkable. CONSTITUTIONAL: No recent weight loss. No fever, chills, night sweats. Past Medical History Past Medical History: Cancer, GERD/Reflux, Hyperlipidemia, Hypertension, Osteoarthritis (OA), Skin Disorder, Thyroid Disorder Additional Past Medical History / Comment(s): chron's first diagnosed in 2006, prostate cancer with removal, hypothyroidism, hiatal hernia, eczema when younger. History of Any Multi-Drug Resistant Organisms: None Reported Past Surgical History: Cholecystectomy, Hernia Repair, Prostate Surgery, Tonsillectomy Additional Past Surgical History / Comment(s): exploratory lap x 2, umbilcal he rnia repair, merkels diverticulum removal, prostatectomy. Past Anesthesia/Blood Transfusion Reactions: No Reported Reaction Past Psychological History: Anxiety Smoking Status: Former smoker Past Alcohol Use History: Occasional Past Drug Use History: None Reported - Past Family History Father Family Medical History: Cancer, Coronary Artery Disease (CAD), Hyperlipidemia, Myocardial Infarction ([place]), Prostate Disorder Additional Family Medical History / Comment(s): Father is in Hospice with bone cancer Mother Family Medical History: Coronary Artery Disease (CAD), CVA/TIA, Hyperlipidemia, Myocardial Infarction ([place]) Additional Family Medical History / Comment(s): Mother is 80 yrs old. She has ?CROHNS OR COLITIS, HEART DISEASE Medications and Allergies Home Medications Medication Instructions Recorded Confirmed Type Famotidine [Pepcid] 20 mg PO BID 05/06/14 10/29/23 History Mesalamine [Pentasa] 1,000 mg PO QID 05/06/14 10/29/23 History Pantoprazole Sodium [Protonix] 40 mg PO DAILY 05/06/14 10/29/23 History gemfibroziL [Gemfibrozil] 600 mg PO DAILY 05/06/14 10/29/23 History Losartan [Cozaar] 50 mg PO DAILY 11/16/19 10/29/23 History amLODIPine [Norvasc] 5 mg PO DAILY 11/16/19 10/29/23 History Ergocalciferol [Vitamin D2 (1250 1,250 mcg PO SA 09/04/22 10/29/23 History Mcg = 88492 Iu)] Levothyroxine Sodium [Synthroid] 75 mcg PO DAILY 09/04/22 10/29/23 History Albuterol Inhaler [Ventolin Hfa 1 - 2 puff INHALATION RT-Q6H PRN 10/29/23 10/29/23 History Inhaler] Infliximab-Dyyb [Inflectra] 1 dose IV Q42D 10/29/23 10/29/23 History Multivitamins, Thera [Multivitamin 1 tab PO DAILY 10/29/23 10/29/23 History (formulary)] Allergies Allergy/AdvReac Type Severity Reaction Status Date / Time codeine AdvReac Nausea Verified 10/29/23 23:15 Physical Exam Vitals: Vital Signs Temp Pulse Resp BP Pulse Ox 10/30/23 03:00 99 22 165/89 94 L 10/29/23 19:32 97.4 F L 85 18 104/70 99 Intake and Output 10/29/23 10/30/23 10/30/23 22:59 06:59 14:59 Other: Weight 92.986 kg General appearance: The patient is alert, oriented, appears in no acute distress. HET: Head is normocephalic and atraumatic. NG tube in place. Conjunctiva pink. Sclera anicteric. Neck: Supple without lymphadenopathy. Trachea midline. Heart: Regular. Lungs: Equal expansion, normal respiratory effort. Abdomen: Soft, nontender, distended. No guarding or rigidity. Skin: No rashes. No jaundice. Extremities: Normal skin color and turgor. No pedal edema. Neurological: No focal deficits. Alert and oriented x3. Results CBC & Chem 7: 10/30/23 07:30 10/30/23 07:30 Labs: Abnormal Lab Results - Last 24 Hours (Table) 10/29/23 10/29/23 10/30/23 Range/Units 19:48 19:48 07:30 WBC 14.8 H 13.6 H (3.8-10.6) k/uL Neutrophils # 10.6 H 9.6 H (1.3-7.7) k/uL Carbon Dioxide 18 L (22-30) mmol/L BUN 34 H (9-20) mg/dL Creatinine 1.54 H (0.66-1.25) mg/dL Glucose 133 H (74-99) mg/dL Total Bilirubin 1.5 H (0.2-1.3) mg/dL Total Protein 8.3 H (6.3-8.2) g/dL 10/30/23 Range/Units 07:30 WBC (3.8-10.6) k/uL Neutrophils # (1.3-7.7) k/uL Carbon Dioxide 20 L (22-30) mmol/L BUN 32 H (9-20) mg/dL Creatinine 1.34 H (0.66-1.25) mg/dL Glucose 149 H (74-99) mg/dL Total Bilirubin (0.2-1.3) mg/dL Total Protein (6.3-8.2) g/dL Comments: CT abdomen and pelvis with contrast reports findings again compatible with sequela of chronic Crohn's disease with focal narrowing of the small bowel in the mid abdomen with upstream dilation likely representing partial obstruction which is not clearly seen on prior. Additionally there is postsurgical change with dilation of small bowel in the right abdomen a tubular structure present near suture likely representing radiopaque foreign body which is similar prior 09/03/2022 in the right abdomen Chest x-ray nasogastric tube traverses the mediastinum and terminates in the left upper quadrant, presumed and proximal to mid stomach. Assessment and Plan (1) Crohn disease Narrative/Plan: 67-year-old male with long-standing history of Crohn's disease affecting his small bowel who has been known to have a small bowel obstructions in the past again presenting with abdominal pain and distention with findings of partial small bowel obstruction. Currently being treated with NG tube, nothing by mouth and will start on IV steroids as well as antibiotics for leukocytosis and reported fever chills at home. General surgery on consult for small bowel obstruction, however recommend conservative treatment at this time as patient usually responds well to his steroids and has not required any surgery in the recent past. Current Visit: Yes Status: Chronic Code(s): K50.90 - CROHN'S DISEASE, UNSPECIFIED, WITHOUT COMPLICATIONS SNOMED Code(s): 13301791 (2) Bowel obstruction Current Visit: No Status: Acute Code(s): K56.609 - UNSP INTESTNL OBST, UNSP TO PARTIAL VERSUS COMPLETE OBST SNOMED Code(s): 16051583 Plan: 1. Continue symptomatic and supportive care 2. Keep nothing by mouth 3. Keep NG tube in place with suction 4. IV Solu-Medrol 20 mg every 8 hours started 5. Hold mesalamine 6. IV Zosyn every 8 hours ordered 7. Gen. surgery on consult 8. Recommend conservative management at this time as patient generally responds well to steroids Thank you for this consultation, we will continue to follow. Dr. Mary Black I agree with the dictator's note, documented as a scribe by Alexandra Dai.
[2023-10-30] MEDS: PANTOPRAZOLE 40 MG/10 ML VIAL IVP SCH (15:20)
[2023-10-30] MEDS: LEVOTHYROXINE IVP 100 MCG/5 ML VIAL IV SCH (15:28)
[2023-10-31 08:32] LABS: Basophils # (A) 0.01 X 10*3/uL (0.00-0.10); Basophils % (A) 0.1 %; Eosinophils # (A) 0 X 10*3/uL (0.04-0.35); Eosinophils % (A) 0 %; HCT 35.3 % (39.6-50.0); HGB 11.9 g/dL (13.0-17.0); Lymphocytes # (A) 1.31 X 10*3/uL (0.90-5.00); Lymphocytes % (A) 11.7 %; MCH 30.7 pg (27.0-32.0); MCHC 33.7 g/dL (32.0-37.0); MCV 91.2 FL (80.0-97.0); Mean Platelet Volume 10.4 FL (9.5-12.2); Monocytes # (A) 0.48 X 10*3/uL (0.20-1.00); Monocytes % (A) 4.3 %; NRBC Per 100 WBC 0 X 10*3/uL (0.00-0.01); Neutrophils # (A) 9.36 X 10*3/uL (1.80-7.70); Neutrophils % (A) 83.3 %; Platelet Count 306 X 10*3/uL (140-440); RBC 3.87 X 10*6/uL (4.40-5.60); RDW 12.6 % (11.5-14.5); WBC 11.23 X 10*3/uL (4.50-10.00)
--- NOTE | 2023-10-31 08:42 | XR ---
EXAMINATION TYPE: XR abdomen 1V DATE OF EXAM: 10/31/2023 7:37 AM CLINICAL INDICATION:Male, 67 years old with history of SBO; COMPARISON: CT. TECHNIQUE: One radiographic view of the abdomen was obtained. FINDINGS: Nasogastric tube in appropriate position. Few gaseous loops of bowel seen throughout the ab domen. This is dilation of the right abdomen and a few small bowel loops in the abdomen. There is no evidence for organomegaly or pneumoperitoneum. The osseous structures are intact. No abnormal calci fications are present. Fecal material and gas are demonstrated throughout the colon and rectum. IMPRESSION: 1. Gaseous nonspecific bowel gas pattern represent partial disruption CT findings. Consider dedicate d small bowel follow-through with Gastrografin. 2. Nasogastric tube in appropriate position.
[2023-10-31] MEDS: methylPREDNISolone SOD SUCCI 40 MG/ML 1 ML VIAL IV SCH ×3 (08:47→23:31)
[2023-10-31] MEDS: LEVOTHYROXINE IVP 100 MCG/5 ML VIAL IV SCH (08:47)
[2023-10-31] MEDS: ENOXAPARIN 30 MG/0.3 ML SYRINGE SQ SCH (08:48)
[2023-10-31] MEDS: PIPERACILLIN-TAZOBACTAM 3.375 GM in SODIUM CHLORIDE 0.9% 100 ML IVPB SCH ×3 (08:48→23:32)
[2023-10-31] MEDS: PANTOPRAZOLE 40 MG/10 ML VIAL IVP SCH (08:48)
[2023-10-31 09:25] LABS: ALT 32 U/L (10-49); AST 25 U/L (14-35); Albumin/Globulin Ratio 1.54 Ratio (1.60-3.17); Alkaline Phosphatase 63 U/L (41-126); BUN/Creat Ratio 22.79 Ratio (12.00-20.00); Blood Urea Nitrogen 31.9 mg/dL (9.0-27.0); Calcium 8.9 mg/dL (8.7-10.3); Carbon Dioxide 19.7 mmol/L (21.6-31.8); Chloride 109 mmol/L (96-109); Globulin 2.6 g/dL (1.6-3.3); Glucose 155 mg/dL (70-110); Potassium 4.6 mmol/L (3.5-5.5); Sodium 139 mmol/L (135-145); Total Bilirubin 1.4 mg/dL (0.3-1.2); Total Protein 6.6 g/dL (6.2-8.2)
--- NOTE | 2023-10-31 10:41 | P.PN ---
Subjective Progress Note Date: 10/31/23 Remigio Phillips, is a 67-year-old male who presented to [facility] emergency room with a chief complaint of abdominal pain and vomiting. Patient has a known history of Crohn's disease, he had previous episodes of bowel obstructions. He was evaluated in the emergency room vital examination on presentation revealed a temperature of 97.4 pulse 85 respiration 18 pressure 104/70 pulse ox 99% on room air Laboratory data revealed a white blood count of 14.8 hemoglobin 14.1 platelet count 358 BUN 34 creatinine 1.54 total bilirubin 1.5 with normal AST and ALT and alkaline phosphatase. Testing in the emergency room revealed computed tomography scan of the abdomen and pelvis revealed focal narrowing of the small bowel in the mid abdomen with upstream dilated Tatian likely representing partial obstruction and possible right ear ache foreign-body in the right abdomen. Patient was admitted to medical floor for further evaluation and treatment, surgical consultation was requested On 10/31/2023 patient is alert and oriented 3. Patient reports some improvement with abdominal discomfort. Patient was evaluated by surgical and GI services. NG tube in place. Patient remains on IV Zosyn IV Solu-Medrol Objective - Vital Signs Vital signs: Vital Signs Temp 98.2 F 10/31/23 07:33 Pulse 64 10/31/23 07:33 Resp 17 10/31/23 07:33 BP 142/64 10/31/23 07:33 Pulse Ox 94 L 10/31/23 07:33 FiO2 Intake & Output 10/30/23 10/31/23 10/31/23 18:59 06:59 18:59 Intake Total 1000 Output Total 600 Balance 400 Weight 92.986 kg Intake: Intake, IV Titration 1000 Amount Piperacillin-Tazobactam 3 100 .375 gm In Sodium Chloride 0.9% 100 ml @ 25 mls/hr IVPB Q8HR [facility] Rx# :[id number] Sodium Chloride 0.9% 1, 900 000 ml @ 75 mls/hr IV . [id number] [facility] Rx#:[id number] Output: Urine 600 Other: Voiding Method Toilet Urinal - Exam In general patient is alert and oriented x 3 in no distress HEENT head normocephalic and atraumatic Neck is supple no JVD no goiter no lymphadenopathy no carotid bruit Chest examination is clear to auscultation no crackles no wheezing Cardiac exam reveals regular heart sounds S1 and S2 no gallops no murmurs Abdomen is soft nontender no organomegaly with normal bowel sounds Extremity exam reveals no edema no cyanosis or clubbing Neurological examination reveals no gross focal deficits - Labs CBC & Chem 7: 10/31/23 05:43 10/31/23 05:43 Labs: Abnormal Lab Results - Last 24 Hours (Table) 10/31/23 10/31/23 Range/Units 05:43 05:43 WBC 11.23 H (4.50-10.00) X 10*3/uL RBC 3.87 L (4.40-5.60) X 10*6/uL Hgb 11.9 L (13.0-17.0) g/dL Hct 35.3 L (39.6-50.0) % Neutrophils # 9.36 H (1.80-7.70) X 10*3/uL Eosinophils # 0 L (0.04-0.35) X 10*3/uL Carbon Dioxide 19.7 L (21.6-31.8) mmol/L BUN 31.9 H (9.0-27.0) mg/dL Est GFR (CKD-EPI) 54 L (>=60) BUN/Creatinine Ratio 22.79 H (12.00-20.00) Ratio Glucose 155 H (70-110) mg/dL Total Bilirubin 1.4 H (0.3-1.2) mg/dL Albumin/Globulin Ratio 1.54 L (1.60-3.17) Ratio Assessment and Plan Plan: Partial small bowel obstruction Underlying history of Crohn's disease Dehydration with acute kidney injury Leukocytosis on presentation Underlying history of hypertension Underlying history of hyperlipidemia Previous history of prostate cancer with history of prostatectomy and radiation therapy History of Gilbert's syndrome with elevated bilirubin Previous history of abdominal surgery for small bowel obstruction and Sheryl diverticulum Underlying history of hypothyroidism At this time patient is admitted to medical floor He is nothing by mouth he has NG tube in He is maintained on IV fluids Surgical consultation requested, gastroenterology consult requested He was started on IV antibiotic Zosyn, and IV steroid Solu-Medrol in the emergency room For DVT prophylaxis subcu Lovenox For GI prophylaxis IV Protonix Will follow closely
--- NOTE | 2023-10-31 15:20 | P.PN ---
Subjective Progress Note Date: 10/31/23 CHIEF COMPLAINT: Partial small bowel obstruction HISTORY OF PRESENT ILLNESS: Patient reports that he is feeling better today. Denies any abdominal pain. Denies any nausea. Minimal output through the NG tube. Patient still has abdominal distention. Denies any flatus or bowel movement. Abdominal x-ray reports gaseousness nonspecific bowel gas pattern representing partial obstruction. Consider dedicated small bowel follow-through with Gastrografin. NG tube in appropriate position. Afebrile. WBC is down from 13.6-11.2 PHYSICAL EXAM: VITAL SIGNS: Reviewed GENERAL: Well-developed in no acute distress. HEENT: No sclera icterus. Extraocular movements grossly intact. Moist buccal mucosa. Head is atraumatic, normocephalic. Hears conversational speech. No nasal drainage. NECK: Supple without lymphadenopathy. CHEST: Non-labored respirations and equal bilateral excursions. CARDIOVASCULAR: Palpable 2+ radial pulses. ABDOMEN: Abdomen is softer. Slightly less distended. Nontender. MUSCULOSKELETAL: No clubbing or cyanosis. NEUROLOGIC: No focal or lateralizing signs. Cranial nerves II through XII grossly intact. PSYCH: Appropriate affect. Alert and oriented to person, place and time. SKIN: Well perfused. Good skin turgor. ASSESSMENT: 1. Partial small bowel obstruction likely secondary to his Crohn's 2. History of Crohn's with likely a Crohn's exacerbation 3. History of multiple abdominal surgeries 4. History of prostate cancer status post prostatectomy and radiation treatment 5. Acute kidney injury 6. Hypertension 7. Hyperlipidemia 8. Leukocytosis PLAN: -Continue NG tube decompression -Keep patient nothing by mouth -Continue IV steroids per GI service -Continue antibiotics -Continue IV fluids -Continue supportive care Physician Manager Gas note has been reviewed by physician. Signing provider agrees with the documented findings, assessment, and plan of care. Objective - Vital Signs Vital signs: Vital Signs Temp 98.2 F 10/31/23 07:33 Pulse 64 10/31/23 07:33 Resp 17 10/31/23 07:33 BP 142/64 10/31/23 07:33 Pulse Ox 94 L 10/31/23 07:33 FiO2 Intake & Output 10/30/23 10/31/23 10/31/23 18:59 06:59 18:59 Intake Total 1000 Output Total 600 250 Balance 400 -250 Weight 92.986 kg Intake: Intake, IV Titration 1000 Amount Piperacillin-Tazobactam 3 100 .375 gm In Sodium Chloride 0.9% 100 ml @ 25 mls/hr IVPB Q8HR REPLACED BY [facility] Rx# :[id number] Sodium Chloride 0.9% 1, 900 000 ml @ 75 mls/hr IV . [id number] REPLACED BY [facility] Rx#:[id number] Output: Urine 600 250 Other: Voiding Method Toilet Urinal - Labs CBC & Chem 7: 10/31/23 05:43 10/31/23 05:43 Labs: Abnormal Lab Results - Last 24 Hours (Table) 10/31/23 10/31/23 Range/Units 05:43 05:43 WBC 11.23 H (4.50-10.00) X 10*3/uL RBC 3.87 L (4.40-5.60) X 10*6/uL Hgb 11.9 L (13.0-17.0) g/dL Hct 35.3 L (39.6-50.0) % Neutrophils # 9.36 H (1.80-7.70) X 10*3/uL Eosinophils # 0 L (0.04-0.35) X 10*3/uL Carbon Dioxide 19.7 L (21.6-31.8) mmol/L BUN 31.9 H (9.0-27.0) mg/dL Est GFR (CKD-EPI) 54 L (>=60) BUN/Creatinine Ratio 22.79 H (12.00-20.00) Ratio Glucose 155 H (70-110) mg/dL Total Bilirubin 1.4 H (0.3-1.2) mg/dL Albumin/Globulin Ratio 1.54 L (1.60-3.17) Ratio
[2023-10-31] MEDS: SODIUM CHLORIDE 0.9% 1,000 ML IV SCH ×2 (15:59→23:30)
[2023-11-01] MEDS: PANTOPRAZOLE 40 MG/10 ML VIAL IVP SCH (08:34)
[2023-11-01] MEDS: LEVOTHYROXINE IVP 100 MCG/5 ML VIAL IV SCH (08:34)
[2023-11-01] MEDS: methylPREDNISolone SOD SUCCI 40 MG/ML 1 ML VIAL IV SCH ×3 (08:34→23:53)
[2023-11-01] MEDS: ENOXAPARIN 40 MG/0.4 ML SYRINGE SQ SCH (08:34)
[2023-11-01] MEDS: PIPERACILLIN-TAZOBACTAM 3.375 GM in SODIUM CHLORIDE 0.9% 100 ML IVPB SCH ×3 (08:35→23:53)
[2023-11-01 09:38] LABS: Basophils % (A) 0 %; Eosinophils % (A) 0 %; HCT 35.3 % (39.0-53.0); HGB 11.7 gm/dL (13.0-17.5); Lymphocytes # (A) 1.4 k/uL (1.0-4.8); Lymphocytes % (A) 13 %; MCH 30.3 pg (25.0-35.0); MCHC 33.1 g/dL (31.0-37.0); MCV 91.5 fL (80.0-100.0); Mean Platelet Volume 8.8; Monocytes # (A) 0.4 k/uL (0-1.0); Monocytes % (A) 4 %; Neutrophils # (A) 8.8 k/uL (1.3-7.7); Neutrophils % (A) 82 %; Platelet Count 271 k/uL (150-450); RBC 3.86 m/uL (4.30-5.90); RDW 12.9 % (11.5-15.5); WBC 10.7 k/uL (3.8-10.6)
[2023-11-01 11:43] LABS: ALT 39 U/L (4-49); AST 40 U/L (17-59); African American GFR (CKD) 63 (>60 ml/min/1.73 sqM); Albumin 3.4 g/dL (3.5-5.0); Alkaline Phosphatase 56 U/L (38-126); Anion Gap 9 mmol/L; Blood Urea Nitrogen 34 mg/dL (9-20); Calcium 8.4 mg/dL (8.4-10.2); Carbon Dioxide 20 mmol/L (22-30); Chloride 111 mmol/L (98-107); Globulin 3.3 g/dL; Glucose 124 mg/dL (74-99); Non-African American GFR(CKD) 55 (>60 ml/min/1.73 sqM); Potassium 4.4 mmol/L (3.5-5.1); Sodium 140 mmol/L (137-145); Total Bilirubin 1.3 mg/dL (0.2-1.3); Total Protein 6.7 g/dL (6.3-8.2)
--- NOTE | 2023-11-01 12:40 | P.PN ---
Subjective Progress Note Date: 11/01/23 Remigio Phillips, is a 67-year-old male who presented to [facility] emergency room with a chief complaint of abdominal pain and vomiting. Patient has a known history of Crohn's disease, he had previous episodes of bowel obstructions. He was evaluated in the emergency room vital examination on presentation revealed a temperature of 97.4 pulse 85 respiration 18 pressure 104/70 pulse ox 99% on room air Laboratory data revealed a white blood count of 14.8 hemoglobin 14.1 platelet count 358 BUN 34 creatinine 1.54 total bilirubin 1.5 with normal AST and ALT and alkaline phosphatase. Testing in the emergency room revealed computed tomography scan of the abdomen and pelvis revealed focal narrowing of the small bowel in the mid abdomen with upstream dilated Tatian likely representing partial obstruction and possible right ear ache foreign-body in the right abdomen. Patient was admitted to medical floor for further evaluation and treatment, surgical consultation was requested On 10/31/2023 patient is alert and oriented 3. Patient reports some improvement with abdominal discomfort. Patient was evaluated by surgical and GI services. NG tube in place. Patient remains on IV Zosyn IV Solu-Medrol On 11/01/2023 patient was seen and examined on the medical floor he is alert and oriented 3 in no apparent distress he is sitting up in a chair he stated that he started having some flatus today, but no bowel movement, abdominal pain has improved patient still has NG tube in, there is no nausea or vomiting his still has some abdominal distention. Objective - Vital Signs Vital signs: Vital Signs Temp 97.5 F L 11/01/23 08:00 Pulse 57 L 11/01/23 08:00 Resp 18 11/01/23 08:00 BP 134/78 11/01/23 08:00 Pulse Ox 97 11/01/23 08:00 FiO2 Intake & Output 10/31/23 11/01/23 11/01/23 18:59 06:59 18:59 Intake Total 1000 Output Total 250 900 Balance -250 100 Intake: Intake, IV Titration 1000 Amount Piperacillin-Tazobactam 3 100 .375 gm In Sodium Chloride 0.9% 100 ml @ 25 mls/hr IVPB Q8HR [facility] Rx# :[id number] Sodium Chloride 0.9% 1, 900 000 ml @ 75 mls/hr IV . [id number] Rx#:[id number] Output: Urine 250 900 Other: Voiding Method Toilet Toilet Urinal Urinal - Exam In general patient is alert and oriented x 3 in no distress HEENT head normocephalic and atraumatic Neck is supple no JVD no goiter no lymphadenopathy no carotid bruit Chest examination is clear to auscultation no crackles no wheezing Cardiac exam reveals regular heart sounds S1 and S2 no gallops no murmurs Abdomen is soft nontender no organomegaly with normal bowel sounds Extremity exam reveals no edema no cyanosis or clubbing Neurological examination reveals no gross focal deficits - Labs CBC & Chem 7: 11/01/23 07:33 11/01/23 07:33 Labs: Abnormal Lab Results - Last 24 Hours (Table) 10/31/23 Range/Units 05:43 Carbon Dioxide 19.7 L (21.6-31.8) mmol/L BUN 31.9 H (9.0-27.0) mg/dL Est GFR (CKD-EPI) 54 L (>=60) BUN/Creatinine Ratio 22.79 H (12.00-20.00) Ratio Glucose 155 H (70-110) mg/dL Total Bilirubin 1.4 H (0.3-1.2) mg/dL Albumin/Globulin Ratio 1.54 L (1.60-3.17) Ratio Assessment and Plan Plan: Partial small bowel obstruction Underlying history of Crohn's disease Dehydration with acute kidney injury Leukocytosis on presentation Underlying history of hypertension Underlying history of hyperlipidemia Previous history of prostate cancer with history of prostatectomy and radiation therapy History of Gilbert's syndrome with elevated bilirubin Previous history of abdominal surgery for small bowel obstruction and Sheryl diverticulum Underlying history of hypothyroidism At this time patient is admitted to medical floor He is nothing by mouth he has NG tube in He is maintained on IV fluids Surgical consultation requested, gastroenterology consult requested He was started on IV antibiotic Zosyn, and IV steroid Solu-Medrol in the emergency room For DVT prophylaxis subcu Lovenox For GI prophylaxis IV Protonix Will follow closely
[2023-11-01] MEDS: SODIUM CHLORIDE 0.9% 1,000 ML IV SCH ×2 (18:20→23:55)
--- NOTE | 2023-11-01 18:29 | P.PN ---
Subjective Progress Note Date: 11/01/23 Principal diagnosis: Small bowel obstruction Patient reports feeling much better today, he is passed flatus as well as had a couple bowel movements. Denies any nausea or vomiting, fever or chills Objective - Vital Signs Vital signs: Vital Signs Temp 97.9 F 11/01/23 13:12 Pulse 58 L 11/01/23 13:12 Resp 18 11/01/23 13:12 BP 134/76 11/01/23 13:12 Pulse Ox 97 11/01/23 13:12 FiO2 Intake & Output 10/31/23 11/01/23 11/01/23 18:59 06:59 18:59 Intake Total 1000 Output Total 250 900 Balance -250 100 Intake: Intake, IV Titration 1000 Amount Piperacillin-Tazobactam 3 100 .375 gm In Sodium Chloride 0.9% 100 ml @ 25 mls/hr IVPB Q8HR VASIL[facility] Rx# :[id number] Sodium Chloride 0.9% 1, 900 000 ml @ 75 mls/hr IV . [id number] VASILI[facility] Rx#:[id number] Output: Urine 250 900 Other: Voiding Method Toilet Toilet Urinal Urinal # Voids 2 - Constitutional General appearance: Present: average body habitus - EENT Eyes: Present: PERRLA - Respiratory Respiratory: bilateral: CTA - Cardiovascular Rhythm: regular - Gastrointestinal Gastrointestinal Comment(s): Slightly protuberant but soft, nontender to palpation - Neurologic Neurologic Comment(s): Awake, alert, orientated 3, appropriate affect - Labs CBC & Chem 7: 11/01/23 07:33 11/01/23 07:33 Labs: Abnormal Lab Results - Last 24 Hours (Table) 11/01/23 11/01/23 Range/Units 07:33 07:33 WBC 10.7 H (3.8-10.6) k/uL RBC 3.86 L (4.30-5.90) m/uL Hgb 11.7 L (13.0-17.5) gm/dL Hct 35.3 L (39.0-53.0) % Neutrophils # 8.8 H (1.3-7.7) k/uL Chloride 111 H (98-107) mmol/L Carbon Dioxide 20 L (22-30) mmol/L BUN 34 H (9-20) mg/dL Creatinine 1.33 H (0.66-1.25) mg/dL Glucose 124 H (74-99) mg/dL Albumin 3.4 L (3.5-5.0) g/dL Assessment and Plan Assessment: 67-year-old male with evidence of partial small bowel obstruction, resolving, positive for significant flatus We'll DC NG tube per patient request, ice chips tonight, clear liquids in a.m. if continued progress Your medical care Time with Patient: Less than 30
[2023-11-02 08:02] LABS: Basophils % (A) 0 %; Eosinophils % (A) 0 %; HCT 33.7 % (39.0-53.0); HGB 11.5 gm/dL (13.0-17.5); Lymphocytes # (A) 1.1 k/uL (1.0-4.8); Lymphocytes % (A) 13 %; MCH 31.7 pg (25.0-35.0); MCHC 34.1 g/dL (31.0-37.0); MCV 93.1 fL (80.0-100.0); Monocytes # (A) 0.4 k/uL (0-1.0); Monocytes % (A) 5 %; Neutrophils # (A) 6.8 k/uL (1.3-7.7); Neutrophils % (A) 81 %; Platelet Count 278 k/uL (150-450); RBC 3.62 m/uL (4.30-5.90); RDW 12.4 % (11.5-15.5); WBC 8.4 k/uL (3.8-10.6)
[2023-11-02] MEDS: PANTOPRAZOLE 40 MG/10 ML VIAL IVP SCH (08:23)
[2023-11-02] MEDS: ENOXAPARIN 40 MG/0.4 ML SYRINGE SQ SCH (08:23)
[2023-11-02] MEDS: PIPERACILLIN-TAZOBACTAM 3.375 GM in SODIUM CHLORIDE 0.9% 100 ML IVPB SCH ×3 (08:23→23:43)
[2023-11-02] MEDS: methylPREDNISolone SOD SUCCI 40 MG/ML 1 ML VIAL IV SCH ×3 (08:23→23:42)
[2023-11-02] MEDS: LEVOTHYROXINE IVP 100 MCG/5 ML VIAL IV SCH (08:30)
--- NOTE | 2023-11-02 10:54 | P.PN ---
Subjective Progress Note Date: 11/02/23 Remigio Phillips, is a 67-year-old male who presented to [facility] emergency room with a chief complaint of abdominal pain and vomiting. Patient has a known history of Crohn's disease, he had previous episodes of bowel obstructions. He was evaluated in the emergency room vital examination on presentation revealed a temperature of 97.4 pulse 85 respiration 18 pressure 104/70 pulse ox 99% on room air Laboratory data revealed a white blood count of 14.8 hemoglobin 14.1 platelet count 358 BUN 34 creatinine 1.54 total bilirubin 1.5 with normal AST and ALT and alkaline phosphatase. Testing in the emergency room revealed computed tomography scan of the abdomen and pelvis revealed focal narrowing of the small bowel in the mid abdomen with upstream dilated Tatian likely representing partial obstruction and possible right ear ache foreign-body in the right abdomen. Patient was admitted to medical floor for further evaluation and treatment, surgical consultation was requested On 10/31/2023 patient is alert and oriented 3. Patient reports some improvement with abdominal discomfort. Patient was evaluated by surgical and GI services. NG tube in place. Patient remains on IV Zosyn IV Solu-Medrol On 11/01/2023 patient was seen and examined on the medical floor he is alert and oriented 3 in no apparent distress he is sitting up in a chair he stated that he started having some flatus today, but no bowel movement, abdominal pain has improved patient still has NG tube in, there is no nausea or vomiting his still has some abdominal distention. On 11/02/2023 patient is alert and oriented 3. NG tube removed. Patient reports improvement with abdominal pain and distention. Awaiting surgical services to advance diet. Patient remains on IV antibiotics and IV steroids. C urrent vital signs temp 97.8, heart rate 63, respiratory rate 16, blood pressure 144/76 with a pulse ox of 99% on room air Objective - Vital Signs Vital signs: Vital Signs Temp 97.5 F L 11/02/23 07:40 Pulse 51 L 11/02/23 07:40 Resp 17 11/02/23 07:40 BP 162/87 11/02/23 07:40 Pulse Ox 99 11/02/23 07:40 FiO2 Intake & Output 11/01/23 11/02/23 11/02/23 18:59 06:59 18:59 Other: Voiding Method Toilet Urinal # Voids 2 2 - Exam In general patient is alert and oriented x 3 in no distress HEENT head normocephalic and atraumatic Neck is supple no JVD no goiter no lymphadenopathy no carotid bruit Chest examination is clear to auscultation no crackles no wheezing Cardiac exam reveals regular heart sounds S1 and S2 no gallops no murmurs Abdomen is soft nontender no organomegaly with normal bowel sounds Extremity exam reveals no edema no cyanosis or clubbing Neurological examination reveals no gross focal deficits - Labs CBC & Chem 7: 11/02/23 06:40 11/01/23 07:33 Labs: Abnormal Lab Results - Last 24 Hours (Table) 11/01/23 11/02/23 Range/Units 07:33 06:40 RBC 3.62 L (4.30-5.90) m/uL Hgb 11.5 L (13.0-17.5) gm/dL Hct 33.7 L (39.0-53.0) % Chloride 111 H (98-107) mmol/L Carbon Dioxide 20 L (22-30) mmol/L BUN 34 H (9-20) mg/dL Creatinine 1.33 H (0.66-1.25) mg/dL Glucose 124 H (74-99) mg/dL Albumin 3.4 L (3.5-5.0) g/dL Assessment and Plan Assessment: Partial small bowel obstruction Underlying history of Crohn's disease Dehydration with acute kidney injury Leukocytosis on presentation Underlying history of hypertension Underlying history of hyperlipidemia Previous history of prostate cancer with history of prostatectomy and radiation therapy History of Gilbert's syndrome with elevated bilirubin Previous history of abdominal surgery for small bowel obstruction and Sheryl diverticulum Underlying history of hypothyroidism At this time patient is admitted to medical floor NG tube removed He is maintained on IV fluids Surgical consultation requested, gastroenterology consult requested He was started on IV antibiotic Zosyn, and IV steroid Solu-Medrol in the emergency room For DVT prophylaxis subcu Lovenox For GI prophylaxis IV Protonix Will follow closely
--- NOTE | 2023-11-02 11:42 | P.PN ---
Subjective Progress Note Date: 11/02/23 Remigio Phillips, is a 67-year-old male who presented to [facility] emergency room with a chief complaint of abdominal pain and vomiting. Patient has a known history of Crohn's disease, he had previous episodes of bowel obstructions. He was evaluated in the emergency room vital examination on presentation revealed a temperature of 97.4 pulse 85 respiration 18 pressure 104/70 pulse ox 99% on room air Laboratory data revealed a white blood count of 14.8 hemoglobin 14.1 platelet count 358 BUN 34 creatinine 1.54 total bilirubin 1.5 with normal AST and ALT and alkaline phosphatase. Testing in the emergency room revealed computed tomography scan of the abdomen and pelvis revealed focal narrowing of the small bowel in the mid abdomen with upstream dilated Tatian likely representing partial obstruction and possible right ear ache foreign-body in the right abdomen. Patient was admitted to medical floor for further evaluation and treatment, surgical consultation was requested On 10/31/2023 patient is alert and oriented 3. Patient reports some improvement with abdominal discomfort. Patient was evaluated by surgical and GI services. NG tube in place. Patient remains on IV Zosyn IV Solu-Medrol On 11/01/2023 patient was seen and examined on the medical floor he is alert and oriented 3 in no apparent distress he is sitting up in a chair he stated that he started having some flatus today, but no bowel movement, abdominal pain has improved patient still has NG tube in, there is no nausea or vomiting his still has some abdominal distention. On 11/02/2023 patient is alert and oriented 3. NG tube removed. Patient reports improvement with abdominal pain and distention. Awaiting surgical services to advance diet. Patient remains on IV antibiotics and IV steroids. Current vital signs temp 97.8, heart rate 63, respiratory rate 16, blood pressure 144/76 with a pulse ox of 99% on room air Objective - Vital Signs Vital signs: Vital Signs Temp 97.5 F L 11/02/23 07:40 Pulse 51 L 11/02/23 07:40 Resp 17 11/02/23 07:40 BP 162/87 11/02/23 07:40 Pulse Ox 99 11/02/23 07:40 FiO2 Intake & Output 11/01/23 11/02/23 11/02/23 18:59 06:59 18:59 Other: Voiding Method Toilet Urinal # Voids 2 2 - Exam In general patient is alert and oriented x 3 in no distress HEENT head normocephalic and atraumatic Neck is supple no JVD no goiter no lymphadenopathy no carotid bruit Chest examination is clear to auscultation no crackles no wheezing Cardiac exam reveals regular heart sounds S1 and S2 no gallops no murmurs Abdomen is soft nontender no organomegaly with normal bowel sounds Extremity exam reveals no edema no cyanosis or clubbing Neurological examination reveals no gross focal deficits - Labs CBC & Chem 7: 11/02/23 06:40 11/01/23 07:33 Labs: Abnormal Lab Results - Last 24 Hours (Table) 11/01/23 11/02/23 Range/Units 07:33 06:40 RBC 3.62 L (4.30-5.90) m/uL Hgb 11.5 L (13.0-17.5) gm/dL Hct 33.7 L (39.0-53.0) % Chloride 111 H (98-107) mmol/L Carbon Dioxide 20 L (22-30) mmol/L BUN 34 H (9-20) mg/dL Creatinine 1.33 H (0.66-1.25) mg/dL Glucose 124 H (74-99) mg/dL Albumin 3.4 L (3.5-5.0) g/dL Assessment and Plan Plan: Partial small bowel obstruction Underlying history of Crohn's disease Dehydration with acute kidney injury Leukocytosis on presentation Underlying history of hypertension Underlying history of hyperlipidemia Previous history of prostate cancer with history of prostatectomy and radiation therapy History of Gilbert's syndrome with elevated bilirubin Previous history of abdominal surgery for small bowel obstruction and Sheryl diverticulum Underlying history of hypothyroidism At this time patient is admitted to medical floor He is nothing by mouth he has NG tube in He is maintained on IV fluids Surgical consultation requested, gastroenterology consult requested He was started on IV antibiotic Zosyn, and IV steroid Solu-Medrol in the emergency room For DVT prophylaxis subcu Lovenox For GI prophylaxis IV Protonix Will follow closely
[2023-11-02 13:17] LABS: ALT 47 U/L (4-49); AST 49 U/L (17-59); African American GFR (CKD) 69 (>60 ml/min/1.73 sqM); Albumin 3.2 g/dL (3.5-5.0); Alkaline Phosphatase 51 U/L (38-126); Anion Gap 11 mmol/L; Blood Urea Nitrogen 33 mg/dL (9-20); Calcium 8.3 mg/dL (8.4-10.2); Carbon Dioxide 14 mmol/L (22-30); Chloride 116 mmol/L (98-107); Globulin 3.2 g/dL; Glucose 124 mg/dL (74-99); Non-African American GFR(CKD) 59 (>60 ml/min/1.73 sqM); Potassium 4.4 mmol/L (3.5-5.1); Sodium 141 mmol/L (137-145); Total Protein 6.4 g/dL (6.3-8.2)
--- NOTE | 2023-11-02 14:35 | P.PN ---
Subjective Progress Note Date: 11/02/23 He had a bowel movement and is passing flatus. He tolerated clear liquid diet. He is sitting up in chair. NG tube previously discontinued. Denies any moderated abdominal pain. Advance diet to low fiber. May be discharged after tolerates low fiber diet. Objective - Vital Signs Vital signs: Vital Signs Temp 97.6 F 11/02/23 12:02 Pulse 58 L 11/02/23 12:02 Resp 17 11/02/23 12:02 BP 149/76 11/02/23 12:02 Pulse Ox 100 11/02/23 12:02 FiO2 Intake & Output 11/01/23 11/02/23 11/02/23 18:59 06:59 18:59 Other: Voiding Method Toilet Urinal # Voids 2 2 2 - Labs CBC & Chem 7: 11/02/23 06:40 11/02/23 06:40 Labs: Abnormal Lab Results - Last 24 Hours (Table) 11/02/23 11/02/23 Range/Units 06:40 06:40 RBC 3.62 L (4.30-5.90) m/uL Hgb 11.5 L (13.0-17.5) gm/dL Hct 33.7 L (39.0-53.0) % Chloride 116 H (98-107) mmol/L Carbon Dioxide 14 L (22-30) mmol/L BUN 33 H (9-20) mg/dL Glucose 124 H (74-99) mg/dL Calcium 8.3 L (8.4-10.2) mg/dL Albumin 3.2 L (3.5-5.0) g/dL
[2023-11-02] MEDS: SODIUM CHLORIDE 0.9% 1,000 ML IV SCH (19:15)
[2023-11-03 08:05] VITALS: BP 142/74; PULSE 51; RESP 17; TEMP 98
[2023-11-03] MEDS: LEVOTHYROXINE IVP 100 MCG/5 ML VIAL IV SCH (08:57)
[2023-11-03] MEDS: PIPERACILLIN-TAZOBACTAM 3.375 GM in SODIUM CHLORIDE 0.9% 100 ML IVPB SCH (08:57)
[2023-11-03] MEDS: PANTOPRAZOLE 40 MG/10 ML VIAL IVP SCH (08:58)
[2023-11-03] MEDS: ENOXAPARIN 40 MG/0.4 ML SYRINGE SQ SCH (08:58)
[2023-11-03] MEDS: SODIUM CHLORIDE 0.9% 1,000 ML IV SCH (08:58)
[2023-11-03] MEDS ORDERED: predniSONE 20 MG TAB PO SCH (09:00)
--- NOTE | 2023-11-03 11:32 | P.DS ---
Providers Date of admission: 10/29/23 22:37 Expected date of discharge: 11/03/23 Attending physician: Olman Vance Consults: 10/29/23 22:37 Consult Physician Routine Consulting Provider: Ca Santillan Consult Reason/Comments: SBO Do you want consulting provider notified?: Already Contacted Consult Physician Routine Consulting Provider: Sidra Black Consult Reason/Comments: Crohns Do you want consulting provider notified?: Yes Primary care physician: Olman Vance [facility] Course: Diagnosis on discharge: Partial small bowel obstruction Underlying history of Crohn's disease Dehydration with acute kidney injury Leukocytosis on presentation Underlying history of hypertension Underlying history of hyperlipidemia Previous history of prostate cancer with history of prostatectomy and radiation therapy History of Gilbert's syndrome with elevated bilirubin Previous history of abdominal surgery for small bowel obstruction and Sheryl diverticulum Underlying history of hypothyroidism Hospital course: Remigio Phillips, is a 67-year-old male who presented to [facility] emergency room with a chief complaint of abdominal pain and vomiting. Patient has a known history of Crohn's disease, he had previous episodes of bowel obstructions. He was evaluated in the emergency room vital examination on presentation revealed a temperature of 97.4 pulse 85 respiration 18 pressure 104/70 pulse ox 99% on room air Laboratory data revealed a white blood count of 14.8 hemoglobin 14.1 platelet count 358 BUN 34 creatinine 1.54 total bilirubin 1.5 with normal AST and ALT and alkaline phosphatase. Testing in the emergency room revealed computed tomography scan of the abdomen and pelvis revealed focal narrowing of the small bowel in the mid abdomen with upstream dilated Tatian likely representing partial obstruction and possible right ear ache foreign-body in the right abdomen. Patient was admitted to medical floor for further evaluation and treatment, surgical consultation was requested On 10/31/2023 patient is alert and oriented 3. Patient reports some improvement with abdominal discomfort. Patient was evaluated by surgical and GI services. NG tube in place. Patient remains on IV Zosyn IV Solu-Medrol On 11/01/2023 patient was seen and examined on the medical floor he is alert and oriented 3 in no apparent distress he is sitting up in a chair he stated that he started having some flatus today, but no bowel movement, abdominal pain has improved patient still has NG tube in, there is no nausea or vomiting his still has some abdominal distention. On 11/02/2023 patient is alert and oriented 3. NG tube removed. Patient reports improvement with abdominal pain and distention. Awaiting surgical services to advance diet. Patient remains on IV antibiotics and IV steroids. Current vital signs temp 97.8, heart rate 63, respiratory rate 16, blood pressure 144/76 with a pulse ox of 99% on room air On 11/03/2023 patient was seen and examined on the medical floor he is alert and oriented 3 in no apparent distress there is no fever or chills no headache or dizziness no chest pain no nausea or vomiting no abdominal pain no diarrhea no blood in the stools no burning with urination no frequency or urgency and no hematuria. He was able to tolerate diet well. At this time patient will be discharged home, he was given a prescription for prednisone and a prescription for Augmentin, he will be followed in our office within 1 week. Patient Condition at Discharge: Fair Plan - Discharge Summary Discharge Rx Participant: No New Discharge Prescriptions: New Amoxic-Pot Clav 500-125 mg [Augmentin 500-125 mg] 1 tab PO Q12HR 5 Days #10 tab predniSONE [Deltasone] 40 mg PO DAILY tab Continue Mesalamine [Pentasa] 1,000 mg PO QID Pantoprazole Sodium [Protonix] 40 mg PO DAILY gemfibroziL [Gemfibrozil] 600 mg PO DAILY Famotidine [Pepcid] 20 mg PO BID Losartan [Cozaar] 50 mg PO DAILY amLODIPine [Norvasc] 5 mg PO DAILY Infliximab-Dyyb [Inflectra] 1 dose IV Q42D Levothyroxine Sodium [Synthroid] 75 mcg PO DAILY Albuterol Inhaler [Ventolin Hfa Inhaler] 1 - 2 puff INHALATION RT-Q6H PRN PRN Reason: Shortness Of Breath No Action Ergocalciferol [Vitamin D2 (1250 Mcg = 85504 Iu)] 1,250 mcg PO SA Multivitamins, Thera [Multivitamin (formulary)] 1 tab PO DAILY Discharge Medication List Famotidine [Pepcid] 20 mg PO BID 05/06/14 [History] Mesalamine [Pentasa] 1,000 mg PO QID 05/06/14 [History] Pantoprazole Sodium [Protonix] 40 mg PO DAILY 05/06/14 [History] gemfibroziL [Gemfibrozil] 600 mg PO DAILY 05/06/14 [History] Losartan [Cozaar] 50 mg PO DAILY 11/16/19 [History] amLODIPine [Norvasc] 5 mg PO DAILY 11/16/19 [History] Ergocalciferol [Vitamin D2 (1250 Mcg = 07863 Iu)] 1,250 mcg PO SA 09/04/22 [History] Levothyroxine Sodium [Synthroid] 75 mcg PO DAILY 09/04/22 [History] Albuterol Inhaler [Ventolin Hfa Inhaler] 1 - 2 puff INHALATION RT-Q6H PRN 10/29/23 [History] Infliximab-Dyyb [Inflectra] 1 dose IV Q42D 10/29/23 [History] Multivitamins, Thera [Multivitamin (formulary)] 1 tab PO DAILY 10/29/23 [History] Amoxic-Pot Clav 500-125 mg [Augmentin 500-125 mg] 1 tab PO Q12HR 5 Days #10 tab 11/03/23 [Rx] predniSONE [Deltasone] 40 mg PO DAILY tab 11/03/23 [Rx] Follow up Appointment(s)/Referral(s): Sidra Black MD [STAFF PHYSICIAN] - 4 Weeks Olman Vance MD [Primary Care Provider] - 1-2 days
--- NOTE | 2023-11-03 12:05 | P.PN ---
Subjective Progress Note Date: 10/31/23 Principal diagnosis: Crohn's disease This is a 67-year-old white male with long-standing history of Crohn's disease who presented to the emergency department with abdominal pain and concerns for small bowel obstruction. He has a history of Crohn's disease diagnosed in 2026, had surgery many years ago. Currently maintained on mesalamine and Inflectra and follows with Dr. Black. States yesterday morning he got up he started having abdominal pain, was only able to have a very small bowel movement the last couple of days. They have been solid. Denies any rectal bleeding or blood in his stool. He states he was concerned that had a small bowel obstruction and symptoms were similar in the past. His last colonoscopy done on 06/13/[address] Black was found to be a normal colonoscopy. He had a CT of the abdomen and pelvis that reported sequela of chronic Crohn's disease with focal narrowing of the small bowel in the midabdomen with upstream dilation likely representing partial obstruction. Patient submitted for small bowel obstruction. Currently has NG tube in place with suction with approximately 100 mL of bile-like fluid. States abdominal pain slightly better as well as bloating. He also states that he felt like he had a fever and chills at home. Patient had leukocytosis on admission. WBC 14.8 hemoglobin 14, hematocrit 41 platelet count 358,000 sodium 140 potassium 4.5 BUN 34 creatinine 1.5 total bilirubin 1.5 AST 41 ALT 44 alkaline phosphatase 78. 10/31/2023 Patient was seen and examined is a follow-up. Still having abdominal pain. No nausea or vomiting. NG tube in place with suction with minimal output. Denies any flatus or bowel movement. Objective - Vital Signs Vital signs: Vital Signs Temp 97.6 F 10/31/23 01:55 Pulse 63 10/31/23 01:55 Resp 16 10/31/23 01:55 BP 128/74 10/31/23 01:55 Pulse Ox 95 10/31/23 01:55 FiO2 Intake & Output 10/30/23 10/30/23 10/31/23 06:59 18:59 06:59 Intake Total 1000 Output Total 600 Balance 400 Weight 92.986 kg 92.986 kg Intake: Intake, IV Titration 1000 Amount Piperacillin-Tazobactam 3 100 .375 gm In Sodium Chloride 0.9% 100 ml @ 25 mls/hr IVPB Q8HR [facility] Rx# :[id number] Sodium Chloride 0.9% 1, 900 000 ml @ 75 mls/hr IV . [id number] [facility] Rx#:[id number] Output: Urine 600 Other: Voiding Method Toilet Urinal - Exam General appearance: The patient is alert, oriented, appears in no acute distress. HET: Head is normocephalic and atraumatic. Conjunctiva pink. Sclera anicteric. Neck: Supple without lymphadenopathy. Abdomen: Soft, nontender, mild distention. No guarding or rigidity. Extremities: Normal skin color and turgor. No pedal edema Skin: No rashes, no jaundice Neurological: No focal deficits. Alert and oriented. - Labs CBC & Chem 7: 11/02/23 06:40 11/02/23 06:40 Labs: Abnormal Lab Results - Last 24 Hours (Table) 10/30/23 10/30/23 Range/Units 07:30 07:30 WBC 13.6 H (3.8-10.6) k/uL Neutrophils # 9.6 H (1.3-7.7) k/uL Carbon Dioxide 20 L (22-30) mmol/L BUN 32 H (9-20) mg/dL Creatinine 1.34 H (0.66-1.25) mg/dL Glucose 149 H (74-99) mg/dL Assessment and Plan (1) Crohn disease Narrative/Plan: 67-year-old male with long-standing history of Crohn's disease affecting his small bowel who has been known to have a small bowel obstructions in the past again presenting with abdominal pain and distention with findings of partial small bowel obstruction. Currently being treated with NG tube, nothing by mouth and will start on IV steroids as well as antibiotics for leukocytosis and reported fever chills at home. General surgery on consult for small bowel obstruction, however recommend conservative treatment at this time as patient usually responds well to his steroids and has not required any surgery in the recent past. Current Visit: Yes Status: Chronic Code(s): K50.90 - CROHN'S DISEASE, UNSPECIFIED, WITHOUT COMPLICATIONS SNOMED Code(s): 32402793 (2) Bowel obstruction Narrative/Plan: Continue with recommendations from general surgery Current Visit: No Status: Acute Code(s): K56.609 - UNSP INTESTNL OBST, UNSP TO PARTIAL VERSUS COMPLETE OBST SNOMED Code(s): 59649149 Plan: 1. Continue symptomatic and supportive care 2. Keep nothing by mouth, advanced per recommendations from general surgery 3. Keep NG tube in place 4. IV Solu-Medrol 20 mg every 8 hours started 5. Hold mesalamine 6. IV Zosyn every 8 hours ordered 7. Gen. surgery on consult, continue with the recommendations 8. Recommend conservative management at this time as patient generally responds well to steroids Thank you for this consultation, we will sign off at this time as there will be no GI coverage through the weekend but will resume on Friday. Dr. Mary Black I agree with the dictator's note, documented as a scribe by Alexandra Dai.
--- NOTE | 2023-11-03 12:19 | P.PN ---
Subjective Progress Note Date: 11/03/23 Principal diagnosis: Crohn's disease This is a 67-year-old white male with long-standing history of Crohn's disease who presented to the emergency department with abdominal pain and concerns for small bowel obstruction. He has a history of Crohn's disease diagnosed in 2026, had surgery many years ago. Currently maintained on mesalamine and Inflectra and follows with Dr. Black. States yesterday morning he got up he started having abdominal pain, was only able to have a very small bowel movement the last couple of days. They have been solid. Denies any rectal bleeding or blood in his stool. He states he was concerned that had a small bowel obstruction and symptoms were similar in the past. His last colonoscopy done on 06/13/[address] Black was found to be a normal colonoscopy. He had a CT of the abdomen and pelvis that reported sequela of chronic Crohn's disease with focal narrowing of the small bowel in the midabdomen with upstream dilation likely representing partial obstruction. Patient submitted for small bowel obstruction. Currently has NG tube in place with suction with approximately 100 mL of bile-like fluid. States abdominal pain slightly better as well as bloating. He also states that he felt like he had a fever and chills at home. Patient had leukocytosis on admission. WBC 14.8 hemoglobin 14, hematocrit 41 platelet count 358,000 sodium 140 potassium 4.5 BUN 34 creatinine 1.5 total bilirubin 1.5 AST 41 ALT 44 alkaline phosphatase 78. 10/31/2023 Patient was seen and examined is a follow-up. Still having abdominal pain. No nausea or vomiting. NG tube in place with suction with minimal output. Denies any flatus or bowel movement. 11/03/23 Patient seen and examined sitting up eating breakfast. He has been passing flatus and had a bowel movement over the weekend. No nausea or vomiting. Abdominal pain improved. No rectal bleeding. He's been afebrile he's been afebrile. Objective - Vital Signs Vital signs: Vital Signs Temp 98 F 11/03/23 07:37 Pulse 51 L 11/03/23 07:37 Resp 17 11/03/23 07:37 BP 142/74 11/03/23 07:37 Pulse Ox 98 11/03/23 07:37 FiO2 Intake & Output 11/02/23 11/03/23 11/03/23 18:59 06:59 18:59 Intake Total 590 Balance 590 Intake: Oral 590 Other: Voiding Method Toilet Urinal # Voids 2 2 1 # Bowel Movements 1 1 - Exam General appearance: The patient is alert, oriented, appears in no acute distress. HET: Head is normocephalic and atraumatic. Conjunctiva pink. Sclera anicteric. Neck: Supple without lymphadenopathy. Abdomen: Soft, nontender, nondistended. No guarding or rigidity. Extremities: Normal skin color and turgor. No pedal edema Skin: No rashes, no jaundice Neurological: No focal deficits. Alert and oriented. - Labs CBC & Chem 7: 11/02/23 06:40 11/02/23 06:40 Labs: Abnormal Lab Results - Last 24 Hours (Table) 11/02/23 Range/Units 06:40 Chloride 116 H (98-107) mmol/L Carbon Dioxide 14 L (22-30) mmol/L BUN 33 H (9-20) mg/dL Glucose 124 H (74-99) mg/dL Calcium 8.3 L (8.4-10.2) mg/dL Albumin 3.2 L (3.5-5.0) g/dL Assessment and Plan (1) Crohn disease Narrative/Plan: 67-year-old male with long-standing history of Crohn's disease affecting his small bowel who has been known to have a small bowel obstructions in the past again presenting with abdominal pain and distention with findings of partial small bowel obstruction. Currently being treated with NG tube, nothing by mouth and will start on IV steroids as well as antibiotics for leukocytosis and reported fever chills at home. General surgery on consult for small bowel obstruction, however recommend conservative treatment at this time as patient usually responds well to his steroids and has not required any surgery in the recent past. Status: Chronic Code(s): K50.90 - CROHN'S DISEASE, UNSPECIFIED, WITHOUT COMPLICATIONS SNOMED Code(s): 98049180 (2) Bowel obstruction Narrative/Plan: Continue with recommendations from general surgery Bowel obstruction resolve. Patient doing well with regular diet. Status: Acute Code(s): K56.609 - UNSP INTESTNL OBST, UNSP TO PARTIAL VERSUS COMPLETE OBST SNOMED Code(s): 50891386 Plan: 1. Continue symptomatic and supportive care 2. Continue diet as tolerated 3. Transition to prednisone 40 mg daily 4. Leukocytosis secondary to steroids. Discontinue IV antibiotics 5. Encourage ambulation 6. Prednisone taper dose on discharge Thank you for this consultation. Dr. Mary Black I agree with the dictator's note, documented as a scribe by Alexandra Dai.
--- NOTE | 2023-11-03 13:35 | P.PN ---
Subjective Progress Note Date: 11/03/23 CHIEF COMPLAINT: Partial small bowel obstruction HISTORY OF PRESENT ILLNESS: Patient reports he is feeling better. NG tube removed over the weekend. Tolerating diet. He has been having bowel movements. He has been seen by GI service. The recommending to transition to oral steroids and cleared for discharge. Patient has been up and ambulating. Afebrile. WBC 8.4 PHYSICAL EXAM: VITAL SIGNS: Reviewed GENERAL: Well-developed in no acute distress. HEENT: No sclera icterus. Extraocular movements grossly intact. Moist buccal mucosa. Head is atraumatic, normocephalic. Hears conversational speech. No nasal drainage. NECK: Supple without lymphadenopathy. CHEST: Non-labored respirations and equal bilateral excursions. CARDIOVASCULAR: Palpable 2+ radial pulses. ABDOMEN: Abdomen is softer. Slightly less distended. Nontender. MUSCULOSKELETAL: No clubbing or cyanosis. NEUROLOGIC: No focal or lateralizing signs. Cranial nerves II through XII grossly intact. PSYCH: Appropriate affect. Alert and oriented to person, place and time. SKIN: Well perfused. Good skin turgor. ASSESSMENT: 1. Partial small bowel obstruction likely secondary to his Crohn's. Now resolved. 2. History of Crohn's with likely a Crohn's exacerbation 3. History of multiple abdominal surgeries 4. History of prostate cancer status post prostatectomy and radiation treatment 5. Acute kidney injury 6. Hypertension 7. Hyperlipidemia 8. Leukocytosis PLAN: -Patient can be discharged from surgical standpoint -Discharge Steroids per GI recommendation -Recommend a follow-up with GI service outpatient Physician Deaf/Hard Of Hearing Specialist note has been reviewed by physician. Signing provider agrees with the documented findings, assessment, and plan of care. Objective - Vital Signs Vital signs: Vital Signs Temp 98 F 11/03/23 07:37 Pulse 51 L 11/03/23 07:37 Resp 17 11/03/23 07:37 BP 142/74 11/03/23 07:37 Pulse Ox 98 11/03/23 07:37 FiO2 Intake & Output 11/02/23 11/03/23 11/03/23 18:59 06:59 18:59 Intake Total 590 Balance 590 Intake: Oral 590 Other: Voiding Method Toilet Urinal # Voids 2 2 1 # Bowel Movements 1 1 - Labs CBC & Chem 7: 11/02/23 06:40 11/02/23 06:40 Labs: Abnormal Lab Results - Last 24 Hours (Table) 11/02/23 Range/Units 06:40 Chloride 116 H (98-107) mmol/L Carbon Dioxide 14 L (22-30) mmol/L BUN 33 H (9-20) mg/dL Glucose 124 H (74-99) mg/dL Calcium 8.3 L (8.4-10.2) mg/dL Albumin 3.2 L (3.5-5.0) g/dL
== END 2023-11-03 13:28 | disposition home or self-care (01) | DRG 386 ==
LOC: EC 19:17 → 4SSUR 22:37 → 5NMEDONC 10-30 12:33
PROVIDERS: ADMIT Internal Medicine; ATTEND Internal Medicine
PROC: 0D9670Z Drainage of Stomach with Drainage Device, Via Natural or Artificial Opening (ICD-10-PCS; principal; 2023-10-29)
DX: K50.912 Crohn's disease, unspecified, with intestinal obstruction (principal); N17.9 Acute kidney failure, unspecified; I10 Essential (primary) hypertension; E03.9 Hypothyroidism, unspecified; Z79.890 Hormone replacement therapy; E86.0 Dehydration; E78.5 Hyperlipidemia, unspecified; D72.829 Elevated white blood cell count, unspecified; F41.9 Anxiety disorder, unspecified; Z85.46 Personal history of malignant neoplasm of prostate; Z90.79 Acquired absence of other genital organ(s); M19.90 Unspecified osteoarthritis, unspecified site; Z92.3 Personal history of irradiation; Z79.899 Other long term (current) drug therapy; Z82.49 Family history of ischemic heart disease and other diseases of the circulatory system; Z88.5 Allergy status to narcotic agent; Z90.49 Acquired absence of other specified parts of digestive tract; Z87.19 Personal history of other diseases of the digestive system
CPT/HCPCS: 36415; 74018; 74177; 80048; 80053; 83605; 85025; 85652; 86140; 96361; 96365; 96366; 96372; 96375; 96376; 99285

== ENCOUNTER → 2024-01-21 | Day surgery (SDC) | payer MEDICARE, OTHER ==
[2024-01-21] MEDS: GLUCAGON 1 MG/ML VIAL IM STA (09:26)
[2024-01-21 10:02] VITALS: BP 120/76; PULSE 68; RESP 18; TEMP 98.7
--- NOTE | 2024-01-23 22:02 | MR ---
EXAMINATION TYPE: MR Enterography DATE OF EXAM: 01/21/2024 10:15 AM COMPARISON: CT 10/29/2023, MR 07/04/2015, CT 09/03/2022 CLINICAL INDICATION: Male 68 years old with a history of K50.90 CROHN'S DISEASE, UNSPECIFIED, WITHOUT COMPL. Crohn's disease. TECHNIQUE: Standard multiplanar, multisequence imaging of the abdomen is performed without and with I V contrast, patient is injected with 7.5 mL intravenous Gadavist gadolinium contrast. Oral NeuLumEX w as given as per enterography protocol. FINDINGS: LOWER CHEST: No significant findings. ABDOMEN Bowel: Resolution of dilation seen on priors CT on 10/29/2023. Similar postsurgical changes within th e right abdomen with dilation of the bowel at the anastomotic site. This measures up to 9.1 cm in tra nsverse dimension. No evidence for mucosal hyperenhancement, stricture or fistulous tract formation. Peritoneum: No evidence of pneumoperitoneum, free fluid, or adenopathy. Liver: Unremarkable. Gallbladder and Bile ducts: Gallbladder is surgically absent. No ductal dilation choledocholithiasis or stricture identified. Pancreas: No ductal dilation or masses identified. Spleen: Within normal limits for size. Adrenal glands: Unremarkable. Kidneys: No obstructive uropathy. Scattered right T2 signal cyst. Bladder: Unremarkable. Reproductive: Unremarkable. Lymph Nodes: Vasculature:. No aortic aneurysm. Musculoskeletal: The osseous structures appear intact. Multilevel degeneration changes of the spine. Abdominal wall: Unremarkable. IMPRESSION: Resolution of prior dilation of multiple small bowel loops in the abdomen seen on prior CT.. Addition ally, there is postsurgical change with dilation of small bowel in the right abdomen a tubular struct ure present near suture likely representing radiopaque foreign body which is similar prior 09/03/2022 and the right abdomen.
== END ==
LOC: RADMRIMAIN 07:41
PROVIDERS: ATTEND Internal Medicine Gastroenterology
DX: K50.90 Crohn's disease, unspecified, without complications (principal)
CPT/HCPCS: 96372; 72197; 74183; J1610; A9585

== ENCOUNTER → 2024-09-02 | Outpatient (CLI) | payer MEDICARE, OTHER ==
--- NOTE | 2024-09-02 17:02 | US ---
EXAMINATION TYPE: US kidneys/renal and bladder DATE OF EXAM: 09/02/2024 COMPARISON: NONE CLINICAL INDICATION: Male, 68 years old with history of R79.9 ABNORMAL FINDING OF BLOOD CHEMISTRY; Ab normal renal function test. TECHNIQUE: Grayscale and color Doppler imaging of the bilateral kidneys and urinary bladder: EXAM MEASUREMENTS: Right Kidney: 11.5 x 4.9 x 4.2 cm Left Kidney: 10.3 x 5.8 x 3.7 cm Right Kidney: No hydronephrosis or masses seen Left Kidney: No hydronephrosis or masses seen Bladder: Anechoic nonspecific echogenic structures along the posterior wall the bladder. Bilateral Jets seen: Right only. There is no evidence for hydronephrosis at this point in time. No nephrolithiasis is seen. No nephro lithiasis. Renal cortex and echogenicity maintained. IMPRESSION: No hydronephrosis or nephrolithiasis. Nonspecific echogenic linear structures along the posterior wal l the bladder. Recommend three-month follow-up ultrasound of the bladder. [facility], , 09/02/2024 5:00 PM
== END | disposition home or self-care (01) ==
LOC: RADUSWWP 15:44
PROVIDERS: ATTEND Internal Medicine
DX: N32.89 Other specified disorders of bladder (principal); R79.9 Abnormal finding of blood chemistry, unspecified
CPT/HCPCS: 76770

== ENCOUNTER → 2024-11-30 | Outpatient (CLI) | payer MEDICARE, OTHER ==
[2024-11-30 08:26] LABS: Appearance,Urine Clear (Clear); Bilirubin,Urine Negative (Negative); Blood,Urine Negative (Negative); Color,Urine Light Yellow; Glucose,Urine (UA) Trace (Negative); Ketones,Urine Negative (Negative); Leukocyte Esterase,Urine Negative (Negative); Mucus,Urine Rare /hpf; Nitrite,Urine Negative (Negative); PH, Urine 5.5 (5.0-8.0); Protein,Urine Trace (Negative); Specific Gravity,Urine 1.023 (1.001-1.035); Urobilinogen,Urine <2.0 mg/dL (<2.0); WBC,Urine <1 /hpf (0-5)
[2024-11-30 10:14] LABS: HGB 12.6 g/dL (13.0-17.0); MCHC 34.1 g/dL (32.0-37.0); MCV 90.9 FL (80.0-97.0); Mean Platelet Volume 10.7 FL (9.5-12.2); NRBC Per 100 WBC 0 X 10*3/uL (0.00-0.01); Platelet Count 365 X 10*3/uL (140-440); RBC 4.07 X 10*6/uL (4.40-5.60); RDW 12.4 % (11.5-14.5); WBC 13.44 X 10*3/uL (4.50-10.00)
[2024-11-30 10:26] LABS: ALT 30 U/L (10-49); AST 22 U/L (14-35); Albumin 4.3 g/dL (3.8-4.9); Albumin/Globulin Ratio 1.43 Ratio (1.60-3.17); Alkaline Phosphatase 81 U/L (41-126); BUN/Creat Ratio 25.36 Ratio (12.00-20.00); Blood Urea Nitrogen 35.5 mg/dL (9.0-27.0); Calcium 8.9 mg/dL (8.7-10.3); Chloride 108 mmol/L (96-109); Glucose 241 mg/dL (70-110); Magnesium 2.1 mg/dL (1.5-2.4); Phosphorus 2.8 mg/dL (2.4-5.1); Potassium 4.7 mmol/L (3.5-5.5); Sodium 138 mmol/L (135-145); Total Bilirubin 0.6 mg/dL (0.3-1.2); Total Protein 7.3 g/dL (6.2-8.2)
== END | disposition home or self-care (01) ==
LOC: LABWHC1 06:44
PROVIDERS: ATTEND Internal Medicine
DX: D64.9 Anemia, unspecified (principal); N39.0 Urinary tract infection, site not specified; R79.89 Other specified abnormal findings of blood chemistry
CPT/HCPCS: 36415; 80053; 81003; 83735; 84100; 85027

== ENCOUNTER → 2025-03-03 | Outpatient (CLI) | payer MEDICARE, OTHER ==
[2025-03-03 14:49] LABS: Basophils # (A) 0.07 X 10*3/uL (0.00-0.10); Eosinophils % (A) 5.8 %; HCT 37.7 % (39.6-50.0); HGB 12.4 g/dL (13.0-17.0); Lymphocytes # (A) 2.41 X 10*3/uL (0.90-5.00); Lymphocytes % (A) 35.1 %; MCHC 32.9 g/dL (32.0-37.0); MCV 91.3 FL (80.0-97.0); Monocytes # (A) 0.76 X 10*3/uL (0.20-1.00); Monocytes % (A) 11.1 %; NRBC Per 100 WBC 0 X 10*3/uL (0.00-0.01); Neutrophils # (A) 3.18 X 10*3/uL (1.80-7.70); Neutrophils % (A) 46.3 %; Platelet Count 316 X 10*3/uL (140-440); RBC 4.13 X 10*6/uL (4.40-5.60); RDW 12.5 % (11.5-14.5); WBC 6.87 X 10*3/uL (4.50-10.00)
[2025-03-03 14:53] LABS: Protein, Total 7.4 g/dL (6.2-8.2)
[2025-03-03 15:09] LABS: % Iron Saturation 19.25 (15.00-50.00); ALT 43 U/L (10-49); AST 38 U/L (14-35); Albumin 4.4 g/dL (3.8-4.9); Albumin/Globulin Ratio 1.38 Ratio (1.60-3.17); Alkaline Phosphatase 70 U/L (41-126); Blood Urea Nitrogen 22.5 mg/dL (9.0-27.0); Calcium 9.2 mg/dL (8.7-10.3); Carbon Dioxide 20.3 mmol/L (21.6-31.8); Chloride 109 mmol/L (96-109); Ferritin 46.5 ng/mL (22.0-322.0); Globulin 3.2 g/dL (1.6-3.3); Glucose 120 mg/dL (70-110); Iron 72 UG/DL (65-175); Phosphorus 3.3 mg/dL (2.4-5.1); Potassium 4.4 mmol/L (3.5-5.5); Sodium 140 mmol/L (135-145); Total Iron Binding Capacity 374 UG/DL (228-460); Total Protein 7.6 g/dL (6.2-8.2)
[2025-03-03 15:15] LABS: Appearance,Urine Clear (Clear); Bilirubin,Urine Negative (Negative); Blood,Urine Negative (Negative); Color,Urine Yellow (Yellow); Ketones,Urine Negative (Negative); Nitrite,Urine Negative (Negative); PH, Urine 5.5; Specific Gravity,Urine 1.018 (1.001-1.030)
[2025-03-03 15:17] LABS: INR 1.02 sec (0.93-1.11); Prothrombin Time 11.6 sec (9.9-11.9)
[2025-03-04 10:03] LABS: Free Kappa Lt Chain Qnt, Serum 5.89 mg/dL (0.33-1.94); Free Lambda Lt Chain Qnt, Seru 2.63 mg/dL (0.57-2.63)
== END | disposition home or self-care (01) ==
LOC: LABWHC1 09:13
PROVIDERS: ATTEND Internal Medicine
DX: N18.32 Chronic kidney disease, stage 3b (principal); D63.1 Anemia in chronic kidney disease; N39.0 Urinary tract infection, site not specified; E55.9 Vitamin D deficiency, unspecified; N25.81 Secondary hyperparathyroidism of renal origin; M10.9 Gout, unspecified; R80.9 Proteinuria, unspecified
CPT/HCPCS: 36415; 80053; 81003; 82043; 82306; 82570; 82728; 83540; 83550; 83735; 83883; 84100; 84165; 84550; 85025; 85610; 86334

== ENCOUNTER → 2025-06-06 | Outpatient (CLI) | payer MEDICARE, OTHER ==
--- NOTE | 2025-06-06 12:56 | XR ---
EXAMINATION TYPE: XR bone survey complete DATE OF EXAM: 06/06/2025 12:28 PM COMPARISON: Plain film and CT CLINICAL INDICATION: Male, 69 years old with history of D47.2 MONOCLONAL GAMMOPATHY; PH[facility] TECHNIQUE: Several radiographics images of the axial and appendicular spine were obtained in multipl e projections. FINDINGS: Skull: No lytic or sclerotic lesions are identified. Spine: No lytic or sclerotic lesions are identified. The pedicles are intact. There are no fractures, dislocations or subluxations. Multilevel degeneration changes of the spine opacified formation disc space narrowing. Chest: No lytic or sclerotic lesions are identified. The ribs have a normal appearance. Abdomen/Pelvis: No lytic or sclerotic lesions are identified. Surgical clips project over the pelvis. Extremities: No lytic or sclerotic lesions are identified. Degeneration changes throughout the visual ized joints of the extremities and joints with osteophyte formation. IMPRESSION: No suspicious osseous lesion. [facility], , 06/06/2025 12:53 PM
== END | disposition home or self-care (01) ==
LOC: RADXRMAIN 11:51
PROVIDERS: ATTEND Internal Medicine Hematology & Oncology
DX: D47.2 Monoclonal gammopathy (principal)
CPT/HCPCS: 77075